=== PATIENT | female | born 1940 | race Caucasian/White ===

== ENCOUNTER 2020-08-06 11:45 | Inpatient (IN) | payer MEDICARE ==
[~2020-08-06] VITALS: Ht 160 cm; Wt 91.6 kg
[2020-08-07 12:45] VITALS: BP 136/69
[2020-08-07] MEDS ORDERED: GLUCAGON INJ 1MG VIAL SC PRN (13:00)
[2020-08-07] MEDS ORDERED: DOCUSATE SOD LIQ 100MG/10ML UDC GT PRN (13:00)
[2020-08-07] MEDS ORDERED: GLUCOSE 4GM CHEW TABLET PO PRN (13:00)
[2020-08-07] MEDS: REMEDY PHYTOPLEX Z-GUARD PASTE 113GM TUBE (FROM STOREROOM PRODUCT) TOP SCH ×3 (13:00→21:39)
[2020-08-07] MEDS ORDERED: ACETAMINOPHEN 325 MG/10.15 ML UDC GT PRN ×2 (13:00)
[2020-08-07] MEDS ORDERED: DEXTROSE 50% 50 ML SYRINGE IV PRN (13:00)
--- NOTE | 2020-08-07 13:23 | HPEPDOC ---
Supervisor Grips Note DATE OF ADMISSION: 08-07-20 DATE OF SERVICE: 08-07-20 TIME OF ADMISSION: Please refer to physician's admission order. 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 MRI on 08-20-20 showed Acute infarct in left MCA territory involving the left parietal lobeEncephalomalacia due to chronic infarct in left BRIAN territory and right temporal occipital regions. She was made NPO and received feeds via NGT. She had seizure like activity, was started on Keppra then switched to Depakote due to thrombocytopenia with follow-up MRI on showed, interval development of new infarct within the left frontotemporal lobe, as well as interval increase in the previously seen left parietal lobe infarct. Increased susceptibility artifact within the left parietal lobe, in the region of infarct may represent a small component of hemorrhage. She had an autoimmune work-up for etiology of stroke, but ultimately was deemed due to cardioembolic in origin as she was noted to have episodes of Afib while on telemetry. She remained NPO and had a PEG placed on 08-02-20 with severe impairments in mobility and ADLs and deemed medically approbate for discharge to ARU on 08-07-20. REVIEW OF SYSTEMS: The following is a completed review of systems and has been reviewed. Review of systems otherwise unremarkable. PAIN: Patient self reports no pain EYES: difficult to assess EARS, NOSE, & THROAT:+dysphagia CARDIOVASCULAR: Denies chest pain or palpitations PULMONARY: Denies shortness of breath GASTROINTESTINAL: +PEG GENITOURINARY: +incontinence MUSCULOSKELETAL: right sided weakness NEUROLOGICAL:right sided paresis, expressive aphasia SKIN: skin breakdown under breasts and in abdominal folds PSYCHIATRIC: Unremarkable All other review of systems found to be negative. PAST MEDICAL HISTORY: as per HPI ALLERGIES: Please see below. MEDICATIONS: Please see below. SOCIAL HISTORY: no etoh/illicit drugs/smoking DIET: NPO PHYSICAL EXAMINATION: VITAL SIGNS: Please see below. GENERAL: Pleasant and cooperative. No acute distress. HEENT: PERRL. Extraocular movements intact. Clear conjunctiva CARDIOVASCULAR: Regular rate and rhythm. No murmurs, rubs, or gallops LUNGS: Clear to auscultation bilaterally. No wheezes. No rhonchi ABDOMEN: Soft, nontender, nondistended. Positive bowel sounds. Normal active bowel sounds NEUROLOGICAL: +expressive aphasia, able to follow commands, Sensation grossly intact EXTREMITIES: 5/5 strength LUE, 3+/5 RUE, 4\\5 strength right lower extremity. 5/5 strength in left lower extremity. SKIN: +sacral excoriation, bilateral under breast skin breakdown and in abdominal folds LABORATORY DATA: Please see below. IMAGING:Imaging documentation personally reviewed by record FUNCTIONAL STATUS: Premorbid: Independent with all activities of daily life as well as mobility On Admission: max-total for bed mobility, toileting, dressing, functional transfers GOALS: Supervision-Contact guard for dressing, toileting, functional transfers, ambulation with RW ASSESSMENT:80-year-old F with past medical history of stroke, CKD, DM who presents status post left MCA infarct with new onset seizures PLAN: 1. Rehab- PT/OT advance mobility and ADLs, maintain ROM/stretch/strengthen all 4 limbs- multipodus boot to right foot -[employer]- patient with expressive aphasia and dysphagia, NPO, advance diet safely 2. Neuro- s/p left MCA infarct with expressive aphasia, dysphagia, and right sided hemiparesis, c/u Eliquis for AFib, statin for secondary stroke prevention- - recent post-stroke seizure activity c/u depakote 3. Cardiac- ECHO 07-23-20 showed Normal global systolic left ventricular function. This study is inadequate for the evaluation of regional wall motion. At least grade 2 diastolic dysfunction without interatrial shunt via bubble study" will hold off on fluid restriction while getting tube feeds - new onset Afib c/u eliquis and atenolol -HLD- statin 4. resp- monitor for infection, DUonebs and guaifenesin ordered, CXR ordered to r/o infectious process as increasing wbc per GI records 5. GI ppx- lansoprazole -tube feeds 6. VAsc hx of DVT c/u eliquis 7. - monitor PVRs, will order UA/Ucx given patient unable to give clear answer regarding dysuria and unclear if she is confused/altered, but does have leukocytosis 8. Pain- tylneol prn, lidoderm patch to right shoulder 9. Psych- patient was on Budeprion 100mg BID at home and off it while at GI will start back at half dose 50mg BID 10. Dispo- tbd POST ADMISSION PHYSICIAN EVALUATION: Medical and functional status: Description of medical status, medical assessment: As above. Rehabilitation diagnosis and current and prior cold morbid medical conditions as above. Risk of complications and plans to mitigate them as above. Description of functional status current status is as above. Prior status as above. Status compared to preadmission: There are no clinically significant differences between the patient's current status and the information described on the preadmission screening document. Treatment plan anticipated: Treatment plan is as described above. Required disciplines including physical therapy, occupational therapy, others as noted above Intensity of services: 3 hours a day, 6 days a week. Special considerations: There are no specific special or safety considerations that would likely preclude immediate implementation of an intensive rehabilitation program or subsequently influence the plan of care ATTESTATION: Considering all the information above, it is my best judgment that this patient requires intensive rehabilitation therapy as described above and an inpatient hospital environment due to the complexity of nursing, medical, and rehabilitation needs required by the patient. Furthermore, this patient can reasonably be expected to participate in an benefit from an inpatient rehabilitation stay with an interdisciplinary team approach to the delivery of rehabilitation care under the direction and supervision of rehabilitation physician PROGNOSIS: good ESTIMATED LENGTH OF STAY:21-24 days. PROJECTED DISCHARGE DESTINATION: Home with family support and any durable medical equipment required to increase functional safety and mobility. TIME SPENT COUNSELING AND COORDINATING INITIAL CARE: Greater than 70 minutes. Vital Signs Vital Signs Date Time Temp Pulse Resp B/P (MAP) Pulse Ox O2 Delivery O2 Flow Rate FiO2 08/07/20 12:45 98.4 88 19 136/69 (91) 95 Room Air Home Medications Scheduled Apixaban (Eliquis) 5 Mg Tablet, 5 MG GT BID, (Reported) STARTED AT [facility] Atenolol (Atenolol) 50 Mg Tablet, 50 MG PO DAILY, (Reported) NOT GIVEN AT [facility] Atorvastatin Calcium (Atorvastatin Calcium) 40 Mg Tablet, 40 MG GT DAILY, (Reported) STARTED AT [facility] Bupropion HCl (Bupropion HCl Sr) 100 Mg Tab.sr.12h, 100 MG PO DAILY, (Reported) NOT GIVEN AT [facility] Docusate Sodium (Docusate Sodium) 50 Mg/5 Ml Liquid, 100 MG GT BID, (Reported) STARTED AT [facility] Gabapentin (Gabapentin) 100 Mg Capsule, 300 MG PO QHS, (Reported) NOT GIVEN AT [facility] Losartan Potassium (Losartan Potassium) 25 Mg Tablet, 25 MG GT DAILY, (Reported) STARTED AT [facility] Magnesium Hydroxide (Milk of Magnesia) 400 Mg/5 Ml Oral.susp, 15 ML GT DAILY, (Reported) STARTED AT [facility] Oxybutynin Chloride (Oxybutynin Chloride) 5 Mg Tablet, 5 MG GT BID, (Reported) Polyethylene Glycol 3350 (Miralax) 119 Gm Powder, 17 GM GT BID, (Reported) STARTED AT [facility] Potassium Chloride (Potassium Chloride) 8 Meq Tablet.er, 8 MEQ PO BID, (Reported) NOT GIVEN AT [facility] Sennosides (Senna Laxative) 8.6 Mg Tablet, 17.2 MG GT BID, (Reported) Valproic Acid (As Sodium Salt) (Valproic Acid) 250 Mg/5 Ml Solution, 650 MG GT TID, (Reported) STARTED AT [facility] Allergies Coded Allergies: No Known Allergies (Unverified , 08/07/20) A-FIB/CHADSVASC A-FIB History Current/History of A-Fib/PAF?: Yes Current PO Anticoag Therapy: Yes SANTA HOOVER MD Aug 07, 2020 13:23
[2020-08-07] MEDS ORDERED: LOSA25TA14 GT (13:44)
[2020-08-07] MEDS ORDERED: MILKSUS3 GT (13:44)
[2020-08-07] MEDS ORDERED: BUPR1TAB52 PO (13:44)
[2020-08-07] MEDS ORDERED: GABA-1171 PO (13:44)
[2020-08-07] MEDS ORDERED: ELIQ5TAB GT (13:44)
[2020-08-07] MEDS ORDERED: MIRA3350 GT (13:44)
[2020-08-07] MEDS ORDERED: SENN-85 GT (13:44)
[2020-08-07] MEDS ORDERED: POTA1TAB21 PO (13:44)
[2020-08-07] MEDS ORDERED: OXYB5TAB10 GT (13:44)
[2020-08-07] MEDS ORDERED: ATOR40TA75 GT (13:44)
[2020-08-07] MEDS ORDERED: VALP250S GT (13:44)
[2020-08-07] MEDS ORDERED: ATEN50TA2 PO (13:44)
[2020-08-07] MEDS ORDERED: DOCU5LIQ GT (13:44)
[2020-08-07 14:00] VITALS: BP 130/70
[2020-08-07] MEDS ORDERED: PILL CUTTER 1 EACH XX PRN (14:30)
[2020-08-07] MEDS: IPRATROPIUM 0.5MG/ALBUTEROL 2.5MG INH SOL UD 3ML (DUONEB) NEB SCH ×2 (15:45→19:57)
[2020-08-07] MEDS: guaiFENesin SYRUP 200 MG/10 ML UDC PEG SCH ×2 (16:09→21:31)
[2020-08-07] MEDS: NYSTATIN 100,000 UNITS/GM TOPICAL PWD 15 GM TOP SCH ×2 (16:10→21:39)
[2020-08-07] MEDS: VALPROIC ACID 250MG/5ML SOL ORAL SYRINGE *DRAW UP EXACT DOSE PEG SCH ×2 (16:10→21:37)
--- NOTE | 2020-08-07 17:05 | REP ---
INDICATION: r/o PNA, patient with PEG placed 12--20 for stroke. COMPARISON: No comparison study. TECHNIQUE: Two views.. FINDINGS: Lungs are symmetrically aerated. No infiltrate is seen. Pleural angles are sharp. The views are exposed at a relatively low level of inspiration. Heart is not felt to be enlarged. Aorta is somewhat tortuous. No significant bony abnormality is seen. There is no evidence of free subdiaphragmatic air. IMPRESSION: No active disease. No infiltrate seen.. <Electronically signed by Adán Dominguez > 08/07/20 1449
[2020-08-07 20:00] VITALS: BP 129/71
[2020-08-07] MEDS: buPROPion 100 MG TAB PO SCH (21:30)
[2020-08-07] MEDS: oxyBUTYnin 5 MG TAB PEG SCH (21:31)
[2020-08-07] MEDS: APIXABAN 5 MG TAB (ELIQUIS) PEG SCH (21:31)
[2020-08-08] MEDS: REMEDY PHYTOPLEX Z-GUARD PASTE 113GM TUBE (FROM STOREROOM PRODUCT) TOP SCH ×6 (00:30→21:40)
[2020-08-08 06:00] VITALS: BP 142/83
[2020-08-08 07:44] LABS: HEMOGLOBIN 10.9 g/dl (12.0-15.5); MEAN CORPUSCULAR HEMOGLOBIN 30.4 pg (27.0-33.0); MEAN CORPUSCULAR HGB CONC 31.1 g/dl (32.0-36.5); MEAN CORPUSCULAR VOLUME 97.5 fl (80.0-96.0); PLATELET COUNT, AUTOMATED 200 10^3/uL (150-450); RED BLOOD COUNT 3.59 10^6/uL (4.00-5.40); WHITE BLOOD COUNT 12.9 10^3/uL (4.0-10.0)
[2020-08-08] MEDS: oxyBUTYnin 5 MG TAB PEG SCH ×2 (08:08→21:27)
[2020-08-08] MEDS: guaiFENesin SYRUP 200 MG/10 ML UDC PEG SCH ×3 (08:09→21:28)
[2020-08-08] MEDS: ATORVASTATIN 20 MG TAB PEG SCH (08:10)
[2020-08-08] MEDS: LOSARTAN 25 MG TAB PEG SCH (08:10)
[2020-08-08] MEDS: buPROPion 100 MG TAB PO SCH ×2 (08:11→21:28)
[2020-08-08] MEDS: BISACODYL 10 MG SUPP PR SCH (08:12)
[2020-08-08] MEDS: APIXABAN 5 MG TAB (ELIQUIS) PEG SCH ×2 (08:12→21:27)
[2020-08-08] MEDS: atenoloL 50 MG TAB PEG SCH (08:12)
[2020-08-08] MEDS: VALPROIC ACID 250MG/5ML SOL ORAL SYRINGE *DRAW UP EXACT DOSE PEG SCH ×3 (08:13→21:27)
[2020-08-08] MEDS: NYSTATIN 100,000 UNITS/GM TOPICAL PWD 15 GM TOP SCH ×3 (08:13→21:40)
[2020-08-08 08:16] LABS: ALBUMIN 2.1 GM/DL (3.2-5.2); ALT/SGPT 18 U/L (12-78); ATYPICAL LYMPH 1 % (0-5); BASOPHILS 1 % (0-1); BILIRUBIN,TOTAL 0.5 MG/DL (0.2-1.0); BLOOD UREA NITROGEN 38 MG/DL (7-18); CALCIUM LEVEL 7.9 MG/DL (8.8-10.2); CARBON DIOXIDE LEVEL 29 MEQ/L (21-32); CHLORIDE LEVEL 111 MEQ/L (98-107); GLOMERULAR FILTRATION RATE > 60.0 (>39); GLUCOSE, FASTING 118 MG/DL (70-100); LYMPHOCYTES 16 % (16-44); MONOCYTES 14 % (0-5); MYELOCYTES 3 % (0-0); NEUTROPHILS 61 % (28-66); POTASSIUM SERUM 4.3 MEQ/L (3.5-5.1); SODIUM LEVEL 145 MEQ/L (136-145); TOTAL PROTEIN 5.6 GM/DL (6.4-8.2)
[2020-08-08 08:17] LABS: ANISOCYTOSIS 1+; PLATELET ESTIMATE NORMAL (NORMAL); POLYCHROMASIA 1+
[2020-08-08] MEDS: IPRATROPIUM 0.5MG/ALBUTEROL 2.5MG INH SOL UD 3ML (DUONEB) NEB SCH ×3 (08:35→19:20)
--- NOTE | 2020-08-08 10:14 | IPNPDOC ---
PM&R Progress Note DATE OF SERVICE: Aug 08, 2020 Head Nurse Progress Note Subjective: PAtient seen in therapy, appearing alert and able to follow commands consistently, however unable to answer yes/no questions accurately due to expressive aphasia. REVIEW OF SYSTEMS: The following is a completed review of systems and has been reviewed. Review of systems otherwise unremarkable. PAIN: Patient self reports no pain EYES: difficult to assess EARS, NOSE, & THROAT:+dysphagia CARDIOVASCULAR: Denies chest pain or palpitations PULMONARY: Denies shortness of breath GASTROINTESTINAL: +PEG GENITOURINARY: +incontinence MUSCULOSKELETAL: right sided weakness NEUROLOGICAL:right sided paresis, expressive aphasia SKIN: skin breakdown under breasts and in abdominal folds PSYCHIATRIC: Unremarkable All other review of systems found to be negative. PHYSICAL EXAMINATION: VITAL SIGNS: Please see below. GENERAL: Pleasant and cooperative. No acute distress. HEENT: PERRL. Extraocular movements intact. Clear conjunctiva CARDIOVASCULAR: Regular rate and rhythm. No murmurs, rubs, or gallops LUNGS: Clear to auscultation bilaterally. No wheezes. No rhonchi ABDOMEN: Soft, nontender, nondistended. Positive bowel sounds. Normal active bowel sounds NEUROLOGICAL: +expressive aphasia, able to follow commands, Sensation grossly intact EXTREMITIES: 5/5 strength LUE, 3+/5 RUE, 4\\5 strength right lower extremity. 5/5 strength in left lower extremity. SKIN: +sacral excoriation, bilateral under breast skin breakdown and in abdominal folds ASSESSMENT:80-year-old F with past medical history of stroke, CKD, DM who presents status post left MCA infarct with new onset seizures PLAN: 1. Rehab- PT/OT advance mobility and ADLs, maintain ROM/stretch/strengthen all 4 limbs- multipodus boot to right foot -[employer] ATT[employer]NEY- patient with expressive aphasia and dysphagia, NPO, advance diet safely 2. Neuro- s/p left MCA infarct with expressive aphasia, dysphagia, and right sided hemiparesis, c/u Eliquis for AFib, statin for secondary stroke prevention- - recent post-stroke seizure activity c/u depakote 3. Cardiac- ECHO 07-23-20 showed Normal global systolic left ventricular function. This study is inadequate for the evaluation of regional wall motion. At least grade 2 diastolic dysfunction without interatrial shunt via bubble study" will hold off on fluid restriction while getting tube feeds - new onset Afib c/u eliquis and atenolol -HLD- statin 4. resp- monitor for infection, DUonebs and guaifenesin ordered, CXR ordered to r/o infectious process as increasing wbc per [facility] records- appears WNL 5. GI ppx- lansoprazole -tube feeds 6. VAsc hx of DVT c/u eliquis 7. - monitor PVRs, will order UA/Ucx given patient unable to give clear answer regarding dysuria and unclear if she is confused/altered, but does have leukocytosis 8. Pain- tylneol prn, lidoderm patch to right shoulder 9. Psych- patient was on Budeprion 100mg BID at home and off it while at GI will start back at half dose 50mg BID 10. SKin- turn q2h in bed, dressing changes per nursing orders 10. Dispo- tbd Allergies Coded Allergies: No Known Allergies (Unverified , 08/07/20) Vital Signs Vital Signs Date Time Temp Pulse Resp B/P (MAP) Pulse Ox O2 Delivery O2 Flow Rate FiO2 08/08/20 08:12 88 142/83 08/08/20 06:00 97.7 18 97 Room Air Laboratory Data CBC/BMP Laboratory Tests 08/08/20 07:26 Labs 24H Laboratory Tests 2 08/07/20 17:55: Bedside Glucose (Misc Panel) 151H 08/08/20 00:18: Bedside Glucose (Misc Panel) 154H 08/08/20 05:24: Bedside Glucose (Misc Panel) 113H 08/08/20 07:26: Immature Granulocyte % (Auto) , Neutrophils (%) (Auto) , Nucleated Red Blood Cells % (auto) 0.0, Neutrophils 61, Band Neutrophils 4, Lymphocytes (Manual) 16, Monocytes (Manual) 14H, Basophils (Manual) 1, Myelocytes 3H, Atypical Lymphocytes 1, Polychromasia 1+, Anisocytosis 1+, Macrocytosis 1+, Platelet Estimate NORMAL, Anion Gap 5L, Glomerular Filtration Rate > 60.0, Calcium Level 7.9L, Total Bilirubin 0.5, Aspartate Amino Transf (AST/SGOT) 30, Alanine Aminotransferase (ALT/SGPT) 18, Alkaline Phosphatase 52, Total Protein 5.6L, Albumin 2.1L, Albumin/Globulin Ratio 0.6L Current Medications Current Medications Current Medications Medications (Trade) Dose Ordered Sig/Brenda Route PRN Reason Start Time Stop Time Status Last Admin Dose Admin Acetaminophen (Tylenol Suspension) 650 mg Q4HP PRN GT PAIN OR FEVER 08/07/20 13:00 Acetaminophen (Tylenol Suspension) 650 mg Q4HP PRN GT PAIN / FEVER 08/07/20 13:00 UNV Albuterol/ Ipratropium (Duoneb (Ipr 0.5mg/Alb 2.5mg)) 3 ml RTID NEB 08/07/20 14:00 08/08/20 08:35 Apixaban (Eliquis) 5 mg BID PEG 08/07/20 21:00 08/08/20 08:12 Atenolol (Tenormin) 50 mg DAILY PEG 08/08/20 09:00 08/08/20 08:12 Atorvastatin Calcium (Lipitor) 40 mg DAILY PEG 08/08/20 09:00 08/08/20 08:10 Bisacodyl (Dulcolax Suppository) 10 mg DAILY AR 08/08/20 09:00 08/08/20 08:12 Bupropion HCl (Wellbutrin) 50 mg BID PO 08/07/20 21:00 08/08/20 08:11 Dextrose (Dextrose 50%) 25 ml ASDIRECTED PRN IV SEE LABEL COMMENTS 08/07/20 13:00 Docusate Sodium (Colace Liquid) 100 mg BIDP PRN GT CONSTIPATION 08/07/20 13:00 Glucagon (Glucagon) 1 mg ASDIRECTED PRN SC SEE LABEL COMMENTS 08/07/20 13:00 Glucose (Glucose) 16 GM ASDIRECTED PRN PO SEE LABEL COMMENTS 08/07/20 13:00 Guaifenesin (Robitussin) 5 ml TID PEG 08/07/20 16:00 08/08/20 08:09 Home Med (Med Rec Complete!) ASDIRECTED XX 08/07/20 13:45 08/07/20 13:51 DC Losartan Potassium (Cozaar) 25 mg DAILY PEG 08/08/20 09:00 08/08/20 08:10 Nystatin (Mycostatin Powder, Nystop) 1 dose TID TOP 08/07/20 16:00 08/08/20 08:13 Oxybutynin Chloride (Ditropan) 5 mg BID PEG 08/07/20 21:00 08/08/20 08:08 Valproic Acid (Depakene Solution) 650 mg TID PEG 08/07/20 16:00 08/08/20 08:13 SANTA HOOVER MD Aug 08, 2020 10:14
[2020-08-08] MEDS: LIDOCAINE 5% (LIDODERM) PATCH TD SCH (12:17)
[2020-08-08] MEDS: LANSOPRAZOLE SUSPENSION 30 MG/10 ML ORAL SYRINGE (FIRST-LANSOPRAZOLE) GT SCH (12:40)
[2020-08-08 14:00] VITALS: BP 138/65
[2020-08-08 14:41] VITALS: BP 138/65
--- NOTE | 2020-08-08 14:43 | CR.PDOC ---
General Date of Consultation: Aug 08, 2020 Referring Provider: A Consultation REASON FOR CONSULTATION/CHIEF COMPLAINT: Medical management HISTORY OF PRESENT ILLNESS: 80-year-old female admitted to [facility] due to left lower extremity weakness and aphasia from [facility] with CT of the head s howing left vertebral occlusion. Patient was found to have an acute ischemic stroke in the left frontoparietal region concerning for cardioembolic phenomenon. Given bilateral old strokes in the past. She was admitted to the stroke service and [facility] and continued on her home dose of Xarelto and Lipitor. The patient was set fiddling transferred to [facility] acute rehabilitation unit after medical treatment at [facility]. . She is currently requiring 1 person assistance at all times but appears to be very cooperative. She currently denies any fevers, chills, shortness breath, chest pain, pressure, tightness, lightheadedness, nausea, vomiting, diarrhea, ab dominal pain, dysuria, urgency, frequency, fever, chills, polyphagia, polyuria, ear pain, discharge, changes in vision, rhinorrhea, tinnitus, ear discharge. She complains of weakness and quite anxious about falling. No other issues per nursing from overnight. PAST MEDICAL HISTORY: , Hypertension, ischemic CVA 1974 and chronic kidney disease stage III DVT PAST SURGICAL HISTORY: None HOME MEDICATIONS SEE BELOW. 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 Denies tobacco, alcohol, recreational drug use. Lives with her son at home FAMILY HISTORY: Noncontributory due to advanced age REVIEW OF SYSTEMS: 10 point system negative aside from positive findings in HPI PHYSICAL EXAMINATION: VITAL SIGNS: Please see below. GENERAL APPEARANCE: Awake, alert, oriented to person, place and time. . HEENT: Dry mucous membranes, no JVD, no thyromegaly, no cervical lymphadenopathy . LUNGS: Clear to auscultation. Wheezing, rales or rhonchi . HEART: S1, S2 regular rate rhythm, no murmurs, rubs or gallops . ABDOMEN: Obese, soft, nontender, nondistended, positive bowel sounds 4 quadr ants. No rebound or guarding. No CVA tenderness . EXTREMITIES: No cyanosis, clubbing or edema . NEURO: Awake, alert, oriented to person, place and time, answering questions appropriately. Face is symmetric. Tongue is midline. No pronator drift bilaterally, mild expressive aphasia but understandable and coherent. No receptive aphasia and no neglect. Motor function right upper and left upper extremities 5 out of 5, left lower extremity, creatinine 5. Right lower extremity 4-5. LABORATORY DATA: Please see below. ASSESSMENT: 80-year-old female admitted to [facility] due to left lower extremity weakness and aphasia from [facility] with CT of the head showing left vertebral occlusion. Patient was found to have an acute ischemic stroke in the left frontoparietal region concerning for cardioembolic phenomenon. Given bilateral old strokes in the past. She was admitted to the stroke service and [facility] and continued on her home dose of Xarelto and Lipitor. The patient was set fiddling transferred to [facility] acute rehabilitation unit after medical treatment at [facility]. . She is currently requiring 1 person assistance at all times but appears to be very cooperative. She currently denies any fevers, chills, shortness breath, chest pain, pressure, tightness, lightheadedness, nausea, vomiting, diarrhea, abdominal pain, dysuria, urgency, frequency, fever, chills, polyphagia, polyuria, ear pain, discharge, changes in vision, rhinorrhea, tinnitus, ear discharge. She complains of weakness and quite anxious about falling. No other issues per nursing from overnight. . Acute left frontoparietal ischemic CVA. history of bilateral CVA , Hypertension chronic kidney disease stage III h/o DVT PLAN: Patient is currently medically optimized may continue all present medications. High risk for falls assisted ambulation only. ptot. PLAN: Vital Signs/I&O Vital Signs Date Time Temp Pulse Resp B/P (MAP) Pulse Ox O2 Delivery O2 Flow Rate FiO2 08/08/20 08:12 88 142/83 08/08/20 06:00 97.7 18 97 Room Air I&O- Last 24 Hours up to 6 AM 08/08/20 06:00 Intake Total 1120 ml Balance 1120 ml Laboratory Data Labs 24H Laboratory Tests 2 08/07/20 17:55: Bedside Glucose (Misc Panel) 151H 08/08/20 00:18: Bedside Glucose (Misc Panel) 154H 08/08/20 05:24: Bedside Glucose (Misc Panel) 113H 08/08/20 07:26: Immature Granulocyte % (Auto) , Neutrophils (%) (Auto) , Nucleated Red Blood Cells % (auto) 0.0, Neutrophils 61, Band Neutrophils 4, Lymphocytes (Manual) 16, Monocytes (Manual) 14H, Basophils (Manual) 1, Myelocytes 3H, Atypical Lymphocytes 1, Polychromasia 1+, Anisocytosis 1+, Macrocytosis 1+, Platelet Freida mate NORMAL, Anion Gap 5L, Glomerular Filtration Rate > 60.0, Calcium Level 7.9L, Total Bilirubin 0.5, Aspartate Amino Transf (AST/SGOT) 30, Alanine Aminotransferase (ALT/SGPT) 18, Alkaline Phosphatase 52, Total Protein 5.6L, Albumin 2.1L, Albumin/Globulin Ratio 0.6L 08/08/20 11:23: [facility]H CBC/BMP Laboratory Tests 08/08/20 07:26 Allergies Coded Allergies: No Known Allergies (Unverified , 08/07/20) Home Medications Scheduled Apixaban (Eliquis) 5 Mg Tablet, 5 MG GT BID, (Reported) STARTED AT [facility] Atenolol (Atenolol) 50 Mg Tablet, 50 MG PO DAILY, (Reported) NOT GIVEN AT [facility] Atorvastatin Calcium (Atorvastatin Calcium) 40 Mg Tablet, 40 MG GT DAILY, (Reported) STARTED AT [facility] Bupropion HCl (Bupropion HCl Sr) 100 Mg Tab.sr.12h, 100 MG PO DAILY, (Reported) NOT GIVEN AT [facility] Docusate Sodium (Docusate Sodium) 50 Mg/5 Ml Liquid, 100 MG GT BID, (Reported) STARTED AT [facility] Gabapentin (Gabapentin) 100 Mg Capsule, 300 MG PO QHS, (Reported) NOT GIVEN AT [facility] Losartan Potassium (Losartan Potassium) 25 Mg Tablet, 25 MG GT DAILY, (Reported) STARTED AT [facility] Magnesium Hydroxide (Milk of Magnesia) 400 Mg/5 Ml Oral.susp, 15 ML GT DAILY, (Reported) STARTED AT [facility] Oxybutynin Chloride (Oxybutynin Chloride) 5 Mg Tablet, 5 MG GT BID, (Reported) Polyethylene Glycol 3350 (Miralax) 119 Gm Powder, 17 GM GT BID, (Reported) STARTED AT [facility] Potassium Chloride (Potassium Chloride) 8 Meq Tablet.er, 8 MEQ PO BID, (Reported) NOT GIVEN AT [facility] Sennosides (Senna Laxative) 8.6 Mg Tablet, 17.2 MG GT BID, (Reported) Valproic Acid (As Sodium Salt) (Valproic Acid) 250 Mg/5 Ml Solution, 650 MG GT TID, (Reported) STARTED AT [facility],EMILY Hay MD Aug 08, 2020 13:12
[2020-08-08] MEDS: SALIVA SUBSTITUTE(MOUTHKOTE) BTL MT PRN (18:28)
[2020-08-08 20:00] VITALS: BP 136/74
[2020-08-08] MEDS: **NOTE PATIENT COMMENT** MISC XX SCH (21:41)
[2020-08-09] MEDS: REMEDY PHYTOPLEX Z-GUARD PASTE 113GM TUBE (FROM STOREROOM PRODUCT) TOP SCH ×6 (02:00→22:24)
[2020-08-09 06:00] VITALS: BP 150/72
[2020-08-09] MEDS: IPRATROPIUM 0.5MG/ALBUTEROL 2.5MG INH SOL UD 3ML (DUONEB) NEB SCH ×3 (07:19→19:40)
[2020-08-09 07:32] LABS: HEMOGLOBIN 11.2 g/dl (12.0-15.5); MEAN CORPUSCULAR HEMOGLOBIN 30.5 pg (27.0-33.0); MEAN CORPUSCULAR HGB CONC 31.1 g/dl (32.0-36.5); MEAN CORPUSCULAR VOLUME 98.1 fl (80.0-96.0); PLATELET COUNT, AUTOMATED 225 10^3/uL (150-450); RED BLOOD COUNT 3.67 10^6/uL (4.00-5.40); WHITE BLOOD COUNT 15.8 10^3/uL (4.0-10.0)
[2020-08-09 08:04] LABS: BLOOD UREA NITROGEN 37 MG/DL (7-18); CARBON DIOXIDE LEVEL 31 MEQ/L (21-32); CHLORIDE LEVEL 110 MEQ/L (98-107); CREATININE FOR GFR 0.91 MG/DL (0.55-1.30); GLOMERULAR FILTRATION RATE > 60.0 (>39); GLUCOSE, FASTING 105 MG/DL (70-100); SODIUM LEVEL 143 MEQ/L (136-145)
[2020-08-09 08:25] LABS: ATYPICAL LYMPH 4 % (0-5); LYMPHOCYTES 9 % (16-44); METAMYELOCYTES 3 % (0-0); MONOCYTES 11 % (0-5); MYELOCYTES 3 % (0-0); NEUTROPHILS 62 % (28-66); PLATELET ESTIMATE NORMAL (NORMAL)
[2020-08-09 08:26] LABS: ANISOCYTOSIS 1+
[2020-08-09] MEDS: guaiFENesin SYRUP 200 MG/10 ML UDC PEG SCH ×3 (08:28→22:21)
[2020-08-09] MEDS: LANSOPRAZOLE SUSPENSION 30 MG/10 ML ORAL SYRINGE (FIRST-LANSOPRAZOLE) GT SCH (08:30)
[2020-08-09] MEDS: ATORVASTATIN 20 MG TAB PEG SCH (08:30)
[2020-08-09] MEDS: BISACODYL 10 MG SUPP PR SCH (08:30)
[2020-08-09] MEDS: oxyBUTYnin 5 MG TAB PEG SCH ×2 (08:30→22:19)
[2020-08-09] MEDS: buPROPion 100 MG TAB PO SCH ×2 (08:30→22:20)
[2020-08-09] MEDS: LOSARTAN 25 MG TAB PEG SCH (08:31)
[2020-08-09] MEDS: APIXABAN 5 MG TAB (ELIQUIS) PEG SCH ×2 (08:31→22:20)
[2020-08-09] MEDS: atenoloL 50 MG TAB PEG SCH (08:31)
[2020-08-09] MEDS: VALPROIC ACID 250MG/5ML SOL ORAL SYRINGE *DRAW UP EXACT DOSE PEG SCH ×3 (08:32→22:21)
[2020-08-09] MEDS: LIDOCAINE 5% (LIDODERM) PATCH TD SCH (08:33)
[2020-08-09] MEDS: NYSTATIN 100,000 UNITS/GM TOPICAL PWD 15 GM TOP SCH ×3 (08:33→22:23)
[2020-08-09] MEDS: LevoFLOXacin 750 MG TABLET PEG SCH (12:23)
[2020-08-09 14:00] VITALS: BP 113/60
[2020-08-09] MEDS: LACTOBACILLUS ACIDOPHILUS CAP (BACID) PEG SCH ×2 (16:16→22:20)
[2020-08-09 20:15] VITALS: BP 108/60
[2020-08-09] MEDS: ACETAMINOPHEN 325 MG/10.15 ML UDC GT SCH (22:21)
[2020-08-09] MEDS: **NOTE PATIENT COMMENT** MISC XX SCH (22:23)
[2020-08-10] MEDS: REMEDY PHYTOPLEX Z-GUARD PASTE 113GM TUBE (FROM STOREROOM PRODUCT) TOP SCH ×6 (01:00→20:51)
[2020-08-10] MEDS: LevoFLOXacin 750 MG TABLET PEG SCH (06:01)
[2020-08-10] MEDS: SALIVA SUBSTITUTE(MOUTHKOTE) BTL MT PRN (06:05)
[2020-08-10 06:09] VITALS: BP 124/68
[2020-08-10] MEDS: IPRATROPIUM 0.5MG/ALBUTEROL 2.5MG INH SOL UD 3ML (DUONEB) NEB SCH ×3 (07:15→21:15)
[2020-08-10 07:39] LABS: HEMATOCRIT 32.5 % (36.0-47.0); HEMOGLOBIN 10.3 g/dl (12.0-15.5); MEAN CORPUSCULAR HEMOGLOBIN 30.8 pg (27.0-33.0); MEAN CORPUSCULAR HGB CONC 31.7 g/dl (32.0-36.5); MEAN CORPUSCULAR VOLUME 97.3 fl (80.0-96.0); PLATELET COUNT, AUTOMATED 197 10^3/uL (150-450); RED BLOOD COUNT 3.34 10^6/uL (4.00-5.40)
[2020-08-10 08:24] LABS: ANISOCYTOSIS 1+; LYMPHOCYTES 13 % (16-44); METAMYELOCYTES 1 % (0-0); MONOCYTES 13 % (0-5); MYELOCYTES 2 % (0-0); NEUTROPHILS 66 % (28-66); PLATELET ESTIMATE NORMAL (NORMAL)
[2020-08-10] MEDS ORDERED: NITROFURANTOIN (MACROBID) 100 MG CAP GT SCH (09:00)
[2020-08-10] MEDS: VALPROIC ACID 250MG/5ML SOL ORAL SYRINGE *DRAW UP EXACT DOSE PEG SCH ×3 (09:30→20:53)
[2020-08-10] MEDS: ACETAMINOPHEN 325 MG/10.15 ML UDC GT SCH ×3 (09:30→20:48)
[2020-08-10] MEDS: LANSOPRAZOLE SUSPENSION 30 MG/10 ML ORAL SYRINGE (FIRST-LANSOPRAZOLE) GT SCH (09:30)
[2020-08-10] MEDS: guaiFENesin SYRUP 200 MG/10 ML UDC PEG SCH ×3 (09:30→20:50)
[2020-08-10] MEDS: atenoloL 50 MG TAB PEG SCH (09:31)
[2020-08-10] MEDS: LACTOBACILLUS ACIDOPHILUS CAP (BACID) PEG SCH ×3 (09:31→20:49)
[2020-08-10] MEDS: APIXABAN 5 MG TAB (ELIQUIS) PEG SCH ×2 (09:31→20:49)
[2020-08-10] MEDS: LOSARTAN 25 MG TAB PEG SCH (09:31)
[2020-08-10] MEDS: ATORVASTATIN 20 MG TAB PEG SCH (09:32)
[2020-08-10] MEDS: buPROPion 100 MG TAB PO SCH ×2 (09:32→20:50)
[2020-08-10] MEDS: oxyBUTYnin 5 MG TAB PEG SCH ×2 (09:32→20:49)
[2020-08-10] MEDS: BISACODYL 10 MG SUPP PR SCH (09:33)
[2020-08-10] MEDS: NYSTATIN 100,000 UNITS/GM TOPICAL PWD 15 GM TOP SCH ×3 (09:33→20:51)
[2020-08-10] MEDS: LIDOCAINE 5% (LIDODERM) PATCH TD SCH (09:33)
--- NOTE | 2020-08-10 13:02 | IPNPDOC ---
PM&R Progress Note DATE OF SERVICE: Aug 09, 2020 Copy Center Associate Progress Note Subjective: PAtient seen in her room appearing to have pain in her right shoulder with passive range of motion, but relieved with gentle external rotation of the shoulder. REVIEW OF SYSTEMS: The following is a completed review of systems and has been reviewed. Review of systems otherwise unremarkable. PAIN: Patient self reports no pain EYES: difficult to assess EARS, NOSE, & THROAT:+dysphagia CARDIOVASCULAR: Denies chest pain or palpitations PULMONARY: Denies shortness of breath GASTROINTESTINAL: +PEG GENITOURINARY: +incontinence MUSCULOSKELETAL: right sided weakness NEUROLOGICAL:right sided paresis, expressive aphasia SKIN: skin breakdown under breasts and in abdominal folds PSYCHIATRIC: Unremarkable All other review of systems found to be negative. PHYSICAL EXAMINATION: VITAL SIGNS: Please see below. GENERAL: Pleasant and cooperative. No acute distress. HEENT: PERRL. Extraocular movements intact. Clear conjunctiva CARDIOVASCULAR: Regular rate and rhythm. No murmurs, rubs, or gallops LUNGS: Clear to auscultation bilaterally. No wheezes. No rhonchi ABDOMEN: Soft, nontender, nondistended. Positive bowel sounds. Normal active bowel sounds NEUROLOGICAL: +expressive aphasia, able to follow commands, Sensation grossly intact EXTREMITIES: 5/5 strength LUE, 3+/5 RUE, 4\\5 strength right lower extremity. 5/5 strength in left lower extremity. SKIN: +sacral excoriation, bilateral under breast skin breakdown and in abdominal folds ASSESSMENT:80-year-old F with past medical history of stroke, CKD, DM who presents status post left MCA infarct with new onset seizures PLAN: 1. 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 Neuro- s/p left MCA infarct with expressive aphasia, dysphagia, and right sided hemiparesis, c/u Eliquis for AFib, statin for secondary stroke prevention- - recent post-stroke seizure activity c/u depakote 3. Cardiac- ECHO 07-23-20 showed Normal global systolic left ventricular function. This study is inadequate for the evaluation of regional wall motion. At least grade 2 diastolic dysfunction without interatrial shunt via bubble study" will hold off on fluid restriction while getting tube feeds - new onset Afib c/u eliquis and atenolol -HLD- statin 4. resp- monitor for infection, DUonebs and guaifenesin ordered, CXR ordered to r/o infectious process as increasing wbc per [facility] records- appears WNL 5. GI ppx- lansoprazole -tube feeds 6. VAsc hx of DVT c/u eliquis 7. - monitor PVRs- patient unable to give clear answer regarding dysuria and unclear if she is confused/altered, but does have leukocytosis- starting Levaquin for +UA, waiting for Ucx results 8. Pain- tylneol standing, lidoderm patch to right shoulder 9. Psych- patient was on Budeprion 100mg BID at home and off it while at [facility] will start back at half dose 50mg BID 10. SKin- turn q2h in bed, dressing changes per nursing orders 10. Dispo- tbd Allergies Coded Allergies: No Known Allergies (Unverified , 08/07/20) Vital Signs Vital Signs Date Time Temp Pulse Resp B/P (MAP) Pulse Ox O2 Delivery O2 Flow Rate FiO2 08/10/20 09:31 77 08/10/20 09:31 134/64 08/10/20 06:09 99.1 18 96 Room Air Laboratory Data CBC/BMP Laboratory Tests 08/10/20 07:06 Labs 24H Laboratory Tests 2 08/09/20 16:52: Bedside Glucose (Misc Panel) 126H 08/10/20 00:13: Bedside Glucose (Misc Panel) 144H 08/10/20 06:10: Bedside Glucose (Misc Panel) 101 08/10/20 07:06: Immature Granulocyte % (Auto) , Neutrophils (%) (Auto) , Nucleated Red Blood Cells % (auto) 0.0, Neutrophils 66, Band Neutrophils 5, Lymphocytes (Manual) 13L, Monocytes (Manual) 13H, Metamyelocytes 1H, Myelocytes 2H, Anisocytosis 1+, Macrocytosis 1+, Platelet Estimate NORMAL 08/10/20 12:07: Bedside Glucose (Misc Panel) 147H Microbiology Microbiology 08/09/20 Urine Culture, Received Pending Current Medications Current Medications Current Medications Medications (Trade) Dose Ordered Sig/Brenda Route PRN Reason Start Time Stop Time Status Last Admin Dose Admin Acetaminophen (Tylenol Suspension) 650 mg Q4HP PRN GT PAIN OR FEVER 08/07/20 13:00 08/09/20 16:32 DC 08/09/20 16:17 Acetaminophen (Tylenol Suspension) 650 mg Q4HP PRN GT PAIN / FEVER 08/07/20 13:00 UNV Acetaminophen (Tylenol Suspension) 975 mg TID GT 08/09/20 21:00 08/10/20 09:30 Albuterol/ Ipratropium (Duoneb (Ipr 0.5mg/Alb 2.5mg)) 3 ml RTID NEB 08/07/20 14:00 08/10/20 07:15 Apixaban (Eliquis) 5 mg BID PEG 08/07/20 21:00 08/10/20 09:31 Atenolol (Tenormin) 50 mg DAILY PEG 08/08/20 09:00 08/10/20 09:31 Atorvastatin Calcium (Lipitor) 40 mg DAILY PEG 08/08/20 09:00 08/10/20 09:32 Bisacodyl (Dulcolax Suppository) 10 mg DAILY NE 08/08/20 09:00 08/10/20 09:33 Bupropion HCl (Wellbutrin) 50 mg BID PO 08/07/20 21:00 08/10/20 09:32 Dextrose (Dextrose 50%) 25 ml ASDIRECTED PRN IV SEE LABEL COMMENTS 08/07/20 13:00 Docusate Sodium (Colace Liquid) 100 mg BIDP PRN GT CONSTIPATION 08/07/20 13:00 Glucagon (Glucagon) 1 mg ASDIRECTED PRN SC SEE LABEL COMMENTS 08/07/20 13:00 Glucose (Glucose) 16 GM ASDIRECTED PRN PO SEE LABEL COMMENTS 08/07/20 13:00 Guaifenesin (Robitussin) 5 ml TID PEG 08/07/20 16:00 08/10/20 09:30 Home Med (Med Rec Complete!) ASDIRECTED XX 08/07/20 13:45 08/07/20 13:51 DC Lactobacillus Acidophilus (Bacid) 1 ea TID PEG 08/09/20 16:00 08/10/20 09:31 Lansoprazole (First-Lansoprazole Oral Suspension) 30 mg DAILY GT 08/08/20 12:00 08/10/20 09:30 Levofloxacin (Levaquin) 750 mg DAILY@06 PEG 08/09/20 09:15 08/10/20 06:01 Lidocaine (Lidoderm Patch) 1 patch DAILY TD 08/08/20 10:15 08/10/20 09:33 Losartan Potassium (Cozaar) 25 mg DAILY PEG 08/08/20 09:00 08/10/20 09:31 Nitrofurantoin Monoh/Nitrofur Macro (Macrobid) 100 mg BID GT 08/10/20 09:00 08/10/20 05:53 DC Non-Formulary Medication ( See Comment Field Below ) REMOVE LIDODERM PATCH DAILY@21 XX 08/08/20 21:00 08/09/20 22:23 Nystatin (Mycostatin Powder, Nystop) 1 dose TID TOP 08/07/20 16:00 08/10/20 09:33 Oxybutynin Chloride (Ditropan) 5 mg BID PEG 08/07/20 21:00 08/10/20 09:32 Saliva Substitute (Mouthkote) Q1HP PRN MT dry mouth 08/08/20 14:45 08/10/20 06:05 Valproic Acid (Depakene Solution) 650 mg TID PEG 08/07/20 16:00 08/10/20 09:30 SANTA HOOVER MD Aug 10, 2020 13:02
[2020-08-10 14:00] VITALS: BP 151/90
[2020-08-10 20:15] VITALS: BP 119/67
[2020-08-10] MEDS: **NOTE PATIENT COMMENT** MISC XX SCH (20:52)
[2020-08-11] MEDS: REMEDY PHYTOPLEX Z-GUARD PASTE 113GM TUBE (FROM STOREROOM PRODUCT) TOP SCH ×6 (00:52→22:11)
[2020-08-11 06:00] VITALS: BP 136/72
[2020-08-11] MEDS: LevoFLOXacin 750 MG TABLET PEG SCH (06:07)
[2020-08-11] MEDS: IPRATROPIUM 0.5MG/ALBUTEROL 2.5MG INH SOL UD 3ML (DUONEB) NEB SCH ×3 (07:18→19:40)
[2020-08-11] MEDS: LIDOCAINE 5% (LIDODERM) PATCH TD SCH (09:33)
[2020-08-11] MEDS: ACETAMINOPHEN 325 MG/10.15 ML UDC GT SCH ×3 (09:35→22:10)
[2020-08-11] MEDS: VALPROIC ACID 250MG/5ML SOL ORAL SYRINGE *DRAW UP EXACT DOSE PEG SCH ×3 (09:35→22:09)
[2020-08-11] MEDS: LACTOBACILLUS ACIDOPHILUS CAP (BACID) PEG SCH ×3 (09:36→22:09)
[2020-08-11] MEDS: buPROPion 100 MG TAB PO SCH ×2 (09:36→22:09)
[2020-08-11] MEDS: ATORVASTATIN 20 MG TAB PEG SCH (09:36)
[2020-08-11] MEDS: LOSARTAN 25 MG TAB PEG SCH (09:36)
[2020-08-11] MEDS: oxyBUTYnin 5 MG TAB PEG SCH ×2 (09:37→22:09)
[2020-08-11] MEDS: LANSOPRAZOLE SUSPENSION 30 MG/10 ML ORAL SYRINGE (FIRST-LANSOPRAZOLE) GT SCH (09:37)
[2020-08-11] MEDS: APIXABAN 5 MG TAB (ELIQUIS) PEG SCH ×2 (09:37→22:09)
[2020-08-11] MEDS: guaiFENesin SYRUP 200 MG/10 ML UDC PEG SCH ×3 (09:37→22:09)
[2020-08-11] MEDS: atenoloL 50 MG TAB PEG SCH (09:38)
[2020-08-11] MEDS: BISACODYL 10 MG SUPP PR SCH (09:40)
[2020-08-11] MEDS: NYSTATIN 100,000 UNITS/GM TOPICAL PWD 15 GM TOP SCH ×3 (09:40→22:11)
[2020-08-11 14:00] VITALS: BP 114/71
[2020-08-11 20:00] VITALS: BP 141/79
[2020-08-11] MEDS: **NOTE PATIENT COMMENT** MISC XX SCH (21:00)
[2020-08-12] MEDS: REMEDY PHYTOPLEX Z-GUARD PASTE 113GM TUBE (FROM STOREROOM PRODUCT) TOP SCH ×6 (01:42→21:21)
[2020-08-12] MEDS: LevoFLOXacin 750 MG TABLET PEG SCH (05:33)
[2020-08-12 05:57] VITALS: BP 128/64
[2020-08-12 08:07] LABS: HEMOGLOBIN 10.4 g/dl (12.0-15.5); MEAN CORPUSCULAR HEMOGLOBIN 30.1 pg (27.0-33.0); MEAN CORPUSCULAR HGB CONC 30.6 g/dl (32.0-36.5); MEAN CORPUSCULAR VOLUME 98.3 fl (80.0-96.0); PLATELET COUNT, AUTOMATED 191 10^3/uL (150-450); RED BLOOD COUNT 3.46 10^6/uL (4.00-5.40); WHITE BLOOD COUNT 12.5 10^3/uL (4.0-10.0)
[2020-08-12 08:28] LABS: BLOOD UREA NITROGEN 44 MG/DL (7-18); CALCIUM LEVEL 7.4 MG/DL (8.8-10.2); CARBON DIOXIDE LEVEL 30 MEQ/L (21-32); CHLORIDE LEVEL 107 MEQ/L (98-107); CREATININE FOR GFR 0.95 MG/DL (0.55-1.30); GLOMERULAR FILTRATION RATE > 60.0 (>39); GLUCOSE, FASTING 147 MG/DL (70-100); POTASSIUM SERUM 3.4 MEQ/L (3.5-5.1); SODIUM LEVEL 144 MEQ/L (136-145)
[2020-08-12] MEDS: IPRATROPIUM 0.5MG/ALBUTEROL 2.5MG INH SOL UD 3ML (DUONEB) NEB SCH ×3 (08:29→18:42)
[2020-08-12 08:58] LABS: BASOPHILS 1 % (0-1); LYMPHOCYTES 7 % (16-44); METAMYELOCYTES 2 % (0-0); MONOCYTES 3 % (0-5); NEUTROPHILS 87 % (28-66)
[2020-08-12 08:59] LABS: PLATELET ESTIMATE NORMAL (NORMAL)
[2020-08-12] MEDS: BISACODYL 10 MG SUPP PR SCH (09:00)
[2020-08-12] MEDS: VALPROIC ACID 250MG/5ML SOL ORAL SYRINGE *DRAW UP EXACT DOSE PEG SCH ×3 (10:00→21:15)
[2020-08-12] MEDS: guaiFENesin SYRUP 200 MG/10 ML UDC PEG SCH ×3 (10:00→21:15)
[2020-08-12] MEDS: ACETAMINOPHEN 325 MG/10.15 ML UDC GT SCH ×3 (10:00→21:15)
[2020-08-12] MEDS: oxyBUTYnin 5 MG TAB PEG SCH ×2 (10:01→21:15)
[2020-08-12] MEDS: LACTOBACILLUS ACIDOPHILUS CAP (BACID) PEG SCH ×3 (10:01→21:14)
[2020-08-12] MEDS: atenoloL 50 MG TAB PEG SCH (10:03)
[2020-08-12] MEDS: buPROPion 100 MG TAB PO SCH ×2 (10:03→21:15)
[2020-08-12] MEDS: APIXABAN 5 MG TAB (ELIQUIS) PEG SCH ×2 (10:04→21:15)
[2020-08-12] MEDS: LIDOCAINE 5% (LIDODERM) PATCH TD SCH (10:04)
[2020-08-12] MEDS: LOSARTAN 25 MG TAB PEG SCH (10:04)
[2020-08-12] MEDS: ATORVASTATIN 20 MG TAB PEG SCH (10:04)
[2020-08-12] MEDS: NYSTATIN 100,000 UNITS/GM TOPICAL PWD 15 GM TOP SCH ×3 (10:05→21:21)
[2020-08-12] MEDS ORDERED: POTASSIUM CHLORIDE 10% LIQ 20 MEQ/15 ML UDC PEG ONE (11:00)
--- NOTE | 2020-08-12 12:55 | IPNPDOC ---
PM&R Progress Note DATE OF SERVICE: Aug 12, 2020 Electrifier Operator Progress Note Subjective: PAtient seen sitting up in therapy able to follow commands and right shoulder not appearing to be as painful. She was able to try combing her hair. REVIEW OF SYSTEMS: The following is a completed review of systems and has been reviewed. Review of systems otherwise unremarkable. PAIN: Patient self reports no pain EYES: difficult to assess EARS, NOSE, & THROAT:+dysphagia CARDIOVASCULAR: Denies chest pain or palpitations PULMONARY: Denies shortness of breath GASTROINTESTINAL: +PEG GENITOURINARY: +incontinence MUSCULOSKELETAL: right sided weakness NEUROLOGICAL:right sided paresis, expressive aphasia SKIN: skin breakdown under breasts and in abdominal folds PSYCHIATRIC: Unremarkable All other review of systems found to be negative. PHYSICAL EXAMINATION: VITAL SIGNS: Please see below. GENERAL: Pleasant and cooperative. No acute distress. HEENT: PERRL. Extraocular movements intact. Clear conjunctiva CARDIOVASCULAR: Regular rate and rhythm. No murmurs, rubs, or gallops LUNGS: Clear to auscultation bilaterally. No wheezes. No rhonchi ABDOMEN: Soft, nontender, nondistended. Positive bowel sounds. Normal active bowel sounds NEUROLOGICAL: +expressive aphasia, able to follow commands, Sensation grossly intact EXTREMITIES: 5/5 strength LUE, 3+/5 RUE, 4\\5 strength right lower extremity. 5/5 strength in left lower extremity. SKIN: +sacral excoriation, bilateral under breast skin breakdown and in abdominal folds ASSESSMENT:80-year-old F with past medical history of stroke, CKD, DM who presents status post left MCA infarct with new onset seizures PLAN: 1. 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 Neuro- s/p left MCA infarct with expressive aphasia, dysphagia, and right sided hemiparesis, c/u Eliquis for AFib, statin for secondary stroke prevention- - recent post-stroke seizure activity c/u depakote 3. Cardiac- ECHO 07-23-20 showed Normal global systolic left ventricular function. This study is inadequate for the evaluation of regional wall motion. At least grade 2 diastolic dysfunction without interatrial shunt via bubble study" will hold off on fluid restriction while getting tube feeds - new onset Afib c/u eliquis and atenolol -HLD- statin 4. resp- monitor for infection, DUonebs and guaifenesin ordered, CXR ordered to r/o infectious process as increasing wbc per [facility] records- appears WNL 5. GI ppx- lansoprazole -tube feeds 6. VAsc hx of DVT c/u eliquis 7. - + ecoli UTI c/u LEvaquin 8. Pain- tylneol standing, lidoderm patch to right shoulder 9. Psych- patient was on Budeprion 100mg BID at home and off it while at [facility] will start back at half dose 50mg BID 10. SKin- turn q2h in bed, dressing changes per nursing orders 10. Dispo- tbd Allergies Coded Allergies: No Known Allergies (Unverified , 08/07/20) Vital Signs Vital Signs Date Time Temp Pulse Resp B/P (MAP) Pulse Ox O2 Delivery O2 Flow Rate FiO2 08/12/20 10:03 76 128/64 08/12/20 05:57 97.1 18 99 Room Air Laboratory Data CBC/BMP Laboratory Tests 08/12/20 07:35 Labs 24H Laboratory Tests 2 08/11/20 18:08: Bedside Glucose (Misc Panel) 150H 08/12/20 00:03: Bedside Glucose (Misc Panel) 151H 08/12/20 05:00: Bedside Glucose (Misc Panel) 157H 08/12/20 07:35: Immature Granulocyte % (Auto) , Neutrophils (%) (Auto) , Nucleated Red Blood Cells % (auto) 0.0, Neutrophils 87H, Lymphocytes (Manual) 7L, Monocytes (Manual) 3, Basophils (Manual) 1, Metamyelocytes 2H, Red Blood Cell Morphology NORMAL, Platelet Estimate NORMAL, Anion Gap 7L, Glomerular Filtration Rate > 60.0, Calc ium Level 7.4L 08/12/20 11:35: Bedside Glucose (Misc Panel) 119H Microbiology Microbiology 08/09/20 Urine Culture - Final, Complete Escherichia Coli Current Medications Current Medications Current Medications Medications (Trade) Dose Ordered Sig/Brenda Route PRN Reason Start Time Stop Time Status Last Admin Dose Admin Acetaminophen (Tylenol Suspension) 650 mg Q4HP PRN GT PAIN OR FEVER 08/07/20 13:00 08/09/20 16:32 DC 08/09/20 16:17 Acetaminophen (Tylenol Suspension) 650 mg Q4HP PRN GT PAIN / FEVER 08/07/20 13:00 UNV Acetaminophen (Tylenol Suspension) 975 mg TID GT 08/09/20 21:00 08/12/20 10:00 Albuterol/ Ipratropium (Duoneb (Ipr 0.5mg/Alb 2.5mg)) 3 ml RTID NEB 08/07/20 14:00 08/12/20 08:29 Apixaban (Eliquis) 5 mg BID PEG 08/07/20 21:00 08/12/20 10:04 Atenolol (Tenormin) 50 mg DAILY PEG 08/08/20 09:00 08/12/20 10:03 Atorvastatin Calcium (Lipitor) 40 mg DAILY PEG 08/08/20 09:00 08/12/20 10:04 Bisacodyl (Dulcolax Suppository) 10 mg DAILY [place] 08/08/20 09:00 08/11/20 09:40 Bupropion HCl (Wellbutrin) 50 mg BID PO 08/07/20 21:00 08/12/20 10:03 Dextrose (Dextrose 50%) 25 ml ASDIRECTED PRN IV SEE LABEL COMMENTS 08/07/20 13:00 Docusate Sodium (Colace Liquid) 100 mg BIDP PRN GT CONSTIPATION 08/07/20 13:00 Glucagon (Glucagon) 1 mg ASDIRECTED PRN SC SEE LABEL COMMENTS 08/07/20 13:00 Glucose (Glucose) 16 GM ASDIRECTED PRN PO SEE LABEL COMMENTS 08/07/20 13:00 Guaifenesin (Robitussin) 5 ml TID PEG 08/07/20 16:00 08/12/20 10:00 Home Med (Med Rec Complete!) ASDIRECTED XX 08/07/20 13:45 08/07/20 13:51 DC Lactobacillus Acidophilus (Bacid) 1 ea TID PEG 08/09/20 16:00 08/12/20 10:01 Lansoprazole (First-Lansoprazole Oral Suspension) 30 mg DAILY GT 08/08/20 12:00 08/11/20 09:37 Levofloxacin (Levaquin) 750 mg DAILY@06 PEG 08/09/20 09:15 08/12/20 05:33 Lidocaine (Lidoderm Patch) 1 patch DAILY TD 08/08/20 10:15 08/12/20 10:04 Losartan Potassium (Cozaar) 25 mg DAILY PEG 08/08/20 09:00 08/12/20 10:04 Nitrofurantoin Monoh/Nitrofur Macro (Macrobid) 100 mg BID GT 08/10/20 09:00 08/10/20 05:53 DC Non-Formulary Medication ( See Comment Field Below ) REMOVE LIDODERM PATCH DAILY@21 XX 08/08/20 21:00 08/11/20 21:00 Nystatin (Mycostatin Powder, Nystop) 1 dose TID TOP 08/07/20 16:00 08/12/20 10:05 Oxybutynin Chloride (Ditropan) 5 mg BID PEG 08/07/20 21:00 08/12/20 10:01 Saliva Substitute (Mouthkote) Q1HP PRN MT dry mouth 08/08/20 14:45 08/12/20 10:03 DC 08/10/20 06:05 Saliva Substitute (Mouthkote) 2 sprays TID MT 08/12/20 10:00 Valproic Acid (Depakene Solution) 650 mg TID PEG 08/07/20 16:00 08/12/20 10:00 SANTA HOOVER MD Aug 12, 2020 12:55
[2020-08-12] MEDS ORDERED: BISACODYL 10 MG SUPP PR PRN (13:00)
[2020-08-12 14:00] VITALS: BP 148/77
[2020-08-12] MEDS: LANSOPRAZOLE SUSPENSION 30 MG/10 ML ORAL SYRINGE (FIRST-LANSOPRAZOLE) GT SCH (17:40)
[2020-08-12] MEDS: SALIVA SUBSTITUTE(MOUTHKOTE) BTL MT SCH ×3 (17:41→21:21)
[2020-08-12 20:00] VITALS: BP 144/88
[2020-08-12] MEDS: **NOTE PATIENT COMMENT** MISC XX SCH (21:22)
[2020-08-13] MEDS: REMEDY PHYTOPLEX Z-GUARD PASTE 113GM TUBE (FROM STOREROOM PRODUCT) TOP SCH ×5 (02:00→16:46)
[2020-08-13] MEDS: LevoFLOXacin 750 MG TABLET PEG SCH (05:47)
[2020-08-13 05:59] VITALS: BP 155/82
[2020-08-13 07:50] LABS: HEMATOCRIT 33.8 % (36.0-47.0); HEMOGLOBIN 10.2 g/dl (12.0-15.5); MEAN CORPUSCULAR HEMOGLOBIN 29.7 pg (27.0-33.0); MEAN CORPUSCULAR HGB CONC 30.2 g/dl (32.0-36.5); MEAN CORPUSCULAR VOLUME 98.3 fl (80.0-96.0); PLATELET COUNT, AUTOMATED 194 10^3/uL (150-450); RED BLOOD COUNT 3.44 10^6/uL (4.00-5.40); WHITE BLOOD COUNT 11.8 10^3/uL (4.0-10.0)
[2020-08-13 08:13] LABS: BLOOD UREA NITROGEN 38 MG/DL (7-18); CALCIUM LEVEL 8.3 MG/DL (8.8-10.2); CARBON DIOXIDE LEVEL 31 MEQ/L (21-32); CHLORIDE LEVEL 105 MEQ/L (98-107); CREATININE FOR GFR 0.93 MG/DL (0.55-1.30); GLOMERULAR FILTRATION RATE > 60.0 (>39); GLUCOSE, FASTING 103 MG/DL (70-100); POTASSIUM SERUM 4.1 MEQ/L (3.5-5.1); SODIUM LEVEL 138 MEQ/L (136-145)
[2020-08-13 08:33] LABS: ATYPICAL LYMPH 1 % (0-5); BASOPHILS 1 % (0-1); LYMPHOCYTES 13 % (16-44); METAMYELOCYTES 6 % (0-0); MONOCYTES 10 % (0-5); MYELOCYTES 6 % (0-0); NEUTROPHILS 60 % (28-66)
[2020-08-13 08:34] LABS: ANISOCYTOSIS 1+; PLATELET ESTIMATE NORMAL (NORMAL)
[2020-08-13] MEDS: guaiFENesin SYRUP 200 MG/10 ML UDC PEG SCH ×3 (09:04→21:00)
[2020-08-13] MEDS: IPRATROPIUM 0.5MG/ALBUTEROL 2.5MG INH SOL UD 3ML (DUONEB) NEB SCH ×3 (09:04→20:00)
[2020-08-13] MEDS: ACETAMINOPHEN 325 MG/10.15 ML UDC GT SCH ×3 (09:04→21:00)
[2020-08-13] MEDS: ATORVASTATIN 20 MG TAB PEG SCH (09:05)
[2020-08-13] MEDS: LACTOBACILLUS ACIDOPHILUS CAP (BACID) PEG SCH ×3 (09:05→21:00)
[2020-08-13] MEDS: LOSARTAN 25 MG TAB PEG SCH (09:05)
[2020-08-13] MEDS: VALPROIC ACID 250MG/5ML SOL ORAL SYRINGE *DRAW UP EXACT DOSE PEG SCH ×2 (09:05→16:45)
[2020-08-13] MEDS: LANSOPRAZOLE SUSPENSION 30 MG/10 ML ORAL SYRINGE (FIRST-LANSOPRAZOLE) GT SCH (09:05)
[2020-08-13] MEDS: APIXABAN 5 MG TAB (ELIQUIS) PEG SCH ×2 (09:05→21:00)
[2020-08-13] MEDS: atenoloL 50 MG TAB PEG SCH (09:05)
[2020-08-13] MEDS: SALIVA SUBSTITUTE(MOUTHKOTE) BTL MT SCH ×3 (09:06→21:00)
[2020-08-13] MEDS: NYSTATIN 100,000 UNITS/GM TOPICAL PWD 15 GM TOP SCH ×2 (09:06→16:46)
[2020-08-13] MEDS: buPROPion 100 MG TAB PO SCH ×2 (09:06→21:00)
[2020-08-13] MEDS: LIDOCAINE 5% (LIDODERM) PATCH TD SCH (09:06)
[2020-08-13] MEDS: oxyBUTYnin 5 MG TAB PEG SCH ×2 (09:07→21:00)
--- NOTE | 2020-08-13 12:54 | IPNPDOC ---
PM&R Progress Note DATE OF SERVICE: Aug 13, 2020 Bow Tacker Progress Note Subjective: PAtient seen sitting up in her chair drinking water, stating she felt ok and was able to move all 4limbs on command, still with expressive aphasia. REVIEW OF SYSTEMS: The following is a completed review of systems and has been reviewed. Review of systems otherwise unremarkable. PAIN: Patient self reports no pain EYES: difficult to assess EARS, NOSE, & THROAT:+dysphagia (improving) CARDIOVASCULAR: Denies chest pain or palpitations PULMONARY: Denies shortness of breath GASTROINTESTINAL: +PEG GENITOURINARY: +incontinence MUSCULOSKELETAL: right sided weakness NEUROLOGICAL:right sided paresis, expressive aphasia SKIN: skin breakdown under breasts and in abdominal folds PSYCHIATRIC: Unremarkable All other review of systems found to be negative. PHYSICAL EXAMINATION: VITAL SIGNS: Please see below. GENERAL: Pleasant and cooperative. No acute distress. HEENT: PERRL. Extraocular movements intact. Clear conjunctiva CARDIOVASCULAR: Regular rate and rhythm. No murmurs, rubs, or gallops LUNGS: Clear to auscultation bilaterally. No wheezes. No rhonchi ABDOMEN: Soft, nontender, nondistended. Positive bowel sounds. Normal active bowel sounds NEUROLOGICAL: +expressive aphasia, able to follow commands, Sensation grossly intact EXTREMITIES: 5/5 strength LUE, 3+/5 RUE, 4\\5 strength right lower extremity. 5/5 strength in left lower extremity. SKIN: +sacral excoriation, bilateral under breast skin breakdown and in abdominal folds ASSESSMENT:80-year-old F with past medical history of stroke, CKD, DM who presents status post left MCA infarct with new onset seizures PLAN: 1. 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 Neuro- s/p left MCA infarct with expressive aphasia, dysphagia, and right sided hemiparesis, c/u Eliquis for AFib, statin for secondary stroke prevention- - recent post-stroke seizure activity c/u depakote 3. Cardiac- ECHO 07-23-20 showed Normal global systolic left ventricular function. This study is inadequate for the evaluation of regional wall motion. At least grade 2 diastolic dysfunction without interatrial shunt via bubble study" will hold off on fluid restriction while getting tube feeds - new onset Afib c/u eliquis and atenolol -HLD- statin 4. resp- monitor for infection, DUonebs and guaifenesin ordered, CXR ordered to r/o infectious process as increasing wbc per [facility] records- appears WNL 5. GI ppx- lansoprazole -tube feeds 6. VAsc- hx of DVT c/u eliquis 7. - + ecoli UTI c/u LEvaquin 8. Pain- tylneol standing, lidoderm patch to right shoulder 9. Psych- patient was on Bupropion 100mg BID at home and off it while at [facility] will start back at half dose 50mg BID 10. SKin- turn q2h in bed, dressing changes per nursing orders 10. Dispo- tbd Allergies Coded Allergies: No Known Allergies (Unverified , 08/07/20) Vital Signs Vital Signs Date Time Temp Pulse Resp B/P (MAP) Pulse Ox O2 Delivery O2 Flow Rate FiO2 08/13/20 09:05 78 155/82 08/13/20 05:59 97.7 18 100 Room Air Laboratory Data CBC/BMP Laboratory Tests 08/13/20 07:25 Labs 24H Laboratory Tests 2 08/12/20 16:40: Bedside Glucose (Misc Panel) 124H 08/13/20 00:01: Bedside Glucose (Misc Panel) 158H 08/13/20 05:06: Bedside Glucose (Misc Panel) 89 08/13/20 07:25: Immature Granulocyte % (Auto) , Neutrophils (%) (Auto) , Nucleated Red Blood Cells % (auto) 0.0, Neutrophils 60, Band Neutrophils 3, Lymphocytes (Manual) 13L, Monocytes (Manual) 10H, Basophils (Manual) 1, Metamyelocytes 6H, Myelocytes 6H, Atypical Lymphocytes 1, Anisocytosis 1+, Macrocytosis 1+, Platelet Estimate NORMAL, Anion Gap 2L, Glomerular Filtration Rate > 60.0, Calcium Level 8.3L 08/13/20 12:09: Bedside Glucose (Misc Panel) 91 Microbiology Microbiology 08/09/20 Urine Culture - Final, Complete Escherichia Coli Current Medications Current Medications Current Medications Medications (Trade) Dose Ordered Sig/Brenda Route PRN Reason Start Time Stop Time Status Last Admin Dose Admin Acetaminophen (Tylenol Suspension) 650 mg Q4HP PRN GT PAIN OR FEVER 08/07/20 13:00 12/11/20 16:32 DC 08/09/20 16:17 Acetaminophen (Tylenol Suspension) 650 mg Q4HP PRN GT PAIN / FEVER 08/07/20 13:00 UNV Acetaminophen (Tylenol Suspension) 975 mg TID GT 08/09/20 21:00 08/13/20 09:04 Albuterol/ Ipratropium (Duoneb (Ipr 0.5mg/Alb 2.5mg)) 3 ml RTID NEB 08/07/20 14:00 08/13/20 09:04 Apixaban (Eliquis) 5 mg BID PEG 08/07/20 21:00 08/13/20 09:05 Atenolol (Tenormin) 50 mg DAILY PEG 08/08/20 09:00 08/13/20 09:05 Atorvastatin Calcium (Lipitor) 40 mg DAILY PEG 08/08/20 09:00 08/13/20 09:05 Bisacodyl (Dulcolax Suppository) 10 mg DAILY [place] 08/08/20 09:00 08/12/20 12:53 DC 08/11/20 09:40 Bisacodyl (Dulcolax Suppository) 10 mg DAILY PRN [place] constipaion 08/12/20 13:00 Bupropion HCl (Wellbutrin) 50 mg BID PO 08/07/20 21:00 08/13/20 09:06 Dextrose (Dextrose 50%) 25 ml ASDIRECTED PRN IV SEE LABEL COMMENTS 08/07/20 13:00 Docusate Sodium (Colace Liquid) 100 mg BIDP PRN GT CONSTIPATION 08/07/20 13:00 Glucagon (Glucagon) 1 mg ASDIRECTED PRN SC SEE LABEL COMMENTS 08/07/20 13:00 Glucose (Glucose) 16 GM ASDIRECTED PRN PO SEE LABEL COMMENTS 08/07/20 13:00 Guaifenesin (Robitussin) 5 ml TID PEG 08/07/20 16:00 08/13/20 09:04 Home Med (Med Rec Complete!) ASDIRECTED XX 08/07/20 13:45 08/07/20 13:51 DC Lactobacillus Acidophilus (Bacid) 1 ea TID PEG 08/09/20 16:00 08/13/20 09:05 Lansoprazole (First-Lansoprazole Oral Suspension) 30 mg DAILY GT 08/08/20 12:00 08/13/20 09:05 Levofloxacin (Levaquin) 750 mg DAILY@06 PEG 08/09/20 09:15 08/13/20 05:47 Lidocaine (Lidoderm Patch) 1 patch DAILY TD 08/08/20 10:15 08/13/20 09:06 Losartan Potassium (Cozaar) 25 mg DAILY PEG 08/08/20 09:00 08/13/20 09:05 Nitrofurantoin Monoh/Nitrofur Macro (Macrobid) 100 mg BID GT 08/10/20 09:00 08/10/20 05:53 DC Non-Formulary Medication ( See Comment Field Below ) REMOVE LIDODERM PATCH DAILY@21 XX 08/08/20 21:00 08/12/20 21:22 Nystatin (Mycostatin Powder, Nystop) 1 dose TID TOP 08/07/20 16:00 08/13/20 09:06 Oxybutynin Chloride (Ditropan) 5 mg BID PEG 08/07/20 21:00 08/13/20 09:07 Saliva Substitute (Mouthkote) Q1HP PRN MT dry mouth 08/08/20 14:45 08/12/20 10:03 DC 08/10/20 06:05 Saliva Substitute (Mouthkote) 2 sprays TID MT 08/12/20 10:00 08/13/20 09:06 Valproic Acid (Depakene Solution) 650 mg TID PEG 08/07/20 16:00 08/13/20 09:05 SANTA HOOVER MD Aug 13, 2020 12:54
[2020-08-13 14:00] VITALS: BP 128/65
--- NOTE | 2020-08-13 17:39 | IPNPDOC ---
Date Seen The patient was seen on 08/13/20. Progress Note SUBJECTIVE: Was called to evaluate patient after feeding tube in LLQ was pulled out this evening. There was very little bleeding, patient has been trialing oral diet which she tolerated well today. Has only been using feeding tube for medications today. Discussed with patient plan going forward. Decision was to see how she did without another feeding tube placed. She denies abd pain, fevers, chills, n/v/d. OBJECTIVE: PHYSICAL EXAMINATION: VITAL SIGNS: Please see below. GENERAL APPEARANCE: Awake, alert, oriented to person, place and time. HEENT: Dry mucous membranes, no JVD, no thyromegaly, no cervical lymphadenopathy LUNGS: Clear to auscultation. Wheezing, rales or rhonchi HEART: S1, S2 regular rate rhythm, no murmurs, rubs or gallops ABDOMEN: incision where feeding tube was, clean, nonsuppurative, not bleeding, nontender to palpation. Obese, soft, nondistended, positive bowel sounds 4 quadrants. No rebound or guarding. EXTREMITIES: No cyanosis, clubbing or edema INTEGUMENTARY:Dry skin on extremities , scabbed abrasion in left groin, healing well NEURO: Awake, alert, oriented to person, place and time, answering questions appropriately. Face is symmetric. Tongue is midline. No pronator drift bilaterally, mild expressive aphasia but understandable and coherent. No r eceptive aphasia and no neglect. Motor function right upper and left upper extremities 4/5, left lower extremity Right lower extremity 4-5. LABORATORY DATA: Please see below. IMAGING: No new imaging ASSESSMENT: 80-year-old female admitted to [facility] due to left lower extremity weakness and aphasia from [facility] with CT of the head showing left vertebral occlusion. Patient was found to have an acute ischemic stroke in the left frontoparietal region concerning for cardioembolic phenomenon. Given bilateral old strokes in the past. She was admitted to the stroke service and placed on telemetry at [facility] and continued on her home dose of Xarelto and Lipitor. The patient was set fiddling transferred to [facility] acute rehabilitation unit after medical treatment at [facility]. . She is currently requiring 1 person assistance at all times but appears to be very cooperative. She currently denies any fevers, chills, shortness breath, chest pain, pressure, tightness, lightheadedness, nausea, vomiting, diarrhea, abdominal pain, dysuria, urgency, frequency, fever, chills, polyphagia, polyuria, ear pain, discharge, changes in vision, rhinorrhea, tinnitus, ear discharge. She complains of weakness and quite anxious about falling. No other issues per nursing from overnight. 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 Options for treatment were 1. Consult surgery to place another feeding tube or 2. Wait to see how she tolerates her diet currently, as she has done well today per nursing. She has only been using feeding tube for meds, which can be crushed. Will get KUB now to look for free air/perforation, NPO. If free air, consult surgery. If no free air, reassess in the AM and consider starting PO diet again. Other acute and chronic issues are stable. She should c/w PT/OT as she normally would and watch for drainage from feeding tube site. She remains high risk for falls, assisted ambulation only. DISPOSITION: ARU status VS, I&O, 24H, [facility] Vital Signs/I&O Vital Signs Date Time Temp Pulse Resp B/P (MAP) Pulse Ox O2 Delivery O2 Flow Rate FiO2 08/13/20 14:00 96.8 74 18 128/65 (86) 98 Room Air I&O- Last 24 Hours up to 6 AM 08/13/20 06:00 Intake Total 1700 ml Output Total 0 ml Balance 1700 ml Laboratory Data 24H LABS Laboratory Tests 2 08/13/20 00:01: Bedside Glucose (Misc Panel) 158H 08/13/20 05:06: Bedside Glucose (Misc Panel) 89 08/13/20 07:25: Immature Granulocyte % (Auto) , Neutrophils (%) (Auto) , Nucleated Red Blood Cells % (auto) 0.0, Neutrophils 60, Band Neutrophils 3, Lymphocytes (Manual) 13L, Monocytes (Manual) 10H, Basophils (Manual) 1, Metamyelocytes 6H, Myelocytes 6H, Atypical Lymphocytes 1, Anisocytosis 1+, Macrocytosis 1+, Platelet Estimate NORMAL, Anion Gap 2L, Glomerular Filtration Rate > 60.0, Calcium Level 8.3L 08/13/20 12:09: Bedside Glucose (Misc Panel) 91 CBC/BMP Laboratory Tests 08/13/20 07:25 Microbiology Microbiology 08/09/20 Urine Culture - Final, Complete Escherichia Coli Current Medications Current Medications Medications (Trade) Dose Ordered Sig/Brenda Route PRN Reason Start Time Stop Time Status Last Admin Dose Admin Acetaminophen (Tylenol Suspension) 650 mg Q4HP PRN GT PAIN OR FEVER 08/07/20 13:00 08/09/20 16:32 DC 08/09/20 16:17 Acetaminophen (Tylenol Suspension) 650 mg Q4HP PRN GT PAIN / FEVER 08/07/20 13:00 UNV Acetaminophen (Tylenol Suspension) 975 mg TID GT 08/09/20 21:00 08/13/20 16:45 Albuterol/ Ipratropium (Duoneb (Ipr 0.5mg/Alb 2.5mg)) 3 ml RTID NEB 08/07/20 14:00 08/13/20 14:05 Apixaban (Eliquis) 5 mg BID PEG 08/07/20 21:00 08/13/20 09:05 Atenolol (Tenormin) 50 mg DAILY PEG 08/08/20 09:00 08/13/20 09:05 Atorvastatin Calcium (Lipitor) 40 mg DAILY PEG 08/08/20 09:00 08/13/20 09:05 Bisacodyl (Dulcolax Suppository) 10 mg DAILY VT 08/08/20 09:00 08/12/20 12:53 DC 08/11/20 09:40 Bisacodyl (Dulcolax Suppository) 10 mg DAILY PRN VT constipaion 08/12/20 13:00 Bupropion HCl (Wellbutrin) 50 mg BID PO 08/07/20 21:00 08/13/20 09:06 Dextrose (Dextrose 50%) 25 ml ASDIRECTED PRN IV SEE LABEL COMMENTS 08/07/20 13:00 Docusate Sodium (Colace Liquid) 100 mg BIDP PRN GT CONSTIPATION 08/07/20 13:00 Glucagon (Glucagon) 1 mg ASDIRECTED PRN SC SEE LABEL COMMENTS 08/07/20 13:00 Glucose (Glucose) 16 GM ASDIRECTED PRN PO SEE LABEL COMMENTS 08/07/20 13:00 Guaifenesin (Robitussin) 5 ml TID PEG 08/07/20 16:00 08/13/20 16:45 Home Med (Med Rec Complete!) ASDIRECTED XX 08/07/20 13:45 08/07/20 13:51 DC Lactobacillus Acidophilus (Bacid) 1 ea TID PEG 08/09/20 16:00 08/13/20 16:45 Lansoprazole (First-Lansoprazole Oral Suspension) 30 mg DAILY GT 08/08/20 12:00 08/13/20 09:05 Levofloxacin (Levaquin) 750 mg DAILY@06 PEG 08/09/20 09:15 08/13/20 05:47 Lidocaine (Lidoderm Patch) 1 patch DAILY TD 08/08/20 10:15 08/13/20 09:06 Losartan Potassium (Cozaar) 25 mg DAILY PEG 08/08/20 09:00 08/13/20 09:05 Nitrofurantoin Monoh/Nitrofur Macro (Macrobid) 100 mg BID GT 08/10/20 09:00 08/10/20 05:53 DC Non-Formulary Medication ( See Comment Field Below ) REMOVE LIDODERM PATCH DAILY@21 XX 08/08/20 21:00 08/12/20 21:22 Nystatin (Mycostatin Powder, Nystop) 1 dose TID TOP 08/07/20 16:00 08/13/20 16:46 Oxybutynin Chloride (Ditropan) 5 mg BID PEG 08/07/20 21:00 08/13/20 09:07 Saliva Substitute (Mouthkote) Q1HP PRN MT dry mouth 08/08/20 14:45 08/12/20 10:03 DC 08/10/20 06:05 Saliva Substitute (Mouthkote) 2 sprays TID MT 08/12/20 10:00 08/13/20 16:46 Valproic Acid (Depakene Solution) 650 mg TID PEG 08/07/20 16:00 08/13/20 16:45 Allergies Coded Allergies: No Known Allergies (Unverified , 08/07/20) Lilo Amanda MD Aug 13, 2020 17:39
--- NOTE | 2020-08-13 18:20 | REP ---
INDICATION: examine for free air, feeding tube came out. COMPARISON: None. TECHNIQUE: Two AP supine views of the abdomen and pelvis: FINDINGS: Supine positioning precludes plain film a valuation for free intraperitoneal air a period I recommend a follow-up cross-table lateral view with the left side down, keeping the patient in this position for several minutes prior to taking the radiograph. Alternatively, CT could be performed. The bowel gas pattern is normal. There are pelvic calcifications, possibly calcified fibroid and phleboliths. There is lumbar scoliosis. There is degenerative disc disease in the lumbar spine. There is an L3 lumbar kyphoplasty. IMPRESSION: The study is insensitive for free intraperitoneal air, as discussed. Consider decubitus view with a [id number] as discussed above or CT of the abdomen and pelvis. <Electronically signed by Ignacio Garcia > 08/13/20 [id number]
[2020-08-13 20:00] VITALS: BP 140/79
[2020-08-13] MEDS: **NOTE PATIENT COMMENT** MISC XX SCH (21:00)
--- NOTE | 2020-08-13 21:38 | REPVR ---
PROCEDURE INFORMATION: Exam: CT Abdomen And Pelvis Without Contrast Exam date and time: 08/13/2020 8:46 PM Age: 80 years old Clinical indication: Abdominal tenderness; Additional info: F/o free air, feeding tube came out TECHNIQUE: Imaging protocol: Computed tomography of the abdomen and pelvis without contrast. Radiation optimization: All CT scans at this facility use at least one of these dose optimization techniques: automated exposure control; mA and/or kV adjustment per patient size (includes targeted exams where dose is matched to clinical indication); or iterative reconstruction. COMPARISON: [place] Abdomen,Flat Plate KUB 08/13/2020 6:01 PM FINDINGS: Tubes, catheters and devices: evidence of prior placement of gastrostomy tube. Liver: Normal. No mass. Gallbladder and bile ducts: Normal. No calcified stones. No ductal dilation. Pancreas: Normal. No ductal dilation. Spleen: Normal. No splenomegaly. Adrenal glands: Normal. No mass. Kidneys and ureters: Normal. No hydronephrosis. Stomach and bowel: Unremarkable. No obstruction. No mucosal thickening. Appendix: No evidence of appendicitis. Intraperitoneal space: Few tiny foci of extraluminal air are seen in the upper abdomen (series 201, image 44, image 49). Mesenteric stranding. Atherosclerotic calcification of the abdominal aorta. Vasculature: See "Intraperitoneal space" finding. Lymph nodes: Unremarkable. No enlarged lymph nodes. Urinary bladder: Unremarkable as visualized. Reproductive: Calcified fibroids in the uterus. Bones/joints: Evidence of prior L2 vertebroplasty. Grade 1 anterolisthesis of L4 over L5. Soft tissues: Unremarkable. IMPRESSION: Few tiny foci of extraluminal air in the upper abdomen. Nonspecific mesenteric stranding. Etiology infectious/inflammatory. Electronically signed by: Olivier Reardon On 08/13/2020 21:38:49 PM
[2020-08-14] VITALS: BP 132/70
[2020-08-14] MEDS: NYSTATIN 100,000 UNITS/GM TOPICAL PWD 15 GM TOP SCH ×4 (00:31→20:52)
[2020-08-14] MEDS: REMEDY PHYTOPLEX Z-GUARD PASTE 113GM TUBE (FROM STOREROOM PRODUCT) TOP SCH ×7 (00:33→20:52)
[2020-08-14] MEDS: VALPROIC ACID 250MG/5ML SOL ORAL SYRINGE *DRAW UP EXACT DOSE PEG SCH (00:33)
[2020-08-14 04:00] VITALS: BP 114/56
[2020-08-14] MEDS: LevoFLOXacin 750 MG TABLET PEG SCH (05:13)
[2020-08-14 06:00] VITALS: BP 135/66
[2020-08-14] MEDS: IPRATROPIUM 0.5MG/ALBUTEROL 2.5MG INH SOL UD 3ML (DUONEB) NEB SCH ×3 (06:00→17:52)
--- NOTE | 2020-08-14 07:30 | CR.PDOC ---
General Surgery Consultation Date of Consultation 08/14/20 History and Physical CONSULT REPORT FOR: Dr. Amanda (hospitalist service) REASON FOR CONSULTATION: dislodged feeding tube HISTORY OF PRESENT ILLNESS: Patient is a 80-year-old female admitted at the acute rehabilitation unit after suffering a stroke. it looks like the feeding tube was placed prior to her discharge from the [facility] which was about 7 days ago. While here in the hospital they have able to trial her on soft oral foods without any signs of aspiration and they have been mainly using the feeding tube for administration of oral medications. Last night the feeding tube had been inadvertently pulled out while moving her. She had been kept nothing by mouth overnight. The hospitalist overnight was able to obtain a CT of the abdomen and pelvis which is noncontrast after the abdominal x-ray that was done was not conclusive if there is any evidence of free air. When I saw the patient, she was laying flat in bed and looks comfortable and she currently denies any abdominal pain or discomfort. PAST MEDICAL HISTORY: 1. Hypertension 2. Ischemic CVA 3. Chronic kidney disease. PAST SURGICAL HISTORY: INCLUDES: 1. PEG tube placement 7 days ago. ALLERGIES: Please see below.. HOME MEDICATIONS: Please see below. Review of systems: Denies fevers, chills. Able to get out of bed and one person assistance has been working with physical therapy. She denies pain on swallowing. Reports she is able to swallow thick liquids without any aspiration or regurgitation. Denies any shortness of breath or wheezing. Denies any chest pains. Denies any abdominal pain. Patient able to void freely and spontaneously in able to tell when she would need to go. She denies having diabetes. She is on Eliquis (last intake was yesterday) ANCILLARIES: . LABORATORY DATA: Please see below. IMAGING STUDIES: She had a noncontrast CT of the abdomen and pelvis done last night which shows 2 punctate bubbles of extraintestinal air just underneath the peritoneum at the [facility] close to where the stomach is. No free fluid.. IMPRESSION AND PLAN: dislodged feeding tube Patient had a new (7 day old) feeding tube that was accidentally dislodged last night. This was placed for feeding access following a CVA and aspiration risk but since getting here in our rehab has been able to tolerate pureed diet and the tube only being used for her meds and for possible supplementation. Since getting dislodged, patient denies any abdominal discomfort, nausea, vomiting, bloating. She has been kept npo as a precaution. I spoke to Dr. Amanda last night and had an abdominal xray taken but this was taken supine so a noncontrast CT was performed. I reviewed the images. This shows a couple of punctate air that is extraintestinal just below the peritoneum on 2 cuts, no accompanying free fluid or other changes. Stomach seems to be still adhered to the abdominal wall and there is a visible subcutaneous tract from the feeding tube. No signs of redness at the skin level to suggest ongoing drainage of gastric fluid through the tract. I examined her this morning. She has some minor tenderness around where the previous g-tube site was but otherwise fairly benign nontender exam. No signs of ongoing peritonitis. Her vs has been stable overnight. Im waiting for the morning lab results but it looks like there is no ongoing leakage or drainage from the dislodged feeding tube. Also she is at the point where she may not need a new feeding tube. At this time, I think we can at least try clear liquids today, continue to closely watch the area of the prior g-tube site for infection. If continues to do ok, no further intervention may be needed. If she needs a new feeding tube, we will need to place it at a new site. Vital Signs Vital Signs Date Time Temp Pulse Resp B/P (MAP) Pulse Ox O2 Delivery O2 Flow Rate FiO2 08/14/20 06:00 96.8 63 18 135/66 (89) 100 Room Air I&Os I&O- Last 24 Hours up to 6 AM 08/14/20 05:59 Intake Total 620 ml Balance 620 ml Laboratory Data Labs 24H Laboratory Tests 2 08/13/20 07:25: Immature Granulocyte % (Auto) , Neutrophils (%) (Auto) , Nucleated Red Blood Cells % (auto) 0.0, Neutrophils 60, Band Neutrophils 3, Lymphocytes (Manual) 13L, Monocytes (Manual) 10H, Basophils (Manual) 1, Metamyelocytes 6H, Myelocytes 6H, Atypical Lymphocytes 1, Anisocytosis 1+, Macrocytosis 1+, Platelet Estimate NORMAL, Anion Gap 2L, Glomerular Filtration Rate > 60.0, Calcium Level 8.3L 08/13/20 12:09: Bedside Glucose (Misc Panel) 91 08/13/20 18:40: Bedside Glucose (Misc Panel) 105 08/13/20 23:56: Bedside Glucose (Misc Panel) 82L 08/13/20 23:58: Bedside Glucose (Misc Panel) 113H 08/14/20 05:11: Bedside Glucose (Misc Panel) 88 CBC/BMP Laboratory Tests 08/13/20 07:25 Microbiology Microbiology 08/09/20 Urine Culture - Final, Complete Escherichia Coli Home Medications Scheduled Apixaban (Eliquis) 5 Mg Tablet, 5 MG GT BID, (Reported) STARTED AT [facility] Atenolol (Atenolol) 50 Mg Tablet, 50 MG PO DAILY, (Reported) NOT GIVEN AT [facility] Atorvastatin Calcium (Atorvastatin Calcium) 40 Mg Tablet, 40 MG GT DAILY, (Reported) STARTED AT [facility] Bupropion HCl (Bupropion HCl Sr) 100 Mg Tab.sr.12h, 100 MG PO DAILY, (Reported) NOT GIVEN AT [facility] Docusate Sodium (Docusate Sodium) 50 Mg/5 Ml Liquid, 100 MG GT BID, (Reported) STARTED AT [facility] Gabapentin (Gabapentin) 100 Mg Capsule, 300 MG PO QHS, (Reported) NOT GIVEN AT [facility] Losartan Potassium (Losartan Potassium) 25 Mg Tablet, 25 MG GT DAILY, (Reported) STARTED AT [facility] Magnesium Hydroxide (Milk of Magnesia) 400 Mg/5 Ml Oral.susp, 15 ML GT DAILY, (Reported) STARTED AT [facility] Oxybutynin Chloride (Oxybutynin Chloride) 5 Mg Tablet, 5 MG GT BID, (Reported) Polyethylene Glycol 3350 (Miralax) 119 Gm Powder, 17 GM GT BID, (Reported) STARTED AT [facility] Potassium Chloride (Potassium Chloride) 8 Meq Tablet.er, 8 MEQ PO BID, (Reported) NOT GIVEN AT [facility] Sennosides (Senna Laxative) 8.6 Mg Tablet, 17.2 MG GT BID, (Reported) Valproic Acid (As Sodium Salt) (Valproic Acid) 250 Mg/5 Ml Solution, 650 MG GT TID, (Reported) STARTED AT [facility] Allergies Coded Allergies: No Known Allergies (Unverified , 08/07/20) CHRISTINA VILLEDA MD Aug 14, 2020 07:30
[2020-08-14 08:14] LABS: HEMATOCRIT 32.3 % (36.0-47.0); HEMOGLOBIN 9.8 g/dl (12.0-15.5); MEAN CORPUSCULAR HEMOGLOBIN 29.3 pg (27.0-33.0); MEAN CORPUSCULAR HGB CONC 30.3 g/dl (32.0-36.5); MEAN CORPUSCULAR VOLUME 96.4 fl (80.0-96.0); PLATELET COUNT, AUTOMATED 171 10^3/uL (150-450); RED BLOOD COUNT 3.35 10^6/uL (4.00-5.40); WHITE BLOOD COUNT 9.1 10^3/uL (4.0-10.0)
[2020-08-14 08:26] LABS: BLOOD UREA NITROGEN 33 MG/DL (7-18); CALCIUM LEVEL 7.7 MG/DL (8.8-10.2); CARBON DIOXIDE LEVEL 28 MEQ/L (21-32); CHLORIDE LEVEL 102 MEQ/L (98-107); CREATININE FOR GFR 0.83 MG/DL (0.55-1.30); GLOMERULAR FILTRATION RATE > 60.0 (>39); GLUCOSE, FASTING 85 MG/DL (70-100); SODIUM LEVEL 138 MEQ/L (136-145); VALPROIC ACID (DEPAKOTE) 41.4 UG/ML (50.0-100.0)
[2020-08-14 08:51] LABS: BASOPHILS 1 % (0-1); LYMPHOCYTES 16 % (16-44); METAMYELOCYTES 4 % (0-0); MONOCYTES 11 % (0-5); MYELOCYTES 3 % (0-0); NEUTROPHILS 63 % (28-66); PLATELET ESTIMATE NORMAL (NORMAL)
[2020-08-14 08:53] LABS: ANISOCYTOSIS 1+
[2020-08-14] MEDS ORDERED: DOCUSATE SOD LIQ 100MG/10ML UDC PO PRN (10:00)
[2020-08-14] MEDS: ACETAMINOPHEN 500 MG TAB PO SCH ×3 (10:47→20:51)
[2020-08-14] MEDS: LACTOBACILLUS ACIDOPHILUS CAP (BACID) PO SCH ×3 (10:47→20:50)
[2020-08-14] MEDS: oxyBUTYnin 5 MG TAB PO SCH ×2 (10:47→20:48)
[2020-08-14] MEDS: buPROPion 100 MG TAB PO SCH ×2 (10:48→20:49)
[2020-08-14] MEDS: guaiFENesin 200 MG TAB PO SCH ×3 (10:48→20:50)
[2020-08-14] MEDS: LIDOCAINE 5% (LIDODERM) PATCH TD SCH (10:48)
[2020-08-14] MEDS: ATORVASTATIN 20 MG TAB PO SCH (10:48)
[2020-08-14] MEDS: APIXABAN 5 MG TAB (ELIQUIS) PO SCH ×2 (10:48→20:50)
[2020-08-14] MEDS: LOSARTAN 25 MG TAB PO SCH (10:49)
[2020-08-14] MEDS: atenoloL 50 MG TAB PO SCH (10:49)
[2020-08-14] MEDS: LANSOPRAZOLE SUSPENSION 30 MG/10 ML ORAL SYRINGE (FIRST-LANSOPRAZOLE) PO SCH (10:49)
[2020-08-14] MEDS: SALIVA SUBSTITUTE(MOUTHKOTE) BTL MT SCH ×3 (10:53→20:51)
[2020-08-14] MEDS: DIVALPROEX SPRINKLE 125 MG CAP PO SCH ×2 (11:05→20:48)
[2020-08-14 14:00] VITALS: BP 114/55
--- NOTE | 2020-08-14 15:47 | IPNPDOC ---
Date Seen The patient was seen on 08/14/20. Progress Note SUBJECTIVE: CT abd/pelvis: Few tiny foci of extraluminal air in the upper abdomen. Surgery evaluated (Dr. Aguero) who felt feeding could resume this AM with CLD and then could advance steadily if no discharge increased from feeding tube incision. Holding off on placing new tube at this time to see how patient tolerates current diet orally. Patient denies abd pain, fevers, chills, n/v/d. OBJECTIVE: PHYSICAL EXAMINATION: VITAL SIGNS: Please see below. GENERAL APPEARANCE: Awake, alert, oriented to person, place and time. HEENT: moist mucous membranes, no JVD, no thyromegaly, no cervical lymphadenopathy LUNGS: Clear to auscultation. Wheezing, rales or rhonchi HEART: S1, S2 regular rate rhythm, no murmurs, rubs or gallops ABDOMEN: incision where feeding tube was, clean, nonsuppurative, not bleeding, nontender to palpation. Obese, soft, nondistended, positive bowel sounds 4 quadrants. No rebound or guarding. EXTREMITIES: No cyanosis, clubbing or edema INTEGUMENTARY:Dry skin on extremities , scabbed abrasion in left groin, healing well NEURO: Awake, alert, oriented to person, place and time, answering questions appropriately. Face is symmetric. Tongue is midline. No pronator drift bilaterally, mild expressive aphasia but understandable and coherent. No receptive aphasia and no neglect. Motor function right upper and left upper extremities 4/5, left lower extremity Right lower extremity 4-5. LABORATORY DATA: Please see below. IMAGING: CT abd/pelvis: Few tiny foci of extraluminal air in the upper abdomen. Nonspecific mesenteric stranding. Etiology infectious/inflammatory. ASSESSMENT: 80-year-old female admitted to [facility] due to left lower extremity weakness and aphasia from [facility] with CT of the head showing left vertebral occlusion. Patient was found to have an acute ischemic stroke in the left frontoparietal region concerning for cardioembolic phenomenon. Given bilateral old strokes in the past. She was admitted to the stroke service and placed on telemetry at [facility] and continued on her home dose of Xarelto and Lipitor. The patient was set fiddling transferred to [facility] acute rehabilitation unit after medical treatment at [facility]. . She is currently requiring 1 person assistance at all times but appears to be very cooperative. She currently denies any fevers, chills, shortness breath, chest p ain, pressure, tightness, lightheadedness, nausea, vomiting, diarrhea, abdominal pain, dysuria, urgency, frequency, fever, chills, polyphagia, polyuria, ear pain, discharge, changes in vision, rhinorrhea, tinnitus, ear discharge. She complains of weakness and quite anxious about falling. No other issues per nursing from overnight. 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 Continue to monitor incision where feeding tube was with frequent checks for increased drainage or abdominal pain. If any of these things occur, please make medicine attending aware as this may warrant repeat imaging. Also, if patient fails oral feedings, surgery can be reconsulted to come and see for feeding tube placement eval. C/w PT/OT as before. Other chronic issues appear stable. DISPOSITION: ARU status VS, I&O, 24H, [facility] Vital Signs/I&O Vital Signs Date Time Temp Pulse Resp B/P (MAP) Pulse Ox O2 Delivery O2 Flow Rate FiO2 08/14/20 10:49 139/70 08/14/20 06:00 96.8 63 18 100 Room Air I&O- Last 24 Hours up to 6 AM 08/14/20 06:00 Intake Total 620 ml Balance 620 ml Laboratory Data 24H LABS Laboratory Tests 2 08/13/20 18:40: Bedside Glucose (Misc Panel) 105 08/13/20 23:56: Bedside Glucose (Misc Panel) 82L 08/13/20 23:58: Bedside Glucose (Misc Panel) 113H 08/14/20 05:11: Bedside Glucose (Misc Panel) 88 08/14/20 07:38: Immature Granulocyte % (Auto) , Neutrophils (%) (Auto) , Nucleated Red Blood Cells % (auto) 0.0, Neutrophils 63, Band Neutrophils 2, Lymphocytes (Manual) 16, Monocytes (Manual) 11H, Basophils (Manual) 1, Metamyelocytes 4H, Myelocytes 3H, Anisocytosis 1+, Platelet Estimate NORMAL, Anion Gap 8, Glomerular Filtration Rate > 60.0, Calcium Level 7.7L, Valproic Acid (Depakene) Level 41.4L CBC/BMP Laboratory Tests 08/14/20 07:38 Microbiology Microbiology 08/09/20 Urine Culture - Final, Complete Escherichia Coli Current Medications Current Medications Medications (Trade) Dose Ordered Sig/Brenda Route PRN Reason Start Time Stop Time Status Last Admin Dose Admin Acetaminophen (Tylenol Suspension) 650 mg Q4HP PRN GT PAIN OR FEVER 08/07/20 13:00 08/09/20 16:32 DC 08/09/20 16:17 Acetaminophen (Tylenol Suspension) 650 mg Q4HP PRN GT PAIN / FEVER 08/07/20 13:00 UNV Acetaminophen (Tylenol Suspension) 975 mg TID GT 08/09/20 21:00 08/14/20 09:49 DC 08/13/20 16:45 Acetaminophen (Tylenol Tab) 1,000 mg TID PO 08/14/20 09:00 08/14/20 10:47 Albuterol/ Ipratropium (Duoneb (Ipr 0.5mg/Alb 2.5mg)) 3 ml RTID NEB 08/07/20 14:00 08/14/20 14:44 Apixaban (Eliquis) 5 mg BID PEG 08/07/20 21:00 08/14/20 09:51 DC 08/13/20 09:05 Apixaban (Eliquis) 5 mg BID PO 08/14/20 09:00 08/14/20 10:48 Atenolol (Tenormin) 50 mg DAILY PEG 08/08/20 09:00 08/14/20 09:47 DC 08/13/20 09:05 Atenolol (Tenormin) 50 mg DAILY PO 08/14/20 09:00 08/14/20 10:49 Atorvastatin Calcium (Lipitor) 40 mg DAILY PEG 08/08/20 09:00 08/14/20 09:47 DC 08/13/20 09:05 Atorvastatin Calcium (Lipitor) 40 mg DAILY PO 08/14/20 09:00 08/14/20 10:48 Bisacodyl (Dulcolax Suppository) 10 mg DAILY IA 08/08/20 09:00 08/12/20 12:53 DC 08/11/20 09:40 Bisacodyl (Dulcolax Suppository) 10 mg DAILY PRN IA constipaion 08/12/20 13:00 Bupropion HCl (Wellbutrin) 50 mg BID PO 08/07/20 21:00 08/14/20 10:48 Dextrose (Dextrose 50%) 25 ml ASDIRECTED PRN IV SEE LABEL COMMENTS 08/07/20 13:00 Divalproex Sodium (Depakote Sprinkles) 1,000 mg BID PO 08/14/20 11:00 08/14/20 11:05 Docusate Sodium (Colace Liquid) 100 mg BIDP PRN GT CONSTIPATION 08/07/20 13:00 08/14/20 09:53 DC Docusate Sodium (Colace Liquid) 100 mg BIDP PRN PO CONSTIPATION 08/14/20 10:00 Glucagon (Glucagon) 1 mg ASDIRECTED PRN SC SEE LABEL COMMENTS 08/07/20 13:00 Glucose (Glucose) 16 GM ASDIRECTED PRN PO SEE LABEL COMMENTS 08/07/20 13:00 Guaifenesin (Robitussin Tab) 400 mg TID PO 08/14/20 09:00 08/14/20 10:48 Guaifenesin (Robitussin) 5 ml TID PEG 08/07/20 16:00 08/14/20 09:51 DC 08/13/20 16:45 Home Med (Med Rec Complete!) ASDIRECTED XX 08/07/20 13:45 08/07/20 13:51 DC Lactobacillus Acidophilus (Bacid) 1 ea TID PEG 08/09/20 16:00 08/14/20 09:47 DC 08/13/20 16:45 Lactobacillus Acidophilus (Bacid) 1 ea TID PO 08/14/20 09:00 08/14/20 10:47 Lansoprazole (First-Lansoprazole Oral Suspension) 30 mg DAILY GT 08/08/20 12:00 08/14/20 09:49 DC 08/13/20 09:05 Lansoprazole (First-Lansoprazole Oral Suspension) 30 mg DAILY PO 08/14/20 09:00 08/14/20 10:49 Levofloxacin (Levaquin) 750 mg DAILY@06 PEG 08/09/20 09:15 08/14/20 09:14 DC 08/13/20 05:47 Lidocaine (Lidoderm Patch) 1 patch DAILY TD 08/08/20 10:15 08/14/20 10:48 Losartan Potassium (Cozaar) 25 mg DAILY PEG 08/08/20 09:00 08/14/20 09:47 DC 08/13/20 09:05 Losartan Potassium (Cozaar) 25 mg DAILY PO 08/14/20 09:00 08/14/20 10:49 Nitrofurantoin Monoh/Nitrofur Macro (Macrobid) 100 mg BID GT 08/10/20 09:00 08/10/20 05:53 DC Non-Formulary Medication ( See Comment Field Below ) REMOVE LIDODERM PATCH DAILY@21 XX 08/08/20 21:00 08/13/20 21:00 Nystatin (Mycostatin Powder, Nystop) 1 dose TID TOP 08/07/20 16:00 08/14/20 10:50 Oxybutynin Chloride (Ditropan) 5 mg BID PEG 08/07/20 21:00 08/14/20 09:47 DC 08/13/20 09:07 Oxybutynin Chloride (Ditropan) 5 mg BID PO 08/14/20 09:00 08/14/20 10:47 Saliva Substitute (Mouthkote) Q1HP PRN MT dry mouth 08/08/20 14:45 08/12/20 10:03 DC 08/10/20 06:05 Saliva Substitute (Mouthkote) 2 sprays TID MT 08/12/20 10:00 08/14/20 10:53 Valproic Acid (Depakene Solution) 650 mg TID PEG 08/07/20 16:00 08/14/20 10:17 DC 08/14/20 00:33 Allergies Coded Allergies: No Known Allergies (Unverified , 08/07/20) Lilo Amanda MD Aug 14, 2020 15:47
--- NOTE | 2020-08-14 16:05 | IPNPDOC ---
PM&R Progress Note DATE OF SERVICE: Aug 14, 2020 [employer] Progress Note Subjective: PAtient seen in her room reporting her stomach did not hurt the day after her PEG came out and was able to follow commands. She did not appear in distress and was reported to still be incontinent. REVIEW OF SYSTEMS: The following is a completed review of systems and has been reviewed. Review of systems otherwise unremarkable. PAIN: Patient self reports no pain EYES: difficult to assess EARS, NOSE, & THROAT:+dysphagia (improving) CARDIOVASCULAR: Denies chest pain or palpitations PULMONARY: Denies shortness of breath GASTROINTESTINAL: s/p peg GENITOURINARY: +incontinence MUSCULOSKELETAL: right sided weakness NEUROLOGICAL:right sided paresis, expressive aphasia SKIN: skin breakdown under breasts and in abdominal folds PSYCHIATRIC: Unremarkable All other review of systems found to be negative. PHYSICAL EXAMINATION: VITAL SIGNS: Please see below. GENERAL: Pleasant and cooperative. No acute distress. HEENT: PERRL. Extraocular movements intact. Clear conjunctiva CARDIOVASCULAR: Regular rate and rhythm. No murmurs, rubs, or gallops LUNGS: Clear to auscultation bilaterally. No wheezes. No rhonchi ABDOMEN: Soft, nontender, nondistended. Positive bowel sounds. Normal active bowel sounds, former PEG site c/d/i n drainage NEUROLOGICAL: +expressive aphasia, able to follow commands, Sensation grossly intact EXTREMITIES: 5/5 strength LUE, 3+/5 RUE, 4\\5 strength right lower extremity. 5/5 strength in left lower extremity. SKIN: +sacral excoriation, bilateral under breast skin breakdown and in abdominal folds ASSESSMENT:80-year-old F with past medical history of stroke, CKD, DM who presents status post left MCA infarct with new onset seizures PLAN: 1. 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 Neuro- s/p left MCA infarct with expressive aphasia, dysphagia, and right sided hemiparesis, c/u Eliquis for AFib, statin for secondary stroke prevention- - recent post-stroke seizure activity c/u depakote at 1000mg BID (increased from 650 TID with a total dose per day increase from 1950mg-->2000mg)-will recheck levels 3. Cardiac- ECHO 07-23-20 showed Normal global systolic left ventricular function. This study is inadequate for the evaluation of regional wall motion. At least grade 2 diastolic dysfunction without interatrial shunt via bubble study" - new onset Afib c/u eliquis and atenolol -HLD- statin 4. resp- monitor for infection, DUonebs and guaifenesin ordered 5. 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 VAsc- hx of DVT c/u eliquis 7. - + ecoli UTI c/u LEvaquin 8. Pain- tylneol standing, lidoderm patch to right shoulder 9. Psych- patient was on Bupropion 100mg BID at home and off it while at GI will start back at half dose 50mg BID 10. SKin- turn q2h in bed, dressing changes per nursing orders 10. Dispo- tbd Allergies Coded Allergies: No Known Allergies (Unverified , 08/07/20) Vital Signs Vital Signs Date Time Temp Pulse Resp B/P (MAP) Pulse Ox O2 Delivery O2 Flow Rate FiO2 08/14/20 14:00 96.1 60 19 114/55 (74) 98 Room Air Laboratory Data CBC/BMP Laboratory Tests 08/14/20 07:38 Labs 24H Laboratory Tests 2 08/13/20 18:40: Bedside Glucose (Misc Panel) 105 08/13/20 23:56: Bedside Glucose (Misc Panel) 82L 08/13/20 23:58: Bedside Glucose (Misc Panel) 113H 08/14/20 05:11: Bedside Glucose (Misc Panel) 88 08/14/20 07:38: Immature Granulocyte % (Auto) , Neutrophils (%) (Auto) , Nucleated Red Blood Cells % (auto) 0.0, Neutrophils 63, Band Neutrophils 2, Lymphocytes (Manual) 16, Monocytes (Manual) 11H, Basophils (Manual) 1, Metamyelocytes 4H, Myelocytes 3H, Anisocytosis 1+, Platelet Estimate NORMAL, Anion Gap 8, Glomerular Filtration Rate > 60.0, Calcium Level 7.7L, Valproic Acid (Depakene) Level 41.4L Microbiology Microbiology 08/09/20 Urine Culture - Final, Complete Escherichia Coli Current Medications Current Medications Current Medications Medications (Trade) Dose Ordered Sig/Brenda Route PRN Reason Start Time Stop Time Status Last Admin Dose Admin Acetaminophen (Tylenol Suspension) 650 mg Q4HP PRN GT PAIN OR FEVER 08/07/20 13:00 08/09/20 16:32 DC 08/09/20 16:17 Acetaminophen (Tylenol Suspension) 650 mg Q4HP PRN GT PAIN / FEVER 08/07/20 13:00 UNV Acetaminophen (Tylenol Suspension) 975 mg TID GT 08/09/20 21:00 08/14/20 09:49 DC 08/13/20 16:45 Acetaminophen (Tylenol Tab) 1,000 mg TID PO 08/14/20 09:00 08/14/20 10:47 Albuterol/ Ipratropium (Duoneb (Ipr 0.5mg/Alb 2.5mg)) 3 ml RTID NEB 08/07/20 14:00 08/14/20 14:44 Apixaban (Eliquis) 5 mg BID PEG 08/07/20 21:00 08/14/20 09:51 DC 08/13/20 09:05 Apixaban (Eliquis) 5 mg BID PO 08/14/20 09:00 08/14/20 10:48 Atenolol (Tenormin) 50 mg DAILY PEG 08/08/20 09:00 08/14/20 09:47 DC 08/13/20 09:05 Atenolol (Tenormin) 50 mg DAILY PO 08/14/20 09:00 08/14/20 10:49 Atorvastatin Calcium (Lipitor) 40 mg DAILY PEG 08/08/20 09:00 08/14/20 09:47 DC 08/13/20 09:05 Atorvastatin Calcium (Lipitor) 40 mg DAILY PO 08/14/20 09:00 08/14/20 10:48 Bisacodyl (Dulcolax Suppository) 10 mg DAILY NM 08/08/20 09:00 08/12/20 12:53 DC 08/11/20 09:40 Bisacodyl (Dulcolax Suppository) 10 mg DAILY PRN NM constipaion 08/12/20 13:00 Bupropion HCl (Wellbutrin) 50 mg BID PO 08/07/20 21:00 08/14/20 10:48 Dextrose (Dextrose 50%) 25 ml ASDIRECTED PRN IV SEE LABEL COMMENTS 08/07/20 13:00 Divalproex Sodium (Depakote Sprinkles) 1,000 mg BID PO 08/14/20 11:00 08/14/20 11:05 Docusate Sodium (Colace Liquid) 100 mg BIDP PRN GT CONSTIPATION 08/07/20 13:00 08/14/20 09:53 DC Docusate Sodium (Colace Liquid) 100 mg BIDP PRN PO CONSTIPATION 08/14/20 10:00 Glucagon (Glucagon) 1 mg ASDIRECTED PRN SC SEE LABEL COMMENTS 08/07/20 13:00 Glucose (Glucose) 16 GM ASDIRECTED PRN PO SEE LABEL COMMENTS 08/07/20 13:00 Guaifenesin (Robitussin Tab) 400 mg TID PO 08/14/20 09:00 08/14/20 10:48 Guaifenesin (Robitussin) 5 ml TID PEG 08/07/20 16:00 08/14/20 09:51 DC 08/13/20 16:45 Home Med (Med Rec Complete!) ASDIRECTED XX 08/07/20 13:45 08/07/20 13:51 DC Lactobacillus Acidophilus (Bacid) 1 ea TID PEG 08/09/20 16:00 08/14/20 09:47 DC 08/13/20 16:45 Lactobacillus Acidophilus (Bacid) 1 ea TID PO 08/14/20 09:00 08/14/20 10:47 Lansoprazole (First-Lansoprazole Oral Suspension) 30 mg DAILY GT 08/08/20 12:00 08/14/20 09:49 DC 08/13/20 09:05 Lansoprazole (First-Lansoprazole Oral Suspension) 30 mg DAILY PO 08/14/20 09:00 08/14/20 10:49 Levofloxacin (Levaquin) 750 mg DAILY@06 PEG 08/09/20 09:15 08/14/20 09:14 DC 08/13/20 05:47 Lidocaine (Lidoderm Patch) 1 patch DAILY TD 08/08/20 10:15 08/14/20 10:48 Losartan Potassium (Cozaar) 25 mg DAILY PEG 08/08/20 09:00 08/14/20 09:47 DC 08/13/20 09:05 Losartan Potassium (Cozaar) 25 mg DAILY PO 08/14/20 09:00 08/14/20 10:49 Nitrofurantoin Monoh/Nitrofur Macro (Macrobid) 100 mg BID GT 08/10/20 09:00 08/10/20 05:53 DC Non-Formulary Medication ( See Comment Field Below ) REMOVE LIDODERM PATCH DAILY@21 XX 08/08/20 21:00 08/13/20 21:00 Nystatin (Mycostatin Powder, Nystop) 1 dose TID TOP 08/07/20 16:00 08/14/20 10:50 Oxybutynin Chloride (Ditropan) 5 mg BID PEG 08/07/20 21:00 08/14/20 09:47 DC 08/13/20 09:07 Oxybutynin Chloride (Ditropan) 5 mg BID PO 08/14/20 09:00 08/14/20 10:47 Saliva Substitute (Mouthkote) Q1HP PRN MT dry mouth 08/08/20 14:45 08/12/20 10:03 DC 08/10/20 06:05 Saliva Substitute (Mouthkote) 2 sprays TID MT 08/12/20 10:00 08/14/20 10:53 Valproic Acid (Depakene Solution) 650 mg TID PEG 08/07/20 16:00 08/14/20 10:17 DC 08/14/20 00:33 SANTA HOOVER MD Aug 14, 2020 16:05
[2020-08-14 20:30] VITALS: BP 132/63
[2020-08-14] MEDS: **NOTE PATIENT COMMENT** MISC XX SCH (20:52)
[2020-08-15] MEDS: REMEDY PHYTOPLEX Z-GUARD PASTE 113GM TUBE (FROM STOREROOM PRODUCT) TOP SCH ×6 (00:06→21:44)
[2020-08-15 06:00] VITALS: BP 150/70
[2020-08-15] MEDS: IPRATROPIUM 0.5MG/ALBUTEROL 2.5MG INH SOL UD 3ML (DUONEB) NEB SCH ×3 (06:11→19:36)
[2020-08-15] MEDS: APIXABAN 5 MG TAB (ELIQUIS) PO SCH ×2 (08:59→21:42)
[2020-08-15] MEDS: ATORVASTATIN 20 MG TAB PO SCH (08:59)
[2020-08-15] MEDS: buPROPion 100 MG TAB PO SCH ×2 (08:59→21:42)
[2020-08-15] MEDS: guaiFENesin 200 MG TAB PO SCH ×3 (08:59→21:42)
[2020-08-15] MEDS: oxyBUTYnin 5 MG TAB PO SCH ×2 (08:59→21:42)
[2020-08-15] MEDS: ACETAMINOPHEN 500 MG TAB PO SCH ×3 (08:59→21:41)
[2020-08-15] MEDS: LACTOBACILLUS ACIDOPHILUS CAP (BACID) PO SCH ×3 (09:00→21:42)
[2020-08-15] MEDS: LOSARTAN 25 MG TAB PO SCH (09:00)
[2020-08-15] MEDS: SALIVA SUBSTITUTE(MOUTHKOTE) BTL MT SCH ×3 (09:00→21:44)
[2020-08-15] MEDS: LANSOPRAZOLE SUSPENSION 30 MG/10 ML ORAL SYRINGE (FIRST-LANSOPRAZOLE) PO SCH (09:01)
[2020-08-15] MEDS: DIVALPROEX SPRINKLE 125 MG CAP PO SCH ×2 (09:01→21:44)
[2020-08-15] MEDS: LIDOCAINE 5% (LIDODERM) PATCH TD SCH (09:01)
[2020-08-15] MEDS: atenoloL 50 MG TAB PO SCH (09:02)
[2020-08-15] MEDS: NYSTATIN 100,000 UNITS/GM TOPICAL PWD 15 GM TOP SCH ×3 (09:02→21:43)
[2020-08-15 09:13] LABS: HEMATOCRIT 34.5 % (36.0-47.0); HEMOGLOBIN 10.7 g/dl (12.0-15.5); MEAN CORPUSCULAR HEMOGLOBIN 29.8 pg (27.0-33.0); MEAN CORPUSCULAR VOLUME 96.1 fl (80.0-96.0); PLATELET COUNT, AUTOMATED 175 10^3/uL (150-450); RED BLOOD COUNT 3.59 10^6/uL (4.00-5.40); WHITE BLOOD COUNT 9.7 10^3/uL (4.0-10.0)
[2020-08-15 10:45] LABS: ATYPICAL LYMPH 1 % (0-5); EOSINOPHILS 2 % (0-3); LYMPHOCYTES 22 % (16-44); METAMYELOCYTES 1 % (0-0); MONOCYTES 13 % (0-5); MYELOCYTES 3 % (0-0); NEUTROPHILS 58 % (28-66); OVALOCYTES 1+; PLATELET ESTIMATE NORMAL (NORMAL)
--- NOTE | 2020-08-15 12:15 | IPNPDOC ---
PM&R Progress Note DATE OF SERVICE: Aug 15, 2020 [employer] Care Rec[employer]iter Progress Note Subjective: Patient reporting her abdomen feels ok, denies nausea or vomiting and was seen comfortably eating lunch. REVIEW OF SYSTEMS: The following is a completed review of systems and has been reviewed. Review of systems otherwise unremarkable. PAIN: Patient self reports no pain EYES: difficult to assess EARS, NOSE, & THROAT:+dysphagia (improving) CARDIOVASCULAR: Denies chest pain or palpitations PULMONARY: Denies shortness of breath GASTROINTESTINAL: s/p peg GENITOURINARY: +incontinence MUSCULOSKELETAL: right sided weakness NEUROLOGICAL:right sided paresis, expressive aphasia SKIN: skin breakdown under breasts and in abdominal folds PSYCHIATRIC: Unremarkable All other review of systems found to be negative. PHYSICAL EXAMINATION: VITAL SIGNS: Please see below. GENERAL: Pleasant and cooperative. No acute distress. HEENT: PERRL. Extraocular movements intact. Clear conjunctiva CARDIOVASCULAR: Regular rate and rhythm. No murmurs, rubs, or gallops LUNGS: Clear to auscultation bilaterally. No wheezes. No rhonchi ABDOMEN: Soft, nontender, nondistended. Positive bowel sounds. Normal active bowel sounds, former PEG site c/d/i no drainage NEUROLOGICAL: +expressive aphasia, able to follow commands, Sensation grossly intact EXTREMITIES: 5/5 strength LUE, 3+/5 RUE, 4\\5 strength right lower extremity. 5/5 strength in left lower extremity. SKIN: +sacral excoriation, bilateral under breast skin breakdown and in abdominal folds (improving) ASSESSMENT:80-year-old F with past medical history of stroke, CKD, DM who presents status post left MCA infarct with new onset seizures PLAN: 1. 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 Neuro- s/p left MCA infarct with expressive aphasia, dysphagia, and right sided hemiparesis, c/u Eliquis for AFib, statin for secondary stroke prevention- - recent post-stroke seizure activity c/u depakote at 1000mg BID (increased from 650 TID with a total dose per day increase from 1950mg-->2000mg)-will recheck levels 3. Cardiac- ECHO 07-23-20 showed Normal global systolic left ventricular function. This study is inadequate for the evaluation of regional wall motion. At least grade 2 diastolic dysfunction without interatrial shunt via bubble study" - new onset Afib c/u eliquis and atenolol -HLD- statin 4. resp- monitor for infection, DUonebs and guaifenesin ordered 5. GI ppx- lansoprazole -tube feeds discontinued as PEG accidentally pulled yesterday with abdominal imaging performed, patient seen by surgery who initially recommended clear liquid diet, patient advanced back to solids today, will c/u level 2 per speech's recs 6. VAsc- hx of DVT c/u eliquis 7. - + ecoli UTI c/u LEvaquin 8. Pain- tylneol standing, lidoderm patch to right shoulder 9. Psych- patient was on Bupropion 100mg BID at home and off it while at GI c/u at half dose 50mg BID 10. SKin- turn q2h in bed, dressing changes per nursing orders 10. Dispo- tbd Allergies Coded Allergies: No Known Allergies (Unverified , 08/07/20) Vital Signs Vital Signs Date Time Temp Pulse Resp B/P (MAP) Pulse Ox O2 Delivery O2 Flow Rate FiO2 08/15/20 09:00 142/64 08/15/20 06:00 97.9 69 18 98 Room Air Laboratory Data CBC/BMP Laboratory Tests 08/15/20 08:49 Labs 24H Laboratory Tests 2 08/14/20 17:54: Bedside Glucose (Misc Panel) 121H 08/15/20 02:52: Bedside Glucose (Misc Panel) 93 08/15/20 06:16: Bedside Glucose (Misc Panel) 75L 08/15/20 08:49: Immature Granulocyte % (Auto) , Neutrophils (%) (Auto) , Nucleated Red Blood Cells % (auto) 0.0, Neutrophils 58, Lymphocytes (Manual) 22, Monocytes (Manual) 13H, Eosinophils (Manual) 2, Metamyelocytes 1H, Myelocytes 3H, Atypical Lymphocytes 1, Macrocytosis 1+, Ovalocytes 1+, Platelet Estimate NORMAL 08/15/20 11:57: Bedside Glucose (Misc Panel) 119H Microbiology Microbiology 08/09/20 Urine Culture - Final, Complete Escherichia Coli Current Medications Current Medications Current Medications Medications (Trade) Dose Ordered Sig/Brenda Route PRN Reason Start Time Stop Time Status Last Admin Dose Admin Acetaminophen (Tylenol Suspension) 650 mg Q4HP PRN GT PAIN OR FEVER 08/07/20 13:00 08/09/20 16:32 DC 08/09/20 16:17 Acetaminophen (Tylenol Suspension) 650 mg Q4HP PRN GT PAIN / FEVER 08/07/20 13:00 UNV Acetaminophen (Tylenol Suspension) 975 mg TID GT 08/09/20 21:00 08/14/20 09:49 DC 08/13/20 16:45 Acetaminophen (Tylenol Tab) 1,000 mg TID PO 08/14/20 09:00 08/15/20 08:59 Albuterol/ Ipratropium (Duoneb (Ipr 0.5mg/Alb 2.5mg)) 3 ml RTID NEB 08/07/20 14:00 08/15/20 06:11 Apixaban (Eliquis) 5 mg BID PEG 08/07/20 21:00 08/14/20 09:51 DC 08/13/20 09:05 Apixaban (Eliquis) 5 mg BID PO 08/14/20 09:00 08/15/20 08:59 Atenolol (Tenormin) 50 mg DAILY PEG 08/08/20 09:00 08/14/20 09:47 DC 08/13/20 09:05 Atenolol (Tenormin) 50 mg DAILY PO 08/14/20 09:00 08/15/20 09:02 Atorvastatin Calcium (Lipitor) 40 mg DAILY PEG 08/08/20 09:00 08/14/20 09:47 DC 08/13/20 09:05 Atorvastatin Calcium (Lipitor) 40 mg DAILY PO 08/14/20 09:00 08/15/20 08:59 Bisacodyl (Dulcolax Suppository) 10 mg DAILY DE 08/08/20 09:00 08/12/20 12:53 DC 08/11/20 09:40 Bisacodyl (Dulcolax Suppository) 10 mg DAILY PRN DE constipaion 08/12/20 13:00 Bupropion HCl (Wellbutrin) 50 mg BID PO 08/07/20 21:00 08/15/20 08:59 Dextrose (Dextrose 50%) 25 ml ASDIRECTED PRN IV SEE LABEL COMMENTS 08/07/20 13:00 Divalproex Sodium (Depakote Sprinkles) 1,000 mg BID PO 08/14/20 11:00 08/15/20 09:01 Docusate Sodium (Colace Liquid) 100 mg BIDP PRN GT CONSTIPATION 08/07/20 13:00 08/14/20 09:53 DC Docusate Sodium (Colace Liquid) 100 mg BIDP PRN PO CONSTIPATION 08/14/20 10:00 Glucagon (Glucagon) 1 mg ASDIRECTED PRN SC SEE LABEL COMMENTS 08/07/20 13:00 Glucose (Glucose) 16 GM ASDIRECTED PRN PO SEE LABEL COMMENTS 08/07/20 13:00 Guaifenesin (Robitussin Tab) 400 mg TID PO 08/14/20 09:00 08/15/20 08:59 Guaifenesin (Robitussin) 5 ml TID PEG 08/07/20 16:00 08/14/20 09:51 DC 08/13/20 16:45 Home Med (Med Rec Complete!) ASDIRECTED XX 08/07/20 13:45 08/07/20 13:51 DC Lactobacillus Acidophilus (Bacid) 1 ea TID PEG 08/09/20 16:00 08/14/20 09:47 DC 08/13/20 16:45 Lactobacillus Acidophilus (Bacid) 1 ea TID PO 08/14/20 09:00 08/15/20 09:00 Lansoprazole (First-Lansoprazole Oral Suspension) 30 mg DAILY GT 08/08/20 12:00 08/14/20 09:49 DC 08/13/20 09:05 Lansoprazole (First-Lansoprazole Oral Suspension) 30 mg DAILY PO 08/14/20 09:00 08/15/20 09:01 Levofloxacin (Levaquin) 750 mg DAILY@06 PEG 08/09/20 09:15 08/14/20 09:14 DC 08/13/20 05:47 Lidocaine (Lidoderm Patch) 1 patch DAILY TD 08/08/20 10:15 08/15/20 09:01 Losartan Potassium (Cozaar) 25 mg DAILY PEG 08/08/20 09:00 08/14/20 09:47 DC 08/13/20 09:05 Losartan Potassium (Cozaar) 25 mg DAILY PO 08/14/20 09:00 08/15/20 09:00 Nitrofurantoin Monoh/Nitrofur Macro (Macrobid) 100 mg BID GT 08/10/20 09:00 08/10/20 05:53 DC Non-Formulary Medication ( See Comment Field Below ) REMOVE LIDODERM PATCH DAILY@21 XX 08/08/20 21:00 08/14/20 20:52 Nystatin (Mycostatin Powder, Nystop) 1 dose TID TOP 08/07/20 16:00 08/15/20 09:02 Oxybutynin Chloride (Ditropan) 5 mg BID PEG 08/07/20 21:00 08/14/20 09:47 DC 08/13/20 09:07 Oxybutynin Chloride (Ditropan) 5 mg BID PO 08/14/20 09:00 08/15/20 08:59 Saliva Substitute (Mouthkote) Q1HP PRN MT dry mouth 08/08/20 14:45 08/12/20 10:03 DC 08/10/20 06:05 Saliva Substitute (Mouthkote) 2 sprays TID MT 08/12/20 10:00 08/14/20 20:51 Valproic Acid (Depakene Solution) 650 mg TID PEG 08/07/20 16:00 08/14/20 10:17 DC 08/14/20 00:33 SANTA HOOVER MD Aug 15, 2020 12:15
[2020-08-15 14:00] VITALS: BP 129/56
--- NOTE | 2020-08-15 15:23 | IPNPDOC ---
Text Note Date of Service The patient was seen on 08/15/20. NOTE Patient seen and examined today, No events reported yesterday. Patient denies any abdominal discomfort. Speech pathologist thinks she may be able to be advanced to s a soft mechanical diet. On exam, looks comfortable abdomen, obese, soft, nondistended, PEG tube site closed, no drainage, or erythema. Nontender on palpation Impression and plan dislodged peg tube OK to advance diet per speech pathologist recommendations will sign off at this point as no complications apparent from the dislodged peg tube that requires surgical intervention PEG tube not needed anymore. Call back if needs to be replaced. VS,Fishbone, I+O VS, Fishbone, I+O Laboratory Tests 08/15/20 08:49 Vital Signs Date Time Temp Pulse Resp B/P (MAP) Pulse Ox O2 Delivery O2 Flow Rate FiO2 08/15/20 14:00 98.0 65 18 129/56 (80) 99 Room Air I&O- Last 24 Hours up to 6 AM 08/15/20 06:00 Intake Total 1420 ml Balance 1420 ml CHRISTINA VILLEDA MD Aug 15, 2020 15:23
[2020-08-15 21:00] VITALS: BP 114/65
[2020-08-15] MEDS: **NOTE PATIENT COMMENT** MISC XX SCH (21:47)
[2020-08-16] MEDS: REMEDY PHYTOPLEX Z-GUARD PASTE 113GM TUBE (FROM STOREROOM PRODUCT) TOP SCH ×6 (00:36→21:53)
[2020-08-16 06:00] VITALS: BP 121/60
[2020-08-16 06:50] LABS: HEMATOCRIT 32.7 % (36.0-47.0); HEMOGLOBIN 10.4 g/dl (12.0-15.5); MEAN CORPUSCULAR HEMOGLOBIN 30.9 pg (27.0-33.0); MEAN CORPUSCULAR HGB CONC 31.8 g/dl (32.0-36.5); PLATELET COUNT, AUTOMATED 174 10^3/uL (150-450); RED BLOOD COUNT 3.37 10^6/uL (4.00-5.40); WHITE BLOOD COUNT 9.3 10^3/uL (4.0-10.0)
[2020-08-16 07:14] LABS: CALCIUM LEVEL 7.7 MG/DL (8.8-10.2); GLOMERULAR FILTRATION RATE 56.9 (>39); POTASSIUM SERUM 3.6 MEQ/L (3.5-5.1)
[2020-08-16 07:26] LABS: ANISOCYTOSIS 1+; ATYPICAL LYMPH 1 % (0-5); EOSINOPHILS 2 % (0-3); LYMPHOCYTES 20 % (16-44); METAMYELOCYTES 1 % (0-0); MONOCYTES 10 % (0-5); MYELOCYTES 3 % (0-0); NEUTROPHILS 62 % (28-66); PLATELET ESTIMATE NORMAL (NORMAL); POLYCHROMASIA 1+
[2020-08-16] MEDS: oxyBUTYnin 5 MG TAB PO SCH ×2 (09:53→21:49)
[2020-08-16] MEDS: LANSOPRAZOLE SUSPENSION 30 MG/10 ML ORAL SYRINGE (FIRST-LANSOPRAZOLE) PO SCH (09:53)
[2020-08-16] MEDS: LACTOBACILLUS ACIDOPHILUS CAP (BACID) PO SCH ×3 (09:54→21:49)
[2020-08-16] MEDS: ACETAMINOPHEN 500 MG TAB PO SCH ×3 (09:54→21:50)
[2020-08-16] MEDS: guaiFENesin 200 MG TAB PO SCH ×3 (09:54→21:49)
[2020-08-16] MEDS: ATORVASTATIN 20 MG TAB PO SCH (09:54)
[2020-08-16] MEDS: DIVALPROEX SPRINKLE 125 MG CAP PO SCH ×2 (09:55→21:48)
[2020-08-16] MEDS: APIXABAN 5 MG TAB (ELIQUIS) PO SCH ×2 (09:55→21:49)
[2020-08-16] MEDS: atenoloL 50 MG TAB PO SCH (09:56)
[2020-08-16] MEDS: LOSARTAN 25 MG TAB PO SCH (09:56)
[2020-08-16] MEDS: buPROPion 100 MG TAB PO SCH ×2 (09:57→21:49)
[2020-08-16] MEDS: NYSTATIN 100,000 UNITS/GM TOPICAL PWD 15 GM TOP SCH ×3 (09:59→21:52)
[2020-08-16] MEDS: SALIVA SUBSTITUTE(MOUTHKOTE) BTL MT SCH ×3 (09:59→21:52)
[2020-08-16] MEDS: LIDOCAINE 5% (LIDODERM) PATCH TD SCH (10:08)
[2020-08-16] MEDS: IPRATROPIUM 0.5MG/ALBUTEROL 2.5MG INH SOL UD 3ML (DUONEB) NEB SCH ×3 (10:35→20:00)
--- NOTE | 2020-08-16 10:42 | IPNPDOC ---
PM&R Progress Note DATE OF SERVICE: Aug 16, 2020 [employer] Progress Note Subjective: Patient seen in her room, denies shoulder pain, and reports her stomach feels fine. REVIEW OF SYSTEMS: The following is a completed review of systems and has been reviewed. Review of systems otherwise unremarkable. PAIN: Patient self reports no pain EYES: difficult to assess EARS, NOSE, & THROAT:+dysphagia (improving) CARDIOVASCULAR: Denies chest pain or palpitations PULMONARY: Denies shortness of breath GASTROINTESTINAL: s/p peg GENITOURINARY: +incontinence MUSCULOSKELETAL: right sided weakness NEUROLOGICAL:right sided paresis, expressive aphasia SKIN: skin breakdown under breasts and in abdominal folds PSYCHIATRIC: Unremarkable All other review of systems found to be negative. PHYSICAL EXAMINATION: VITAL SIGNS: Please see below. GENERAL: Pleasant and cooperative. No acute distress. HEENT: PERRL. Extraocular movements intact. Clear conjunctiva CARDIOVASCULAR: Regular rate and rhythm. No murmurs, rubs, or gallops LUNGS: Clear to auscultation bilaterally. No wheezes. No rhonchi ABDOMEN: Soft, nontender, nondistended. Positive bowel sounds. Normal active bowel sounds, former PEG site c/d/i no drainage NEUROLOGICAL: +expressive aphasia, able to follow commands, Sensation grossly intact EXTREMITIES: 5/5 strength LUE, 3+/5 RUE, 4\\5 strength right lower extremity. 5/5 strength in left lower extremity. SKIN: +sacral excoriation, bilateral under breast skin breakdown and in abdominal folds (improving) right dorsal MTP callous with blanchable erythema ASSESSMENT:80-year-old F with past medical history of stroke, CKD, DM who presents status post left MCA infarct with new onset seizures PLAN: 1. Rehab- PT/OT advance mobility and ADLs, maintain ROM/stretch/strengthen all 4 limbs- multipodus boot to right foot-will contact press tender smoke signal for custom made AFO prior to discharge, patient currently using old one -[employer]- patient with expressive aphasia and dysphagia, advanced to level 2 and thins 2. Neuro- s/p left MCA infarct with expressive aphasia, dysphagia, and right sided hemiparesis, c/u Eliquis for AFib, statin for secondary stroke prevention- - recent post-stroke seizure activity c/u depakote at 1000mg BID (increased from 650 TID with a total dose per day increase from 1950mg-->2000mg)-will recheck levels 3. Cardiac- ECHO 07-23-20 showed Normal global systolic left ventricular function. This study is inadequate for the evaluation of regional wall motion. At least grade 2 diastolic dysfunction without interatrial shunt via bubble study" - new onset Afib c/u eliquis and atenolol -HLD- statin 4. resp- monitor for infection, DUonebs and guaifenesin ordered 5. GI ppx- lansoprazole -tube feeds discontinued as PEG accidentally pulled yesterday with abdominal imaging performed, patient seen by surgery who initially recommended clear liquid diet, patient advanced back to solids today, will c/u level 2 per [facility]'s recs 6. VAsc- hx of DVT c/u eliquis 7. - + ecoli UTI s/p course of LEvaquin 8. Pain- tylneol standing, c/u lidoderm patch to right shoulder 9. Psych- patient was on Bupropion 100mg BID at home and off it while at GI c/u at half dose 50mg BID 10. SKin- turn q2h in bed, dressing changes per nursing orders, AFO to be worn only in therapy to avoid skin breakdown 10. Dispo- tbd Allergies Coded Allergies: No Known Allergies (Unverified , 08/07/20) Vital Signs Vital Signs Date Time Temp Pulse Resp B/P (MAP) Pulse Ox O2 Delivery O2 Flow Rate FiO2 08/16/20 06:00 98.9 64 18 121/60 (80) 100 Room Air Laboratory Data CBC/BMP Laboratory Tests 08/16/20 06:26 Labs 24H Laboratory Tests 2 08/15/20 11:57: Bedside Glucose (Misc Panel) 119H 08/15/20 18:10: Bedside Glucose (Misc Panel) 104 08/16/20 00:51: Bedside Glucose (Misc Panel) 112H 08/16/20 06:26: Immature Granulocyte % (Auto) , Neutrophils (%) (Auto) , Nucleated Red Blood Cells % (auto) 0.0, Neutrophils 62, Band Neutrophils 1, Lymphocytes (Manual) 20, Monocytes (Manual) 10H, Eosinophils (Manual) 2, Metamyelocytes 1H, Myelocytes 3H, Atypical Lymphocytes 1, Polychromasia 1+, Anisocytosis 1+, Macrocytosis 1+, Platelet Estimate NORMAL, Anion Gap 7L, Glomerular Filtration Rate 56.9, Calcium Level 7.7L Microbiology Microbiology 08/09/20 Urine Culture - Final, Complete Escherichia Coli Current Medications Current Medications Current Medications Medications (Trade) Dose Ordered Sig/Brenda Route PRN Reason Start Time Stop Time Status Last Admin Dose Admin Acetaminophen (Tylenol Suspension) 650 mg Q4HP PRN GT PAIN OR FEVER 08/07/20 13:00 08/09/20 16:32 DC 08/09/20 16:17 Acetaminophen (Tylenol Suspension) 650 mg Q4HP PRN GT PAIN / FEVER 08/07/20 13:00 UNV Acetaminophen (Tylenol Suspension) 975 mg TID GT 08/09/20 21:00 08/14/20 09:49 DC 08/13/20 16:45 Acetaminophen (Tylenol Tab) 1,000 mg TID PO 08/14/20 09:00 08/16/20 09:54 Albuterol/ Ipratropium (Duoneb (Ipr 0.5mg/Alb 2.5mg)) 3 ml RTID NEB 08/07/20 14:00 08/16/20 10:35 Apixaban (Eliquis) 5 mg BID PEG 08/07/20 21:00 08/14/20 09:51 DC 08/13/20 09:05 Apixaban (Eliquis) 5 mg BID PO 08/14/20 09:00 08/16/20 09:55 Atenolol (Tenormin) 50 mg DAILY PEG 08/08/20 09:00 08/14/20 09:47 DC 08/13/20 09:05 Atenolol (Tenormin) 50 mg DAILY PO 08/14/20 09:00 08/16/20 09:56 Atorvastatin Calcium (Lipitor) 40 mg DAILY PEG 08/08/20 09:00 08/14/20 09:47 DC 08/13/20 09:05 Atorvastatin Calcium (Lipitor) 40 mg DAILY PO 08/14/20 09:00 08/16/20 09:54 Bisacodyl (Dulcolax Suppository) 10 mg DAILY NH 08/08/20 09:00 08/12/20 12:53 DC 08/11/20 09:40 Bisacodyl (Dulcolax Suppository) 10 mg DAILY PRN NH constipaion 08/12/20 13:00 Bupropion HCl (Wellbutrin) 50 mg BID PO 08/07/20 21:00 08/16/20 09:57 Dextrose (Dextrose 50%) 25 ml ASDIRECTED PRN IV SEE LABEL COMMENTS 08/07/20 13:00 Divalproex Sodium (Depakote Sprinkles) 1,000 mg BID PO 08/14/20 11:00 08/16/20 09:55 Docusate Sodium (Colace Liquid) 100 mg BIDP PRN GT CONSTIPATION 08/07/20 13:00 08/14/20 09:53 DC Docusate Sodium (Colace Liquid) 100 mg BIDP PRN PO CONSTIPATION 08/14/20 10:00 Glucagon (Glucagon) 1 mg ASDIRECTED PRN SC SEE LABEL COMMENTS 08/07/20 13:00 Glucose (Glucose) 16 GM ASDIRECTED PRN PO SEE LABEL COMMENTS 08/07/20 13:00 Guaifenesin (Robitussin Tab) 400 mg TID PO 08/14/20 09:00 08/16/20 09:54 Guaifenesin (Robitussin) 5 ml TID PEG 08/07/20 16:00 08/14/20 09:51 DC 08/13/20 16:45 Home Med (Med Rec Complete!) ASDIRECTED XX 08/07/20 13:45 08/07/20 13:51 DC Lactobacillus Acidophilus (Bacid) 1 ea TID PEG 08/09/20 16:00 08/14/20 09:47 DC 08/13/20 16:45 Lactobacillus Acidophilus (Bacid) 1 ea TID PO 08/14/20 09:00 08/16/20 09:54 Lansoprazole (First-Lansoprazole Oral Suspension) 30 mg DAILY GT 08/08/20 12:00 08/14/20 09:49 DC 08/13/20 09:05 Lansoprazole (First-Lansoprazole Oral Suspension) 30 mg DAILY PO 08/14/20 09:00 08/16/20 09:53 Levofloxacin (Levaquin) 750 mg DAILY@06 PEG 08/09/20 09:15 08/14/20 09:14 DC 08/13/20 05:47 Lidocaine (Lidoderm Patch) 1 patch DAILY TD 08/08/20 10:15 08/16/20 10:08 Losartan Potassium (Cozaar) 25 mg DAILY PEG 08/08/20 09:00 08/14/20 09:47 DC 08/13/20 09:05 Losartan Potassium (Cozaar) 25 mg DAILY PO 08/14/20 09:00 08/16/20 09:56 Nitrofurantoin Monoh/Nitrofur Macro (Macrobid) 100 mg BID GT 08/10/20 09:00 08/10/20 05:53 DC Non-Formulary Medication ( See Comment Field Below ) REMOVE LIDODERM PATCH DAILY@21 XX 08/08/20 21:00 08/15/20 21:47 Nystatin (Mycostatin Powder, Nystop) 1 dose TID TOP 08/07/20 16:00 08/16/20 09:59 Oxybutynin Chloride (Ditropan) 5 mg BID PEG 08/07/20 21:00 08/14/20 09:47 DC 08/13/20 09:07 Oxybutynin Chloride (Ditropan) 5 mg BID PO 08/14/20 09:00 08/16/20 09:53 Saliva Substitute (Mouthkote) Q1HP PRN MT dry mouth 08/08/20 14:45 08/12/20 10:03 DC 08/10/20 06:05 Saliva Substitute (Mouthkote) 2 sprays TID MT 08/12/20 10:00 08/16/20 09:59 Valproic Acid (Depakene Solution) 650 mg TID PEG 08/07/20 16:00 08/14/20 10:17 DC 08/14/20 00:33 SANTA HOOVER MD Aug 16, 2020 10:42
[2020-08-16 14:00] VITALS: BP 112/66
[2020-08-16] MEDS ORDERED: BISACODYL 10 MG SUPP PR PRN (19:00)
[2020-08-16 20:00] VITALS: BP 159/70
[2020-08-16] MEDS: BISACODYL 5 MG TAB PO SCH (21:50)
[2020-08-16] MEDS: **NOTE PATIENT COMMENT** MISC XX SCH (21:53)
[2020-08-17] MEDS: REMEDY PHYTOPLEX Z-GUARD PASTE 113GM TUBE (FROM STOREROOM PRODUCT) TOP SCH ×6 (04:00→21:39)
[2020-08-17 05:51] VITALS: BP 140/66
[2020-08-17] MEDS: IPRATROPIUM 0.5MG/ALBUTEROL 2.5MG INH SOL UD 3ML (DUONEB) NEB SCH ×3 (07:48→20:00)
[2020-08-17] MEDS: atenoloL 50 MG TAB PO SCH (09:00)
[2020-08-17] MEDS: BISACODYL 5 MG TAB PO SCH (09:01)
[2020-08-17] MEDS: LIDOCAINE 5% (LIDODERM) PATCH TD SCH (09:01)
[2020-08-17] MEDS: LANSOPRAZOLE SUSPENSION 30 MG/10 ML ORAL SYRINGE (FIRST-LANSOPRAZOLE) PO SCH (09:01)
[2020-08-17 09:02] VITALS: BP 147/70
[2020-08-17] MEDS: ACETAMINOPHEN 500 MG TAB PO SCH ×3 (09:03→21:37)
[2020-08-17] MEDS: oxyBUTYnin 5 MG TAB PO SCH ×2 (09:03→21:36)
[2020-08-17] MEDS: guaiFENesin 200 MG TAB PO SCH ×3 (09:03→21:35)
[2020-08-17] MEDS: buPROPion 100 MG TAB PO SCH ×2 (09:03→21:36)
[2020-08-17] MEDS: DIVALPROEX SPRINKLE 125 MG CAP PO SCH ×2 (09:03→21:37)
[2020-08-17] MEDS: ATORVASTATIN 20 MG TAB PO SCH (09:03)
[2020-08-17] MEDS: LACTOBACILLUS ACIDOPHILUS CAP (BACID) PO SCH ×3 (09:04→21:35)
[2020-08-17] MEDS: SALIVA SUBSTITUTE(MOUTHKOTE) BTL MT SCH ×3 (09:06→21:38)
[2020-08-17] MEDS: APIXABAN 5 MG TAB (ELIQUIS) PO SCH ×2 (09:06→21:36)
[2020-08-17] MEDS: NYSTATIN 100,000 UNITS/GM TOPICAL PWD 15 GM TOP SCH ×3 (09:07→21:38)
[2020-08-17] MEDS: LOSARTAN 25 MG TAB PO SCH (09:09)
[2020-08-17 14:00] VITALS: BP 118/58
[2020-08-17 20:00] VITALS: BP 140/80
[2020-08-17] MEDS: **NOTE PATIENT COMMENT** MISC XX SCH (21:00)
[2020-08-18 05:47] VITALS: BP 149/69
[2020-08-18] MEDS: REMEDY PHYTOPLEX Z-GUARD PASTE 113GM TUBE (FROM STOREROOM PRODUCT) TOP SCH ×6 (06:00→20:54)
[2020-08-18] MEDS: IPRATROPIUM 0.5MG/ALBUTEROL 2.5MG INH SOL UD 3ML (DUONEB) NEB SCH ×3 (07:41→19:20)
[2020-08-18] MEDS: LANSOPRAZOLE SUSPENSION 30 MG/10 ML ORAL SYRINGE (FIRST-LANSOPRAZOLE) PO SCH (08:15)
[2020-08-18] MEDS: LIDOCAINE 5% (LIDODERM) PATCH TD SCH (08:15)
[2020-08-18] MEDS: guaiFENesin 200 MG TAB PO SCH ×3 (08:15→20:53)
[2020-08-18] MEDS: ACETAMINOPHEN 500 MG TAB PO SCH ×3 (08:16→20:53)
[2020-08-18] MEDS: oxyBUTYnin 5 MG TAB PO SCH ×2 (08:16→20:52)
[2020-08-18] MEDS: BISACODYL 5 MG TAB PO SCH (08:16)
[2020-08-18] MEDS: LACTOBACILLUS ACIDOPHILUS CAP (BACID) PO SCH ×3 (08:16→20:51)
[2020-08-18] MEDS: DIVALPROEX SPRINKLE 125 MG CAP PO SCH ×2 (08:16→20:54)
[2020-08-18] MEDS: APIXABAN 5 MG TAB (ELIQUIS) PO SCH ×2 (08:16→20:54)
[2020-08-18] MEDS: SALIVA SUBSTITUTE(MOUTHKOTE) BTL MT SCH ×3 (08:17→20:54)
[2020-08-18] MEDS: LOSARTAN 25 MG TAB PO SCH (08:17)
[2020-08-18] MEDS: NYSTATIN 100,000 UNITS/GM TOPICAL PWD 15 GM TOP SCH ×3 (08:17→20:54)
[2020-08-18] MEDS: ATORVASTATIN 20 MG TAB PO SCH (08:17)
[2020-08-18] MEDS: atenoloL 50 MG TAB PO SCH (08:18)
[2020-08-18] MEDS: buPROPion 100 MG TAB PO SCH ×2 (08:18→20:52)
[2020-08-18 14:00] VITALS: BP 118/56
[2020-08-18 20:19] VITALS: BP 151/81
[2020-08-18] MEDS: **NOTE PATIENT COMMENT** MISC XX SCH (20:55)
[2020-08-19] MEDS: REMEDY PHYTOPLEX Z-GUARD PASTE 113GM TUBE (FROM STOREROOM PRODUCT) TOP SCH ×6 (01:00→20:47)
[2020-08-19 05:49] VITALS: BP 123/64
[2020-08-19 07:00] LABS: BASO # 0.1 10^3/uL (0.0-0.2); BASO % 0.7 % (0.0-1.0); EOS # 0.1 10^3/uL (0.0-0.5); EOS % 0.9 % (0.0-3.0); HEMATOCRIT 37.3 % (36.0-47.0); HEMOGLOBIN 11.7 g/dl (12.0-15.5); LYMPH # 1.6 10^3/uL (1.5-5.0); LYMPH % 20.3 % (24.0-44.0); MEAN CORPUSCULAR HGB CONC 31.4 g/dl (32.0-36.5); MEAN CORPUSCULAR VOLUME 98.7 fl (80.0-96.0); MONO # 1.1 10^3/uL (0.0-0.8); MONO % 13.9 % (0.0-5.0); NEUTROPHILS # 4.7 10^3/uL (1.5-8.5); NEUTROPHILS % 61.7 % (36.0-66.0); PLATELET COUNT, AUTOMATED 178 10^3/uL (150-450); RED BLOOD COUNT 3.78 10^6/uL (4.00-5.40); WHITE BLOOD COUNT 7.7 10^3/uL (4.0-10.0)
[2020-08-19] MEDS: IPRATROPIUM 0.5MG/ALBUTEROL 2.5MG INH SOL UD 3ML (DUONEB) NEB SCH ×3 (07:21→20:24)
[2020-08-19 07:26] LABS: BLOOD UREA NITROGEN 22 MG/DL (7-18); CARBON DIOXIDE LEVEL 31 MEQ/L (21-32); CHLORIDE LEVEL 105 MEQ/L (98-107); CREATININE FOR GFR 0.95 MG/DL (0.55-1.30); GLOMERULAR FILTRATION RATE > 60.0 (>39); GLUCOSE, FASTING 93 MG/DL (70-100); POTASSIUM SERUM 4.2 MEQ/L (3.5-5.1); SODIUM LEVEL 140 MEQ/L (136-145)
[2020-08-19] MEDS: LIDOCAINE 5% (LIDODERM) PATCH TD SCH (09:35)
[2020-08-19] MEDS: LANSOPRAZOLE SUSPENSION 30 MG/10 ML ORAL SYRINGE (FIRST-LANSOPRAZOLE) PO SCH (09:35)
[2020-08-19] MEDS: LACTOBACILLUS ACIDOPHILUS CAP (BACID) PO SCH ×3 (09:36→20:45)
[2020-08-19] MEDS: APIXABAN 5 MG TAB (ELIQUIS) PO SCH ×2 (09:37→20:46)
[2020-08-19] MEDS: DIVALPROEX SPRINKLE 125 MG CAP PO SCH ×2 (09:37→20:48)
[2020-08-19] MEDS: guaiFENesin 200 MG TAB PO SCH ×3 (09:37→20:45)
[2020-08-19] MEDS: buPROPion 100 MG TAB PO SCH ×2 (09:38→20:45)
[2020-08-19] MEDS: LOSARTAN 25 MG TAB PO SCH (09:39)
[2020-08-19] MEDS: BISACODYL 5 MG TAB PO SCH (09:39)
[2020-08-19] MEDS: ATORVASTATIN 20 MG TAB PO SCH (09:39)
[2020-08-19] MEDS: oxyBUTYnin 5 MG TAB PO SCH ×2 (09:39→20:46)
[2020-08-19] MEDS: ACETAMINOPHEN 500 MG TAB PO SCH ×3 (09:40→20:45)
[2020-08-19] MEDS: SALIVA SUBSTITUTE(MOUTHKOTE) BTL MT SCH ×3 (09:40→20:46)
[2020-08-19] MEDS: atenoloL 50 MG TAB PO SCH (09:40)
[2020-08-19] MEDS: NYSTATIN 100,000 UNITS/GM TOPICAL PWD 15 GM TOP SCH ×3 (09:41→20:47)
--- NOTE | 2020-08-19 12:54 | IPNPDOC ---
PM&R Progress Note DATE OF SERVICE: Aug 19, 2020 Resident Assistant Progress Note Subjective: Patient seen in her recliner stating she feel off today, but couldn't explain why. She denied pain, fever, burning with urination. She was trying to remember her best friend's name, but had difficulty retrieving it. REVIEW OF SYSTEMS: The following is a completed review of systems and has been reviewed. Review of systems otherwise unremarkable. PAIN: Patient self reports no pain EYES: difficult to assess EARS, NOSE, & THROAT:+dysphagia (improving) CARDIOVASCULAR: Denies chest pain or palpitations PULMONARY: Denies shortness of breath GASTROINTESTINAL: s/p peg GENITOURINARY: +incontinence MUSCULOSKELETAL: right sided weakness NEUROLOGICAL:right sided paresis, expressive aphasia SKIN: skin breakdown under breasts and in abdominal folds PSYCHIATRIC: Unremarkable All other review of systems found to be negative. PHYSICAL EXAMINATION: VITAL SIGNS: Please see below. GENERAL: Pleasant and cooperative. No acute distress. HEENT: PERRL. Extraocular movements intact. Clear conjunctiva CARDIOVASCULAR: Regular rate and rhythm. No murmurs, rubs, or gallops LUNGS: Clear to auscultation bilaterally. No wheezes. No rhonchi ABDOMEN: Soft, nontender, nondistended. Positive bowel sounds. Normal active bowel sounds, former PEG site c/d/i no drainage NEUROLOGICAL: +expressive aphasia, able to follow commands, Sensation grossly intact EXTREMITIES: 5/5 strength LUE, 3+/5 RUE, 4\\5 strength right lower extremity. 5/5 strength in left lower extremity. SKIN: +sacral excoriation, bilateral under breast skin breakdown and in abdominal folds (improving) right dorsal MTP callous with blanchable erythema ASSESSMENT:80-year-old F with past medical history of stroke, CKD, DM who presents status post left MCA infarct with new onset seizures PLAN: 1. Rehab- PT/OT advance mobility and ADLs, maintain ROM/stretch/strengthen all 4 limbs- multipodus boot to right foot-will contact electromatic typist for custom made AFO prior to discharge, patient currently using old one -[employer]- patient with expressive aphasia and dysphagia, advanced to level 2 and thins 2. Neuro- s/p left MCA infarct with expressive aphasia, dysphagia, and right sided hemiparesis, c/u Eliquis for AFib, statin for secondary stroke prevention- - recent post-stroke seizure activity c/u depakote at 1000mg BID (increased from 650 TID with a total dose per day increase from 1950mg-->2000mg)-will recheck levels this week 3. Cardiac- ECHO 07-23-20 showed Normal global systolic left ventricular function. This study is inadequate for the evaluation of regional wall motion. At least grade 2 diastolic dysfunction without interatrial shunt via bubble study" - new onset Afib c/u eliquis and atenolol -HLD- statin 4. resp- monitor for infection, DUonebs and guaifenesin ordered 5. GI ppx- lansoprazole -tube feeds discontinued as PEG accidentally pulled yesterday with abdominal imaging performed, patient seen by surgery who initially recommended clear liquid diet, patient advanced back to solids, will c/u level 2 per speech's recs-patient's abdominal exam c/u to be benign 6. VAsc- hx of DVT c/u eliquis 7. - + ecoli UTI s/p course of LEvaquin 8. Pain- tylneol standing, c/u lidoderm patch to right shoulder 9. Psych- patient was on Bupropion 100mg BID at home and off it while at GI c/u at half dose 50mg BID 10. SKin- turn q2h in bed, dressing changes per nursing orders, AFO to be worn only in therapy to avoid skin breakdown 10. Dispo- tbd Allergies Coded Allergies: No Known Allergies (Unverified , 08/07/20) Vital Signs Vital Signs Date Time Temp Pulse Resp B/P (MAP) Pulse Ox O2 Delivery O2 Flow Rate FiO2 08/19/20 09:40 68 123/64 08/19/20 05:49 96.9 18 98 Room Air Laboratory Data CBC/BMP Laboratory Tests 08/19/20 06:41 Labs 24H Laboratory Tests 2 08/19/20 06:41: Immature Granulocyte % (Auto) 2.5, Neutrophils (%) (Auto) 61.7, Lymphocytes (%) (Auto) 20.3L, Monocytes (%) (Auto) 13.9H, Eosinophils (%) (Auto) 0.9, Basophils (%) (Auto) 0.7, Neutrophils # (Auto) 4.7, Lymphocytes # (Auto) 1.6, Monocytes # (Auto) 1.1H, Eosinophils # (Auto) 0.1, Basophils # (Auto) 0.1, Nucleated Red Blood Cells % (auto) 0.0, Anion Gap 4L, Glomerular Filtration Rate > 60.0, Calcium Level 8.0L Microbiology Microbiology 08/09/20 Urine Culture - Final, Complete Escherichia Coli Current Medications Current Medications Current Medications Medications (Trade) Dose Ordered Sig/Brenda Route PRN Reason Start Time Stop Time Status Last Admin Dose Admin Acetaminophen (Tylenol Suspension) 650 mg Q4HP PRN GT PAIN OR FEVER 08/07/20 13:00 08/09/20 16:32 DC 08/09/20 16:17 Acetaminophen (Tylenol Suspension) 650 mg Q4HP PRN GT PAIN / FEVER 08/07/20 13:00 UNV Acetaminophen (Tylenol Suspension) 975 mg TID GT 08/09/20 21:00 08/14/20 09:49 DC 08/13/20 16:45 Acetaminophen (Tylenol Tab) 1,000 mg TID PO 08/14/20 09:00 08/19/20 09:40 Albuterol/ Ipratropium (Duoneb (Ipr 0.5mg/Alb 2.5mg)) 3 ml RTID NEB 08/07/20 14:00 08/19/20 07:21 Apixaban (Eliquis) 5 mg BID PEG 08/07/20 21:00 08/14/20 09:51 DC 08/13/20 09:05 Apixaban (Eliquis) 5 mg BID PO 08/14/20 09:00 08/19/20 09:37 Atenolol (Tenormin) 50 mg DAILY PEG 08/08/20 09:00 08/14/20 09:47 DC 08/13/20 09:05 Atenolol (Tenormin) 50 mg DAILY PO 08/14/20 09:00 08/19/20 09:40 Atorvastatin Calcium (Lipitor) 40 mg DAILY PEG 08/08/20 09:00 08/14/20 09:47 DC 08/13/20 09:05 Atorvastatin Calcium (Lipitor) 40 mg DAILY PO 08/14/20 09:00 08/19/20 09:39 Bisacodyl (Dulcolax Suppository) 10 mg DAILY PA 08/08/20 09:00 08/12/20 12:53 DC 08/11/20 09:40 Bisacodyl (Dulcolax Suppository) 10 mg DAILY PRN PA constipaion 08/12/20 13:00 Bisacodyl (Dulcolax Suppository) 10 mg DAILYPRN PRN PA CONSTIPATION 08/16/20 19:00 Cancel Bisacodyl (Dulcolax Tab) 5 mg DAILY PO 08/16/20 09:00 08/19/20 09:39 Bupropion HCl (Wellbutrin) 50 mg BID PO 08/07/20 21:00 08/19/20 09:38 Dextrose (Dextrose 50%) 25 ml ASDIRECTED PRN IV SEE LABEL COMMENTS 08/07/20 13:00 Divalproex Sodium (Depakote Sprinkles) 1,000 mg BID PO 08/14/20 11:00 08/19/20 09:37 Docusate Sodium (Colace Liquid) 100 mg BIDP PRN GT CONSTIPATION 08/07/20 13:00 08/14/20 09:53 DC Docusate Sodium (Colace Liquid) 100 mg BIDP PRN PO CONSTIPATION 08/14/20 10:00 Glucagon (Glucagon) 1 mg ASDIRECTED PRN SC SEE LABEL COMMENTS 08/07/20 13:00 Glucose (Glucose) 16 GM ASDIRECTED PRN PO SEE LABEL COMMENTS 08/07/20 13:00 Guaifenesin (Robitussin Tab) 400 mg TID PO 08/14/20 09:00 08/19/20 09:37 Guaifenesin (Robitussin) 5 ml TID PEG 08/07/20 16:00 08/14/20 09:51 DC 08/13/20 16:45 Home Med (Med Rec Complete!) ASDIRECTED XX 08/07/20 13:45 08/07/20 13:51 DC Lactobacillus Acidophilus (Bacid) 1 ea TID PEG 08/09/20 16:00 08/14/20 09:47 DC 08/13/20 16:45 Lactobacillus Acidophilus (Bacid) 1 ea TID PO 08/14/20 09:00 08/19/20 09:36 Lansoprazole (First-Lansoprazole Oral Suspension) 30 mg DAILY GT 08/08/20 12:00 08/14/20 09:49 DC 08/13/20 09:05 Lansoprazole (First-Lansoprazole Oral Suspension) 30 mg DAILY PO 08/14/20 09:00 08/19/20 09:35 Levofloxacin (Levaquin) 750 mg DAILY@06 PEG 08/09/20 09:15 08/14/20 09:14 DC 08/13/20 05:47 Lidocaine (Lidoderm Patch) 1 patch DAILY TD 08/08/20 10:15 08/19/20 09:35 Losartan Potassium (Cozaar) 25 mg DAILY PEG 08/08/20 09:00 08/14/20 09:47 DC 08/13/20 09:05 Losartan Potassium (Cozaar) 25 mg DAILY PO 08/14/20 09:00 08/19/20 09:39 Nitrofurantoin Monoh/Nitrofur Macro (Macrobid) 100 mg BID GT 08/10/20 09:00 08/10/20 05:53 DC Non-Formulary Medication ( See Comment Field Below ) REMOVE LIDODERM PATCH DAILY@21 XX 08/08/20 21:00 08/18/20 20:55 Nystatin (Mycostatin Powder, Nystop) 1 dose TID TOP 08/07/20 16:00 08/19/20 09:41 Oxybutynin Chloride (Ditropan) 5 mg BID PEG 08/07/20 21:00 08/14/20 09:47 DC 08/13/20 09:07 Oxybutynin Chloride (Ditropan) 5 mg BID PO 08/14/20 09:00 08/19/20 09:39 Saliva Substitute (Mouthkote) Q1HP PRN MT dry mouth 08/08/20 14:45 08/12/20 10:03 DC 08/10/20 06:05 Saliva Substitute (Mouthkote) 2 sprays TID MT 08/12/20 10:00 08/19/20 09:40 Valproic Acid (Depakene Solution) 650 mg TID PEG 08/07/20 16:00 08/14/20 10:17 DC 08/14/20 00:33 SANTA HOOVER MD Aug 19, 2020 12:54
[2020-08-19 14:00] VITALS: BP 131/74
[2020-08-19] MEDS: **NOTE PATIENT COMMENT** MISC XX SCH (20:47)
[2020-08-19 21:00] VITALS: BP 118/62
[2020-08-20] MEDS: REMEDY PHYTOPLEX Z-GUARD PASTE 113GM TUBE (FROM STOREROOM PRODUCT) TOP SCH ×6 (00:31→23:06)
[2020-08-20 06:00] VITALS: BP 128/68
[2020-08-20] MEDS: IPRATROPIUM 0.5MG/ALBUTEROL 2.5MG INH SOL UD 3ML (DUONEB) NEB SCH ×3 (07:20→21:02)
[2020-08-20] MEDS: SALIVA SUBSTITUTE(MOUTHKOTE) BTL MT SCH ×3 (08:28→23:06)
[2020-08-20] MEDS: LACTOBACILLUS ACIDOPHILUS CAP (BACID) PO SCH ×3 (08:28→23:05)
[2020-08-20] MEDS: buPROPion 100 MG TAB PO SCH ×2 (08:28→23:04)
[2020-08-20] MEDS: guaiFENesin 200 MG TAB PO SCH ×3 (08:28→23:04)
[2020-08-20] MEDS: atenoloL 50 MG TAB PO SCH (08:30)
[2020-08-20] MEDS: ACETAMINOPHEN 500 MG TAB PO SCH ×3 (08:30→23:05)
[2020-08-20] MEDS: oxyBUTYnin 5 MG TAB PO SCH ×2 (08:31→23:04)
[2020-08-20] MEDS: LOSARTAN 25 MG TAB PO SCH (08:31)
[2020-08-20] MEDS: LANSOPRAZOLE SUSPENSION 30 MG/10 ML ORAL SYRINGE (FIRST-LANSOPRAZOLE) PO SCH (08:32)
[2020-08-20] MEDS: ATORVASTATIN 20 MG TAB PO SCH (08:32)
[2020-08-20] MEDS: APIXABAN 5 MG TAB (ELIQUIS) PO SCH ×2 (08:32→23:04)
[2020-08-20] MEDS: BISACODYL 5 MG TAB PO SCH (08:33)
[2020-08-20] MEDS: LIDOCAINE 5% (LIDODERM) PATCH TD SCH (08:34)
[2020-08-20] MEDS: DIVALPROEX SPRINKLE 125 MG CAP PO SCH ×2 (08:34→23:07)
[2020-08-20] MEDS: NYSTATIN 100,000 UNITS/GM TOPICAL PWD 15 GM TOP SCH ×3 (08:35→23:06)
--- NOTE | 2020-08-20 11:18 | IPNPDOC ---
PM&R Progress Note DATE OF SERVICE: Aug 20, 2020 Records Management Analyst Progress Note Subjective: Patient seen in her recliner stating she feels good today and believes she is eating well. She denies fevers or chills. REVIEW OF SYSTEMS: The following is a completed review of systems and has been reviewed. Review of systems otherwise unremarkable. PAIN: Patient self reports no pain EYES: difficult to assess EARS, NOSE, & THROAT:+dysphagia (improving) CARDIOVASCULAR: Denies chest pain or palpitations PULMONARY: Denies shortness of breath GASTROINTESTINAL: s/p peg GENITOURINARY: +incontinence MUSCULOSKELETAL: right sided weakness NEUROLOGICAL:right sided paresis, expressive aphasia SKIN: skin breakdown under breasts and in abdominal folds PSYCHIATRIC: Unremarkable All other review of systems found to be negative. PHYSICAL EXAMINATION: VITAL SIGNS: Please see below. GENERAL: Pleasant and cooperative. No acute distress. HEENT: PERRL. Extraocular movements intact. Clear conjunctiva CARDIOVASCULAR: Regular rate and rhythm. No murmurs, rubs, or gallops LUNGS: Clear to auscultation bilaterally. No wheezes. No rhonchi ABDOMEN: Soft, nontender, nondistended. Positive bowel sounds. Normal active bowel sounds, former PEG site c/d/i no drainage NEUROLOGICAL: +expressive aphasia, able to follow commands, Sensation grossly intact EXTREMITIES: 5/5 strength LUE, 3+/5 RUE, 4\\5 strength right lower extremity. 5/5 strength in left lower extremity. SKIN: +sacral excoriation, bilateral under breast skin breakdown and in abdominal folds (improving) right dorsal MTP callous with blanchable erythema ASSESSMENT:80-year-old F with past medical history of stroke, CKD, DM who presents status post left MCA infarct with new onset seizures PLAN: 1. 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 Neuro- s/p left MCA infarct with expressive aphasia, dysphagia, and right sided hemiparesis, c/u Eliquis for AFib, statin for secondary stroke prevention- - recent post-stroke seizure activity c/u depakote at 1000mg BID (increased from 650 TID with a total dose per day increase from 1950mg-->2000mg)-will recheck levels this week 3. Cardiac- ECHO 07-23-20 showed Normal global systolic left ventricular function. This study is inadequate for the evaluation of regional wall motion. At least grade 2 diastolic dysfunction without interatrial shunt via bubble study" - new onset Afib c/u eliquis and atenolol -HLD- statin 4. resp- monitor for infection, DUonebs and guaifenesin ordered 5. GI ppx- lansoprazole -tube feeds discontinued as PEG accidentally pulled yesterday with abdominal imaging performed, patient seen by surgery who initially recommended clear liquid diet, patient advanced back to solids, will c/u level 2 per speech's recs-patient's abdominal exam c/u to be benign 6. VAsc- hx of DVT c/u eliquis 7. - + ecoli UTI s/p course of LEvaquin 8. Pain- tylneol standing, c/u lidoderm patch to right shoulder 9. Psych- patient was on Bupropion 100mg BID at home and off it while at GI c/u at half dose 50mg BID 10. SKin- turn q2h in bed, dressing changes per nursing orders, AFO to be worn only in therapy to avoid skin breakdown 10. Dispo- tbd Allergies Coded Allergies: No Known Allergies (Unverified , 08/07/20) Vital Signs Vital Signs Date Time Temp Pulse Resp B/P (MAP) Pulse Ox O2 Delivery O2 Flow Rate FiO2 08/20/20 08:30 88 130/70 08/20/20 06:00 97.3 18 98 Room Air Current Medications Current Medications Current Medications Medications (Trade) Dose Ordered Sig/Brenda Route PRN Reason Start Time Stop Time Status Last Admin Dose Admin Acetaminophen (Tylenol Suspension) 650 mg Q4HP PRN GT PAIN OR FEVER 08/07/20 13:00 08/09/20 16:32 DC 08/09/20 16:17 Acetaminophen (Tylenol Suspension) 650 mg Q4HP PRN GT PAIN / FEVER 08/07/20 13:00 UNV Acetaminophen (Tylenol Suspension) 975 mg TID GT 08/09/20 21:00 08/14/20 09:49 DC 08/13/20 16:45 Acetaminophen (Tylenol Tab) 1,000 mg TID PO 08/14/20 09:00 08/20/20 08:30 Albuterol/ Ipratropium (Duoneb (Ipr 0.5mg/Alb 2.5mg)) 3 ml RTID NEB 08/07/20 14:00 08/20/20 07:20 Apixaban (Eliquis) 5 mg BID PEG 08/07/20 21:00 08/14/20 09:51 DC 08/13/20 09:05 Apixaban (Eliquis) 5 mg BID PO 08/14/20 09:00 08/20/20 08:32 Atenolol (Tenormin) 50 mg DAILY PEG 08/08/20 09:00 08/14/20 09:47 DC 08/13/20 09:05 Atenolol (Tenormin) 50 mg DAILY PO 08/14/20 09:00 08/20/20 08:30 Atorvastatin Calcium (Lipitor) 40 mg DAILY PEG 08/08/20 09:00 08/14/20 09:47 DC 08/13/20 09:05 Atorvastatin Calcium (Lipitor) 40 mg DAILY PO 08/14/20 09:00 08/20/20 08:32 Bisacodyl (Dulcolax Suppository) 10 mg DAILY MT 08/08/20 09:00 08/12/20 12:53 DC 08/11/20 09:40 Bisacodyl (Dulcolax Suppository) 10 mg DAILY PRN MT constipaion 08/12/20 13:00 Bisacodyl (Dulcolax Suppository) 10 mg DAILYPRN PRN MT CONSTIPATION 08/16/20 19:00 Cancel Bisacodyl (Dulcolax Tab) 5 mg DAILY PO 08/16/20 09:00 08/19/20 09:39 Bupropion HCl (Wellbutrin) 50 mg BID PO 08/07/20 21:00 08/20/20 08:28 Dextrose (Dextrose 50%) 25 ml ASDIRECTED PRN IV SEE LABEL COMMENTS 08/07/20 13:00 Divalproex Sodium (Depakote Sprinkles) 1,000 mg BID PO 08/14/20 11:00 08/20/20 08:34 Docusate Sodium (Colace Liquid) 100 mg BIDP PRN GT CONSTIPATION 08/07/20 13:00 08/14/20 09:53 DC Docusate Sodium (Colace Liquid) 100 mg BIDP PRN PO CONSTIPATION 08/14/20 10:00 Glucagon (Glucagon) 1 mg ASDIRECTED PRN SC SEE LABEL COMMENTS 08/07/20 13:00 Glucose (Glucose) 16 GM ASDIRECTED PRN PO SEE LABEL COMMENTS 08/07/20 13:00 Guaifenesin (Robitussin Tab) 400 mg TID PO 08/14/20 09:00 08/20/20 08:28 Guaifenesin (Robitussin) 5 ml TID PEG 08/07/20 16:00 08/14/20 09:51 DC 08/13/20 16:45 Home Med (Med Rec Complete!) ASDIRECTED XX 08/07/20 13:45 08/07/20 13:51 DC Lactobacillus Acidophilus (Bacid) 1 ea TID PEG 08/09/20 16:00 08/14/20 09:47 DC 08/13/20 16:45 Lactobacillus Acidophilus (Bacid) 1 ea TID PO 08/14/20 09:00 08/20/20 08:28 Lansoprazole (First-Lansoprazole Oral Suspension) 30 mg DAILY GT 08/08/20 12:00 08/14/20 09:49 DC 08/13/20 09:05 Lansoprazole (First-Lansoprazole Oral Suspension) 30 mg DAILY PO 08/14/20 09:00 08/20/20 08:32 Levofloxacin (Levaquin) 750 mg DAILY@06 PEG 08/09/20 09:15 08/14/20 09:14 DC 08/13/20 05:47 Lidocaine (Lidoderm Patch) 1 patch DAILY TD 08/08/20 10:15 08/20/20 08:34 Losartan Potassium (Cozaar) 25 mg DAILY PEG 08/08/20 09:00 08/14/20 09:47 DC 08/13/20 09:05 Losartan Potassium (Cozaar) 25 mg DAILY PO 08/14/20 09:00 08/20/20 08:31 Nitrofurantoin Monoh/Nitrofur Macro (Macrobid) 100 mg BID GT 08/10/20 09:00 08/10/20 05:53 DC Non-Formulary Medication ( See Comment Field Below ) REMOVE LIDODERM PATCH DAILY@21 XX 08/08/20 21:00 08/19/20 20:47 Nystatin (Mycostatin Powder, Nystop) 1 dose TID TOP 08/07/20 16:00 08/20/20 08:35 Oxybutynin Chloride (Ditropan) 5 mg BID PEG 08/07/20 21:00 08/14/20 09:47 DC 08/13/20 09:07 Oxybutynin Chloride (Ditropan) 5 mg BID PO 08/14/20 09:00 08/20/20 08:31 Saliva Substitute (Mouthkote) Q1HP PRN MT dry mouth 08/08/20 14:45 08/12/20 10:03 DC 08/10/20 06:05 Saliva Substitute (Mouthkote) 2 sprays TID MT 08/12/20 10:00 08/20/20 08:28 Valproic Acid (Depakene Solution) 650 mg TID PEG 08/07/20 16:00 08/14/20 10:17 DC 08/14/20 00:33 SANTA HOOVER MD Aug 20, 2020 11:18
[2020-08-20 14:00] VITALS: BP 150/68
[2020-08-20 21:00] VITALS: BP 132/70
[2020-08-20] MEDS: **NOTE PATIENT COMMENT** MISC XX SCH (23:05)
[2020-08-21] MEDS: REMEDY PHYTOPLEX Z-GUARD PASTE 113GM TUBE (FROM STOREROOM PRODUCT) TOP SCH ×6 (01:46→21:27)
[2020-08-21 06:36] VITALS: BP 139/62
[2020-08-21 07:00] LABS: BASO # 0.1 10^3/uL (0.0-0.2); EOS # 0.1 10^3/uL (0.0-0.5); EOS % 1.7 % (0.0-3.0); HEMATOCRIT 36.9 % (36.0-47.0); LYMPH # 1.4 10^3/uL (1.5-5.0); LYMPH % 28.2 % (24.0-44.0); MEAN CORPUSCULAR HEMOGLOBIN 29.8 pg (27.0-33.0); MEAN CORPUSCULAR HGB CONC 29.8 g/dl (32.0-36.5); MONO # 0.8 10^3/uL (0.0-0.8); MONO % 16.5 % (0.0-5.0); NEUTROPHILS # 2.4 10^3/uL (1.5-8.5); NEUTROPHILS % 50.7 % (36.0-66.0); PLATELET COUNT, AUTOMATED 140 10^3/uL (150-450); RED BLOOD COUNT 3.69 10^6/uL (4.00-5.40); WHITE BLOOD COUNT 4.8 10^3/uL (4.0-10.0)
[2020-08-21 07:27] LABS: BLOOD UREA NITROGEN 19 MG/DL (7-18); CALCIUM LEVEL 8.1 MG/DL (8.8-10.2); CARBON DIOXIDE LEVEL 28 MEQ/L (21-32); CHLORIDE LEVEL 108 MEQ/L (98-107); CREATININE FOR GFR 0.83 MG/DL (0.55-1.30); GLOMERULAR FILTRATION RATE > 60.0 (>39); GLUCOSE, FASTING 83 MG/DL (70-100); POTASSIUM SERUM 3.7 MEQ/L (3.5-5.1); SODIUM LEVEL 141 MEQ/L (136-145); VALPROIC ACID (DEPAKOTE) 67.2 UG/ML (50.0-100.0)
[2020-08-21] MEDS: IPRATROPIUM 0.5MG/ALBUTEROL 2.5MG INH SOL UD 3ML (DUONEB) NEB SCH ×3 (08:00→20:00)
[2020-08-21] MEDS: DIVALPROEX SPRINKLE 125 MG CAP PO SCH ×2 (08:50→21:25)
[2020-08-21] MEDS: LANSOPRAZOLE SUSPENSION 30 MG/10 ML ORAL SYRINGE (FIRST-LANSOPRAZOLE) PO SCH (08:51)
[2020-08-21] MEDS: APIXABAN 5 MG TAB (ELIQUIS) PO SCH ×2 (08:51→21:26)
[2020-08-21] MEDS: ACETAMINOPHEN 500 MG TAB PO SCH ×3 (08:51→21:26)
[2020-08-21] MEDS: oxyBUTYnin 5 MG TAB PO SCH ×2 (08:51→21:26)
[2020-08-21] MEDS: LACTOBACILLUS ACIDOPHILUS CAP (BACID) PO SCH ×3 (08:51→21:26)
[2020-08-21] MEDS: buPROPion 100 MG TAB PO SCH ×2 (08:51→21:26)
[2020-08-21] MEDS: LOSARTAN 25 MG TAB PO SCH (08:51)
[2020-08-21] MEDS: atenoloL 50 MG TAB PO SCH (08:52)
[2020-08-21] MEDS: ATORVASTATIN 20 MG TAB PO SCH (08:52)
[2020-08-21] MEDS: guaiFENesin 200 MG TAB PO SCH ×3 (08:52→21:26)
[2020-08-21] MEDS: LIDOCAINE 5% (LIDODERM) PATCH TD SCH (08:52)
[2020-08-21] MEDS: BISACODYL 5 MG TAB PO SCH (08:53)
[2020-08-21] MEDS: SALIVA SUBSTITUTE(MOUTHKOTE) BTL MT SCH ×3 (08:53→21:27)
[2020-08-21] MEDS: NYSTATIN 100,000 UNITS/GM TOPICAL PWD 15 GM TOP SCH ×3 (08:56→21:27)
[2020-08-21] MEDS: OMEPRAZOLE SUSPENSION 20MG 10ML ORAL SYRINGE PO SCH (09:00)
--- NOTE | 2020-08-21 09:39 | IPNPDOC ---
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 She denies pain or itch, no difficulty breathing. REVIEW OF SYSTEMS: The following is a completed review of systems and has been reviewed. Review of systems otherwise unremarkable. PAIN: Patient self reports no pain EYES: difficult to assess EARS, NOSE, & THROAT:+dysphagia (improving) CARDIOVASCULAR: Denies chest pain or palpitations PULMONARY: Denies shortness of breath GASTROINTESTINAL: s/p peg GENITOURINARY: +incontinence MUSCULOSKELETAL: right sided weakness NEUROLOGICAL:right sided paresis, expressive aphasia SKIN: skin breakdown under breasts and in abdominal folds, bilat anterior thigh rash PSYCHIATRIC: Unremarkable All other review of systems found to be negative. PHYSICAL EXAMINATION: VITAL SIGNS: Please see below. GENERAL: Pleasant and cooperative. No acute distress. HEENT: PERRL. Extraocular movements intact. Clear conjunctiva CARDIOVASCULAR: Regular rate and rhythm. No murmurs, rubs, or gallops LUNGS: Clear to auscultation bilaterally. No wheezes. No rhonchi ABDOMEN: Soft, nontender, nondistended. Positive bowel sounds. Normal active bowel sounds, former PEG site c/d/i no drainage NEUROLOGICAL: +expressive aphasia, able to follow commands, Sensation grossly intact EXTREMITIES: 5/5 strength LUE, 3+/5 RUE, 4\\5 strength right lower extremity. 5/5 strength in left lower extremity. SKIN: +sacral excoriation, bilateral under breast skin breakdown and in abdominal folds (improving) bilat anterior thighs- blanchable erythematous macules, non-tender right dorsal MTP callous with blanchable erythema ASSESSMENT:80-year-old F with past medical history of stroke, CKD, DM who presents status post left MCA infarct with new onset seizures PLAN: 1. 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 Neuro- s/p left MCA infarct with expressive aphasia, dysphagia, and right sided hemiparesis, c/u Eliquis for AFib, statin for secondary stroke prevention- - recent post-stroke seizure activity c/u depakote at 1000mg BID (increased from 650 TID with a total dose per day increase from 1950mg-->2000mg)-Depakote level 67 3. Cardiac- ECHO 07-23-20 showed Normal global systolic left ventricular function. This study is inadequate for the evaluation of regional wall motion. At least grade 2 diastolic dysfunction without interatrial shunt via bubble study" - new onset Afib c/u eliquis and atenolol -HLD- statin 4. resp- monitor for infection, DUonebs and guaifenesin ordered 5. GI ppx- lansoprazole -s/p PEG, removed iatrogenically, c/u oral feeds, abdominal exam benign 6. VAsc- hx of DVT c/u eliquis 7. - + ecoli UTI s/p course of LEvaquin 8. Pain- tylneol standing, c/u lidoderm patch to right shoulder 9. Psych- patient was on Bupropion 100mg BID at home and off it while at GI c/u at half dose 50mg BID 10. SKin- turn q2h in bed, dressing changes per nursing orders, AFO to be worn only in therapy to avoid skin breakdown -new blanchable macular rash on anterior thighs, patient denies pain with palpation, possibly due recent antibiotic use vs viral exanthem also may be due to depakote, does not appear to be contact dermatitis, but will d/c CHG baths for now to see if this may be the culprit 10. Dispo- tbd Allergies Coded Allergies: No Known Allergies (Unverified , 08/07/20) Vital Signs Vital Signs Date Time Temp Pulse Resp B/P (MAP) Pulse Ox O2 Delivery O2 Flow Rate FiO2 08/21/20 08:52 56 139/62 08/21/20 06:36 96.3 18 98 Room Air Laboratory Data CBC/BMP Laboratory Tests 08/21/20 06:47 Labs 24H Laboratory Tests 2 08/20/20 11:52: Bedside Glucose (Misc Panel) 85 08/20/20 17:54: Bedside Glucose (Misc Panel) 135H 08/21/20 06:47: Immature Granulocyte % (Auto) 1.9, Neutrophils (%) (Auto) 50.7, Lymphocytes (%) (Auto) 28.2, Monocytes (%) (Auto) 16.5H, Eosinophils (%) (Auto) 1.7, Basophils (%) (Auto) 1.0, Neutrophils # (Auto) 2.4, Lymphocytes # (Auto) 1.4L, Monocytes # (Auto) 0.8, Eosinophils # (Auto) 0.1, Basophils # (Auto) 0.1, Nucleated Red Blood Cells % (auto) 0.0, Anion Gap 5L, Glomerular Filtration Rate > 60.0, Calcium Level 8.1L, Valproic Acid (Depakene) Level 67.2 Current Medications Current Medications Current Medications Medications (Trade) Dose Ordered Sig/Brenda Route PRN Reason Start Time Stop Time Status Last Admin Dose Admin Acetaminophen (Tylenol Suspension) 650 mg Q4HP PRN GT PAIN OR FEVER 08/07/20 13:00 08/09/20 16:32 DC 08/09/20 16:17 Acetaminophen (Tylenol Suspension) 650 mg Q4HP PRN GT PAIN / FEVER 08/07/20 13:00 UNV Acetaminophen (Tylenol Suspension) 975 mg TID GT 08/09/20 21:00 08/14/20 09:49 DC 08/13/20 16:45 Acetaminophen (Tylenol Tab) 1,000 mg TID PO 08/14/20 09:00 08/21/20 08:51 Albuterol/ Ipratropium (Duoneb (Ipr 0.5mg/Alb 2.5mg)) 3 ml RTID NEB 08/07/20 14:00 08/20/20 21:02 Apixaban (Eliquis) 5 mg BID PEG 08/07/20 21:00 08/14/20 09:51 DC 08/13/20 09:05 Apixaban (Eliquis) 5 mg BID PO 08/14/20 09:00 08/21/20 08:51 Atenolol (Tenormin) 50 mg DAILY PEG 08/08/20 09:00 08/14/20 09:47 DC 08/13/20 09:05 Atenolol (Tenormin) 50 mg DAILY PO 08/14/20 09:00 08/20/20 08:30 Atorvastatin Calcium (Lipitor) 40 mg DAILY PEG 08/08/20 09:00 08/14/20 09:47 DC 08/13/20 09:05 Atorvastatin Calcium (Lipitor) 40 mg DAILY PO 08/14/20 09:00 08/21/20 08:52 Bisacodyl (Dulcolax Suppository) 10 mg DAILY SD 08/08/20 09:00 08/12/20 12:53 DC 08/11/20 09:40 Bisacodyl (Dulcolax Suppository) 10 mg DAILY PRN SD constipaion 08/12/20 13:00 Bisacodyl (Dulcolax Suppository) 10 mg DAILYPRN PRN SD CONSTIPATION 08/16/20 19:00 Cancel Bisacodyl (Dulcolax Tab) 5 mg DAILY PO 08/16/20 09:00 08/19/20 09:39 Bupropion HCl (Wellbutrin) 50 mg BID PO 08/07/20 21:00 08/21/20 08:51 Dextrose (Dextrose 50%) 25 ml ASDIRECTED PRN IV SEE LABEL COMMENTS 08/07/20 13:00 Divalproex Sodium (Depakote Sprinkles) 1,000 mg BID PO 08/14/20 11:00 08/21/20 08:50 Docusate Sodium (Colace Liquid) 100 mg BIDP PRN GT CONSTIPATION 08/07/20 13:00 08/14/20 09:53 DC Docusate Sodium (Colace Liquid) 100 mg BIDP PRN PO CONSTIPATION 08/14/20 10:00 Glucagon (Glucagon) 1 mg ASDIRECTED PRN SC SEE LABEL COMMENTS 08/07/20 13:00 Glucose (Glucose) 16 GM ASDIRECTED PRN PO SEE LABEL COMMENTS 08/07/20 13:00 Guaifenesin (Robitussin Tab) 400 mg TID PO 08/14/20 09:00 08/21/20 08:52 Guaifenesin (Robitussin) 5 ml TID PEG 08/07/20 16:00 08/14/20 09:51 DC 08/13/20 16:45 Home Med (Med Rec Complete!) ASDIRECTED XX 08/07/20 13:45 08/07/20 13:51 DC Lactobacillus Acidophilus (Bacid) 1 ea TID PEG 08/09/20 16:00 08/14/20 09:47 DC 08/13/20 16:45 Lactobacillus Acidophilus (Bacid) 1 ea TID PO 08/14/20 09:00 08/21/20 08:51 Lansoprazole (First-Lansoprazole Oral Suspension) 30 mg DAILY GT 08/08/20 12:00 08/14/20 09:49 DC 08/13/20 09:05 Lansoprazole (First-Lansoprazole Oral Suspension) 30 mg DAILY PO 08/14/20 09:00 08/21/20 08:51 Levofloxacin (Levaquin) 750 mg DAILY@06 PEG 08/09/20 09:15 08/14/20 09:14 DC 08/13/20 05:47 Lidocaine (Lidoderm Patch) 1 patch DAILY TD 08/08/20 10:15 08/21/20 08:52 Losartan Potassium (Cozaar) 25 mg DAILY PEG 08/08/20 09:00 08/14/20 09:47 DC 08/13/20 09:05 Losartan Potassium (Cozaar) 25 mg DAILY PO 08/14/20 09:00 08/21/20 08:51 Nitrofurantoin Monoh/Nitrofur Macro (Macrobid) 100 mg BID GT 08/10/20 09:00 08/10/20 05:53 DC Non-Formulary Medication ( See Comment Field Below ) REMOVE LIDODERM PATCH DAILY@21 XX 08/08/20 21:00 08/20/20 23:05 Nystatin (Mycostatin Powder, Nystop) 1 dose TID TOP 08/07/20 16:00 08/21/20 08:56 Oxybutynin Chloride (Ditropan) 5 mg BID PEG 08/07/20 21:00 08/14/20 09:47 DC 08/13/20 09:07 Oxybutynin Chloride (Ditropan) 5 mg BID PO 08/14/20 09:00 08/21/20 08:51 Saliva Substitute (Mouthkote) Q1HP PRN MT dry mouth 08/08/20 14:45 08/12/20 10:03 DC 08/10/20 06:05 Saliva Substitute (Mouthkote) 2 sprays TID MT 08/12/20 10:00 08/21/20 08:53 Valproic Acid (Depakene Solution) 650 mg TID PEG 08/07/20 16:00 08/14/20 10:17 NH 08/14/20 00:33 SANTA HOOVER MD Aug 21, 2020 09:39
[2020-08-21 14:00] VITALS: BP 138/70
[2020-08-21 20:00] VITALS: BP 135/62
[2020-08-21] MEDS: **NOTE PATIENT COMMENT** MISC XX SCH (21:30)
[2020-08-22] MEDS: REMEDY PHYTOPLEX Z-GUARD PASTE 113GM TUBE (FROM STOREROOM PRODUCT) TOP SCH ×6 (00:56→21:38)
[2020-08-22 05:47] VITALS: BP 160/80
[2020-08-22] MEDS: IPRATROPIUM 0.5MG/ALBUTEROL 2.5MG INH SOL UD 3ML (DUONEB) NEB SCH ×3 (07:15→19:28)
[2020-08-22] MEDS: BISACODYL 5 MG TAB PO SCH (09:00)
[2020-08-22] MEDS: LIDOCAINE 5% (LIDODERM) PATCH TD SCH (09:47)
[2020-08-22] MEDS: LACTOBACILLUS ACIDOPHILUS CAP (BACID) PO SCH ×3 (09:48→21:34)
[2020-08-22] MEDS: guaiFENesin 200 MG TAB PO SCH ×3 (09:48→21:34)
[2020-08-22] MEDS: OMEPRAZOLE SUSPENSION 20MG 10ML ORAL SYRINGE PO SCH (09:48)
[2020-08-22] MEDS: NYSTATIN 100,000 UNITS/GM TOPICAL PWD 15 GM TOP SCH ×3 (09:49→21:37)
[2020-08-22] MEDS: ATORVASTATIN 20 MG TAB PO SCH (09:50)
[2020-08-22] MEDS: oxyBUTYnin 5 MG TAB PO SCH ×2 (09:50→21:34)
[2020-08-22] MEDS: buPROPion 100 MG TAB PO SCH ×2 (09:50→21:34)
[2020-08-22] MEDS: atenoloL 50 MG TAB PO SCH (09:51)
[2020-08-22] MEDS: SALIVA SUBSTITUTE(MOUTHKOTE) BTL MT SCH ×3 (09:51→21:39)
[2020-08-22] MEDS: APIXABAN 5 MG TAB (ELIQUIS) PO SCH ×2 (09:51→21:34)
[2020-08-22] MEDS: LOSARTAN 25 MG TAB PO SCH (09:52)
[2020-08-22] MEDS: DIVALPROEX SPRINKLE 125 MG CAP PO SCH ×2 (09:52→21:37)
[2020-08-22] MEDS: ACETAMINOPHEN 500 MG TAB PO SCH ×3 (09:53→21:34)
[2020-08-22 13:48] VITALS: BP 135/62
[2020-08-22 20:00] VITALS: BP 139/67
[2020-08-22] MEDS: **NOTE PATIENT COMMENT** MISC XX SCH (21:38)
[2020-08-23] MEDS: REMEDY PHYTOPLEX Z-GUARD PASTE 113GM TUBE (FROM STOREROOM PRODUCT) TOP SCH ×6 (01:00→21:36)
[2020-08-23 05:43] VITALS: BP 158/70
[2020-08-23 07:11] LABS: EOS # 0.1 10^3/uL (0.0-0.5); EOS % 1.4 % (0.0-3.0); HEMATOCRIT 36.7 % (36.0-47.0); HEMOGLOBIN 11.3 g/dl (12.0-15.5); LYMPH # 1.5 10^3/uL (1.5-5.0); LYMPH % 35.1 % (24.0-44.0); MEAN CORPUSCULAR HEMOGLOBIN 30.4 pg (27.0-33.0); MEAN CORPUSCULAR HGB CONC 30.8 g/dl (32.0-36.5); MEAN CORPUSCULAR VOLUME 98.7 fl (80.0-96.0); MONO # 0.6 10^3/uL (0.0-0.8); MONO % 15.3 % (0.0-5.0); NEUTROPHILS # 1.9 10^3/uL (1.5-8.5); NEUTROPHILS % 46.2 % (36.0-66.0); PLATELET COUNT, AUTOMATED 128 10^3/uL (150-450); RED BLOOD COUNT 3.72 10^6/uL (4.00-5.40); WHITE BLOOD COUNT 4.2 10^3/uL (4.0-10.0)
[2020-08-23 07:23] LABS: BLOOD UREA NITROGEN 23 MG/DL (7-18); CALCIUM LEVEL 7.6 MG/DL (8.8-10.2); CARBON DIOXIDE LEVEL 25 MEQ/L (21-32); CHLORIDE LEVEL 108 MEQ/L (98-107); CREATININE FOR GFR 0.84 MG/DL (0.55-1.30); GLOMERULAR FILTRATION RATE > 60.0 (>39); GLUCOSE, FASTING 81 MG/DL (70-100); POTASSIUM SERUM 4.4 MEQ/L (3.5-5.1); SODIUM LEVEL 141 MEQ/L (136-145)
[2020-08-23] MEDS: IPRATROPIUM 0.5MG/ALBUTEROL 2.5MG INH SOL UD 3ML (DUONEB) NEB SCH ×3 (07:26→20:00)
[2020-08-23] MEDS: SALIVA SUBSTITUTE(MOUTHKOTE) BTL MT SCH ×3 (09:00→21:00)
[2020-08-23] MEDS: LIDOCAINE 5% (LIDODERM) PATCH TD SCH (09:23)
[2020-08-23] MEDS: guaiFENesin 200 MG TAB PO SCH ×3 (09:24→21:35)
[2020-08-23] MEDS: OMEPRAZOLE SUSPENSION 20MG 10ML ORAL SYRINGE PO SCH (09:24)
[2020-08-23] MEDS: ATORVASTATIN 20 MG TAB PO SCH (09:24)
[2020-08-23] MEDS: atenoloL 50 MG TAB PO SCH (09:25)
[2020-08-23] MEDS: APIXABAN 5 MG TAB (ELIQUIS) PO SCH ×2 (09:25→21:35)
[2020-08-23] MEDS: ACETAMINOPHEN 500 MG TAB PO SCH ×3 (09:25→21:34)
[2020-08-23] MEDS: BISACODYL 5 MG TAB PO SCH (09:25)
[2020-08-23] MEDS: LACTOBACILLUS ACIDOPHILUS CAP (BACID) PO SCH ×3 (09:26→21:34)
[2020-08-23] MEDS: oxyBUTYnin 5 MG TAB PO SCH ×2 (09:26→21:34)
[2020-08-23] MEDS: buPROPion 100 MG TAB PO SCH ×2 (09:26→21:35)
[2020-08-23] MEDS: LOSARTAN 25 MG TAB PO SCH (09:26)
[2020-08-23] MEDS: NYSTATIN 100,000 UNITS/GM TOPICAL PWD 15 GM TOP SCH ×3 (09:27→21:35)
[2020-08-23] MEDS: DIVALPROEX SPRINKLE 125 MG CAP PO SCH ×2 (09:28→21:37)
[2020-08-23 14:00] VITALS: BP 134/65
[2020-08-23 21:00] VITALS: BP 130/84
[2020-08-23] MEDS: **NOTE PATIENT COMMENT** MISC XX SCH (21:36)
[2020-08-24] MEDS: REMEDY PHYTOPLEX Z-GUARD PASTE 113GM TUBE (FROM STOREROOM PRODUCT) TOP SCH ×6 (01:00→21:11)
[2020-08-24 06:15] VITALS: BP 152/70
[2020-08-24] MEDS: IPRATROPIUM 0.5MG/ALBUTEROL 2.5MG INH SOL UD 3ML (DUONEB) NEB SCH ×3 (08:00→23:16)
[2020-08-24] MEDS: BISACODYL 5 MG TAB PO SCH ×2 (09:00→09:03)
[2020-08-24] MEDS: SALIVA SUBSTITUTE(MOUTHKOTE) BTL MT SCH ×3 (09:02→21:00)
[2020-08-24] MEDS: oxyBUTYnin 5 MG TAB PO SCH ×2 (09:03→21:08)
[2020-08-24] MEDS: LACTOBACILLUS ACIDOPHILUS CAP (BACID) PO SCH ×3 (09:03→21:08)
[2020-08-24] MEDS: APIXABAN 5 MG TAB (ELIQUIS) PO SCH ×2 (09:03→21:08)
[2020-08-24] MEDS: LOSARTAN 25 MG TAB PO SCH (09:03)
[2020-08-24] MEDS: guaiFENesin 200 MG TAB PO SCH ×3 (09:03→21:08)
[2020-08-24] MEDS: atenoloL 50 MG TAB PO SCH (09:04)
[2020-08-24] MEDS: buPROPion 100 MG TAB PO SCH ×2 (09:04→21:08)
[2020-08-24] MEDS: ACETAMINOPHEN 500 MG TAB PO SCH ×3 (09:05→21:07)
[2020-08-24] MEDS: ATORVASTATIN 20 MG TAB PO SCH (09:05)
[2020-08-24] MEDS: OMEPRAZOLE SUSPENSION 20MG 10ML ORAL SYRINGE PO SCH (09:05)
[2020-08-24] MEDS: LIDOCAINE 5% (LIDODERM) PATCH TD SCH (09:06)
[2020-08-24] MEDS: NYSTATIN 100,000 UNITS/GM TOPICAL PWD 15 GM TOP SCH ×3 (09:06→21:11)
[2020-08-24] MEDS: DIVALPROEX SPRINKLE 125 MG CAP PO SCH ×2 (09:06→21:11)
[2020-08-24 14:00] VITALS: BP 145/69
[2020-08-24 20:00] VITALS: BP 136/63
[2020-08-24] MEDS: **NOTE PATIENT COMMENT** MISC XX SCH (21:12)
[2020-08-25] MEDS: REMEDY PHYTOPLEX Z-GUARD PASTE 113GM TUBE (FROM STOREROOM PRODUCT) TOP SCH ×6 (01:30→20:16)
[2020-08-25 05:50] VITALS: BP 158/78
[2020-08-25] MEDS: SALIVA SUBSTITUTE(MOUTHKOTE) BTL MT SCH ×3 (07:49→20:15)
[2020-08-25] MEDS: LIDOCAINE 5% (LIDODERM) PATCH TD SCH (07:49)
[2020-08-25] MEDS: NYSTATIN 100,000 UNITS/GM TOPICAL PWD 15 GM TOP SCH ×3 (07:49→20:15)
[2020-08-25] MEDS: oxyBUTYnin 5 MG TAB PO SCH ×2 (07:50→20:15)
[2020-08-25] MEDS: atenoloL 50 MG TAB PO SCH (07:50)
[2020-08-25] MEDS: buPROPion 100 MG TAB PO SCH ×2 (07:50→20:15)
[2020-08-25] MEDS: APIXABAN 5 MG TAB (ELIQUIS) PO SCH ×2 (07:50→20:14)
[2020-08-25] MEDS: guaiFENesin 200 MG TAB PO SCH ×3 (07:51→20:14)
[2020-08-25] MEDS: ACETAMINOPHEN 500 MG TAB PO SCH ×3 (07:51→20:14)
[2020-08-25] MEDS: LACTOBACILLUS ACIDOPHILUS CAP (BACID) PO SCH ×3 (07:51→20:14)
[2020-08-25] MEDS: OMEPRAZOLE SUSPENSION 20MG 10ML ORAL SYRINGE PO SCH (07:52)
[2020-08-25] MEDS: LOSARTAN 25 MG TAB PO SCH (07:52)
[2020-08-25] MEDS: ATORVASTATIN 20 MG TAB PO SCH (07:52)
[2020-08-25] MEDS: DIVALPROEX SPRINKLE 125 MG CAP PO SCH ×2 (07:53→20:14)
[2020-08-25] MEDS: BISACODYL 5 MG TAB PO SCH (07:53)
[2020-08-25] MEDS: IPRATROPIUM 0.5MG/ALBUTEROL 2.5MG INH SOL UD 3ML (DUONEB) NEB SCH ×3 (08:00→19:27)
[2020-08-25 14:00] VITALS: BP 133/73
[2020-08-25 20:00] VITALS: BP 145/65
[2020-08-25] MEDS: **NOTE PATIENT COMMENT** MISC XX SCH (20:16)
[2020-08-26] MEDS: REMEDY PHYTOPLEX Z-GUARD PASTE 113GM TUBE (FROM STOREROOM PRODUCT) TOP SCH ×6 (00:21→21:31)
[2020-08-26 06:00] VITALS: BP 164/77
[2020-08-26 07:39] LABS: BASO % 0.7 % (0.0-1.0); EOS # 0.1 10^3/uL (0.0-0.5); EOS % 1.2 % (0.0-3.0); HEMATOCRIT 34.5 % (36.0-47.0); HEMOGLOBIN 10.5 g/dl (12.0-15.5); LYMPH # 1.5 10^3/uL (1.5-5.0); LYMPH % 35.1 % (24.0-44.0); MEAN CORPUSCULAR HEMOGLOBIN 30.1 pg (27.0-33.0); MEAN CORPUSCULAR HGB CONC 30.4 g/dl (32.0-36.5); MEAN CORPUSCULAR VOLUME 98.9 fl (80.0-96.0); MONO # 0.6 10^3/uL (0.0-0.8); MONO % 13.4 % (0.0-5.0); NEUTROPHILS # 2.1 10^3/uL (1.5-8.5); NEUTROPHILS % 49.1 % (36.0-66.0); PLATELET COUNT, AUTOMATED 100 10^3/uL (150-450); RED BLOOD COUNT 3.49 10^6/uL (4.00-5.40); WHITE BLOOD COUNT 4.3 10^3/uL (4.0-10.0)
[2020-08-26] MEDS: IPRATROPIUM 0.5MG/ALBUTEROL 2.5MG INH SOL UD 3ML (DUONEB) NEB SCH ×3 (08:00→20:00)
[2020-08-26 08:09] LABS: BLOOD UREA NITROGEN 22 MG/DL (7-18); CARBON DIOXIDE LEVEL 27 MEQ/L (21-32); CHLORIDE LEVEL 108 MEQ/L (98-107); CREATININE FOR GFR 0.87 MG/DL (0.55-1.30); GLOMERULAR FILTRATION RATE > 60.0 (>39); GLUCOSE, FASTING 74 MG/DL (70-100); POTASSIUM SERUM 3.8 MEQ/L (3.5-5.1); SODIUM LEVEL 141 MEQ/L (136-145)
[2020-08-26] MEDS: LACTOBACILLUS ACIDOPHILUS CAP (BACID) PO SCH ×3 (08:14→21:29)
[2020-08-26] MEDS: guaiFENesin 200 MG TAB PO SCH ×3 (08:15→21:29)
[2020-08-26] MEDS: ACETAMINOPHEN 500 MG TAB PO SCH ×3 (08:15→21:30)
[2020-08-26] MEDS: LOSARTAN 25 MG TAB PO SCH (08:15)
[2020-08-26] MEDS: ATORVASTATIN 20 MG TAB PO SCH (08:15)
[2020-08-26] MEDS: DIVALPROEX SPRINKLE 125 MG CAP PO SCH ×2 (08:15→21:29)
[2020-08-26] MEDS: BISACODYL 5 MG TAB PO SCH (08:15)
[2020-08-26] MEDS: APIXABAN 5 MG TAB (ELIQUIS) PO SCH ×2 (08:15→21:29)
[2020-08-26] MEDS: buPROPion 100 MG TAB PO SCH ×2 (08:16→21:29)
[2020-08-26] MEDS: OMEPRAZOLE SUSPENSION 20MG 10ML ORAL SYRINGE PO SCH (08:16)
[2020-08-26] MEDS: LIDOCAINE 5% (LIDODERM) PATCH TD SCH (08:17)
[2020-08-26] MEDS: SALIVA SUBSTITUTE(MOUTHKOTE) BTL MT SCH ×3 (08:17→21:30)
[2020-08-26] MEDS: NYSTATIN 100,000 UNITS/GM TOPICAL PWD 15 GM TOP SCH ×3 (08:17→21:32)
[2020-08-26] MEDS: atenoloL 50 MG TAB PO SCH (08:18)
[2020-08-26] MEDS: oxyBUTYnin 5 MG TAB PO SCH ×2 (08:18→21:29)
[2020-08-26 14:00] VITALS: BP 140/70
[2020-08-26 20:00] VITALS: BP 168/72
[2020-08-26] MEDS: **NOTE PATIENT COMMENT** MISC XX SCH (21:32)
[2020-08-27] MEDS: REMEDY PHYTOPLEX Z-GUARD PASTE 113GM TUBE (FROM STOREROOM PRODUCT) TOP SCH ×6 (02:00→21:56)
[2020-08-27 05:02] VITALS: BP 158/68
[2020-08-27] MEDS: atenoloL 50 MG TAB PO SCH (07:09)
[2020-08-27] MEDS: DIVALPROEX SPRINKLE 125 MG CAP PO SCH ×2 (07:16→21:53)
[2020-08-27] MEDS: LACTOBACILLUS ACIDOPHILUS CAP (BACID) PO SCH ×3 (07:16→21:51)
[2020-08-27] MEDS: LOSARTAN 25 MG TAB PO SCH (07:17)
[2020-08-27] MEDS: guaiFENesin 200 MG TAB PO SCH ×3 (07:17→21:51)
[2020-08-27] MEDS: APIXABAN 5 MG TAB (ELIQUIS) PO SCH ×2 (07:17→21:51)
[2020-08-27] MEDS: ATORVASTATIN 20 MG TAB PO SCH (07:17)
[2020-08-27] MEDS: buPROPion 100 MG TAB PO SCH ×2 (07:17→21:51)
[2020-08-27] MEDS: oxyBUTYnin 5 MG TAB PO SCH ×2 (07:17→21:51)
[2020-08-27] MEDS: ACETAMINOPHEN 500 MG TAB PO SCH ×3 (07:17→21:00)
[2020-08-27] MEDS: BISACODYL 5 MG TAB PO SCH (07:18)
[2020-08-27] MEDS: SALIVA SUBSTITUTE(MOUTHKOTE) BTL MT SCH ×3 (07:18→21:52)
[2020-08-27] MEDS: LIDOCAINE 5% (LIDODERM) PATCH TD SCH (07:18)
[2020-08-27] MEDS: OMEPRAZOLE SUSPENSION 20MG 10ML ORAL SYRINGE PO SCH (07:18)
[2020-08-27] MEDS: NYSTATIN 100,000 UNITS/GM TOPICAL PWD 15 GM TOP SCH ×3 (07:23→21:00)
[2020-08-27] MEDS: IPRATROPIUM 0.5MG/ALBUTEROL 2.5MG INH SOL UD 3ML (DUONEB) NEB SCH ×3 (08:46→20:00)
[2020-08-27 14:00] VITALS: BP 141/72
--- NOTE | 2020-08-27 16:12 | IPNPDOC ---
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 REVIEW OF SYSTEMS: The following is a completed review of systems and has been reviewed. Review of systems otherwise unremarkable. PAIN: Patient self reports no pain EYES: difficult to assess EARS, NOSE, & THROAT:+dysphagia (improving) CARDIOVASCULAR: Denies chest pain or palpitations PULMONARY: Denies shortness of breath GASTROINTESTINAL: s/p peg GENITOURINARY: +incontinence MUSCULOSKELETAL: right sided weakness NEUROLOGICAL:right sided paresis, expressive aphasia SKIN: skin breakdown under breasts and in abdominal folds, bilat anterior thigh rash (improving) PSYCHIATRIC: Unremarkable All other review of systems found to be negative. PHYSICAL EXAMINATION: VITAL SIGNS: Please see below. GENERAL: Pleasant and cooperative. No acute distress. HEENT: PERRL. Extraocular movements intact. Clear conjunctiva CARDIOVASCULAR: Regular rate and rhythm. No murmurs, rubs, or gallops LUNGS: Clear to auscultation bilaterally. No wheezes. No rhonchi ABDOMEN: Soft, nontender, nondistended. Positive bowel sounds. Normal active bowel sounds, former PEG site c/d/i no drainage NEUROLOGICAL: +expressive aphasia, able to follow commands, Sensation grossly intact EXTREMITIES: 5/5 strength LUE, 3+/5 RUE, 4\\5 strength right lower extremity. 5/5 strength in left lower extremity. SKIN: +sacral excoriation, bilateral under breast skin breakdown and in abdominal folds (improving) bilat anterior thighs- blanchable erythematous macules, non-tender (scant on today's exam) right dorsal MTP callous with blanchable erythema ASSESSMENT:80-year-old F with past medical history of stroke, CKD, DM who presents status post left MCA infarct with new onset seizures PLAN: 1. 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 Neuro- s/p left MCA infarct with expressive aphasia, dysphagia, and right sided hemiparesis, c/u Eliquis for AFib, statin for secondary stroke prevention- - recent post-stroke seizure activity c/u depakote at 1000mg BID (increased from 650 TID with a total dose per day increase from 1950mg-->2000mg)-Depakote level 67 3. Cardiac- ECHO 07-23-20 showed Normal global systolic left ventricular function. This study is inadequate for the evaluation of regional wall motion. At least grade 2 diastolic dysfunction without interatrial shunt via bubble study" - new onset Afib c/u eliquis and atenolol -HLD- statin 4. resp- monitor for infection, DUonebs and guaifenesin ordered 5. GI ppx- lansoprazole -s/p PEG, removed iatrogenically, c/u oral feeds, abdominal exam benign 6. VAsc- hx of DVT c/u eliquis 7. - + ecoli UTI s/p course of LEvaquin 8. Pain- tylneol standing, c/u lidoderm patch to right shoulder 9. Psych- patient was on Bupropion 100mg BID at home and off it while at GI c/u at half dose 50mg BID 10. SKin- turn q2h in bed, dressing changes per nursing orders, AFO to be worn only in therapy to avoid skin breakdown -blanchable macular rash on anterior thighs improved today on exam, patient denies pain with palpation, possibly due recent antibiotic use vs viral exanthem also may be due to depakote -chg baths d/c'd while monitoring rash 11. Dispo- tbd Allergies Coded Allergies: No Known Allergies (Unverified , 08/07/20) Vital Signs Vital Signs Date Time Temp Pulse Resp B/P (MAP) Pulse Ox O2 Delivery O2 Flow Rate FiO2 08/27/20 14:00 98.6 62 18 141/72 (95) 98 Room Air Current Medications Current Medications Current Medications Medications (Trade) Dose Ordered Sig/Brenda Route PRN Reason Start Time Stop Time Status Last Admin Dose Admin Acetaminophen (Tylenol Suspension) 650 mg Q4HP PRN GT PAIN OR FEVER 08/07/20 13:00 08/09/20 16:32 DC 08/09/20 16:17 Acetaminophen (Tylenol Suspension) 650 mg Q4HP PRN GT PAIN / FEVER 08/07/20 13:00 UNV Acetaminophen (Tylenol Suspension) 975 mg TID GT 08/09/20 21:00 08/14/20 09:49 DC 08/13/20 16:45 Acetaminophen (Tylenol Tab) 1,000 mg TID PO 08/14/20 09:00 08/27/20 16:07 Albuterol/ Ipratropium (Duoneb (Ipr 0.5mg/Alb 2.5mg)) 3 ml RTID NEB 08/07/20 14:00 08/27/20 13:16 Apixaban (Eliquis) 5 mg BID PEG 08/07/20 21:00 08/14/20 09:51 DC 08/13/20 09:05 Apixaban (Eliquis) 5 mg BID PO 08/14/20 09:00 08/27/20 07:17 Atenolol (Tenormin) 50 mg DAILY PEG 08/08/20 09:00 08/14/20 09:47 DC 08/13/20 09:05 Atenolol (Tenormin) 50 mg DAILY PO 08/14/20 09:00 08/25/20 07:50 Atorvastatin Calcium (Lipitor) 40 mg DAILY PEG 08/08/20 09:00 08/14/20 09:47 DC 08/13/20 09:05 Atorvastatin Calcium (Lipitor) 40 mg DAILY PO 08/14/20 09:00 08/27/20 07:17 Bisacodyl (Dulcolax Suppository) 10 mg DAILY MT 08/08/20 09:00 08/12/20 12:53 DC 08/11/20 09:40 Bisacodyl (Dulcolax Suppository) 10 mg DAILY PRN MT constipaion 08/12/20 13:00 Bisacodyl (Dulcolax Suppository) 10 mg DAILYPRN PRN MT CONSTIPATION 08/16/20 19:00 Cancel Bisacodyl (Dulcolax Tab) 5 mg DAILY PO 08/16/20 09:00 08/26/20 08:15 Bupropion HCl (Wellbutrin) 50 mg BID PO 08/07/20 21:00 08/27/20 07:17 Dextrose (Dextrose 50%) 25 ml ASDIRECTED PRN IV SEE LABEL COMMENTS 08/07/20 13:00 Divalproex Sodium (Depakote Sprinkles) 1,000 mg BID PO 08/14/20 11:00 08/27/20 07:16 Docusate Sodium (Colace Liquid) 100 mg BIDP PRN GT CONSTIPATION 08/07/20 13:00 08/14/20 09:53 DC Docusate Sodium (Colace Liquid) 100 mg BIDP PRN PO CONSTIPATION 08/14/20 10:00 Glucagon (Glucagon) 1 mg ASDIRECTED PRN SC SEE LABEL COMMENTS 08/07/20 13:00 Glucose (Glucose) 16 GM ASDIRECTED PRN PO SEE LABEL COMMENTS 08/07/20 13:00 Guaifenesin (Robitussin Tab) 400 mg TID PO 08/14/20 09:00 08/27/20 16:07 Guaifenesin (Robitussin) 5 ml TID PEG 08/07/20 16:00 08/14/20 09:51 DC 08/13/20 16:45 Home Med (Med Rec Complete!) ASDIRECTED XX 08/07/20 13:45 08/07/20 13:51 DC Lactobacillus Acidophilus (Bacid) 1 ea TID PEG 08/09/20 16:00 08/14/20 09:47 DC 08/13/20 16:45 Lactobacillus Acidophilus (Bacid) 1 ea TID PO 08/14/20 09:00 08/27/20 16:07 Lansoprazole (First-Lansoprazole Oral Suspension) 30 mg DAILY GT 08/08/20 12:00 08/14/20 09:49 DC 08/13/20 09:05 Lansoprazole (First-Lansoprazole Oral Suspension) 30 mg DAILY PO 08/14/20 09:00 08/21/20 10:33 DC 08/21/20 08:51 Levofloxacin (Levaquin) 750 mg DAILY@06 PEG 08/09/20 09:15 08/14/20 09:14 DC 08/13/20 05:47 Lidocaine (Lidoderm Patch) 1 patch DAILY TD 08/08/20 10:15 08/27/20 07:18 Losartan Potassium (Cozaar) 25 mg DAILY PEG 08/08/20 09:00 08/14/20 09:47 DC 08/13/20 09:05 Losartan Potassium (Cozaar) 25 mg DAILY PO 08/14/20 09:00 08/27/20 07:17 Nitrofurantoin Monoh/Nitrofur Macro (Macrobid) 100 mg BID GT 08/10/20 09:00 08/10/20 05:53 DC Non-Formulary Medication ( See Comment Field Below ) REMOVE LIDODERM PATCH DAILY@21 XX 08/08/20 21:00 08/26/20 21:32 Nystatin (Mycostatin Powder, Nystop) 1 dose TID TOP 08/07/20 16:00 08/27/20 16:08 Omeprazole (First-Omeprazole ORAL SUSPENSION) 40 mg DAILY PO 08/21/20 09:00 08/27/20 07:18 Oxybutynin Chloride (Ditropan) 5 mg BID PEG 08/07/20 21:00 08/14/20 09:47 DC 08/13/20 09:07 Oxybutynin Chloride (Ditropan) 5 mg BID PO 08/14/20 09:00 08/27/20 07:17 Saliva Substitute (Mouthkote) Q1HP PRN MT dry mouth 08/08/20 14:45 08/12/20 10:03 DC 08/10/20 06:05 Saliva Substitute (Mouthkote) 2 sprays TID MT 08/12/20 10:00 08/27/20 16:07 Valproic Acid (Depakene Solution) 650 mg TID PEG 08/07/20 16:00 08/14/20 10:17 DC 08/14/20 00:33 SANTA HOOVER MD Aug 27, 2020 16:12
--- NOTE | 2020-08-27 16:13 | IPNPDOC ---
PM&R Progress Note DATE OF SERVICE: Aug 27, 2020 Teletype Telegrapher Progress Note Subjective: Patient seen in her room in her recliner stating she feels good and has no complaints. REVIEW OF SYSTEMS: The following is a completed review of systems and has been reviewed. Review of systems otherwise unremarkable. PAIN: Patient self reports no pain EYES: difficult to assess EARS, NOSE, & THROAT:+dysphagia (improving) CARDIOVASCULAR: Denies chest pain or palpitations PULMONARY: Denies shortness of breath GASTROINTESTINAL: s/p peg GENITOURINARY: +incontinence MUSCULOSKELETAL: right sided weakness NEUROLOGICAL:right sided paresis, expressive aphasia SKIN: skin breakdown under breasts and in abdominal folds, bilat anterior thigh rash (improving) PSYCHIATRIC: Unremarkable All other review of systems found to be negative. PHYSICAL EXAMINATION: VITAL SIGNS: Please see below. GENERAL: Pleasant and cooperative. No acute distress. HEENT: PERRL. Extraocular movements intact. Clear conjunctiva CARDIOVASCULAR: Regular rate and rhythm. No murmurs, rubs, or gallops LUNGS: Clear to auscultation bilaterally. No wheezes. No rhonchi ABDOMEN: Soft, nontender, nondistended. Positive bowel sounds. Normal active bowel sounds, former PEG site c/d/i no drainage NEUROLOGICAL: +expressive aphasia, able to follow commands, Sensation grossly intact EXTREMITIES: 5/5 strength LUE, 3+/5 RUE, 4\\5 strength right lower extremity. 5/5 strength in left lower extremity. SKIN: +sacral excoriation, bilateral under breast skin breakdown and in abdominal folds (improving) bilat anterior thighs- blanchable erythematous macules, non-tender (scant on today's exam) right dorsal MTP callous with blanchable erythema ASSESSMENT:80-year-old F with past medical history of stroke, CKD, DM who presents status post left MCA infarct with new onset seizures PLAN: 1. Rehab- PT/OT advance mobility and ADLs, maintain ROM/stretch/strengthen all 4 limbs- multipodus boot to right foot-will contact hiv/aids care nurse for custom made AFO prior to discharge, patient currently using old one, patient better able to move right side -[employer]- patient with expressive aphasia and dysphagia, advanced to level 2 and thins 2. Neuro- s/p left MCA infarct with expressive aphasia, dysphagia, and right sided hemiparesis, c/u Eliquis for AFib, statin for secondary stroke prevention- - recent post-stroke seizure activity c/u depakote at 1000mg BID (increased from 650 TID with a total dose per day increase from 1950mg-->2000mg)-Depakote level 67 3. Cardiac- ECHO 07-23-20 showed Normal global systolic left ventricular function. This study is inadequate for the evaluation of regional wall motion. At least grade 2 diastolic dysfunction without interatrial shunt via bubble study" - new onset Afib c/u eliquis and atenolol -HLD- statin 4. resp- monitor for infection, DUonebs and guaifenesin ordered 5. GI ppx- lansoprazole -s/p PEG, removed iatrogenically, c/u oral feeds, abdominal exam benign 6. VAsc- hx of DVT c/u eliquis 7. - + ecoli UTI s/p course of LEvaquin 8. Pain- tylneol standing, c/u lidoderm patch to right shoulder 9. Psych- patient was on Bupropion 100mg BID at home and off it while at [facility] c/u at half dose 50mg BID 10. SKin- turn q2h in bed, dressing changes per nursing orders, AFO to be worn only in therapy to avoid skin breakdown -blanchable macular rash on anterior thighs improved today on exam, patient denies pain with palpation, possibly due recent antibiotic use vs viral exanthem also may be due to depakote -chg baths d/c'd while monitoring rash 11. Heme- patient with mild thrombocytopenia which may be due to depakote, will recheck levels, patient per [facility] records had thrombocytopenia while on keppra and was therefore switched to depakote- thigh rash does not appear petechial as it does gage, but may also be side effect of depakote vs recent Levaquin dosing for UTI- will trend platelets- no active bleeding noted 12. Dispo- tbd Allergies Coded Allergies: No Known Allergies (Unverified , 08/07/20) Vital Signs Vital Signs Date Time Temp Pulse Resp B/P (MAP) Pulse Ox O2 Delivery O2 Flow Rate FiO2 08/27/20 14:00 98.6 62 18 141/72 (95) 98 Room Air Current Medications Current Medications Current Medications Medications (Trade) Dose Ordered Sig/Brenda Route PRN Reason Start Time Stop Time Status Last Admin Dose Admin Acetaminophen (Tylenol Suspension) 650 mg Q4HP PRN GT PAIN OR FEVER 08/07/20 13:00 08/09/20 16:32 DC 08/09/20 16:17 Acetaminophen (Tylenol Suspension) 650 mg Q4HP PRN GT PAIN / FEVER 08/07/20 13:00 UNV Acetaminophen (Tylenol Suspension) 975 mg TID GT 08/09/20 21:00 08/14/20 09:49 DC 08/13/20 16:45 Acetaminophen (Tylenol Tab) 1,000 mg TID PO 08/14/20 09:00 08/27/20 16:07 Albuterol/ Ipratropium (Duoneb (Ipr 0.5mg/Alb 2.5mg)) 3 ml RTID NEB 08/07/20 14:00 08/27/20 13:16 Apixaban (Eliquis) 5 mg BID PEG 08/07/20 21:00 08/14/20 09:51 DC 08/13/20 09:05 Apixaban (Eliquis) 5 mg BID PO 08/14/20 09:00 08/27/20 07:17 Atenolol (Tenormin) 50 mg DAILY PEG 08/08/20 09:00 08/14/20 09:47 DC 08/13/20 09:05 Atenolol (Tenormin) 50 mg DAILY PO 08/14/20 09:00 08/25/20 07:50 Atorvastatin Calcium (Lipitor) 40 mg DAILY PEG 08/08/20 09:00 08/14/20 09:47 DC 08/13/20 09:05 Atorvastatin Calcium (Lipitor) 40 mg DAILY PO 08/14/20 09:00 08/27/20 07:17 Bisacodyl (Dulcolax Suppository) 10 mg DAILY MD 08/08/20 09:00 08/12/20 12:53 DC 08/11/20 09:40 Bisacodyl (Dulcolax Suppository) 10 mg DAILY PRN MD constipaion 08/12/20 13:00 Bisacodyl (Dulcolax Suppository) 10 mg DAILYPRN PRN MD CONSTIPATION 08/16/20 19:00 Cancel Bisacodyl (Dulcolax Tab) 5 mg DAILY PO 08/16/20 09:00 08/26/20 08:15 Bupropion HCl (Wellbutrin) 50 mg BID PO 08/07/20 21:00 08/27/20 07:17 Dextrose (Dextrose 50%) 25 ml ASDIRECTED PRN IV SEE LABEL COMMENTS 08/07/20 13:00 Divalproex Sodium (Depakote Sprinkles) 1,000 mg BID PO 08/14/20 11:00 08/27/20 07:16 Docusate Sodium (Colace Liquid) 100 mg BIDP PRN GT CONSTIPATION 08/07/20 13:00 08/14/20 09:53 DC Docusate Sodium (Colace Liquid) 100 mg BIDP PRN PO CONSTIPATION 08/14/20 10:00 Glucagon (Glucagon) 1 mg ASDIRECTED PRN SC SEE LABEL COMMENTS 08/07/20 13:00 Glucose (Glucose) 16 GM ASDIRECTED PRN PO SEE LABEL COMMENTS 08/07/20 13:00 Guaifenesin (Robitussin Tab) 400 mg TID PO 08/14/20 09:00 08/27/20 16:07 Guaifenesin (Robitussin) 5 ml TID PEG 08/07/20 16:00 08/14/20 09:51 DC 08/13/20 16:45 Home Med (Med Rec Complete!) ASDIRECTED XX 08/07/20 13:45 08/07/20 13:51 DC Lactobacillus Acidophilus (Bacid) 1 ea TID PEG 08/09/20 16:00 08/14/20 09:47 DC 08/13/20 16:45 Lactobacillus Acidophilus (Bacid) 1 ea TID PO 08/14/20 09:00 08/27/20 16:07 Lansoprazole (First-Lansoprazole Oral Suspension) 30 mg DAILY GT 08/08/20 12:00 08/14/20 09:49 DC 08/13/20 09:05 Lansoprazole (First-Lansoprazole Oral Suspension) 30 mg DAILY PO 08/14/20 09:00 08/21/20 10:33 DC 08/21/20 08:51 Levofloxacin (Levaquin) 750 mg DAILY@06 PEG 08/09/20 09:15 08/14/20 09:14 DC 08/13/20 05:47 Lidocaine (Lidoderm Patch) 1 patch DAILY TD 08/08/20 10:15 08/27/20 07:18 Losartan Potassium (Cozaar) 25 mg DAILY PEG 08/08/20 09:00 08/14/20 09:47 DC 08/13/20 09:05 Losartan Potassium (Cozaar) 25 mg DAILY PO 08/14/20 09:00 08/27/20 07:17 Nitrofurantoin Monoh/Nitrofur Macro (Macrobid) 100 mg BID GT 08/10/20 09:00 08/10/20 05:53 DC Non-Formulary Medication ( See Comment Field Below ) REMOVE LIDODERM PATCH DAILY@21 XX 08/08/20 21:00 08/26/20 21:32 Nystatin (Mycostatin Powder, Nystop) 1 dose TID TOP 08/07/20 16:00 08/27/20 16:08 Omeprazole (First-Omeprazole ORAL SUSPENSION) 40 mg DAILY PO 08/21/20 09:00 08/27/20 07:18 Oxybutynin Chloride (Ditropan) 5 mg BID PEG 08/07/20 21:00 08/14/20 09:47 DC 08/13/20 09:07 Oxybutynin Chloride (Ditropan) 5 mg BID PO 08/14/20 09:00 08/27/20 07:17 Saliva Substitute (Mouthkote) Q1HP PRN MT dry mouth 08/08/20 14:45 08/12/20 10:03 DC 08/10/20 06:05 Saliva Substitute (Mouthkote) 2 sprays TID MT 08/12/20 10:00 08/27/20 16:07 Valproic Acid (Depakene Solution) 650 mg TID PEG 08/07/20 16:00 08/14/20 10:17 DC 08/14/20 00:33 SANTA HOOVER MD Aug 27, 2020 16:13
--- NOTE | 2020-08-27 19:13 | IPNPDOC ---
Date Seen The patient was seen on 08/27/20. Progress Note SUBJECTIVE: Tolerating level 2 diet well, states she feels as if she is eating well, no abdominal discomfort. Patient denies abd pain, fevers, chills, n/v/d. OBJECTIVE: PHYSICAL EXAMINATION: VITAL SIGNS: Please see below. GENERAL APPEARANCE: Awake, alert, oriented to person, place and time. HEENT: moist mucous membranes, no JVD, no thyromegaly, no cervical lymphadenopathy LUNGS: Clear to auscultation. Wheezing, rales or rhonchi HEART: S1, S2 regular rate rhythm, no murmurs, rubs or gallops ABDOMEN: incision where feeding tube was, clean, nonsuppurative, not bleeding, nontender to palpation. Obese, soft, nondistended, positive bowel sounds 4 quadrants. No rebound or guarding. EXTREMITIES: No cyanosis, clubbing or edema INTEGUMENTARY:Dry skin on extremities , scabbed abrasion in left groin, healing well NEURO: Awake, alert, oriented to person, place and time, answering questions appropriately. Face is symmetric. Tongue is midline. No pronator drift bilaterally, mild expressive aphasia but understandable and coherent. No rec eptive aphasia and no neglect. Motor function right upper and left upper extremities 4/5, left lower extremity Right lower extremity 4-5. LABORATORY DATA: Please see below. IMAGING: CT abd/pelvis: Few tiny foci of extraluminal air in the upper abdomen. Nonspecific mesenteric stranding. Etiology infectious/inflammatory. ASSESSMENT: 80-year-old female admitted to [facility] due to left lower extremity weakness and aphasia from [facility] with CT of the head showing left vertebral occlusion. Patient was found to have an acute ischemic stroke in the left frontoparietal region concerning for cardioembolic phenomenon. Given bilateral old strokes in the past. She was admitted to the stroke service and placed on telemetry at [facility] and continued on her home dose of Xarelto and Lipitor. The patient was set fiddling transferred to [facility] acute rehabilitation unit after medical treatment at [facility]. . She is currently requiring 1 person assistance at all times but appears to be very cooperative. She currently denies any fevers, chills, shortness breath, chest pain, pressure, tightness, lightheadedness, nausea, vomiting, diarrhea, abdominal pain, dysuria, urgency, frequency, fever, chills, polyphagia, polyuria, ear pain, discharge, changes in vision, rhinorrhea, tinnitus, ear discharge. She complains of weakness and quite anxious about falling. No other issues per nursing from overnight. Post CVA seizure Dislodging of feeding tube Dysphagia with feeding tube Acute left frontoparietal ischemic CVA History of bilateral CVA Hypertension Chronic kidney disease stage III H/o DVT PLAN: C/w current diet, antiseizure medications, PT/OT as before. Other chronic issues appear stable. DISPOSITION: ARU status VS, I&O, 24H, Fishbone Vital Signs/I&O Vital Signs Date Time Temp Pulse Resp B/P (MAP) Pulse Ox O2 Delivery O2 Flow Rate FiO2 08/27/20 14:00 98.6 62 18 141/72 (95) 98 Room Air I&O- Last 24 Hours up to 6 AM 08/27/20 06:00 Intake Total 800 ml Balance 800 ml Current Medications Current Medications Medications (Trade) Dose Ordered Sig/Brenda Route PRN Reason Start Time Stop Time Status Last Admin Dose Admin Acetaminophen (Tylenol Suspension) 650 mg Q4HP PRN GT PAIN OR FEVER 08/07/20 13:00 08/09/20 16:32 DC 08/09/20 16:17 Acetaminophen (Tylenol Suspension) 650 mg Q4HP PRN GT PAIN / FEVER 08/07/20 13:00 UNV Acetaminophen (Tylenol Suspension) 975 mg TID GT 08/09/20 21:00 08/14/20 09:49 DC 08/13/20 16:45 Acetaminophen (Tylenol Tab) 1,000 mg TID PO 08/14/20 09:00 08/27/20 16:07 Albuterol/ Ipratropium (Duoneb (Ipr 0.5mg/Alb 2.5mg)) 3 ml RTID NEB 08/07/20 14:00 08/27/20 13:16 Apixaban (Eliquis) 5 mg BID PEG 08/07/20 21:00 08/14/20 09:51 DC 08/13/20 09:05 Apixaban (Eliquis) 5 mg BID PO 08/14/20 09:00 08/27/20 07:17 Atenolol (Tenormin) 50 mg DAILY PEG 08/08/20 09:00 08/14/20 09:47 DC 08/13/20 09:05 Atenolol (Tenormin) 50 mg DAILY PO 08/14/20 09:00 08/25/20 07:50 Atorvastatin Calcium (Lipitor) 40 mg DAILY PEG 08/08/20 09:00 08/14/20 09:47 DC 08/13/20 09:05 Atorvastatin Calcium (Lipitor) 40 mg DAILY PO 08/14/20 09:00 08/27/20 07:17 Bisacodyl (Dulcolax Suppository) 10 mg DAILY DC 08/08/20 09:00 08/12/20 12:53 DC 08/11/20 09:40 Bisacodyl (Dulcolax Suppository) 10 mg DAILY PRN DC constipaion 08/12/20 13:00 Bisacodyl (Dulcolax Suppository) 10 mg DAILYPRN PRN DC CONSTIPATION 08/16/20 19:00 Cancel Bisacodyl (Dulcolax Tab) 5 mg DAILY PO 08/16/20 09:00 08/26/20 08:15 Bupropion HCl (Wellbutrin) 50 mg BID PO 08/07/20 21:00 08/27/20 07:17 Dextrose (Dextrose 50%) 25 ml ASDIRECTED PRN IV SEE LABEL COMMENTS 08/07/20 13:00 Divalproex Sodium (Depakote Sprinkles) 1,000 mg BID PO 08/14/20 11:00 08/27/20 07:16 Docusate Sodium (Colace Liquid) 100 mg BIDP PRN GT CONSTIPATION 08/07/20 13:00 08/14/20 09:53 DC Docusate Sodium (Colace Liquid) 100 mg BIDP PRN PO CONSTIPATION 08/14/20 10:00 Glucagon (Glucagon) 1 mg ASDIRECTED PRN SC SEE LABEL COMMENTS 08/07/20 13:00 Glucose (Glucose) 16 GM ASDIRECTED PRN PO SEE LABEL COMMENTS 08/07/20 13:00 Guaifenesin (Robitussin Tab) 400 mg TID PO 08/14/20 09:00 08/27/20 16:07 Guaifenesin (Robitussin) 5 ml TID PEG 08/07/20 16:00 12/16/20 09:51 DC 08/13/20 16:45 Home Med (Med Rec Complete!) ASDIRECTED XX 08/07/20 13:45 08/07/20 13:51 DC Lactobacillus Acidophilus (Bacid) 1 ea TID PEG 08/09/20 16:00 08/14/20 09:47 DC 08/13/20 16:45 Lactobacillus Acidophilus (Bacid) 1 ea TID PO 08/14/20 09:00 08/27/20 16:07 Lansoprazole (First-Lansoprazole Oral Suspension) 30 mg DAILY GT 08/08/20 12:00 08/14/20 09:49 DC 08/13/20 09:05 Lansoprazole (First-Lansoprazole Oral Suspension) 30 mg DAILY PO 08/14/20 09:00 08/21/20 10:33 DC 08/21/20 08:51 Levofloxacin (Levaquin) 750 mg DAILY@06 PEG 08/09/20 09:15 08/14/20 09:14 DC 08/13/20 05:47 Lidocaine (Lidoderm Patch) 1 patch DAILY TD 08/08/20 10:15 08/27/20 07:18 Losartan Potassium (Cozaar) 25 mg DAILY PEG 08/08/20 09:00 08/14/20 09:47 DC 08/13/20 09:05 Losartan Potassium (Cozaar) 25 mg DAILY PO 08/14/20 09:00 08/27/20 07:17 Nitrofurantoin Monoh/Nitrofur Macro (Macrobid) 100 mg BID GT 08/10/20 09:00 08/10/20 05:53 DC Non-Formulary Medication ( See Comment Field Below ) REMOVE LIDODERM PATCH DAILY@21 XX 08/08/20 21:00 08/26/20 21:32 Nystatin (Mycostatin Powder, Nystop) 1 dose TID TOP 08/07/20 16:00 08/27/20 16:08 Omeprazole (First-Omeprazole ORAL SUSPENSION) 40 mg DAILY PO 08/21/20 09:00 08/27/20 07:18 Oxybutynin Chloride (Ditropan) 5 mg BID PEG 08/07/20 21:00 08/14/20 09:47 DC 08/13/20 09:07 Oxybutynin Chloride (Ditropan) 5 mg BID PO 08/14/20 09:00 08/27/20 07:17 Saliva Substitute (Mouthkote) Q1HP PRN MT dry mouth 08/08/20 14:45 08/12/20 10:03 DC 08/10/20 06:05 Saliva Substitute (Mouthkote) 2 sprays TID MT 08/12/20 10:00 08/27/20 16:07 Valproic Acid (Depakene Solution) 650 mg TID PEG 08/07/20 16:00 08/14/20 10:17 DC 08/14/20 00:33 Allergies Coded Allergies: No Known Allergies (Unverified , 08/07/20) Lilo Amanda MD Aug 27, 2020 19:13
[2020-08-27 20:00] VITALS: BP 148/84
[2020-08-27] MEDS: **NOTE PATIENT COMMENT** MISC XX SCH (21:54)
[2020-08-28] MEDS: REMEDY PHYTOPLEX Z-GUARD PASTE 113GM TUBE (FROM STOREROOM PRODUCT) TOP SCH ×6 (06:14→22:08)
[2020-08-28 06:50] VITALS: BP 162/78
[2020-08-28 07:28] LABS: BASO % 0.8 % (0.0-1.0); EOS # 0.1 10^3/uL (0.0-0.5); EOS % 1.6 % (0.0-3.0); HEMOGLOBIN 10.4 g/dl (12.0-15.5); LYMPH # 1.4 10^3/uL (1.5-5.0); LYMPH % 36.7 % (24.0-44.0); MEAN CORPUSCULAR HEMOGLOBIN 30.6 pg (27.0-33.0); MEAN CORPUSCULAR HGB CONC 30.6 g/dl (32.0-36.5); MONO # 0.6 10^3/uL (0.0-0.8); MONO % 14.7 % (0.0-5.0); NEUTROPHILS # 1.7 10^3/uL (1.5-8.5); NEUTROPHILS % 45.7 % (36.0-66.0); WHITE BLOOD COUNT 3.8 10^3/uL (4.0-10.0)
[2020-08-28 07:53] LABS: BLOOD UREA NITROGEN 23 MG/DL (7-18); CALCIUM LEVEL 8.1 MG/DL (8.8-10.2); CARBON DIOXIDE LEVEL 28 MEQ/L (21-32); CHLORIDE LEVEL 107 MEQ/L (98-107); CREATININE FOR GFR 0.92 MG/DL (0.55-1.30); GLOMERULAR FILTRATION RATE > 60.0 (>39); GLUCOSE, FASTING 97 MG/DL (70-100); POTASSIUM SERUM 4.2 MEQ/L (3.5-5.1); SODIUM LEVEL 140 MEQ/L (136-145)
[2020-08-28 07:55] LABS: PLATELET COUNT, AUTOMATED 94 10^3/uL (150-450)
[2020-08-28] MEDS: IPRATROPIUM 0.5MG/ALBUTEROL 2.5MG INH SOL UD 3ML (DUONEB) NEB SCH ×3 (08:00→21:09)
[2020-08-28] MEDS: SUCRALFATE 1 GM TAB PO SCH ×3 (09:00→22:11)
[2020-08-28 09:14] LABS: VALPROIC ACID (DEPAKOTE) 60.9 UG/ML (50.0-100.0)
--- NOTE | 2020-08-28 09:58 | IPNPDOC ---
PM&R Progress Note DATE OF SERVICE: Aug 28, 2020 Pmp Project Manager Progress Note Subjective: Patient seen in her room in her recliner reporting she has no pain, no fever or chills, no abdominal discomfort, or discomfort in her legs. REVIEW OF SYSTEMS: The following is a completed review of systems and has been reviewed. Review of systems otherwise unremarkable. PAIN: Patient self reports no pain EYES: difficult to assess EARS, NOSE, & THROAT:+dysphagia (improving) CARDIOVASCULAR: Denies chest pain or palpitations PULMONARY: Denies shortness of breath GASTROINTESTINAL: s/p peg GENITOURINARY: +incontinence MUSCULOSKELETAL: right sided weakness NEUROLOGICAL:right sided paresis, expressive aphasia SKIN: skin breakdown under breasts and in abdominal folds, bilat anterior thigh rash (improving) PSYCHIATRIC: Unremarkable All other review of systems found to be negative. PHYSICAL EXAMINATION: VITAL SIGNS: Please see below. GENERAL: Pleasant and cooperative. No acute distress. HEENT: PERRL. Extraocular movements intact. Clear conjunctiva CARDIOVASCULAR: Regular rate and rhythm. No murmurs, rubs, or gallops LUNGS: Clear to auscultation bilaterally. No wheezes. No rhonchi ABDOMEN: Soft, nontender, nondistended. Positive bowel sounds. Normal active bowel sounds, former PEG site c/d/i no drainage NEUROLOGICAL: +expressive aphasia, able to follow commands, Sensation grossly intact EXTREMITIES: 5/5 strength LUE, 3+/5 RUE, 4\\5 strength right lower extremity. 5/5 strength in left lower extremity. SKIN: +sacral excoriation, bilateral under breast skin breakdown and in abdominal folds (improving) bilat anterior thighs- blanchable erythematous macules, non-tender (more notable on today's exam ) right dorsal MTP callous with blanchable erythema ASSESSMENT:80-year-old F with past medical history of stroke, CKD, DM who prese nts status post left MCA infarct with new onset seizures PLAN: 1. 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 Neuro- s/p left MCA infarct with expressive aphasia, dysphagia, and right sided hemiparesis, c/u Eliquis for AFib, statin for secondary stroke prevention- - recent post-stroke seizure activity c/u depakote at 1000mg BID (increased from 650 TID with a total dose per day increase from 1950mg-->2000mg)-repeat Depakote level still WNL 3. Cardiac- ECHO 07-23-20 showed Normal global systolic left ventricular function. This study is inadequate for the evaluation of regional wall motion. At least grade 2 diastolic dysfunction without interatrial shunt via bubble study" - new onset Afib c/u eliquis and atenolol -HLD- statin 4. resp- monitor for infection, DUonebs and guaifenesin ordered 5. GI ppx- lansoprazole -s/p PEG, removed iatrogenically, c/u oral feeds, abdominal exam benign 6. VAsc- hx of DVT c/u eliquis 7. - + ecoli UTI s/p course of LEvaquin 8. Pain- tylneol standing, c/u lidoderm patch to right shoulder 9. Psych- patient was on Bupropion 100mg BID at home and off it while at GI c/u at half dose 50mg BID 10. SKin- turn q2h in bed, dressing changes per nursing orders, AFO to be worn only in therapy to avoid skin breakdown -blanchable macular rash on anterior thighs still present today on exam, patient denies pain with palpation, possibly due recent antibiotic use vs viral exanthem also may be due to depakote, unlikely due to chg as rash remains since d/c'ing 11. Heme- patient with thrombocytopenia which may be due to depakote- depakote levels remain WNL range, will c/u to trend and d/c omeprazole in the meantime, if platelet count continues to drop will ask neurology to advise on other AED options as per [facility] records had thrombocytopenia while on keppra and was therefore switched to depakote- thigh rash does not appear petechial as it does gage, but may also be side effect of depakote vs recent Levaquin dosing for UTI- no active bleeding noted, will consider hematology consult as well 12. Dispo- tbd Allergies Coded Allergies: No Known Allergies (Unverified , 08/07/20) Vital Signs Vital Signs Date Time Temp Pulse Resp B/P (MAP) Pulse Ox O2 Delivery O2 Flow Rate FiO2 08/28/20 06:50 96.8 59 18 162/78 (106) 97 Room Air Laboratory Data CBC/BMP Laboratory Tests 08/28/20 06:50 Labs 24H Laboratory Tests 2 08/28/20 06:50: Immature Granulocyte % (Auto) 0.5, Neutrophils (%) (Auto) 45.7, Lymphocytes (%) (Auto) 36.7, Monocytes (%) (Auto) 14.7H, Eosinophils (%) (Auto) 1.6, Basophils (%) (Auto) 0.8, Neutrophils # (Auto) 1.7, Lymphocytes # (Auto) 1.4L, Monocytes # (Auto) 0.6, Eosinophils # (Auto) 0.1, Basophils # (Auto) 0.0, Nucleated Red Blood Cells % (auto) 0.0, Immature Platelet Fraction 1.7, Anion Gap 5L, Glomerular Filtration Rate > 60.0, Calcium Level 8.1L, Valproic Acid (Depakene) Level 60.9 Current Medications Current Medications Current Medications Medications (Trade) Dose Ordered Sig/Brenda Route PRN Reason Start Time Stop Time Status Last Admin Dose Admin Acetaminophen (Tylenol Suspension) 650 mg Q4HP PRN GT PAIN OR FEVER 08/07/20 13:00 08/09/20 16:32 DC 08/09/20 16:17 Acetaminophen (Tylenol Suspension) 650 mg Q4HP PRN GT PAIN / FEVER 08/07/20 13:00 UNV Acetaminophen (Tylenol Suspension) 975 mg TID GT 08/09/20 21:00 08/14/20 09:49 DC 08/13/20 16:45 Acetaminophen (Tylenol Tab) 1,000 mg TID PO 08/14/20 09:00 08/27/20 16:07 Albuterol/ Ipratropium (Duoneb (Ipr 0.5mg/Alb 2.5mg)) 3 ml RTID NEB 08/07/20 14:00 08/27/20 13:16 Apixaban (Eliquis) 5 mg BID PEG 08/07/20 21:00 08/14/20 09:51 DC 08/13/20 09:05 Apixaban (Eliquis) 5 mg BID PO 08/14/20 09:00 08/27/20 21:51 Atenolol (Tenormin) 50 mg DAILY PEG 08/08/20 09:00 08/14/20 09:47 DC 08/13/20 09:05 Atenolol (Tenormin) 50 mg DAILY PO 08/14/20 09:00 08/25/20 07:50 Atorvastatin Calcium (Lipitor) 40 mg DAILY PEG 08/08/20 09:00 08/14/20 09:47 DC 08/13/20 09:05 Atorvastatin Calcium (Lipitor) 40 mg DAILY PO 08/14/20 09:00 08/27/20 07:17 Bisacodyl (Dulcolax Suppository) 10 mg DAILY [place] 08/08/20 09:00 08/12/20 12:53 DC 08/11/20 09:40 Bisacodyl (Dulcolax Suppository) 10 mg DAILY PRN [place] constipaion 08/12/20 13:00 Bisacodyl (Dulcolax Suppository) 10 mg DAILYPRN PRN [place] CONSTIPATION 08/16/20 19:00 Cancel Bisacodyl (Dulcolax Tab) 5 mg DAILY PO 08/16/20 09:00 08/26/20 08:15 Bupropion HCl (Wellbutrin) 50 mg BID PO 08/07/20 21:00 08/27/20 21:51 Dextrose (Dextrose 50%) 25 ml ASDIRECTED PRN IV SEE LABEL COMMENTS 08/07/20 13:00 Divalproex Sodium (Depakote Sprinkles) 1,000 mg BID PO 08/14/20 11:00 08/27/20 21:53 Docusate Sodium (Colace Liquid) 100 mg BIDP PRN GT CONSTIPATION 08/07/20 13:00 08/14/20 09:53 DC Docusate Sodium (Colace Liquid) 100 mg BIDP PRN PO CONSTIPATION 08/14/20 10:00 Glucagon (Glucagon) 1 mg ASDIRECTED PRN SC SEE LABEL COMMENTS 08/07/20 13:00 Glucose (Glucose) 16 GM ASDIRECTED PRN PO SEE LABEL COMMENTS 08/07/20 13:00 Guaifenesin (Robitussin Tab) 400 mg TID PO 08/14/20 09:00 08/27/20 21:51 Guaifenesin (Robitussin) 5 ml TID PEG 08/07/20 16:00 08/14/20 09:51 DC 08/13/20 16:45 Home Med (Med Rec Complete!) ASDIRECTED XX 08/07/20 13:45 08/07/20 13:51 DC Lactobacillus Acidophilus (Bacid) 1 ea TID PEG 08/09/20 16:00 08/14/20 09:47 DC 08/13/20 16:45 Lactobacillus Acidophilus (Bacid) 1 ea TID PO 08/14/20 09:00 08/27/20 21:51 Lansoprazole (First-Lansoprazole Oral Suspension) 30 mg DAILY GT 08/08/20 12:00 08/14/20 09:49 DC 08/13/20 09:05 Lansoprazole (First-Lansoprazole Oral Suspension) 30 mg DAILY PO 08/14/20 09:00 08/21/20 10:33 DC 08/21/20 08:51 Levofloxacin (Levaquin) 750 mg DAILY@06 PEG 08/09/20 09:15 08/14/20 09:14 DC 08/13/20 05:47 Lidocaine (Lidoderm Patch) 1 patch DAILY TD 08/08/20 10:15 08/27/20 07:18 Losartan Potassium (Cozaar) 25 mg DAILY PEG 08/08/20 09:00 08/14/20 09:47 DC 08/13/20 09:05 Losartan Potassium (Cozaar) 25 mg DAILY PO 08/14/20 09:00 08/27/20 07:17 Nitrofurantoin Monoh/Nitrofur Macro (Macrobid) 100 mg BID GT 08/10/20 09:00 08/10/20 05:53 DC Non-Formulary Medication ( See Comment Field Below ) REMOVE LIDODERM PATCH DAILY@21 XX 08/08/20 21:00 08/27/20 21:54 Nystatin (Mycostatin Powder, Nystop) 1 dose TID TOP 08/07/20 16:00 08/27/20 16:08 Omeprazole (First-Omeprazole ORAL SUSPENSION) 40 mg DAILY PO 08/21/20 09:00 08/28/20 08:57 DC 08/27/20 07:18 Oxybutynin Chloride (Ditropan) 5 mg BID PEG 08/07/20 21:00 08/14/20 09:47 DC 08/13/20 09:07 Oxybutynin Chloride (Ditropan) 5 mg BID PO 08/14/20 09:00 08/27/20 21:51 Saliva Substitute (Mouthkote) Q1HP PRN [place] dry mouth 08/08/20 14:45 08/12/20 10:03 DC 08/10/20 06:05 Saliva Substitute (Mouthkote) 2 sprays TID MT 08/12/20 10:00 08/27/20 21:52 Sucralfate (Carafate) 1 gm TID PO 08/28/20 09:00 Valproic Acid (Depakene Solution) 650 mg TID PEG 08/07/20 16:00 08/14/20 10:17 DC 08/14/20 00:33 SANTA HOOVER MD Aug 28, 2020 09:58
[2020-08-28] MEDS: guaiFENesin 200 MG TAB PO SCH ×3 (10:38→22:10)
[2020-08-28] MEDS: LACTOBACILLUS ACIDOPHILUS CAP (BACID) PO SCH ×3 (10:38→22:10)
[2020-08-28] MEDS: APIXABAN 5 MG TAB (ELIQUIS) PO SCH ×2 (10:39→22:10)
[2020-08-28] MEDS: atenoloL 50 MG TAB PO SCH (10:39)
[2020-08-28] MEDS: BISACODYL 5 MG TAB PO SCH (10:39)
[2020-08-28] MEDS: buPROPion 100 MG TAB PO SCH ×2 (10:39→22:12)
[2020-08-28] MEDS: LOSARTAN 25 MG TAB PO SCH (10:40)
[2020-08-28] MEDS: ACETAMINOPHEN 500 MG TAB PO SCH ×3 (10:43→22:11)
[2020-08-28] MEDS: ATORVASTATIN 20 MG TAB PO SCH (10:44)
[2020-08-28] MEDS: oxyBUTYnin 5 MG TAB PO SCH ×2 (10:44→22:11)
[2020-08-28] MEDS: DIVALPROEX SPRINKLE 125 MG CAP PO SCH ×2 (10:45→22:16)
[2020-08-28] MEDS: SALIVA SUBSTITUTE(MOUTHKOTE) BTL MT SCH ×3 (10:45→22:08)
[2020-08-28] MEDS: LIDOCAINE 5% (LIDODERM) PATCH TD SCH (10:46)
[2020-08-28] MEDS: NYSTATIN 100,000 UNITS/GM TOPICAL PWD 15 GM TOP SCH ×3 (10:46→22:08)
[2020-08-28 14:00] VITALS: BP 138/69
[2020-08-28 21:00] VITALS: BP 139/70
[2020-08-28] MEDS: **NOTE PATIENT COMMENT** MISC XX SCH (22:09)
[2020-08-29] MEDS: REMEDY PHYTOPLEX Z-GUARD PASTE 113GM TUBE (FROM STOREROOM PRODUCT) TOP SCH ×6 (01:00→21:12)
[2020-08-29 05:22] VITALS: BP 153/72
[2020-08-29] MEDS: IPRATROPIUM 0.5MG/ALBUTEROL 2.5MG INH SOL UD 3ML (DUONEB) NEB SCH ×3 (07:23→20:30)
[2020-08-29 07:28] LABS: BASO % 0.7 % (0.0-1.0); EOS # 0.1 10^3/uL (0.0-0.5); EOS % 1.2 % (0.0-3.0); HEMOGLOBIN 11.5 g/dl (12.0-15.5); LYMPH # 1.5 10^3/uL (1.5-5.0); MEAN CORPUSCULAR HEMOGLOBIN 30.8 pg (27.0-33.0); MEAN CORPUSCULAR HGB CONC 30.3 g/dl (32.0-36.5); MEAN CORPUSCULAR VOLUME 101.9 fl (80.0-96.0); MONO # 0.6 10^3/uL (0.0-0.8); MONO % 13.8 % (0.0-5.0); NEUTROPHILS # 1.9 10^3/uL (1.5-8.5); NEUTROPHILS % 46.3 % (36.0-66.0); RED BLOOD COUNT 3.73 10^6/uL (4.00-5.40); WHITE BLOOD COUNT 4.1 10^3/uL (4.0-10.0)
[2020-08-29 08:08] LABS: PLATELET COUNT, AUTOMATED 86 10^3/uL (150-450)
[2020-08-29] MEDS: buPROPion 100 MG TAB PO SCH (08:37)
[2020-08-29] MEDS: LIDOCAINE 5% (LIDODERM) PATCH TD SCH (08:37)
[2020-08-29] MEDS: guaiFENesin 200 MG TAB PO SCH (08:38)
[2020-08-29] MEDS: APIXABAN 5 MG TAB (ELIQUIS) PO SCH ×2 (08:38→21:06)
[2020-08-29] MEDS: ACETAMINOPHEN 500 MG TAB PO SCH ×3 (08:38→21:06)
[2020-08-29] MEDS: SUCRALFATE 1 GM TAB PO SCH ×3 (08:38→21:06)
[2020-08-29] MEDS: BISACODYL 5 MG TAB PO SCH (08:38)
[2020-08-29] MEDS: oxyBUTYnin 5 MG TAB PO SCH ×2 (08:38→21:06)
[2020-08-29] MEDS: ATORVASTATIN 20 MG TAB PO SCH (08:39)
[2020-08-29] MEDS: SALIVA SUBSTITUTE(MOUTHKOTE) BTL MT SCH ×3 (08:39→21:05)
[2020-08-29] MEDS: LACTOBACILLUS ACIDOPHILUS CAP (BACID) PO SCH ×3 (08:39→21:06)
[2020-08-29] MEDS: DIVALPROEX SPRINKLE 125 MG CAP PO SCH ×2 (08:40→21:08)
[2020-08-29] MEDS: LOSARTAN 25 MG TAB PO SCH (08:41)
[2020-08-29] MEDS: atenoloL 50 MG TAB PO SCH (08:41)
[2020-08-29] MEDS: NYSTATIN 100,000 UNITS/GM TOPICAL PWD 15 GM TOP SCH ×3 (08:42→21:08)
[2020-08-29] MEDS: LACOSAMIDE 50 MG TAB (VIMPAT) PO SCH ×2 (11:15→21:06)
--- NOTE | 2020-08-29 11:25 | IPNPDOC ---
PM&R Progress Note DATE OF SERVICE: Aug 29, 2020 Director Ambulatory Progress Note Subjective: Patient seen in her room, her low platelet count and the plan to change her seizure medications was explained to her and she denies any active bleeding. REVIEW OF SYSTEMS: The following is a completed review of systems and has been reviewed. Review of systems otherwise unremarkable. PAIN: Patient self reports no pain EYES: difficult to assess EARS, NOSE, & THROAT:+dysphagia (improving) CARDIOVASCULAR: Denies chest pain or palpitations PULMONARY: Denies shortness of breath GASTROINTESTINAL: s/p peg GENITOURINARY: +incontinence MUSCULOSKELETAL: right sided weakness NEUROLOGICAL:right sided paresis, expressive aphasia SKIN: skin breakdown under breasts and in abdominal folds, bilat anterior thigh rash (improving) PSYCHIATRIC: Unremarkable All other review of systems found to be negative. PHYSICAL EXAMINATION: VITAL SIGNS: Please see below. GENERAL: Pleasant and cooperative. No acute distress. HEENT: PERRL. Extraocular movements intact. Clear conjunctiva CARDIOVASCULAR: Regular rate and rhythm. No murmurs, rubs, or gallops LUNGS: Clear to auscultation bilaterally. No wheezes. No rhonchi ABDOMEN: Soft, nontender, nondistended. Positive bowel sounds. Normal active bowel sounds, former PEG site c/d/i no drainage NEUROLOGICAL: +expressive aphasia, able to follow commands, Sensation grossly intact EXTREMITIES: 5/5 strength LUE, 3+/5 RUE, 4\\5 strength right lower extremity. 5/5 strength in left lower extremity. SKIN: +sacral excoriation, bilateral under breast skin breakdown and in abdominal folds (improving) bilat anterior thighs- blanchable erythematous macules, non-tender (more notable on today's exam ) ASSESSMENT:80-year-old F with past medical history of stroke, CKD, DM who presents status post left MCA infarct with new onset seizures PLAN: 1. 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 Neuro- s/p left MCA infarct with expressive aphasia, dysphagia, and right sided hemiparesis, c/u Eliquis for AFib, statin for secondary stroke prevention- - recent post-stroke seizure activity with EEG 07/22/20 at [facility] + for left te mporal rhythmic delta activity, discussed concern for thrombocytopenia with Dr. Norman who recommends tapering patient off Depakote and starting Vimpat 100mg BID, recs greatly appreciated, will check Vimpat levels 09/02/20 -call placed to [facility] neuro team as well, waiting for return call, however in house recs are appropriate and will move forward with them 3. Cardiac- ECHO 07-23-20 showed Normal global systolic left ventricular function. This study is inadequate for the evaluation of regional wall motion. At least grade 2 diastolic dysfunction without interatrial shunt via bubble study" - new onset Afib c/u eliquis and atenolol -HLD- statin 4. resp- monitor for infection, DUonebs 5. GI ppx- lansoprazole -s/p PEG, removed iatrogenically, c/u oral feeds, abdominal exam benign 6. VAsc- hx of DVT c/u eliquis 7. - + ecoli UTI s/p course of LEvaquin 8. Pain- tylneol standing, c/u lidoderm patch to right shoulder 9. Psych- tapering patient off Buproprion ins etting of thrombocytopenia 10. SKin- turn q2h in bed, dressing changes per nursing orders, AFO to be worn only in therapy to avoid skin breakdown -blanchable macular rash on anterior thighs, patient denies pain with palpation, possibly due recent antibiotic use vs viral exanthem also may be due to depakote, unlikely due to chg as rash remains since d/c'ing 11. Heme- patient with thrombocytopenia which may be due to depakote vs recent dosing of Levaquin for UTI, macular anterior thigh rash does not appear petechial/due to thrombocytopenia as it does gage, but may also be side effect of depakote vs recent Levaquin dosing -discussed case with in-house neurology and hematology, will go ahead and start patient on Vimpat for seizure ppx while tapering off Valproic acid, will also taper off Wellbutrin as can also contribute to thrombocytopenia, omeprazole and guaifenasin d/c'd as well -no active bleeding, and per Dr. Mohr who has been consulted believes patient reasonably protected from bleeding as long as platelet count remains above 50k, will c/u to trend daily- heme recs greatly appreciated 12. Dispo- tbd Allergies Coded Allergies: No Known Allergies (Unverified , 08/07/20) Vital Signs Vital Signs Date Time Temp Pulse Resp B/P (MAP) Pulse Ox O2 Delivery O2 Flow Rate FiO2 08/29/20 08:41 142/64 08/29/20 08:41 77 08/29/20 05:22 98.8 18 96 Room Air Laboratory Data CBC/BMP Laboratory Tests 08/29/20 07:04 Labs 24H Laboratory Tests 2 08/29/20 07:04: Immature Granulocyte % (Auto) 1.0, Neutrophils (%) (Auto) 46.3, Lymphocytes (%) (Auto) 37.0, Monocytes (%) (Auto) 13.8H, Eosinophils (%) (Auto) 1.2, Basophils (%) (Auto) 0.7, Neutrophils # (Auto) 1.9, Lymphocytes # (Auto) 1.5, Monocytes # (Auto) 0.6, Eosinophils # (Auto) 0.1, Basophils # (Auto) 0.0, Nucleated Red Blood Cells % (auto) 0.0, Immature Platelet Fraction 2.3 Current Medications Current Medications Current Medications Medications (Trade) Dose Ordered Sig/Brenda Route PRN Reason Start Time Stop Time Status Last Admin Dose Admin Acetaminophen (Tylenol Suspension) 650 mg Q4HP PRN GT PAIN OR FEVER 08/07/20 13:00 08/09/20 16:32 DC 08/09/20 16:17 Acetaminophen (Tylenol Suspension) 650 mg Q4HP PRN GT PAIN / FEVER 08/07/20 13:00 UNV Acetaminophen (Tylenol Suspension) 975 mg TID GT 08/09/20 21:00 08/14/20 09:49 DC 08/13/20 16:45 Acetaminophen (Tylenol Tab) 1,000 mg TID PO 08/14/20 09:00 08/29/20 08:38 Albuterol/ Ipratropium (Duoneb (Ipr 0.5mg/Alb 2.5mg)) 3 ml RTID NEB 08/07/20 14:00 08/29/20 07:23 Apixaban (Eliquis) 5 mg BID PEG 08/07/20 21:00 08/14/20 09:51 DC 08/13/20 09:05 Apixaban (Eliquis) 5 mg BID PO 08/14/20 09:00 08/29/20 08:38 Atenolol (Tenormin) 50 mg DAILY PEG 08/08/20 09:00 08/14/20 09:47 DC 08/13/20 09:05 Atenolol (Tenormin) 50 mg DAILY PO 08/14/20 09:00 08/29/20 08:41 Atorvastatin Calcium (Lipitor) 40 mg DAILY PEG 08/08/20 09:00 08/14/20 09:47 DC 08/13/20 09:05 Atorvastatin Calcium (Lipitor) 40 mg DAILY PO 08/14/20 09:00 08/29/20 08:39 Bisacodyl (Dulcolax Suppository) 10 mg DAILY IN 08/08/20 09:00 08/12/20 12:53 DC 08/11/20 09:40 Bisacodyl (Dulcolax Suppository) 10 mg DAILY PRN IN constipaion 08/12/20 13:00 Bisacodyl (Dulcolax Suppository) 10 mg DAILYPRN PRN IN CONSTIPATION 08/16/20 19:00 Cancel Bisacodyl (Dulcolax Tab) 5 mg DAILY PO 08/16/20 09:00 08/28/20 10:39 Bupropion HCl (Wellbutrin) 50 mg BID PO 08/07/20 21:00 08/29/20 08:37 Dextrose (Dextrose 50%) 25 ml ASDIRECTED PRN IV SEE LABEL COMMENTS 08/07/20 13:00 Divalproex Sodium (Depakote Sprinkles) 1,000 mg BID PO 08/14/20 11:00 08/29/20 11:00 DC 08/29/20 08:40 Docusate Sodium (Colace Liquid) 100 mg BIDP PRN GT CONSTIPATION 08/07/20 13:00 08/14/20 09:53 DC Docusate Sodium (Colace Liquid) 100 mg BIDP PRN PO CONSTIPATION 08/14/20 10:00 Glucagon (Glucagon) 1 mg ASDIRECTED PRN SC SEE LABEL COMMENTS 08/07/20 13:00 Glucose (Glucose) 16 GM ASDIRECTED PRN PO SEE LABEL COMMENTS 08/07/20 13:00 Guaifenesin (Robitussin Tab) 400 mg TID PO 08/14/20 09:00 08/29/20 10:00 DC 08/29/20 08:38 Guaifenesin (Robitussin) 5 ml TID PEG 08/07/20 16:00 08/14/20 09:51 DC 08/13/20 16:45 Home Med (Med Rec Complete!) ASDIRECTED XX 08/07/20 13:45 08/07/20 13:51 DC Lacosamide (Vimpat) 100 mg BID PO 08/29/20 21:00 UNV Lactobacillus Acidophilus (Bacid) 1 ea TID PEG 08/09/20 16:00 08/14/20 09:47 DC 08/13/20 16:45 Lactobacillus Acidophilus (Bacid) 1 ea TID PO 08/14/20 09:00 08/29/20 08:39 Lansoprazole (First-Lansoprazole Oral Suspension) 30 mg DAILY GT 08/08/20 12:00 08/14/20 09:49 DC 08/13/20 09:05 Lansoprazole (First-Lansoprazole Oral Suspension) 30 mg DAILY PO 08/14/20 09:00 08/21/20 10:33 DC 08/21/20 08:51 Levofloxacin (Levaquin) 750 mg DAILY@06 PEG 08/09/20 09:15 08/14/20 09:14 DC 08/13/20 05:47 Lidocaine (Lidoderm Patch) 1 patch DAILY TD 08/08/20 10:15 08/29/20 08:37 Losartan Potassium (Cozaar) 25 mg DAILY PEG 08/08/20 09:00 08/14/20 09:47 DC 08/13/20 09:05 Losartan Potassium (Cozaar) 25 mg DAILY PO 08/14/20 09:00 08/29/20 08:41 Nitrofurantoin Monoh/Nitrofur Macro (Macrobid) 100 mg BID GT 08/10/20 09:00 08/10/20 05:53 DC Non-Formulary Medication ( See Comment Field Below ) REMOVE LIDODERM PATCH DAILY@21 XX 08/08/20 21:00 08/28/20 22:09 Nystatin (Mycostatin Powder, Nystop) 1 dose TID TOP 08/07/20 16:00 08/29/20 08:42 Omeprazole (First-Omeprazole ORAL SUSPENSION) 40 mg DAILY PO 08/21/20 09:00 08/28/20 08:57 DC 08/27/20 07:18 Oxybutynin Chloride (Ditropan) 5 mg BID PEG 08/07/20 21:00 08/14/20 09:47 DC 08/13/20 09:07 Oxybutynin Chloride (Ditropan) 5 mg BID PO 08/14/20 09:00 08/29/20 08:38 Saliva Substitute (Mouthkote) Q1HP PRN [place] dry mouth 08/08/20 14:45 08/12/20 10:03 DC 08/10/20 06:05 Saliva Substitute (Mouthkote) 2 sprays TID NV 08/12/20 10:00 08/29/20 08:39 Sucralfate (Carafate) 1 gm TID PO 08/28/20 09:00 08/29/20 08:38 Valproic Acid (Depakene Solution) 650 mg TID PEG 08/07/20 16:00 08/14/20 10:17 DC 08/14/20 00:33 SANTA HOOVER MD Aug 29, 2020 11:25
[2020-08-29 14:00] VITALS: BP 140/74
[2020-08-29 15:26] LABS: BASO % 0.5 % (0.0-1.0); EOS # 0.1 10^3/uL (0.0-0.5); EOS % 1.3 % (0.0-3.0); HEMATOCRIT 38.3 % (36.0-47.0); HEMOGLOBIN 11.5 g/dl (12.0-15.5); LYMPH # 1.3 10^3/uL (1.5-5.0); LYMPH % 34.7 % (24.0-44.0); MONO # 0.5 10^3/uL (0.0-0.8); MONO % 12.7 % (0.0-5.0); NEUTROPHILS # 1.9 10^3/uL (1.5-8.5); NEUTROPHILS % 50.3 % (36.0-66.0); RED BLOOD COUNT 3.83 10^6/uL (4.00-5.40); WHITE BLOOD COUNT 3.8 10^3/uL (4.0-10.0)
--- NOTE | 2020-08-29 15:28 | CR.PDOC ---
General Date of Consultation: Aug 29, 2020 Consultation REASON FOR CONSULTATION/CHIEF COMPLAINT: . this is a 80 year old lad. She was transferred to rehab unit after management of an acute stroke in [place]. She had what looked like an embolic stroke involving left parietal lobe. She has falling platelets and hematology is being asked to address the low platelet count. HISTORY OF PRESENT ILLNESS: [Falling platelet after being admitted to rehab, ]. ALLERGIES: Please see below. HOME MEDICATIONS: Please see below. PAST MEDICAL HISTORY: 1. .stroke 2. . Atrial fibrillation 3. PAST SURGICAL HISTORY: 1. 2. FAMILY HISTORY: Father: Mother: Siblings: Children: Hereditary Diseases: Unexpected deaths due to medical reasons: SOCIAL HISTORY: Marital status and/or living arrangements: Children: Employment: Tobacco use: ETOH: Illicit drug use: IV drug use: Other relevant social factors: REVIEW OF SYSTEMS: CONSTITUTIONAL: [no fever ]. HEENT: . CARDIOVASCULAR: . RESPIRATORY: . GENITOURINARY: . MUSCULOSKELETAL: . GASTROINTESTINAL: . SKIN: . NEUROLOGICAL: [weakness right side ]. PSYCHIATRIC: . ENDOCRINE: . HEMATOLOGIC/LYMPHATIC: . ALLERGIC/IMMUNOLOGIC: . PHYSICAL EXAMINATION: VITAL SIGNS: Please see below. GENERAL APPEARANCE: [seen in chair ]. HEENT: .normal RESPIRATORY: .clear to auscultation CARDIOVASCULAR: seemed .regular rhythm at the time of my exam ABDOMEN: . EXTREMITIES: . NEUROLOGICAL: [moving upper and lower extremities ]. PSYCHIATRIC: . LABORATORY DATA: Please see below. ASSESSMENT/PLAN: 1. .recent stroke 2. . evidence for prior stroke 3. Macrocytic anemia 4. Thrombocytopenia Suggest : In addition to Depakote Bupropion van cause low platelets. Consider stopping Bupropion and getting serial CBC Check for heparin antibody. check LDH , retic haptoglobin Check B12 and folate level to assess macrocytosis . Vital Signs/I&O Vital Signs Date Time Temp Pulse Resp B/P (MAP) Pulse Ox O2 Delivery O2 Flow Rate FiO2 08/29/20 14:00 97.5 58 19 140/74 (96) 95 Room Air I&O- Last 24 Hours up to 6 AM 08/29/20 06:00 Intake Total 700 ml Balance 700 ml Laboratory Data Labs 24H Laboratory Tests 2 08/29/20 07:04: Immature Granulocyte % (Auto) 1.0, Neutrophils (%) (Auto) 46.3, Lymphocytes (%) (Auto) 37.0, Monocytes (%) (Auto) 13.8H, Eosinophils (%) (Auto) 1.2, Basophils (%) (Auto) 0.7, Neutrophils # (Auto) 1.9, Lymphocytes # (Auto) 1.5, Monocytes # (Auto) 0.6, Eosinophils # (Auto) 0.1, Basophils # (Auto) 0.0, Nucleated Red Blood Cells % (auto) 0.0, Immature Platelet Fraction 2.3 CBC/BMP Laboratory Tests 08/29/20 07:04 Allergies Coded Allergies: No Known Allergies (Unverified , 08/07/20) Home Medications Scheduled Apixaban (Eliquis) 5 Mg Tablet, 5 MG GT BID, (Reported) STARTED AT [facility] Atenolol (Atenolol) 50 Mg Tablet, 50 MG PO DAILY, (Reported) NOT GIVEN AT [facility] Atorvastatin Calcium (Atorvastatin Calcium) 40 Mg Tablet, 40 MG GT DAILY, (Reported) STARTED AT [facility] Bupropion HCl (Bupropion HCl Sr) 100 Mg Tab.sr.12h, 100 MG PO DAILY, (Reported) NOT GIVEN AT [facility] Docusate Sodium (Docusate Sodium) 50 Mg/5 Ml Liquid, 100 MG GT BID, (Reported) STARTED AT [facility] Gabapentin (Gabapentin) 100 Mg Capsule, 300 MG PO QHS, (Reported) NOT GIVEN AT [facility] Losartan Potassium (Losartan Potassium) 25 Mg Tablet, 25 MG GT DAILY, (Reported) STARTED AT [facility] Magnesium Hydroxide (Milk of Magnesia) 400 Mg/5 Ml Oral.susp, 15 ML GT DAILY, (Reported) STARTED AT [facility] Oxybutynin Chloride (Oxybutynin Chloride) 5 Mg Tablet, 5 MG GT BID, (Reported) Polyethylene Glycol 3350 (Miralax) 119 Gm Powder, 17 GM GT BID, (Reported) STARTED AT [facility] Potassium Chloride (Potassium Chloride) 8 Meq Tablet.er, 8 MEQ PO BID, (Reported) NOT GIVEN AT [facility] Sennosides (Senna Laxative) 8.6 Mg Tablet, 17.2 MG GT BID, (Reported) Valproic Acid (As Sodium Salt) (Valproic Acid) 250 Mg/5 Ml Solution, 650 MG GT TID, (Reported) STARTED AT [facility] DONNIE GAXIOLA MD Aug 29, 2020 15:28
[2020-08-29 15:31] LABS: PLATELET COUNT, AUTOMATED 96 10^3/uL (150-450)
[2020-08-29 16:03] LABS: FOLATE 9.3 NG/ML; IMMUNOGLOBULIN G 1360 MG/DL (681-1648); LDH LACTATE DEHYDROGENASE 204 U/L (84-246); TOTAL PROTEIN 5.7 GM/DL (6.4-8.2); VITAMIN B12 LEVEL 778 PG/ML
[2020-08-29 20:12] VITALS: BP 137/71
[2020-08-29] MEDS: **NOTE PATIENT COMMENT** MISC XX SCH (21:12)
[2020-08-30] MEDS: REMEDY PHYTOPLEX Z-GUARD PASTE 113GM TUBE (FROM STOREROOM PRODUCT) TOP SCH ×5 (01:00→20:40)
[2020-08-30 05:33] VITALS: BP 143/67
[2020-08-30] MEDS: IPRATROPIUM 0.5MG/ALBUTEROL 2.5MG INH SOL UD 3ML (DUONEB) NEB SCH ×3 (07:33→20:00)
[2020-08-30] MEDS: DIVALPROEX SPRINKLE 125 MG CAP PO SCH ×2 (08:47→20:39)
[2020-08-30] MEDS: APIXABAN 5 MG TAB (ELIQUIS) PO SCH ×2 (08:48→20:38)
[2020-08-30] MEDS: buPROPion 100 MG TAB PO SCH (08:48)
[2020-08-30] MEDS: ATORVASTATIN 20 MG TAB PO SCH (08:48)
[2020-08-30] MEDS: ACETAMINOPHEN 500 MG TAB PO SCH ×3 (08:49→20:39)
[2020-08-30] MEDS: LACOSAMIDE 50 MG TAB (VIMPAT) PO SCH ×2 (08:49→20:38)
[2020-08-30] MEDS: SUCRALFATE 1 GM TAB PO SCH ×3 (08:49→20:38)
[2020-08-30] MEDS: atenoloL 50 MG TAB PO SCH (08:49)
[2020-08-30] MEDS: LOSARTAN 25 MG TAB PO SCH (08:50)
[2020-08-30] MEDS: oxyBUTYnin 5 MG TAB PO SCH ×2 (08:50→20:38)
[2020-08-30] MEDS: LACTOBACILLUS ACIDOPHILUS CAP (BACID) PO SCH ×3 (08:50→20:38)
[2020-08-30] MEDS: BISACODYL 5 MG TAB PO SCH (08:51)
[2020-08-30] MEDS: LIDOCAINE 5% (LIDODERM) PATCH TD SCH (08:51)
[2020-08-30] MEDS: NYSTATIN 100,000 UNITS/GM TOPICAL PWD 15 GM TOP SCH ×2 (08:51→20:40)
[2020-08-30] MEDS: SALIVA SUBSTITUTE(MOUTHKOTE) BTL MT SCH ×3 (08:51→20:40)
[2020-08-30 10:29] LABS: BASO % 0.7 % (0.0-1.0); EOS # 0.1 10^3/uL (0.0-0.5); EOS % 1.3 % (0.0-3.0); HEMOGLOBIN 11.5 g/dl (12.0-15.5); LYMPH # 1.2 10^3/uL (1.5-5.0); LYMPH % 25.7 % (24.0-44.0); MEAN CORPUSCULAR HEMOGLOBIN 30.7 pg (27.0-33.0); MEAN CORPUSCULAR HGB CONC 29.5 g/dl (32.0-36.5); MONO # 0.6 10^3/uL (0.0-0.8); MONO % 12.5 % (0.0-5.0); NEUTROPHILS # 2.7 10^3/uL (1.5-8.5); NEUTROPHILS % 59.4 % (36.0-66.0); RED BLOOD COUNT 3.75 10^6/uL (4.00-5.40); WHITE BLOOD COUNT 4.6 10^3/uL (4.0-10.0)
[2020-08-30 10:31] LABS: ALBUMIN 2.4 GM/DL (3.2-5.2); ALT/SGPT 16 U/L (12-78); BILIRUBIN,TOTAL 0.4 MG/DL (0.2-1.0); BLOOD UREA NITROGEN 21 MG/DL (7-18); CARBON DIOXIDE LEVEL 26 MEQ/L (21-32); CHLORIDE LEVEL 108 MEQ/L (98-107); CREATININE FOR GFR 0.88 MG/DL (0.55-1.30); GLOMERULAR FILTRATION RATE > 60.0 (>39); GLUCOSE, FASTING 103 MG/DL (70-100); POTASSIUM SERUM 4.5 MEQ/L (3.5-5.1); SODIUM LEVEL 138 MEQ/L (136-145); TOTAL PROTEIN 5.6 GM/DL (6.4-8.2)
[2020-08-30 10:34] LABS: PLATELET COUNT, AUTOMATED 88 10^3/uL (150-450)
--- NOTE | 2020-08-30 13:58 | IPNPDOC ---
Date Seen The patient was seen on 08/30/20. Progress Note SUBJECTIVE: Patient is a [80 ]-year-old [LADY IN REHAB AFTER STROKE PLATELETS 88,000 OBJECTIVE PHYSICAL EXAMINATION: VITAL SIGNS: Please see below. GENERAL: [AWAKE ND ALERT SEEN IN A CHAIR ] HEENT: CARDIOVASCULAR: . RESPIRATORY: [BREATHING COMFORTABLY ]. ABDOMINAL: EXTREMITIES: [MOVING ALL FOUR EXTREMITIES] NEUROLOGICAL: PSYCHOLOGICAL: LABORATORY DATA, IMAGING STUDIES, MICROBIOLOGY: Please see below. Echocardiogram: . DVT prophylaxis ordered?: ASSESSMENT AND PLAN: This is a -year-old [RACE] [GENDER] with . PROBLEMS: 1. MACROCYTIC anemia nl B12 and folate 2. thrombocytopenia Plan; Check stools for blood follow up on SPEP DISPOSITION: . VS[facility]/I&O Vital Signs Date Time Temp Pulse Resp B/P (MAP) Pulse Ox O2 Delivery O2 Flow Rate FiO2 08/30/20 08:50 143/67 08/30/20 08:49 65 08/30/20 05:33 97.6 18 98 Room Air I&O- Last 24 Hours up to 6 AM 08/30/20 06:00 Intake Total 1040 ml Balance 1040 ml Laboratory Data 24H LABS Laboratory Tests 2 08/29/20 15:09: Immature Granulocyte % (Auto) 0.5, Neutrophils (%) (Auto) 50.3, Lymphocytes (%) (Auto) 34.7, Monocytes (%) (Auto) 12.7H, Eosinophils (%) (Auto) 1.3, Basophils (%) (Auto) 0.5, Neutrophils # (Auto) 1.9, Lymphocytes # (Auto) 1.3L, Monocytes # (Auto) 0.5, Eosinophils # (Auto) 0.1, Basophils # (Auto) 0.0, Reticulocyte # (a uto) 140.9H, Nucleated Red Blood Cells % (auto) 0.0, Percent Reticulocyte Count 3.7H, Reticulocyte Hemoglobin Equivalent 32.6, Lactate Dehydrogenase 204, Total Protein (PEP) 5.7L, Vitamin B12 Level 778, Folate 9.3, Immunoglobulin A 263.0, Immunoglobulin G 1360, Immunoglobulin M 119.0 08/30/20 09:54: Immature Granulocyte % (Auto) 0.4, Neutrophils (%) (Auto) 59.4, Lymphocytes (%) (Auto) 25.7, Monocytes (%) (Auto) 12.5H, Eosinophils (%) (Auto) 1.3, Basophils (%) (Auto) 0.7, Neutrophils # (Auto) 2.7, Lymphocytes # (Auto) 1.2L, Monocytes # (Auto) 0.6, Eosinophils # (Auto) 0.1, Basophils # (Auto) 0.0, Nucleated Red Blood Cells % (auto) 0.0, Immature Platelet Fraction 2.2, Anion Gap 4L, Glomerular Filtration Rate > 60.0, Calcium Level 8.0L, Total Bilirubin 0.4, Aspartate Amino Transf (AST/SGOT) 31, Alanine Aminotransferase (ALT/SGPT) 16, Alkaline Phosphatase 41L, Total Protein 5.6L, Albumin 2.4L, Albumin/Globulin Ratio 0.8L CBC/BMP Laboratory Tests 08/29/20 15:09 08/30/20 09:54 DONNIE GAXIOLA MD Aug 30, 2020 13:58
[2020-08-30 14:00] VITALS: BP 130/63
[2020-08-30 20:00] VITALS: BP 123/60
[2020-08-30] MEDS: **NOTE PATIENT COMMENT** MISC XX SCH (20:40)
[2020-08-31] MEDS: REMEDY PHYTOPLEX Z-GUARD PASTE 113GM TUBE (FROM STOREROOM PRODUCT) TOP SCH ×6 (00:46→20:17)
[2020-08-31 05:33] VITALS: BP 117/66
[2020-08-31 06:51] LABS: BASO % 0.5 % (0.0-1.0); EOS # 0.1 10^3/uL (0.0-0.5); EOS % 2.1 % (0.0-3.0); HEMATOCRIT 38.8 % (36.0-47.0); HEMOGLOBIN 11.3 g/dl (12.0-15.5); LYMPH # 1.9 10^3/uL (1.5-5.0); LYMPH % 44.3 % (24.0-44.0); MEAN CORPUSCULAR HEMOGLOBIN 29.7 pg (27.0-33.0); MEAN CORPUSCULAR HGB CONC 29.1 g/dl (32.0-36.5); MEAN CORPUSCULAR VOLUME 102.1 fl (80.0-96.0); MONO # 0.7 10^3/uL (0.0-0.8); MONO % 16.7 % (0.0-5.0); NEUTROPHILS # 1.6 10^3/uL (1.5-8.5); NEUTROPHILS % 35.9 % (36.0-66.0); WHITE BLOOD COUNT 4.3 10^3/uL (4.0-10.0)
[2020-08-31 06:53] LABS: PLATELET COUNT, AUTOMATED 76 10^3/uL (150-450)
[2020-08-31] MEDS: LACTOBACILLUS ACIDOPHILUS CAP (BACID) PO SCH ×3 (07:50→20:15)
[2020-08-31] MEDS: LIDOCAINE 5% (LIDODERM) PATCH TD SCH (07:50)
[2020-08-31] MEDS: buPROPion 100 MG TAB PO SCH (07:51)
[2020-08-31] MEDS: SUCRALFATE 1 GM TAB PO SCH ×3 (07:51→20:15)
[2020-08-31] MEDS: BISACODYL 5 MG TAB PO SCH (07:51)
[2020-08-31] MEDS: atenoloL 50 MG TAB PO SCH (07:51)
[2020-08-31] MEDS: APIXABAN 5 MG TAB (ELIQUIS) PO SCH ×2 (07:52→20:15)
[2020-08-31] MEDS: oxyBUTYnin 5 MG TAB PO SCH ×2 (07:52→20:14)
[2020-08-31] MEDS: ATORVASTATIN 20 MG TAB PO SCH (07:52)
[2020-08-31] MEDS: LACOSAMIDE 50 MG TAB (VIMPAT) PO SCH ×2 (07:53→20:15)
[2020-08-31] MEDS: LOSARTAN 25 MG TAB PO SCH (07:53)
[2020-08-31] MEDS: ACETAMINOPHEN 500 MG TAB PO SCH ×3 (07:53→20:15)
[2020-08-31] MEDS: SALIVA SUBSTITUTE(MOUTHKOTE) BTL MT SCH ×3 (07:54→20:17)
[2020-08-31] MEDS: NYSTATIN 100,000 UNITS/GM TOPICAL PWD 15 GM TOP SCH ×3 (07:54→20:17)
[2020-08-31] MEDS: DIVALPROEX SPRINKLE 125 MG CAP PO SCH ×2 (07:56→20:14)
[2020-08-31] MEDS: IPRATROPIUM 0.5MG/ALBUTEROL 2.5MG INH SOL UD 3ML (DUONEB) NEB SCH ×3 (08:00→21:58)
[2020-08-31 13:07] LABS: ANTINUCLEAR ANTIBODIES DIRECT Negative (Negative); HAPTOGLOBIN 109 mg/dL (42-346)
[2020-08-31 14:00] VITALS: BP 150/72
[2020-08-31 19:56] VITALS: BP 139/78
[2020-08-31] MEDS: **NOTE PATIENT COMMENT** MISC XX SCH (20:18)
[2020-09-01] MEDS: REMEDY PHYTOPLEX Z-GUARD PASTE 113GM TUBE (FROM STOREROOM PRODUCT) TOP SCH ×5 (00:07→21:00)
[2020-09-01 04:36] VITALS: BP 131/78
[2020-09-01 07:24] LABS: BASO % 0.6 % (0.0-1.0); EOS # 0.1 10^3/uL (0.0-0.5); EOS % 2.2 % (0.0-3.0); HEMATOCRIT 36.7 % (36.0-47.0); LYMPH # 1.4 10^3/uL (1.5-5.0); LYMPH % 39.9 % (24.0-44.0); MEAN CORPUSCULAR HEMOGLOBIN 30.1 pg (27.0-33.0); MEAN CORPUSCULAR VOLUME 100.3 fl (80.0-96.0); MONO # 0.6 10^3/uL (0.0-0.8); MONO % 16.6 % (0.0-5.0); NEUTROPHILS # 1.5 10^3/uL (1.5-8.5); NEUTROPHILS % 40.1 % (36.0-66.0); RED BLOOD COUNT 3.66 10^6/uL (4.00-5.40); WHITE BLOOD COUNT 3.6 10^3/uL (4.0-10.0)
[2020-09-01 07:25] LABS: PLATELET COUNT, AUTOMATED 72 10^3/uL (150-450)
[2020-09-01] MEDS: IPRATROPIUM 0.5MG/ALBUTEROL 2.5MG INH SOL UD 3ML (DUONEB) NEB SCH ×2 (08:00→14:00)
[2020-09-01] MEDS: SUCRALFATE 1 GM TAB PO SCH ×3 (08:53→20:52)
[2020-09-01] MEDS: DIVALPROEX SPRINKLE 125 MG CAP PO SCH ×2 (08:53→20:53)
[2020-09-01] MEDS: buPROPion 100 MG TAB PO SCH (08:54)
[2020-09-01] MEDS: LOSARTAN 25 MG TAB PO SCH (08:54)
[2020-09-01] MEDS: BISACODYL 5 MG TAB PO SCH (08:54)
[2020-09-01] MEDS: oxyBUTYnin 5 MG TAB PO SCH ×2 (08:54→20:53)
[2020-09-01] MEDS: LACTOBACILLUS ACIDOPHILUS CAP (BACID) PO SCH ×3 (08:54→20:52)
[2020-09-01] MEDS: LACOSAMIDE 50 MG TAB (VIMPAT) PO SCH ×2 (08:55→20:52)
[2020-09-01] MEDS: atenoloL 50 MG TAB PO SCH (08:55)
[2020-09-01] MEDS: ACETAMINOPHEN 500 MG TAB PO SCH ×3 (08:55→20:52)
[2020-09-01] MEDS: APIXABAN 5 MG TAB (ELIQUIS) PO SCH ×2 (08:56→20:53)
[2020-09-01] MEDS: LIDOCAINE 5% (LIDODERM) PATCH TD SCH (08:56)
[2020-09-01] MEDS: NYSTATIN 100,000 UNITS/GM TOPICAL PWD 15 GM TOP SCH ×3 (08:56→20:54)
[2020-09-01] MEDS: SALIVA SUBSTITUTE(MOUTHKOTE) BTL MT SCH ×3 (08:59→20:54)
[2020-09-01] MEDS: ATORVASTATIN 20 MG TAB PO SCH (09:01)
[2020-09-01 14:00] VITALS: BP 146/73
[2020-09-01 20:19] VITALS: BP 137/64
[2020-09-01] MEDS: **NOTE PATIENT COMMENT** MISC XX SCH (20:53)
[2020-09-02] MEDS: REMEDY PHYTOPLEX Z-GUARD PASTE 113GM TUBE (FROM STOREROOM PRODUCT) TOP SCH ×6 (01:00→20:37)
[2020-09-02 06:00] VITALS: BP 151/90
[2020-09-02] MEDS: LACTOBACILLUS ACIDOPHILUS CAP (BACID) PO SCH ×3 (08:32→20:37)
[2020-09-02] MEDS: LACOSAMIDE 50 MG TAB (VIMPAT) PO SCH ×2 (08:32→20:36)
[2020-09-02] MEDS: SUCRALFATE 1 GM TAB PO SCH ×3 (08:32→20:37)
[2020-09-02] MEDS: oxyBUTYnin 5 MG TAB PO SCH ×2 (08:32→20:37)
[2020-09-02] MEDS: APIXABAN 5 MG TAB (ELIQUIS) PO SCH ×2 (08:32→20:37)
[2020-09-02] MEDS: atenoloL 50 MG TAB PO SCH (08:32)
[2020-09-02] MEDS: LOSARTAN 25 MG TAB PO SCH (08:33)
[2020-09-02] MEDS: BISACODYL 5 MG TAB PO SCH (08:33)
[2020-09-02] MEDS: ATORVASTATIN 20 MG TAB PO SCH (08:33)
[2020-09-02] MEDS: buPROPion 100 MG TAB PO SCH (08:34)
[2020-09-02] MEDS: ACETAMINOPHEN 500 MG TAB PO SCH ×3 (08:34→20:36)
[2020-09-02] MEDS: LIDOCAINE 5% (LIDODERM) PATCH TD SCH (08:35)
[2020-09-02] MEDS: DIVALPROEX SPRINKLE 125 MG CAP PO SCH ×2 (08:35→20:36)
[2020-09-02] MEDS: NYSTATIN 100,000 UNITS/GM TOPICAL PWD 15 GM TOP SCH ×3 (08:35→20:37)
[2020-09-02] MEDS: SALIVA SUBSTITUTE(MOUTHKOTE) BTL MT SCH ×3 (08:36→20:37)
[2020-09-02] MEDS: IPRATROPIUM 0.5MG/ALBUTEROL 2.5MG INH SOL UD 3ML (DUONEB) NEB SCH ×3 (09:50→20:00)
[2020-09-02 10:15] LABS: BASO % 0.8 % (0.0-1.0); EOS # 0.1 10^3/uL (0.0-0.5); EOS % 1.4 % (0.0-3.0); HEMATOCRIT 39.6 % (36.0-47.0); HEMOGLOBIN 11.9 g/dl (12.0-15.5); LYMPH # 0.9 10^3/uL (1.5-5.0); LYMPH % 23.8 % (24.0-44.0); MEAN CORPUSCULAR HEMOGLOBIN 30.3 pg (27.0-33.0); MEAN CORPUSCULAR HGB CONC 30.1 g/dl (32.0-36.5); MEAN CORPUSCULAR VOLUME 100.8 fl (80.0-96.0); MONO # 0.5 10^3/uL (0.0-0.8); MONO % 14.3 % (0.0-5.0); NEUTROPHILS # 2.2 10^3/uL (1.5-8.5); NEUTROPHILS % 59.2 % (36.0-66.0); RED BLOOD COUNT 3.93 10^6/uL (4.00-5.40); WHITE BLOOD COUNT 3.7 10^3/uL (4.0-10.0)
[2020-09-02 10:18] LABS: PLATELET COUNT, AUTOMATED 83 10^3/uL (150-450)
--- NOTE | 2020-09-02 11:05 | IPNPDOC ---
PM&R Progress Note DATE OF SERVICE: Sep 02, 2020 Clinical Field Specialist Progress Note Subjective: Patient seen in her room without any complaints, able to follow all commands. REVIEW OF SYSTEMS: The following is a completed review of systems and has been reviewed. Review of systems otherwise unremarkable. PAIN: Patient self reports no pain EYES: difficult to assess EARS, NOSE, & THROAT:+dysphagia (improving) CARDIOVASCULAR: Denies chest pain or palpitations PULMONARY: Denies shortness of breath GASTROINTESTINAL: s/p peg GENITOURINARY: +incontinence MUSCULOSKELETAL: right sided weakness NEUROLOGICAL:right sided paresis, expressive aphasia SKIN: skin breakdown under breasts and in abdominal folds, bilat anterior thigh rash (improving) PSYCHIATRIC: Unremarkable All other review of systems found to be negative. PHYSICAL EXAMINATION: VITAL SIGNS: Please see below. GENERAL: Pleasant and cooperative. No acute distress. HEENT: PERRL. Extraocular movements intact. Clear conjunctiva CARDIOVASCULAR: Regular rate and rhythm. No murmurs, rubs, or gallops LUNGS: Clear to auscultation bilaterally. No wheezes. No rhonchi ABDOMEN: Soft, nontender, nondistended. Positive bowel sounds. Normal active bowel sounds, former PEG site c/d/i no drainage NEUROLOGICAL: +expressive aphasia, able to follow commands, Sensation grossly intact EXTREMITIES: 5/5 strength LUE, 3+/5 RUE, 4\\5 strength right lower extremity. 5/5 strength in left lower extremity. SKIN: +sacral excoriation, bilateral under breast skin breakdown and in abdominal folds (improving) bilat anterior thighs- blanchable erythematous macules, non-tender (more notable on today's exam ) ASSESSMENT:80-year-old F with past medical history of stroke, CKD, DM who presents status post left MCA infarct with new onset seizures PLAN: 1. 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 Neuro- s/p left MCA infarct with expressive aphasia, dysphagia, and right sided hemiparesis, c/u Eliquis for AFib, statin for secondary stroke prevention- - recent post-stroke seizure activity with EEG 07/22/20 at [facility] + for left temporal rhythmic delta activity, discussed concern for thrombocytopenia with Kalina Norman who recommends tapering patient off Depakote and starting Vimpat 100mg BID, recs greatly appreciated, checking Vimpat levels -[facility] neuro team aware of changes and will f/u at clinic with Dr. Fountain 3. Cardiac- ECHO 07-23-20 showed Normal global systolic left ventricular function. This study is inadequate for the evaluation of regional wall motion. At least grade 2 diastolic dysfunction without interatrial shunt via bubble study" - new onset Afib c/u eliquis and atenolol -HLD- statin 4. resp- monitor for infection, DUonebs 5. GI ppx- lansoprazole -s/p PEG, removed iatrogenically, c/u oral feeds, abdominal exam benign 6. VAsc- hx of DVT c/u eliquis 7. - + ecoli UTI s/p course of LEvaquin 8. Pain- tylneol standing, c/u lidoderm patch to right shoulder 9. Psych- tapering patient off Buproprion in setting of thrombocytopenia 10. SKin- turn q2h in bed, dressing changes per nursing orders, AFO to be worn only in therapy to avoid skin breakdown -blanchable macular rash on anterior thighs, patient denies pain with palpation, possibly due recent antibiotic use vs viral exanthem also may be due to depakote, unlikely due to chg as rash remains since d/c'ing 11. Heme- patient with thrombocytopenia which may be due to depakote vs recent dosing of Levaquin for UTI, macular anterior thigh rash does not appear petechial/due to thrombocytopenia as it does gage, but may also be side effect of depakote vs recent Levaquin dosing -discussed case with in-house neurology and hematology, will c/u patient on Vimpat for seizure ppx while tapering off Valproic acid, stop Wellbutrin after short taper as can also contribute to thrombocytopenia, omeprazole and guaifenasin d/c'd as well -platelets remain stable 70-80s, no active bleeding, and per Dr. Mohr who has been consulted believes patient reasonably protected from bleeding as long as platelet count remains above 50k, will c/u to trend daily- heme recs greatly appreciated, HIT and TTP work-up in process 12. Dispo- tbd Allergies Coded Allergies: No Known Allergies (Unverified , 08/07/20) Vital Signs Vital Signs Date Time Temp Pulse Resp B/P (MAP) Pulse Ox O2 Delivery O2 Flow Rate FiO2 09/02/20 08:32 65 151/90 09/02/20 06:00 97.9 18 95 Room Air Laboratory Data CBC/BMP Laboratory Tests 09/02/20 09:56 Labs 24H Laboratory Tests 2 09/02/20 09:07: 09/02/20 09:56: Immature Granulocyte % (Auto) 0.5, Neutrophils (%) (Auto) 59.2, Lymphocytes (%) (Auto) 23.8L, Monocytes (%) (Auto) 14.3H, Eosinophils (%) (Auto) 1.4, Basophils (%) (Auto) 0.8, Neutrophils # (Auto) 2.2, Lymphocytes # (Auto) 0.9L, Monocytes # (Auto) 0.5, Eosinophils # (Auto) 0.1, Basophils # (Auto) 0.0, Nucleated Red Blood Cells % (auto) 0.0, Immature Platelet Fraction 2.0 Current Medications Current Medications Current Medications Medications (Trade) Dose Ordered Sig/Brenda Route PRN Reason Start Time Stop Time Status Last Admin Dose Admin Acetaminophen (Tylenol Suspension) 650 mg Q4HP PRN GT PAIN OR FEVER 08/07/20 13:00 08/09/20 16:32 DC 08/09/20 16:17 Acetaminophen (Tylenol Suspension) 650 mg Q4HP PRN GT PAIN / FEVER 08/07/20 13:00 UNV Acetaminophen (Tylenol Suspension) 975 mg TID GT 08/09/20 21:00 08/14/20 09:49 DC 08/13/20 16:45 Acetaminophen (Tylenol Tab) 1,000 mg TID PO 08/14/20 09:00 09/02/20 08:34 Albuterol/ Ipratropium (Duoneb (Ipr 0.5mg/Alb 2.5mg)) 3 ml RTID NEB 08/07/20 14:00 08/30/20 13:10 Apixaban (Eliquis) 5 mg BID PEG 08/07/20 21:00 08/14/20 09:51 DC 08/13/20 09:05 Apixaban (Eliquis) 5 mg BID PO 08/14/20 09:00 09/02/20 08:32 Atenolol (Tenormin) 50 mg DAILY PEG 08/08/20 09:00 08/14/20 09:47 DC 08/13/20 09:05 Atenolol (Tenormin) 50 mg DAILY PO 08/14/20 09:00 09/02/20 08:32 Atorvastatin Calcium (Lipitor) 40 mg DAILY PEG 08/08/20 09:00 08/14/20 09:47 DC 08/13/20 09:05 Atorvastatin Calcium (Lipitor) 40 mg DAILY PO 08/14/20 09:00 09/02/20 08:33 Bisacodyl (Dulcolax Suppository) 10 mg DAILY GA 08/08/20 09:00 08/12/20 12:53 DC 08/11/20 09:40 Bisacodyl (Dulcolax Suppository) 10 mg DAILY PRN GA constipaion 08/12/20 13:00 Bisacodyl (Dulcolax Suppository) 10 mg DAILYPRN PRN GA CONSTIPATION 08/16/20 19:00 Cancel Bisacodyl (Dulcolax Tab) 5 mg DAILY PO 08/16/20 09:00 09/02/20 08:33 Bupropion HCl (Wellbutrin) 50 mg BID PO 08/07/20 21:00 08/29/20 11:14 DC 08/29/20 08:37 Bupropion HCl (Wellbutrin) 50 mg DAILY PO 08/30/20 09:00 09/02/20 09:46 DC 09/02/20 08:34 Dextrose (Dextrose 50%) 25 ml ASDIRECTED PRN IV SEE LABEL COMMENTS 08/07/20 13:00 Divalproex Sodium (Depakote Sprinkles) 500 mg BID PO 08/29/20 21:00 09/05/20 09:01 09/02/20 08:35 Divalproex Sodium (Depakote Sprinkles) 500 mg DAILY PO 09/06/20 09:00 09/12/20 09:01 Divalproex Sodium (Depakote Sprinkles) 1,000 mg BID PO 08/14/20 11:00 08/29/20 11:00 DC 08/29/20 08:40 Docusate Sodium (Colace Liquid) 100 mg BIDP PRN GT CONSTIPATION 08/07/20 13:00 08/14/20 09:53 DC Docusate Sodium (Colace Liquid) 100 mg BIDP PRN PO CONSTIPATION 08/14/20 10:00 Glucagon (Glucagon) 1 mg ASDIRECTED PRN SC SEE LABEL COMMENTS 08/07/20 13:00 Glucose (Glucose) 16 GM ASDIRECTED PRN PO SEE LABEL COMMENTS 08/07/20 13:00 Guaifenesin (Robitussin Tab) 400 mg TID PO 08/14/20 09:00 08/29/20 10:00 DC 08/29/20 08:38 Guaifenesin (Robitussin) 5 ml TID PEG 08/07/20 16:00 08/14/20 09:51 DC 08/13/20 16:45 Home Med (Med Rec Complete!) ASDIRECTED XX 08/07/20 13:45 08/07/20 13:51 DC Lacosamide (Vimpat) 100 mg BID PO 08/29/20 09:00 09/02/20 08:32 Lactobacillus Acidophilus (Bacid) 1 ea TID PEG 08/09/20 16:00 08/14/20 09:47 DC 08/13/20 16:45 Lactobacillus Acidophilus (Bacid) 1 ea TID PO 08/14/20 09:00 09/02/20 08:32 Lansoprazole (First-Lansoprazole Oral Suspension) 30 mg DAILY GT 08/08/20 12:00 08/14/20 09:49 DC 08/13/20 09:05 Lansoprazole (First-Lansoprazole Oral Suspension) 30 mg DAILY PO 08/14/20 09:00 08/21/20 10:33 DC 08/21/20 08:51 Levofloxacin (Levaquin) 750 mg DAILY@06 PEG 08/09/20 09:15 08/14/20 09:14 DC 08/13/20 05:47 Lidocaine (Lidoderm Patch) 1 patch DAILY TD 08/08/20 10:15 09/02/20 08:35 Losartan Potassium (Cozaar) 25 mg DAILY PEG 08/08/20 09:00 08/14/20 09:47 DC 08/13/20 09:05 Losartan Potassium (Cozaar) 25 mg DAILY PO 08/14/20 09:00 09/02/20 08:33 Miscellaneous (Unresolved Clarification Entry) SEE LABEL COMMENTS DAILY XX 09/01/20 09:00 09/02/20 07:46 DC Nitrofurantoin Monoh/Nitrofur Macro (Macrobid) 100 mg BID GT 08/10/20 09:00 08/10/20 05:53 DC Non-Formulary Medication ( See Comment Field Below ) REMOVE LIDODERM PATCH DAILY@21 XX 08/08/20 21:00 09/01/20 20:53 Nystatin (Mycostatin Powder, Nystop) 1 dose TID TOP 08/07/20 16:00 09/02/20 08:35 Omeprazole (First-Omeprazole ORAL SUSPENSION) 40 mg DAILY PO 08/21/20 09:00 08/28/20 08:57 DC 08/27/20 07:18 Oxybutynin Chloride (Ditropan) 5 mg BID PEG 08/07/20 21:00 08/14/20 09:47 DC 08/13/20 09:07 Oxybutynin Chloride (Ditropan) 5 mg BID PO 08/14/20 09:00 09/02/20 08:32 Saliva Substitute (Mouthkote) Q1HP PRN MT dry mouth 08/08/20 14:45 08/12/20 10:03 DC 08/10/20 06:05 Saliva Substitute (Mouthkote) 2 sprays TID MT 08/12/20 10:00 09/02/20 08:36 Sucralfate (Carafate) 1 gm TID PO 08/28/20 09:00 09/02/20 08:32 Valproic Acid (Depakene Solution) 650 mg TID PEG 08/07/20 16:00 08/14/20 10:17 DC 08/14/20 00:33 SANTA HOOVER MD Sep 02, 2020 11:05
[2020-09-02 13:24] VITALS: BP 135/79
[2020-09-02 20:20] VITALS: BP 141/71
[2020-09-02] MEDS: **NOTE PATIENT COMMENT** MISC XX SCH (20:38)
[2020-09-03] MEDS: REMEDY PHYTOPLEX Z-GUARD PASTE 113GM TUBE (FROM STOREROOM PRODUCT) TOP SCH ×6 (01:00→20:53)
[2020-09-03 06:04] VITALS: BP 147/72
[2020-09-03 06:52] LABS: BASO % 0.5 % (0.0-1.0); EOS # 0.1 10^3/uL (0.0-0.5); EOS % 2.2 % (0.0-3.0); HEMATOCRIT 37.7 % (36.0-47.0); HEMOGLOBIN 11.5 g/dl (12.0-15.5); LYMPH # 1.1 10^3/uL (1.5-5.0); LYMPH % 30.5 % (24.0-44.0); MEAN CORPUSCULAR HEMOGLOBIN 30.7 pg (27.0-33.0); MEAN CORPUSCULAR HGB CONC 30.5 g/dl (32.0-36.5); MEAN CORPUSCULAR VOLUME 100.8 fl (80.0-96.0); MONO # 0.6 10^3/uL (0.0-0.8); MONO % 15.9 % (0.0-5.0); NEUTROPHILS # 1.9 10^3/uL (1.5-8.5); NEUTROPHILS % 50.4 % (36.0-66.0); RED BLOOD COUNT 3.74 10^6/uL (4.00-5.40); WHITE BLOOD COUNT 3.7 10^3/uL (4.0-10.0)
[2020-09-03 06:55] LABS: PLATELET COUNT, AUTOMATED 78 10^3/uL (150-450)
[2020-09-03] MEDS: SALIVA SUBSTITUTE(MOUTHKOTE) BTL MT SCH ×3 (08:25→20:52)
[2020-09-03] MEDS: ACETAMINOPHEN 500 MG TAB PO SCH ×3 (08:26→20:52)
[2020-09-03] MEDS: APIXABAN 5 MG TAB (ELIQUIS) PO SCH ×2 (08:26→20:52)
[2020-09-03] MEDS: ATORVASTATIN 20 MG TAB PO SCH (08:26)
[2020-09-03] MEDS: atenoloL 50 MG TAB PO SCH (08:27)
[2020-09-03] MEDS: SUCRALFATE 1 GM TAB PO SCH ×3 (08:27→20:52)
[2020-09-03] MEDS: LACOSAMIDE 50 MG TAB (VIMPAT) PO SCH ×2 (08:27→20:52)
[2020-09-03] MEDS: LACTOBACILLUS ACIDOPHILUS CAP (BACID) PO SCH ×3 (08:28→20:53)
[2020-09-03] MEDS: oxyBUTYnin 5 MG TAB PO SCH ×2 (08:28→20:53)
[2020-09-03] MEDS: LOSARTAN 25 MG TAB PO SCH (08:28)
[2020-09-03] MEDS: BISACODYL 5 MG TAB PO SCH (08:29)
[2020-09-03] MEDS: DIVALPROEX SPRINKLE 125 MG CAP PO SCH ×2 (08:29→20:53)
[2020-09-03] MEDS: NYSTATIN 100,000 UNITS/GM TOPICAL PWD 15 GM TOP SCH ×3 (08:30→20:52)
[2020-09-03] MEDS: LIDOCAINE 5% (LIDODERM) PATCH TD SCH (08:30)
--- NOTE | 2020-09-03 09:47 | IPNPDOC ---
PM&R Progress Note DATE OF SERVICE: Sep 03, 2020 Medical Records Custodian Progress Note Subjective: Patient seen in therapy working on walking and seemed anxious and distressed by her inability to communicate. REVIEW OF SYSTEMS: The following is a completed review of systems and has been reviewed. Review of systems otherwise unremarkable. PAIN: Patient self reports no pain EYES: difficult to assess EARS, NOSE, & THROAT:+dysphagia (improving) CARDIOVASCULAR: Denies chest pain or palpitations PULMONARY: Denies shortness of breath GASTROINTESTINAL: s/p peg GENITOURINARY: +incontinence MUSCULOSKELETAL: right sided weakness NEUROLOGICAL:right sided paresis, expressive aphasia SKIN: skin breakdown under breasts and in abdominal folds, bilat anterior thigh rash (improving) PSYCHIATRIC: Unremarkable All other review of systems found to be negative. PHYSICAL EXAMINATION: VITAL SIGNS: Please see below. GENERAL: Pleasant and cooperative. No acute distress. HEENT: PERRL. Extraocular movements intact. Clear conjunctiva CARDIOVASCULAR: Regular rate and rhythm. No murmurs, rubs, or gallops LUNGS: Clear to auscultation bilaterally. No wheezes. No rhonchi ABDOMEN: Soft, nontender, nondistended. Positive bowel sounds. Normal active bowel sounds, former PEG site c/d/i no drainage NEUROLOGICAL: +expressive aphasia, able to follow commands, Sensation grossly intact EXTREMITIES: 5/5 strength LUE, 3+/5 RUE, 4\\5 strength right lower extremity. 5/5 strength in left lower extremity. SKIN: +sacral excoriation, bilateral under breast skin breakdown and in abdominal folds (improving) bilat anterior thighs- blanchable erythematous macules, non-tender (more notable on today's exam ) ASSESSMENT:80-year-old F with past medical history of stroke, CKD, DM who presents status post left MCA infarct with new onset seizures PLAN: 1. 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 Neuro- s/p left MCA infarct with expressive aphasia, dysphagia, and right sided hemiparesis, c/u Eliquis for AFib, statin for secondary stroke prevention- - recent post-stroke seizure activity with EEG 07/22/20 at [facility] + for left temporal rhythmic delta activity, discussed concern for thrombocytopenia with Dr. Norman who recommends tapering patient off Depakote, c/u Vimpat 100mg BID, recs greatly appreciated, Vimpat levels pending -[facility] neuro team aware of changes and will f/u at clinic with Dr. Fountain 3. Cardiac- ECHO 07-23-20 showed Normal global systolic left ventricular function. This study is inadequate for the evaluation of regional wall motion. At least grade 2 diastolic dysfunction without interatrial shunt via bubble study" - new onset Afib c/u eliquis and atenolol -HLD- statin 4. resp- monitor for infection, DUonebs 5. GI ppx- lansoprazole -s/p PEG, removed iatrogenically, c/u oral feeds, abdominal exam benign 6. VAsc- hx of DVT c/u eliquis 7. - + ecoli UTI s/p course of LEvaquin 8. Pain- tylneol standing, c/u lidoderm patch to right shoulder 9. Psych- tapering patient off Buproprion in setting of thrombocytopenia 10. SKin- turn q2h in bed, dressing changes per nursing orders, AFO to be worn only in therapy to avoid skin breakdown -blanchable macular rash on anterior thighs, patient denies pain with palpation, possibly due recent antibiotic use vs viral exanthem also may be due to depakote, unlikely due to chg as rash remains since d/c'ing 11. Heme- patient with thrombocytopenia most likely due to Depakote which is being tapered -platelets remain stable 70-80s, no active bleeding, and per Dr. Mohr who has been consulted believes patient reasonably protected from bleeding as long as platelet count remains above 50k, will c/u to trend daily- heme recs greatly appreciated, HIT and TTP work-up negative and all other medications that can contribute to thrombocytopenia have been stopped 12. Dispo- patient still making improvements in therapy and requires PT/OT and PLATING TECHNICIAN for her deficits as her expressive aphasia is very profound, she also needs to be closely monitored in a medical setting while cross tapering her seizure meds that have caused her thrombocytopenia. She is a high risk of bleed on the Eliquis for afib and will not be safe for discharge from [facility] level of care until her platelets start to show improvements. Allergies Coded Allergies: No Known Allergies (Unverified , 08/07/20) Vital Signs Vital Signs Date Time Temp Pulse Resp B/P (MAP) Pulse Ox O2 Delivery O2 Flow Rate FiO2 09/03/20 08:27 62 140/70 09/03/20 06:04 98.0 18 99 Room Air Laboratory Data CBC/BMP Laboratory Tests 09/02/20 09:56 09/03/20 06:32 Labs 24H Laboratory Tests 2 09/02/20 09:56: Immature Granulocyte % (Auto) 0.5, Neutrophils (%) (Auto) 59.2, Lymphocytes (%) (Auto) 23.8L, Monocytes (%) (Auto) 14.3H, Eosinophils (%) (Auto) 1.4, Basophils (%) (Auto) 0.8, Neutrophils # (Auto) 2.2, Lymphocytes # (Auto) 0.9L, Monocytes # (Auto) 0.5, Eosinophils # (Auto) 0.1, Basophils # (Auto) 0.0, Nucleated Red Blood Cells % (auto) 0.0, Immature Platelet Fraction 2.0 09/03/20 06:32: Immature Granulocyte % (Auto) 0.5, Neutrophils (%) (Auto) 50.4, Lymphocytes (%) (Auto) 30.5, Monocytes (%) (Auto) 15.9H, Eosinophils (%) (Auto) 2.2, Basophils (%) (Auto) 0.5, Neutrophils # (Auto) 1.9, Lymphocytes # (Auto) 1.1L, Monocytes # (Auto) 0.6, Eosinophils # (Auto) 0.1, Basophils # (Auto) 0.0, Nucleated Red Blood Cells % (auto) 0.0 Current Medications Current Medications Current Medications Medications (Trade) Dose Ordered Sig/Brenda Route PRN Reason Start Time Stop Time Status Last Admin Dose Admin Acetaminophen (Tylenol Suspension) 650 mg Q4HP PRN GT PAIN OR FEVER 08/07/20 13:00 08/09/20 16:32 DC 08/09/20 16:17 Acetaminophen (Tylenol Suspension) 650 mg Q4HP PRN GT PAIN / FEVER 08/07/20 13:00 UNV Acetaminophen (Tylenol Suspension) 975 mg TID GT 08/09/20 21:00 08/14/20 09:49 DC 08/13/20 16:45 Acetaminophen (Tylenol Tab) 1,000 mg TID PO 08/14/20 09:00 09/03/20 08:26 Albuterol/ Ipratropium (Duoneb (Ipr 0.5mg/Alb 2.5mg)) 3 ml RTID NEB 08/07/20 14:00 08/30/20 13:10 Apixaban (Eliquis) 5 mg BID PEG 08/07/20 21:00 08/14/20 09:51 DC 08/13/20 09:05 Apixaban (Eliquis) 5 mg BID PO 08/14/20 09:00 09/03/20 08:26 Atenolol (Tenormin) 50 mg DAILY PEG 08/08/20 09:00 08/14/20 09:47 DC 08/13/20 09:05 Atenolol (Tenormin) 50 mg DAILY PO 08/14/20 09:00 09/03/20 08:27 Atorvastatin Calcium (Lipitor) 40 mg DAILY PEG 08/08/20 09:00 08/14/20 09:47 DC 08/13/20 09:05 Atorvastatin Calcium (Lipitor) 40 mg DAILY PO 08/14/20 09:00 09/03/20 08:26 Bisacodyl (Dulcolax Suppository) 10 mg DAILY W[place] 08/08/20 09:00 08/12/20 12:53 DC 08/11/20 09:40 Bisacodyl (Dulcolax Suppository) 10 mg DAILY PRN WV constipaion 08/12/20 13:00 Bisacodyl (Dulcolax Suppository) 10 mg DAILYPRN PRN [place] CONSTIPATION 08/16/20 19:00 Cancel Bisacodyl (Dulcolax Tab) 5 mg DAILY PO 08/16/20 09:00 09/02/20 08:33 Bupropion HCl (Wellbutrin) 50 mg BID PO 08/07/20 21:00 08/29/20 11:14 DC 08/29/20 08:37 Bupropion HCl (Wellbutrin) 50 mg DAILY PO 08/30/20 09:00 09/02/20 09:46 DC 09/02/20 08:34 Dextrose (Dextrose 50%) 25 ml ASDIRECTED PRN IV SEE LABEL COMMENTS 08/07/20 13:00 Divalproex Sodium (Depakote Sprinkles) 500 mg BID PO 08/29/20 21:00 09/05/20 09:01 09/03/20 08:29 Divalproex Sodium (Depakote Sprinkles) 500 mg DAILY PO 09/06/20 09:00 09/12/20 09:01 Divalproex Sodium (Depakote Sprinkles) 1,000 mg BID PO 08/14/20 11:00 08/29/20 11:00 DC 08/29/20 08:40 Docusate Sodium (Colace Liquid) 100 mg BIDP PRN GT CONSTIPATION 08/07/20 13:00 08/14/20 09:53 DC Docusate Sodium (Colace Liquid) 100 mg BIDP PRN PO CONSTIPATION 08/14/20 10:00 Glucagon (Glucagon) 1 mg ASDIRECTED PRN SC SEE LABEL COMMENTS 08/07/20 13:00 Glucose (Glucose) 16 GM ASDIRECTED PRN PO SEE LABEL COMMENTS 08/07/20 13:00 Guaifenesin (Robitussin Tab) 400 mg TID PO 08/14/20 09:00 08/29/20 10:00 DC 08/29/20 08:38 Guaifenesin (Robitussin) 5 ml TID PEG 08/07/20 16:00 08/14/20 09:51 DC 08/13/20 16:45 Home Med (Med Rec Complete!) ASDIRECTED XX 08/07/20 13:45 08/07/20 13:51 DC Lacosamide (Vimpat) 100 mg BID PO 08/29/20 09:00 09/03/20 08:27 Lactobacillus Acidophilus (Bacid) 1 ea TID PEG 08/09/20 16:00 08/14/20 09:47 DC 08/13/20 16:45 Lactobacillus Acidophilus (Bacid) 1 ea TID PO 08/14/20 09:00 09/03/20 08:28 Lansoprazole (First-Lansoprazole Oral Suspension) 30 mg DAILY GT 08/08/20 12:00 08/14/20 09:49 DC 08/13/20 09:05 Lansoprazole (First-Lansoprazole Oral Suspension) 30 mg DAILY PO 08/14/20 09:00 08/21/20 10:33 DC 08/21/20 08:51 Levofloxacin (Levaquin) 750 mg DAILY@06 PEG 08/09/20 09:15 08/14/20 09:14 DC 08/13/20 05:47 Lidocaine (Lidoderm Patch) 1 patch DAILY TD 08/08/20 10:15 09/03/20 08:30 Losartan Potassium (Cozaar) 25 mg DAILY PEG 08/08/20 09:00 08/14/20 09:47 DC 08/13/20 09:05 Losartan Potassium (Cozaar) 25 mg DAILY PO 08/14/20 09:00 09/03/20 08:28 Miscellaneous (Unresolved Clarification Entry) SEE LABEL COMMENTS DAILY XX 09/01/20 09:00 09/02/20 07:46 DC Nitrofurantoin Monoh/Nitrofur Macro (Macrobid) 100 mg BID GT 08/10/20 09:00 08/10/20 05:53 DC Non-Formulary Medication ( See Comment Field Below ) REMOVE LIDODERM PATCH DAILY@21 XX 08/08/20 21:00 09/02/20 20:38 Nystatin (Mycostatin Powder, Nystop) 1 dose TID TOP 08/07/20 16:00 09/03/20 08:30 Omeprazole (First-Omeprazole ORAL SUSPENSION) 40 mg DAILY PO 08/21/20 09:00 08/28/20 08:57 DC 08/27/20 07:18 Oxybutynin Chloride (Ditropan) 5 mg BID PEG 08/07/20 21:00 08/14/20 09:47 DC 08/13/20 09:07 Oxybutynin Chloride (Ditropan) 5 mg BID PO 08/14/20 09:00 09/03/20 08:28 Saliva Substitute (Mouthkote) Q1HP PRN MT dry mouth 08/08/20 14:45 08/12/20 10:03 DC 08/10/20 06:05 Saliva Substitute (Mouthkote) 2 sprays TID MT 08/12/20 10:00 09/03/20 08:25 Sucralfate (Carafate) 1 gm TID PO 08/28/20 09:00 09/03/20 08:27 Valproic Acid (Depakene Solution) 650 mg TID PEG 08/07/20 16:00 08/14/20 10:17 DC 08/14/20 00:33 SANTA HOOVER MD Sep 03, 2020 09:47
[2020-09-03] MEDS: IPRATROPIUM 0.5MG/ALBUTEROL 2.5MG INH SOL UD 3ML (DUONEB) NEB SCH ×3 (10:02→20:00)
[2020-09-03 12:04] LABS: ALBUMIN 2.84 GM/DL (3.29-5.55); ALBUMIN % 49.8 % (55.8-66.1); ALPHA-1-GLOBULIN % 5.6 % (2.9-4.9); ALPHA-1-GLOBULINS 0.32 GM/DL (0.17-0.41); ALPHA-2-GLOBULINS 0.53 GM/DL (0.42-0.99); ALPHA-2-GLOBULINS % 9.3 % (7.1-11.8); BETA-1-GLOBULINS 0.39 GM/DL (0.28-0.60); BETA-1-GLOBULINS % 6.8 % (4.7-7.2); BETA-2-GLOBULINS % 5.4 % (3.2-6.5); GAMMA GLOBULIN % 23.1 % (11.1-18.8)
[2020-09-03 12:05] LABS: BETA-2-GLOBULINS 0.31 GM/DL (0.19-0.55); GAMMA GLOBULINS 1.32 GM/DL (0.65-1.58)
[2020-09-03 14:00] VITALS: BP 159/97
--- NOTE | 2020-09-03 17:20 | IPNPDOC ---
Date Seen The patient was seen on 09/03/20. Progress Note SUBJECTIVE: 80 year old lady post stroke platelets 78,000 Normal liver and spleen HIT study normal ADAMTS test normal DENISE normal No active bleeding OBJECTIVE PHYSICAL EXAMINATION: VITAL SIGNS: Please see below. GENERAL: awake and alert HEENT: normal CARDIOVASCULAR: .irregular rhythm RESPIRATORY: . ABDOMINAL: EXTREMITIES: NEUROLOGICAL: PSYCHOLOGICAL: LABORATORY DATA, IMAGING STUDIES, MICROBIOLOGY: Please see below. Echocardiogram: . DVT prophylaxis ordered?: ASSESSMENT AND PLAN: This is a 80 year old lady post stroke P Plan; Serial surveillance noticed antidepressant stopped if discharged follow up in the office DISPOSITION: . VS, I&O, 24H, Fishbone Vital Signs/I&O Vital Signs Date Time Temp Pulse Resp B/P (MAP) Pulse Ox O2 Delivery O2 Flow Rate FiO2 09/03/20 14:00 96.9 62 24 159/97 (117) 97 Room Air I&O- Last 24 Hours up to 6 AM 09/03/20 06:00 Intake Total 1060 ml Balance 1060 ml Laboratory Data 24H LABS Laboratory Tests 2 09/03/20 06:32: Immature Granulocyte % (Auto) 0.5, Neutrophils (%) (Auto) 50.4, Lymphocytes (%) (Auto) 30.5, Monocytes (%) (Auto) 15.9H, Eosinophils (%) (Auto) 2.2, Basophils (%) (Auto) 0.5, Neutrophils # (Auto) 1.9, Lymphocytes # (Auto) 1.1L, Monocytes # (Auto) 0.6, Eosinophils # (Auto) 0.1, Basophils # (Auto) 0.0, Nucleated Red Blood Cells % (auto) 0.0 CBC/BMP Laboratory Tests 09/03/20 06:32 DONNIE GAXIOLA MD Sep 03, 2020 17:20
[2020-09-03 20:00] VITALS: BP 145/77
[2020-09-03] MEDS: **NOTE PATIENT COMMENT** MISC XX SCH (20:53)
[2020-09-04] MEDS: REMEDY PHYTOPLEX Z-GUARD PASTE 113GM TUBE (FROM STOREROOM PRODUCT) TOP SCH ×6 (00:55→21:00)
[2020-09-04 06:00] VITALS: BP 130/77
[2020-09-04 07:33] LABS: BASO % 0.3 % (0.0-1.0); EOS # 0.1 10^3/uL (0.0-0.5); EOS % 0.9 % (0.0-3.0); HEMATOCRIT 37.7 % (36.0-47.0); LYMPH # 1.8 10^3/uL (1.5-5.0); LYMPH % 31.3 % (24.0-44.0); MEAN CORPUSCULAR HEMOGLOBIN 30.3 pg (27.0-33.0); MEAN CORPUSCULAR HGB CONC 29.2 g/dl (32.0-36.5); MEAN CORPUSCULAR VOLUME 103.9 fl (80.0-96.0); MONO # 0.9 10^3/uL (0.0-0.8); MONO % 15.8 % (0.0-5.0); NEUTROPHILS % 51.4 % (36.0-66.0); RED BLOOD COUNT 3.63 10^6/uL (4.00-5.40); WHITE BLOOD COUNT 5.8 10^3/uL (4.0-10.0)
[2020-09-04 07:38] LABS: PLATELET COUNT, AUTOMATED 76 10^3/uL (150-450)
[2020-09-04] MEDS: IPRATROPIUM 0.5MG/ALBUTEROL 2.5MG INH SOL UD 3ML (DUONEB) NEB SCH ×3 (07:39→20:41)
[2020-09-04] MEDS: LIDOCAINE 5% (LIDODERM) PATCH TD SCH (09:20)
[2020-09-04] MEDS: LACTOBACILLUS ACIDOPHILUS CAP (BACID) PO SCH ×3 (09:23→20:58)
[2020-09-04] MEDS: SUCRALFATE 1 GM TAB PO SCH ×3 (09:23→20:58)
[2020-09-04] MEDS: DIVALPROEX SPRINKLE 125 MG CAP PO SCH ×2 (09:23→20:58)
[2020-09-04] MEDS: BISACODYL 5 MG TAB PO SCH (09:23)
[2020-09-04] MEDS: ATORVASTATIN 20 MG TAB PO SCH (09:24)
[2020-09-04] MEDS: LOSARTAN 25 MG TAB PO SCH (09:24)
[2020-09-04] MEDS: oxyBUTYnin 5 MG TAB PO SCH ×2 (09:24→20:59)
[2020-09-04] MEDS: LACOSAMIDE 50 MG TAB (VIMPAT) PO SCH ×2 (09:25→20:59)
[2020-09-04] MEDS: atenoloL 50 MG TAB PO SCH (09:25)
[2020-09-04] MEDS: ACETAMINOPHEN 500 MG TAB PO SCH ×3 (09:28→20:59)
[2020-09-04] MEDS: APIXABAN 5 MG TAB (ELIQUIS) PO SCH ×2 (09:28→20:59)
[2020-09-04] MEDS: NYSTATIN 100,000 UNITS/GM TOPICAL PWD 15 GM TOP SCH ×3 (09:30→20:59)
[2020-09-04] MEDS: SALIVA SUBSTITUTE(MOUTHKOTE) BTL MT SCH ×3 (09:31→21:00)
--- NOTE | 2020-09-04 12:26 | IPNPDOC ---
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 She denies any bleeding. REVIEW OF SYSTEMS: The following is a completed review of systems and has been reviewed. Review of systems otherwise unremarkable. PAIN: Patient self reports no pain EYES: difficult to assess EARS, NOSE, & THROAT:+dysphagia (improving) CARDIOVASCULAR: Denies chest pain or palpitations PULMONARY: Denies shortness of breath GASTROINTESTINAL: s/p peg GENITOURINARY: +incontinence MUSCULOSKELETAL: right sided weakness NEUROLOGICAL:right sided paresis, expressive aphasia SKIN: skin breakdown under breasts and in abdominal folds, bilat anterior thigh rash (improving) PSYCHIATRIC: Unremarkable All other review of systems found to be negative. PHYSICAL EXAMINATION: VITAL SIGNS: Please see below. GENERAL: Pleasant and cooperative. No acute distress. HEENT: PERRL. Extraocular movements intact. Clear conjunctiva CARDIOVASCULAR: Regular rate and rhythm. No murmurs, rubs, or gallops LUNGS: Clear to auscultation bilaterally. No wheezes. No rhonchi ABDOMEN: Soft, nontender, nondistended. Positive bowel sounds. Normal active bowel sounds, former PEG site c/d/i no drainage NEUROLOGICAL: +expressive aphasia, able to follow commands, Sensation grossly intact EXTREMITIES: 5/5 strength LUE, 3+/5 RUE, 4\\5 strength right lower extremity. 5/5 strength in left lower extremity. SKIN: +sacral excoriation, bilateral under breast skin breakdown and in abdominal folds (improving) bilat anterior thighs- blanchable erythematous macules, non-tender (more notable on today's exam ) ASSESSMENT:80-year-old F with past medical history of stroke, CKD, DM who presents status post left MCA infarct with new onset seizures PLAN: 1. Rehab- PT/OT advance mobility and ADLs, maintain ROM/stretch/strengthen all 4 limbs- multipodus boot to right foot-will contact continuous improvement analyst for custom made AFO prior to discharge, patient currently using old one, patient better able to move right side -POLICE JUSTICE- patient with expressive aphasia and dysphagia, advanced to level 2 and thins 2. Neuro- s/p left MCA infarct with expressive aphasia, dysphagia, and right sided hemiparesis, c/u Eliquis for AFib, statin for secondary stroke prevention- - recent post-stroke seizure activity with EEG 07/22/20 at [facility] + for left temporal rhythmic delta activity, discussed concern for thrombocytopenia with Dr. Norman who recommends tapering patient off Depakote, c/u Vimpat 100mg BID, recs greatly appreciated, Vimpat levels pending -[facility] neuro team aware of changes and will f/u at clinic with Dr. Fountain 3. Cardiac- ECHO 07-23-20 showed Normal global systolic left ventricular function. This study is inadequate for the evaluation of regional wall motion. At least grade 2 diastolic dysfunction without interatrial shunt via bubble study" - new onset Afib c/u eliquis and atenolol -HLD- statin 4. resp- monitor for infection, DUonebs 5. GI ppx- lansoprazole -s/p PEG, removed iatrogenically, c/u oral feeds, abdominal exam benign 6. VAsc- hx of DVT c/u eliquis 7. - + ecoli UTI s/p course of LEvaquin 8. Pain- tylneol standing, c/u lidoderm patch to right shoulder 9. Psych- tapering patient off Buproprion in setting of thrombocytopenia 10. SKin- turn q2h in bed, dressing changes per nursing orders, AFO to be worn only in therapy to avoid skin breakdown -blanchable macular rash on anterior thighs, patient denies pain with palpation, possibly due recent antibiotic use vs viral exanthem also may be due to depakote, unlikely due to chg as rash remains since d/c'ing 11. Heme- patient with thrombocytopenia most likely due to Depakote which is being tapered -platelets remain stable 70-80s, no active bleeding, and per Dr. Mohr who has been consulted believes patient reasonably protected from bleeding as long as platelet count remains above 50k, will c/u to trend daily- heme recs greatly appreciated, HIT and TTP work-up negative and all other medications that can contribute to thrombocytopenia have been stopped 12. Dispo- patient still making improvements in therapy and requires PT/OT and POLICE JUSTICE for her deficits as her expressive aphasia is very profound, she also needs to be closely monitored in a medical setting while cross tapering her seizure meds that have caused her thrombocytopenia. She is a high risk of bleed on the Eliquis for afib and will not be safe for discharge from [facility] level of care until her platelets start to show improvements. Allergies Coded Allergies: No Known Allergies (Unverified , 08/07/20) Vital Signs Vital Signs Date Time Temp Pulse Resp B/P (MAP) Pulse Ox O2 Delivery O2 Flow Rate FiO2 09/04/20 09:25 72 130/77 09/04/20 06:00 97.9 18 96 Room Air Laboratory Data CBC/BMP Laboratory Tests 09/04/20 07:01 Labs 24H Laboratory Tests 2 09/04/20 07:01: Immature Granulocyte % (Auto) 0.3, Neutrophils (%) (Auto) 51.4, Lymphocytes (%) (Auto) 31.3, Monocytes (%) (Auto) 15.8H, Eosinophils (%) (Auto) 0.9, Basophils (%) (Auto) 0.3, Neutrophils # (Auto) 3.0, Lymphocytes # (Auto) 1.8, Monocytes # (Auto) 0.9H, Eosinophils # (Auto) 0.1, Basophils # (Auto) 0.0, Nucleated Red Blood Cells % (auto) 0.0, Immature Platelet Fraction 2.6 Current Medications Current Medications Current Medications Medications (Trade) Dose Ordered Sig/Brneda Route PRN Reason Start Time Stop Time Status Last Admin Dose Admin Acetaminophen (Tylenol Suspension) 650 mg Q4HP PRN GT PAIN OR FEVER 08/07/20 13:00 08/09/20 16:32 DC 08/09/20 16:17 Acetaminophen (Tylenol Suspension) 650 mg Q4HP PRN GT PAIN / FEVER 08/07/20 13:00 UNV Acetaminophen (Tylenol Suspension) 975 mg TID GT 08/09/20 21:00 08/14/20 09:49 DC 08/13/20 16:45 Acetaminophen (Tylenol Tab) 1,000 mg TID PO 08/14/20 09:00 09/04/20 09:28 Albuterol/ Ipratropium (Duoneb (Ipr 0.5mg/Alb 2.5mg)) 3 ml RTID NEB 08/07/20 14:00 09/04/20 07:39 Apixaban (Eliquis) 5 mg BID PEG 08/07/20 21:00 08/14/20 09:51 DC 08/13/20 09:05 Apixaban (Eliquis) 5 mg BID PO 08/14/20 09:00 09/04/20 09:28 Atenolol (Tenormin) 50 mg DAILY PEG 08/08/20 09:00 08/14/20 09:47 DC 08/13/20 09:05 Atenolol (Tenormin) 50 mg DAILY PO 08/14/20 09:00 09/04/20 09:25 Atorvastatin Calcium (Lipitor) 40 mg DAILY PEG 08/08/20 09:00 08/14/20 09:47 DC 08/13/20 09:05 Atorvastatin Calcium (Lipitor) 40 mg DAILY PO 08/14/20 09:00 09/04/20 09:24 Bisacodyl (Dulcolax Suppository) 10 mg DAILY MO 08/08/20 09:00 08/12/20 12:53 DC 08/11/20 09:40 Bisacodyl (Dulcolax Suppository) 10 mg DAILY PRN MO constipaion 08/12/20 13:00 Bisacodyl (Dulcolax Suppository) 10 mg DAILYPRN PRN MO CONSTIPATION 08/16/20 19:00 Cancel Bisacodyl (Dulcolax Tab) 5 mg DAILY PO 08/16/20 09:00 09/04/20 09:23 Bupropion HCl (Wellbutrin) 50 mg BID PO 08/07/20 21:00 08/29/20 11:14 DC 08/29/20 08:37 Bupropion HCl (Wellbutrin) 50 mg DAILY PO 08/30/20 09:00 09/02/20 09:46 DC 09/02/20 08:34 Dextrose (Dextrose 50%) 25 ml ASDIRECTED PRN IV SEE LABEL COMMENTS 08/07/20 13:00 Divalproex Sodium (Depakote Sprinkles) 500 mg BID PO 08/29/20 21:00 09/05/20 09:01 09/04/20 09:23 Divalproex Sodium (Depakote Sprinkles) 500 mg DAILY PO 09/06/20 09:00 09/12/20 09:01 Divalproex Sodium (Depakote Sprinkles) 1,000 mg BID PO 08/14/20 11:00 08/29/20 11:00 DC 08/29/20 08:40 Docusate Sodium (Colace Liquid) 100 mg BIDP PRN GT CONSTIPATION 08/07/20 13:00 08/14/20 09:53 DC Docusate Sodium (Colace Liquid) 100 mg BIDP PRN PO CONSTIPATION 08/14/20 10:00 Glucagon (Glucagon) 1 mg ASDIRECTED PRN SC SEE LABEL COMMENTS 08/07/20 13:00 Glucose (Glucose) 16 GM ASDIRECTED PRN PO SEE LABEL COMMENTS 08/07/20 13:00 Guaifenesin (Robitussin Tab) 400 mg TID PO 08/14/20 09:00 08/29/20 10:00 DC 08/29/20 08:38 Guaifenesin (Robitussin) 5 ml TID PEG 08/07/20 16:00 08/14/20 09:51 DC 08/13/20 16:45 Home Med (Med Rec Complete!) ASDIRECTED XX 08/07/20 13:45 08/07/20 13:51 DC Lacosamide (Vimpat) 100 mg BID PO 08/29/20 09:00 09/04/20 09:25 Lactobacillus Acidophilus (Bacid) 1 ea TID PEG 08/09/20 16:00 08/14/20 09:47 DC 08/13/20 16:45 Lactobacillus Acidophilus (Bacid) 1 ea TID PO 08/14/20 09:00 09/04/20 09:23 Lansoprazole (First-Lansoprazole Oral Suspension) 30 mg DAILY GT 08/08/20 12:00 08/14/20 09:49 DC 08/13/20 09:05 Lansoprazole (First-Lansoprazole Oral Suspension) 30 mg DAILY PO 08/14/20 09:00 08/21/20 10:33 DC 08/21/20 08:51 Levofloxacin (Levaquin) 750 mg DAILY@06 PEG 08/09/20 09:15 08/14/20 09:14 DC 08/13/20 05:47 Lidocaine (Lidoderm Patch) 1 patch DAILY TD 08/08/20 10:15 09/04/20 09:20 Losartan Potassium (Cozaar) 25 mg DAILY PEG 08/08/20 09:00 08/14/20 09:47 DC 08/13/20 09:05 Losartan Potassium (Cozaar) 25 mg DAILY PO 08/14/20 09:00 09/04/20 09:24 Miscellaneous (Unresolved Clarification Entry) SEE LABEL COMMENTS DAILY XX 09/01/20 09:00 09/02/20 07:46 DC Nitrofurantoin Monoh/Nitrofur Macro (Macrobid) 100 mg BID GT 08/10/20 09:00 08/10/20 05:53 DC Non-Formulary Medication ( See Comment Field Below ) REMOVE LIDODERM PATCH DAILY@21 XX 08/08/20 21:00 09/03/20 20:53 Nystatin (Mycostatin Powder, Nystop) 1 dose TID TOP 08/07/20 16:00 09/04/20 09:30 Omeprazole (First-Omeprazole ORAL SUSPENSION) 40 mg DAILY PO 08/21/20 09:00 08/28/20 08:57 DC 08/27/20 07:18 Oxybutynin Chloride (Ditropan) 5 mg BID PEG 08/07/20 21:00 08/14/20 09:47 DC 08/13/20 09:07 Oxybutynin Chloride (Ditropan) 5 mg BID PO 08/14/20 09:00 09/04/20 09:24 Saliva Substitute (Mouthkote) Q1HP PRN MT dry mouth 08/08/20 14:45 08/12/20 10:03 DC 08/10/20 06:05 Saliva Substitute (Mouthkote) 2 sprays TID MT 08/12/20 10:00 09/04/20 09:31 Sucralfate (Carafate) 1 gm TID PO 08/28/20 09:00 09/04/20 09:23 Valproic Acid (Depakene Solution) 650 mg TID PEG 08/07/20 16:00 08/14/20 10:17 DC 08/14/20 00:33 SANTA HOOVER MD Sep 04, 2020 12:26
[2020-09-04 14:00] VITALS: BP 140/76
[2020-09-04 20:00] VITALS: BP 126/60
[2020-09-04] MEDS: **NOTE PATIENT COMMENT** MISC XX SCH (21:00)
--- NOTE | 2020-09-04 23:34 | ECGEPIP ---
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
[2020-09-05] MEDS: REMEDY PHYTOPLEX Z-GUARD PASTE 113GM TUBE (FROM STOREROOM PRODUCT) TOP SCH ×6 (03:36→21:25)
[2020-09-05 06:00] VITALS: BP 144/80
[2020-09-05 07:40] LABS: BASO % 0.6 % (0.0-1.0); EOS # 0.1 10^3/uL (0.0-0.5); EOS % 1.9 % (0.0-3.0); HEMATOCRIT 37.2 % (36.0-47.0); LYMPH # 1.5 10^3/uL (1.5-5.0); LYMPH % 28.1 % (24.0-44.0); MEAN CORPUSCULAR HEMOGLOBIN 29.9 pg (27.0-33.0); MEAN CORPUSCULAR HGB CONC 29.6 g/dl (32.0-36.5); MEAN CORPUSCULAR VOLUME 101.1 fl (80.0-96.0); MONO # 0.9 10^3/uL (0.0-0.8); MONO % 17.3 % (0.0-5.0); NEUTROPHILS # 2.7 10^3/uL (1.5-8.5); NEUTROPHILS % 51.3 % (36.0-66.0); RED BLOOD COUNT 3.68 10^6/uL (4.00-5.40); WHITE BLOOD COUNT 5.2 10^3/uL (4.0-10.0)
[2020-09-05 07:44] LABS: PLATELET COUNT, AUTOMATED 83 10^3/uL (150-450)
[2020-09-05] MEDS: IPRATROPIUM 0.5MG/ALBUTEROL 2.5MG INH SOL UD 3ML (DUONEB) NEB SCH ×3 (08:00→20:16)
[2020-09-05] MEDS: atenoloL 50 MG TAB PO SCH (08:03)
[2020-09-05] MEDS: LACTOBACILLUS ACIDOPHILUS CAP (BACID) PO SCH ×3 (08:12→21:24)
[2020-09-05] MEDS: DIVALPROEX SPRINKLE 125 MG CAP PO SCH (08:12)
[2020-09-05] MEDS: LACOSAMIDE 50 MG TAB (VIMPAT) PO SCH ×2 (08:13→21:24)
[2020-09-05] MEDS: BISACODYL 5 MG TAB PO SCH (08:13)
[2020-09-05] MEDS: SUCRALFATE 1 GM TAB PO SCH ×3 (08:13→21:24)
[2020-09-05] MEDS: LOSARTAN 25 MG TAB PO SCH (08:13)
[2020-09-05] MEDS: LIDOCAINE 5% (LIDODERM) PATCH TD SCH (08:13)
[2020-09-05] MEDS: oxyBUTYnin 5 MG TAB PO SCH ×2 (08:13→21:24)
[2020-09-05] MEDS: APIXABAN 5 MG TAB (ELIQUIS) PO SCH ×2 (08:13→21:24)
[2020-09-05] MEDS: NYSTATIN 100,000 UNITS/GM TOPICAL PWD 15 GM TOP SCH ×3 (08:14→21:28)
[2020-09-05] MEDS: ATORVASTATIN 20 MG TAB PO SCH (08:14)
[2020-09-05] MEDS: ACETAMINOPHEN 500 MG TAB PO SCH ×3 (08:14→21:24)
[2020-09-05] MEDS: SALIVA SUBSTITUTE(MOUTHKOTE) BTL MT SCH ×3 (08:15→21:27)
--- NOTE | 2020-09-05 09:01 | IPNPDOC ---
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 REVIEW OF SYSTEMS: The following is a completed review of systems and has been reviewed. Review of systems otherwise unremarkable. PAIN: Patient self reports no pain EYES: difficult to assess EARS, NOSE, & THROAT:+dysphagia (improving) CARDIOVASCULAR: Denies chest pain or palpitations PULMONARY: Denies shortness of breath GASTROINTESTINAL: s/p peg GENITOURINARY: +incontinence MUSCULOSKELETAL: right sided weakness NEUROLOGICAL:right sided paresis, expressive aphasia SKIN: skin breakdown under breasts and in abdominal folds, bilat anterior thigh rash (improving) PSYCHIATRIC: Unremarkable All other review of systems found to be negative. PHYSICAL EXAMINATION: VITAL SIGNS: Please see below. GENERAL: Pleasant and cooperative. No acute distress. HEENT: PERRL. Extraocular movements intact. Clear conjunctiva CARDIOVASCULAR: Regular rate and rhythm. No murmurs, rubs, or gallops LUNGS: Clear to auscultation bilaterally. No wheezes. No rhonchi ABDOMEN: Soft, nontender, nondistended. Positive bowel sounds. Normal active bowel sounds, former PEG site c/d/i no drainage NEUROLOGICAL: +expressive aphasia, able to follow commands, Sensation grossly intact EXTREMITIES: 5/5 strength LUE, 4/5 RUE, 4\\5 strength right lower extremity. 5/5 strength in left lower extremity. SKIN- bilat anterior thighs- blanchable erythematous macules, non-tender ASSESSMENT:80-year-old F with past medical history of stroke, CKD, DM who presents status post left MCA infarct with new onset seizures PLAN: 1. 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 Neuro- s/p left MCA infarct with expressive aphasia, dysphagia, and right sided hemiparesis, c/u Eliquis for AFib, statin for secondary stroke prevention- - recent post-stroke seizure activity with EEG 07/22/20 at [facility] for left temporal rhythmic delta activity, discussed concern for thrombocytopenia with Dr. Norman who recommends tapering patient off Depakote, c/u Vimpat 100mg BID, recs greatly appreciated, Vimpat levels pending -[facility] neuro team aware of changes and will f/u at clinic with Dr. Fountain 3. Cardiac- ECHO 07-23-20 showed Normal global systolic left ventricular function. This study is inadequate for the evaluation of regional wall motion. At least grade 2 diastolic dysfunction without interatrial shunt via bubble study" - new onset Afib c/u eliquis and atenolol -HLD- statin 4. resp- monitor for infection, DUonebs 5. GI ppx- lansoprazole -s/p PEG, removed iatrogenically, c/u oral feeds, abdominal exam benign 6. VAsc- hx of DVT c/u eliquis 7. - + ecoli UTI s/p course of LEvaquin 8. Pain- tylneol standing, c/u lidoderm patch to right shoulder 9. Psych- tapering patient off Buproprion in setting of thrombocytopenia 10. SKin- turn q2h in bed, dressing changes per nursing orders, AFO to be worn only in therapy to avoid skin breakdown -blanchable macular rash on anterior thighs, patient denies pain with palpation, possibly due recent antibiotic use vs viral exanthem also may be due to depakote, unlikely due to chg as rash remains since d/c'ing 11. Heme- patient with thrombocytopenia most likely due to Depakote which is being tapered -platelets remain stable 70-80s, no active bleeding, and per Dr. Mohr who has been consulted believes patient reasonably protected from bleeding as long as platelet count remains above 50k, will c/u to trend daily- heme recs greatly appreciated, HIT and TTP work-up negative and all other medications that can contribute to thrombocytopenia have been stopped 12. 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 She is a high risk of bleed on the Eliquis for afib and will not be safe for discharge from [facility] level of care until her platelets start to show improvements. Allergies Coded Allergies: No Known Allergies (Unverified , 08/07/20) Vital Signs Vital Signs Date Time Temp Pulse Resp B/P (MAP) Pulse Ox O2 Delivery O2 Flow Rate FiO2 09/05/20 08:13 144/80 09/05/20 08:03 56 09/05/20 06:00 97.0 18 99 Room Air Laboratory Data CBC/BMP Laboratory Tests 09/05/20 07:15 Labs 24H Laboratory Tests 2 09/05/20 07:15: Immature Granulocyte % (Auto) 0.8, Neutrophils (%) (Auto) 51.3, Lymphocytes (%) (Auto) 28.1, Monocytes (%) (Auto) 17.3H, Eosinophils (%) (Auto) 1.9, Basophils (%) (Auto) 0.6, Neutrophils # (Auto) 2.7, Lymphocytes # (Auto) 1.5, Monocytes # (Auto) 0.9H, Eosinophils # (Auto) 0.1, Basophils # (Auto) 0.0, Nucleated Red Blood Cells % (auto) 0.0, Immature Platelet Fraction 2.6 Current Medications Current Medications Current Medications Medications (Trade) Dose Ordered Sig/Brenda Route PRN Reason Start Time Stop Time Status Last Admin Dose Admin Acetaminophen (Tylenol Suspension) 650 mg Q4HP PRN GT PAIN OR FEVER 08/07/20 13:00 08/09/20 16:32 DC 08/09/20 16:17 Acetaminophen (Tylenol Suspension) 650 mg Q4HP PRN GT PAIN / FEVER 08/07/20 13:00 UNV Acetaminophen (Tylenol Suspension) 975 mg TID GT 08/09/20 21:00 08/14/20 09:49 DC 08/13/20 16:45 Acetaminophen (Tylenol Tab) 1,000 mg TID PO 08/14/20 09:00 09/05/20 08:14 Albuterol/ Ipratropium (Duoneb (Ipr 0.5mg/Alb 2.5mg)) 3 ml RTID NEB 08/07/20 14:00 09/04/20 20:41 Apixaban (Eliquis) 5 mg BID PEG 08/07/20 21:00 08/14/20 09:51 DC 08/13/20 09:05 Apixaban (Eliquis) 5 mg BID PO 08/14/20 09:00 09/05/20 08:13 Atenolol (Tenormin) 50 mg DAILY PEG 08/08/20 09:00 08/14/20 09:47 DC 08/13/20 09:05 Atenolol (Tenormin) 50 mg DAILY PO 08/14/20 09:00 09/04/20 09:25 Atorvastatin Calcium (Lipitor) 40 mg DAILY PEG 08/08/20 09:00 08/14/20 09:47 DC 08/13/20 09:05 Atorvastatin Calcium (Lipitor) 40 mg DAILY PO 08/14/20 09:00 09/05/20 08:14 Bisacodyl (Dulcolax Suppository) 10 mg DAILY AR 08/08/20 09:00 08/12/20 12:53 DC 08/11/20 09:40 Bisacodyl (Dulcolax Suppository) 10 mg DAILY PRN AR constipaion 08/12/20 13:00 Bisacodyl (Dulcolax Suppository) 10 mg DAILYPRN PRN AR CONSTIPATION 08/16/20 19:00 Cancel Bisacodyl (Dulcolax Tab) 5 mg DAILY PO 08/16/20 09:00 09/05/20 08:13 Bupropion HCl (Wellbutrin) 50 mg BID PO 08/07/20 21:00 08/29/20 11:14 DC 08/29/20 08:37 Bupropion HCl (Wellbutrin) 50 mg DAILY PO 08/30/20 09:00 09/02/20 09:46 DC 09/02/20 08:34 Dextrose (Dextrose 50%) 25 ml ASDIRECTED PRN IV SEE LABEL COMMENTS 08/07/20 13:00 Divalproex Sodium (Depakote Sprinkles) 500 mg BID PO 08/29/20 21:00 09/05/20 09:01 09/05/20 08:12 Divalproex Sodium (Depakote Sprinkles) 500 mg DAILY PO 09/06/20 09:00 09/12/20 09:01 Divalproex Sodium (Depakote Sprinkles) 1,000 mg BID PO 08/14/20 11:00 08/29/20 11:00 DC 08/29/20 08:40 Docusate Sodium (Colace Liquid) 100 mg BIDP PRN GT CONSTIPATION 12/9/20 13:00 08/14/20 09:53 DC Docusate Sodium (Colace Liquid) 100 mg BIDP PRN PO CONSTIPATION 08/14/20 10:00 Glucagon (Glucagon) 1 mg ASDIRECTED PRN SC SEE LABEL COMMENTS 08/07/20 13:00 Glucose (Glucose) 16 GM ASDIRECTED PRN PO SEE LABEL COMMENTS 08/07/20 13:00 Guaifenesin (Robitussin Tab) 400 mg TID PO 08/14/20 09:00 08/29/20 10:00 DC 08/29/20 08:38 Guaifenesin (Robitussin) 5 ml TID PEG 08/07/20 16:00 08/14/20 09:51 DC 08/13/20 16:45 Home Med (Med Rec Complete!) ASDIRECTED XX 08/07/20 13:45 08/07/20 13:51 DC Lacosamide (Vimpat) 100 mg BID PO 08/29/20 09:00 09/05/20 08:13 Lactobacillus Acidophilus (Bacid) 1 ea TID PEG 08/09/20 16:00 08/14/20 09:47 DC 08/13/20 16:45 Lactobacillus Acidophilus (Bacid) 1 ea TID PO 08/14/20 09:00 09/05/20 08:12 Lansoprazole (First-Lansoprazole Oral Suspension) 30 mg DAILY GT 08/08/20 12:00 08/14/20 09:49 DC 08/13/20 09:05 Lansoprazole (First-Lansoprazole Oral Suspension) 30 mg DAILY PO 08/14/20 09:00 08/21/20 10:33 DC 08/21/20 08:51 Levofloxacin (Levaquin) 750 mg DAILY@06 PEG 08/09/20 09:15 08/14/20 09:14 DC 08/13/20 05:47 Lidocaine (Lidoderm Patch) 1 patch DAILY TD 08/08/20 10:15 09/05/20 08:13 Losartan Potassium (Cozaar) 25 mg DAILY PEG 08/08/20 09:00 08/14/20 09:47 DC 08/13/20 09:05 Losartan Potassium (Cozaar) 25 mg DAILY PO 08/14/20 09:00 09/05/20 08:13 Miscellaneous (Unresolved Clarification Entry) SEE LABEL COMMENTS DAILY XX 09/01/20 09:00 09/02/20 07:46 DC Nitrofurantoin Monoh/Nitrofur Macro (Macrobid) 100 mg BID GT 08/10/20 09:00 08/10/20 05:53 DC Non-Formulary Medication ( See Comment Field Below ) REMOVE LIDODERM PATCH DAILY@21 XX 08/08/20 21:00 09/04/20 21:00 Nystatin (Mycostatin Powder, Nystop) 1 dose TID TOP 08/07/20 16:00 09/05/20 08:14 Omeprazole (First-Omeprazole ORAL SUSPENSION) 40 mg DAILY PO 08/21/20 09:00 08/28/20 08:57 DC 08/27/20 07:18 Oxybutynin Chloride (Ditropan) 5 mg BID PEG 08/07/20 21:00 08/14/20 09:47 DC 08/13/20 09:07 Oxybutynin Chloride (Ditropan) 5 mg BID PO 08/14/20 09:00 09/05/20 08:13 Saliva Substitute (Mouthkote) Q1HP PRN MT dry mouth 08/08/20 14:45 08/12/20 10:03 DC 08/10/20 06:05 Saliva Substitute (Mouthkote) 2 sprays TID MT 08/12/20 10:00 09/05/20 08:15 Sucralfate (Carafate) 1 gm TID PO 08/28/20 09:00 09/05/20 08:13 Valproic Acid (Depakene Solution) 650 mg TID PEG 08/07/20 16:00 08/14/20 10:17 DC 08/14/20 00:33 SANTA HOOVER MD Sep 05, 2020 09:01
[2020-09-05 14:00] VITALS: BP 138/74
[2020-09-05 20:00] VITALS: BP 145/70
[2020-09-05] MEDS: **NOTE PATIENT COMMENT** MISC XX SCH (21:00)
[2020-09-06] MEDS: REMEDY PHYTOPLEX Z-GUARD PASTE 113GM TUBE (FROM STOREROOM PRODUCT) TOP SCH ×6 (01:19→22:07)
[2020-09-06 05:33] VITALS: BP 148/68
[2020-09-06] MEDS: IPRATROPIUM 0.5MG/ALBUTEROL 2.5MG INH SOL UD 3ML (DUONEB) NEB SCH ×3 (07:15→20:54)
[2020-09-06 08:12] LABS: BASO % 0.4 % (0.0-1.0); EOS # 0.1 10^3/uL (0.0-0.5); EOS % 1.6 % (0.0-3.0); HEMATOCRIT 38.7 % (36.0-47.0); LYMPH # 1.9 10^3/uL (1.5-5.0); LYMPH % 34.9 % (24.0-44.0); MEAN CORPUSCULAR HEMOGLOBIN 29.3 pg (27.0-33.0); MEAN CORPUSCULAR HGB CONC 28.4 g/dl (32.0-36.5); MEAN CORPUSCULAR VOLUME 103.2 fl (80.0-96.0); MONO # 0.9 10^3/uL (0.0-0.8); NEUTROPHILS # 2.6 10^3/uL (1.5-8.5); NEUTROPHILS % 46.7 % (36.0-66.0); RED BLOOD COUNT 3.75 10^6/uL (4.00-5.40); WHITE BLOOD COUNT 5.6 10^3/uL (4.0-10.0)
[2020-09-06 08:13] LABS: PLATELET COUNT, AUTOMATED 92 10^3/uL (150-450)
[2020-09-06] MEDS: SALIVA SUBSTITUTE(MOUTHKOTE) BTL MT SCH ×3 (08:46→22:07)
[2020-09-06] MEDS: LIDOCAINE 5% (LIDODERM) PATCH TD SCH (08:46)
[2020-09-06] MEDS: DIVALPROEX SPRINKLE 125 MG CAP PO SCH (08:47)
[2020-09-06] MEDS: oxyBUTYnin 5 MG TAB PO SCH ×2 (08:48→22:06)
[2020-09-06] MEDS: LOSARTAN 25 MG TAB PO SCH (08:48)
[2020-09-06] MEDS: APIXABAN 5 MG TAB (ELIQUIS) PO SCH ×2 (08:48→22:06)
[2020-09-06] MEDS: SUCRALFATE 1 GM TAB PO SCH ×3 (08:48→22:04)
[2020-09-06] MEDS: LACTOBACILLUS ACIDOPHILUS CAP (BACID) PO SCH ×3 (08:48→22:05)
[2020-09-06] MEDS: BISACODYL 5 MG TAB PO SCH (08:48)
[2020-09-06] MEDS: atenoloL 50 MG TAB PO SCH (08:49)
[2020-09-06] MEDS: LACOSAMIDE 50 MG TAB (VIMPAT) PO SCH ×2 (08:49→22:05)
[2020-09-06] MEDS: ATORVASTATIN 20 MG TAB PO SCH (08:49)
[2020-09-06] MEDS: ACETAMINOPHEN 500 MG TAB PO SCH ×3 (08:51→22:05)
[2020-09-06] MEDS: NYSTATIN 100,000 UNITS/GM TOPICAL PWD 15 GM TOP SCH ×3 (08:51→22:07)
[2020-09-06 08:58] LABS: BLOOD UREA NITROGEN 23 MG/DL (7-18); CALCIUM LEVEL 8.3 MG/DL (8.8-10.2); CARBON DIOXIDE LEVEL 22 MEQ/L (21-32); CHLORIDE LEVEL 109 MEQ/L (98-107); CREATININE FOR GFR 0.93 MG/DL (0.55-1.30); GLOMERULAR FILTRATION RATE > 60.0 (>39); GLUCOSE, FASTING 105 MG/DL (70-100); POTASSIUM SERUM 4.2 MEQ/L (3.5-5.1); SODIUM LEVEL 137 MEQ/L (136-145)
--- NOTE | 2020-09-06 13:54 | IPNPDOC ---
PM&R Progress Note DATE OF SERVICE: Sep 06, 2020 Civil Engineering Intern Progress Note Subjective: Patient seen in her room and agrees her legs seem more swollen. She seemed to say she had been on lasix in the past (unclear though due to expressive aphasi a). REVIEW OF SYSTEMS: The following is a completed review of systems and has been reviewed. Review of systems otherwise unremarkable. PAIN: Patient self reports no pain EYES: difficult to assess EARS, NOSE, & THROAT:+dysphagia (improving) CARDIOVASCULAR: Denies chest pain or palpitations PULMONARY: Denies shortness of breath GASTROINTESTINAL: s/p peg GENITOURINARY: +incontinence MUSCULOSKELETAL: right sided weakness NEUROLOGICAL:right sided paresis, expressive aphasia SKIN: skin breakdown under breasts and in abdominal folds, bilat anterior thigh rash (improving) PSYCHIATRIC: Unremarkable All other review of systems found to be negative. PHYSICAL EXAMINATION: VITAL SIGNS: Please see below. GENERAL: Pleasant and cooperative. No acute distress. HEENT: PERRL. Extraocular movements intact. Clear conjunctiva CARDIOVASCULAR: Regular rate and rhythm. No murmurs, rubs, or gallops LUNGS: Clear to auscultation bilaterally. No wheezes. No rhonchi ABDOMEN: Soft, nontender, nondistended. Positive bowel sounds. Normal active bowel sounds, former PEG site c/d/i no drainage NEUROLOGICAL: +expressive aphasia, able to follow commands, Sensation grossly intact EXTREMITIES: 5/5 strength LUE, 4/5 RUE, 4\\5 strength right lower extremity. 5/5 strength in left lower extremity. +bilat LE edema SKIN- bilat anterior thighs- blanchable erythematous macules, non-tender ASSESSMENT:80-year-old F with past medical history of stroke, CKD, DM who presents status post left MCA infarct with new onset seizures PLAN: 1. Rehab- PT/OT advance mobility and ADLs, maintain ROM/stretch/strengthen all 4 limbs- multipodus boot to right foot-will contact fat purification worker for custom made AFO prior to discharge, patient currently using old one, patient better able to move right side -CLOTH CUTTER- patient with expressive aphasia and dysphagia, advanced to level 2 and thins 2. Neuro- s/p left MCA infarct with expressive aphasia, dysphagia, and right sided hemiparesis, c/u Eliquis for AFib, statin for secondary stroke prevention- - recent post-stroke seizure activity with EEG 07/22/20 at [facility] + for left temporal rhythmic delta activity, discussed concern for thrombocytopenia with Dr. Norman who recommends tapering patient off Depakote, c/u Vimpat 100mg BID, recs greatly appreciated, Vimpat level 5, will recheck next week -[facility] neuro team aware of changes and will f/u at clinic with Dr. Fountain 3. Cardiac- ECHO 07-23-20 showed Normal global systolic left ventricular function. This study is inadequate for the evaluation of regional wall motion. At least grade 2 diastolic dysfunction without interatrial shunt via bubble study"- will start lasix 20mg daily and fluid restrict now that patient is eating well - new onset Afib c/u eliquis and atenolol -HLD- statin 4. resp- monitor for infection, DUonebs 5. GI ppx- lansoprazole -s/p PEG, removed iatrogenically, c/u oral feeds, abdominal exam benign 6. VAsc- hx of DVT c/u eliquis 7. - + ecoli UTI s/p course of LEvaquin 8. Pain- tylneol standing, c/u lidoderm patch to right shoulder 9. Psych- tapering patient off Buproprion in setting of thrombocytopenia 10. SKin- turn q2h in bed, dressing changes per nursing orders, AFO to be worn only in therapy to avoid skin breakdown -blanchable macular rash on anterior thighs, patient denies pain with palpation, possibly due recent antibiotic use vs viral exanthem also may be due to depakote, unlikely due to chg as rash remains since d/c'ing 11. Heme- patient with thrombocytopenia most likely due to Depakote which is being tapered -platelets remain stable 70-80s, no active bleeding, and per Dr. Mohr who has been consulted believes patient reasonably protected from bleeding as long as platelet count remains above 50k, will c/u to trend daily- heme recs greatly appreciated, HIT and TTP work-up negative and all other medications that can contribute to thrombocytopenia have been stopped 12. Dispo- patient still making improvements in therapy and requires PT/OT and CLOTH CUTTER for her deficits as her expressive aphasia is very profound, she also needs to be closely monitored in a medical setting while cross tapering her seizure meds that have caused her thrombocytopenia. She is a high risk of bleed on the Eliquis for afib and will not be safe for discharge from [facility] level of care until her platelets start to show improvements. Allergies Coded Allergies: No Known Allergies (Unverified , 08/07/20) Vital Signs Vital Signs Date Time Temp Pulse Resp B/P (MAP) Pulse Ox O2 Delivery O2 Flow Rate FiO2 09/06/20 08:49 68 148/68 09/06/20 05:33 99.3 18 98 Room Air Laboratory Data CBC/BMP Laboratory Tests 09/06/20 07:56 Labs 24H Laboratory Tests 2 09/06/20 07:56: Immature Granulocyte % (Auto) 0.4, Neutrophils (%) (Auto) 46.7, Lymphocytes (%) (Auto) 34.9, Monocytes (%) (Auto) 16.0H, Eosinophils (%) (Auto) 1.6, Basophils (%) (Auto) 0.4, Neutrophils # (Auto) 2.6, Lymphocytes # (Auto) 1.9, Monocytes # (Auto) 0.9H, Eosinophils # (Auto) 0.1, Basophils # (Auto) 0.0, Nucleated Red Blood Cells % (auto) 0.0, Immature Platelet Fraction 2.3, Anion Gap 6L, Glomerular Filtration Rate > 60.0, Calcium Level 8.3L Current Medications Current Medications Current Medications Medications (Trade) Dose Ordered Sig/Brenda Route PRN Reason Start Time Stop Time Status Last Admin Dose Admin Acetaminophen (Tylenol Suspension) 650 mg Q4HP PRN GT PAIN OR FEVER 08/07/20 13:00 08/09/20 16:32 DC 08/09/20 16:17 Acetaminophen (Tylenol Suspension) 650 mg Q4HP PRN GT PAIN / FEVER 08/07/20 13:00 UNV Acetaminophen (Tylenol Suspension) 975 mg TID GT 08/09/20 21:00 08/14/20 09:49 DC 08/13/20 16:45 Acetaminophen (Tylenol Tab) 1,000 mg TID PO 08/14/20 09:00 09/06/20 08:51 Albuterol/ Ipratropium (Duoneb (Ipr 0.5mg/Alb 2.5mg)) 3 ml RTID NEB 08/07/20 14:00 09/06/20 13:47 Apixaban (Eliquis) 5 mg BID PEG 08/07/20 21:00 08/14/20 09:51 DC 08/13/20 09:05 Apixaban (Eliquis) 5 mg BID PO 08/14/20 09:00 09/06/20 08:48 Atenolol (Tenormin) 50 mg DAILY PEG 08/08/20 09:00 08/14/20 09:47 DC 08/13/20 09:05 Atenolol (Tenormin) 50 mg DAILY PO 08/14/20 09:00 09/06/20 08:49 Atorvastatin Calcium (Lipitor) 40 mg DAILY PEG 08/08/20 09:00 08/14/20 09:47 DC 08/13/20 09:05 Atorvastatin Calcium (Lipitor) 40 mg DAILY PO 08/14/20 09:00 09/06/20 08:49 Bisacodyl (Dulcolax Suppository) 10 mg DAILY WV 08/08/20 09:00 08/12/20 12:53 DC 08/11/20 09:40 Bisacodyl (Dulcolax Suppository) 10 mg DAILY PRN WV constipaion 08/12/20 13:00 Bisacodyl (Dulcolax Suppository) 10 mg DAILYPRN PRN WV CONSTIPATION 08/16/20 19:00 Cancel Bisacodyl (Dulcolax Tab) 5 mg DAILY PO 08/16/20 09:00 09/06/20 08:48 Bupropion HCl (Wellbutrin) 50 mg BID PO 08/07/20 21:00 08/29/20 11:14 DC 08/29/20 08:37 Bupropion HCl (Wellbutrin) 50 mg DAILY PO 08/30/20 09:00 09/02/20 09:46 DC 09/02/20 08:34 Dextrose (Dextrose 50%) 25 ml ASDIRECTED PRN IV SEE LABEL COMMENTS 08/07/20 13:00 Divalproex Sodium (Depakote Sprinkles) 500 mg BID PO 08/29/20 21:00 09/05/20 09:01 DC 09/05/20 08:12 Divalproex Sodium (Depakote Sprinkles) 500 mg DAILY PO 09/06/20 09:00 09/12/20 09:01 09/06/20 08:47 Divalproex Sodium (Depakote Sprinkles) 1,000 mg BID PO 08/14/20 11:00 08/29/20 11:00 DC 08/29/20 08:40 Docusate Sodium (Colace Liquid) 100 mg BIDP PRN GT CONSTIPATION 08/07/20 13:00 08/14/20 09:53 DC Docusate Sodium (Colace Liquid) 100 mg BIDP PRN PO CONSTIPATION 08/14/20 10:00 Glucagon (Glucagon) 1 mg ASDIRECTED PRN SC SEE LABEL COMMENTS 08/07/20 13:00 Glucose (Glucose) 16 GM ASDIRECTED PRN PO SEE LABEL COMMENTS 08/07/20 13:00 Guaifenesin (Robitussin Tab) 400 mg TID PO 08/14/20 09:00 08/29/20 10:00 DC 08/29/20 08:38 Guaifenesin (Robitussin) 5 ml TID PEG 08/07/20 16:00 08/14/20 09:51 DC 08/13/20 16:45 Home Med (Med Rec Complete!) ASDIRECTED XX 08/07/20 13:45 08/07/20 13:51 DC Lacosamide (Vimpat) 100 mg BID PO 08/29/20 09:00 09/06/20 08:49 Lactobacillus Acidophilus (Bacid) 1 ea TID PEG 08/09/20 16:00 08/14/20 09:47 DC 08/13/20 16:45 Lactobacillus Acidophilus (Bacid) 1 ea TID PO 08/14/20 09:00 09/06/20 08:48 Lansoprazole (First-Lansoprazole Oral Suspension) 30 mg DAILY GT 08/08/20 12:00 08/14/20 09:49 DC 08/13/20 09:05 Lansoprazole (First-Lansoprazole Oral Suspension) 30 mg DAILY PO 08/14/20 09:00 08/21/20 10:33 DC 08/21/20 08:51 Levofloxacin (Levaquin) 750 mg DAILY@06 PEG 08/09/20 09:15 08/14/20 09:14 DC 08/13/20 05:47 Lidocaine (Lidoderm Patch) 1 patch DAILY TD 08/08/20 10:15 09/06/20 08:46 Losartan Potassium (Cozaar) 25 mg DAILY PEG 08/08/20 09:00 08/14/20 09:47 DC 08/13/20 09:05 Losartan Potassium (Cozaar) 25 mg DAILY PO 08/14/20 09:00 09/06/20 08:48 Miscellaneous (Unresolved Clarification Entry) SEE LABEL COMMENTS DAILY XX 09/01/20 09:00 09/02/20 07:46 DC Nitrofurantoin Monoh/Nitrofur Macro (Macrobid) 100 mg BID GT 08/10/20 09:00 08/10/20 05:53 DC Non-Formulary Medication ( See Comment Field Below ) REMOVE LIDODERM PATCH DAILY@ XX 08/08/20 21:00 09/04/20 21:00 Nystatin (Mycostatin Powder, Nystop) 1 dose TID TOP 08/07/20 16:00 09/06/20 08:51 Omeprazole (First-Omeprazole ORAL SUSPENSION) 40 mg DAILY PO 08/21/20 09:00 08/28/20 08:57 DC 08/27/20 07:18 Oxybutynin Chloride (Ditropan) 5 mg BID PEG 08/07/20 21:00 08/14/20 09:47 DC 08/13/20 09:07 Oxybutynin Chloride (Ditropan) 5 mg BID PO 08/14/20 09:00 09/06/20 08:48 Saliva Substitute (Mouthkote) Q1HP PRN MT dry mouth 08/08/20 14:45 08/12/20 10:03 DC 08/10/20 06:05 Saliva Substitute (Mouthkote) 2 sprays TID MT 08/12/20 10:00 09/06/20 08:46 Sucralfate (Carafate) 1 gm TID PO 08/28/20 09:00 09/06/20 08:48 Valproic Acid (Depakene Solution) 650 mg TID PEG 08/07/20 16:00 08/14/20 10:17 DC 08/14/20 00:33 SANTA HOOVER MD Sep 06, 2020 13:54
[2020-09-06 14:00] VITALS: BP 116/70
[2020-09-06] MEDS: FUROSEMIDE 20 MG TAB PO SCH (14:58)
[2020-09-06 20:39] VITALS: BP 145/65
[2020-09-06] MEDS: **NOTE PATIENT COMMENT** MISC XX SCH (22:07)
[2020-09-07] MEDS: REMEDY PHYTOPLEX Z-GUARD PASTE 113GM TUBE (FROM STOREROOM PRODUCT) TOP SCH ×6 (01:12→22:10)
[2020-09-07 06:00] VITALS: BP 150/76
[2020-09-07] MEDS: IPRATROPIUM 0.5MG/ALBUTEROL 2.5MG INH SOL UD 3ML (DUONEB) NEB SCH ×3 (07:21→20:54)
[2020-09-07] MEDS: SALIVA SUBSTITUTE(MOUTHKOTE) BTL MT SCH ×3 (09:15→22:10)
[2020-09-07] MEDS: APIXABAN 5 MG TAB (ELIQUIS) PO SCH ×2 (09:15→22:05)
[2020-09-07] MEDS: DIVALPROEX SPRINKLE 125 MG CAP PO SCH (09:15)
[2020-09-07] MEDS: ACETAMINOPHEN 500 MG TAB PO SCH ×3 (09:16→22:04)
[2020-09-07] MEDS: LOSARTAN 25 MG TAB PO SCH (09:16)
[2020-09-07] MEDS: ATORVASTATIN 20 MG TAB PO SCH (09:17)
[2020-09-07] MEDS: BISACODYL 5 MG TAB PO SCH (09:17)
[2020-09-07] MEDS: oxyBUTYnin 5 MG TAB PO SCH ×2 (09:17→22:05)
[2020-09-07] MEDS: FUROSEMIDE 20 MG TAB PO SCH (09:17)
[2020-09-07] MEDS: LACTOBACILLUS ACIDOPHILUS CAP (BACID) PO SCH ×3 (09:18→22:05)
[2020-09-07] MEDS: SUCRALFATE 1 GM TAB PO SCH ×3 (09:18→22:04)
[2020-09-07] MEDS: atenoloL 50 MG TAB PO SCH (09:18)
[2020-09-07] MEDS: NYSTATIN 100,000 UNITS/GM TOPICAL PWD 15 GM TOP SCH ×3 (09:18→22:09)
[2020-09-07] MEDS: LACOSAMIDE 50 MG TAB (VIMPAT) PO SCH ×2 (09:19→22:09)
[2020-09-07] MEDS: LIDOCAINE 5% (LIDODERM) PATCH TD SCH (09:19)
[2020-09-07 10:34] LABS: BASO % 0.5 % (0.0-1.0); EOS # 0.1 10^3/uL (0.0-0.5); EOS % 1.3 % (0.0-3.0); HEMATOCRIT 41.7 % (36.0-47.0); LYMPH # 1.2 10^3/uL (1.5-5.0); LYMPH % 20.3 % (24.0-44.0); MEAN CORPUSCULAR HEMOGLOBIN 30.3 pg (27.0-33.0); MEAN CORPUSCULAR HGB CONC 28.8 g/dl (32.0-36.5); MEAN CORPUSCULAR VOLUME 105.3 fl (80.0-96.0); MONO # 0.7 10^3/uL (0.0-0.8); MONO % 12.2 % (0.0-5.0); NEUTROPHILS % 65.5 % (36.0-66.0); PLATELET COUNT, AUTOMATED 121 10^3/uL (150-450); RED BLOOD COUNT 3.96 10^6/uL (4.00-5.40); WHITE BLOOD COUNT 6.1 10^3/uL (4.0-10.0)
[2020-09-07 14:00] VITALS: BP 142/67
[2020-09-07 21:00] VITALS: BP 147/72
[2020-09-07] MEDS: **NOTE PATIENT COMMENT** MISC XX SCH (22:10)
[2020-09-08] MEDS: REMEDY PHYTOPLEX Z-GUARD PASTE 113GM TUBE (FROM STOREROOM PRODUCT) TOP SCH ×6 (01:42→20:53)
[2020-09-08 05:11] VITALS: BP 168/78
[2020-09-08] MEDS: IPRATROPIUM 0.5MG/ALBUTEROL 2.5MG INH SOL UD 3ML (DUONEB) NEB SCH ×3 (07:14→20:24)
[2020-09-08 07:22] LABS: BASO % 0.4 % (0.0-1.0); EOS # 0.1 10^3/uL (0.0-0.5); EOS % 2.1 % (0.0-3.0); HEMATOCRIT 38.5 % (36.0-47.0); HEMOGLOBIN 11.2 g/dl (12.0-15.5); LYMPH # 1.5 10^3/uL (1.5-5.0); LYMPH % 30.6 % (24.0-44.0); MEAN CORPUSCULAR HGB CONC 29.1 g/dl (32.0-36.5); MEAN CORPUSCULAR VOLUME 103.2 fl (80.0-96.0); MONO # 0.7 10^3/uL (0.0-0.8); MONO % 14.7 % (0.0-5.0); NEUTROPHILS # 2.5 10^3/uL (1.5-8.5); NEUTROPHILS % 51.8 % (36.0-66.0); PLATELET COUNT, AUTOMATED 124 10^3/uL (150-450); RED BLOOD COUNT 3.73 10^6/uL (4.00-5.40); WHITE BLOOD COUNT 4.8 10^3/uL (4.0-10.0)
[2020-09-08] MEDS: SALIVA SUBSTITUTE(MOUTHKOTE) BTL MT SCH ×3 (08:34→20:53)
[2020-09-08] MEDS: DIVALPROEX SPRINKLE 125 MG CAP PO SCH (08:35)
[2020-09-08] MEDS: SUCRALFATE 1 GM TAB PO SCH ×3 (08:35→20:53)
[2020-09-08] MEDS: NYSTATIN 100,000 UNITS/GM TOPICAL PWD 15 GM TOP SCH ×3 (08:35→20:54)
[2020-09-08] MEDS: oxyBUTYnin 5 MG TAB PO SCH ×2 (08:36→20:53)
[2020-09-08] MEDS: ACETAMINOPHEN 500 MG TAB PO SCH ×3 (08:36→20:53)
[2020-09-08] MEDS: APIXABAN 5 MG TAB (ELIQUIS) PO SCH ×2 (08:36→20:53)
[2020-09-08] MEDS: LACTOBACILLUS ACIDOPHILUS CAP (BACID) PO SCH ×3 (08:36→20:53)
[2020-09-08] MEDS: ATORVASTATIN 20 MG TAB PO SCH (08:36)
[2020-09-08] MEDS: LACOSAMIDE 50 MG TAB (VIMPAT) PO SCH ×2 (08:37→20:53)
[2020-09-08] MEDS: BISACODYL 5 MG TAB PO SCH (08:37)
[2020-09-08] MEDS: atenoloL 50 MG TAB PO SCH (08:37)
[2020-09-08] MEDS: LOSARTAN 25 MG TAB PO SCH (08:37)
[2020-09-08] MEDS: LIDOCAINE 5% (LIDODERM) PATCH TD SCH (08:38)
[2020-09-08] MEDS: FUROSEMIDE 20 MG TAB PO SCH (08:38)
[2020-09-08 14:00] VITALS: BP 150/68
[2020-09-08 20:00] VITALS: BP 136/64
[2020-09-08] MEDS: **NOTE PATIENT COMMENT** MISC XX SCH (20:54)
[2020-09-09] MEDS: REMEDY PHYTOPLEX Z-GUARD PASTE 113GM TUBE (FROM STOREROOM PRODUCT) TOP SCH ×6 (00:42→21:57)
[2020-09-09 06:00] VITALS: BP 146/65
[2020-09-09] MEDS: IPRATROPIUM 0.5MG/ALBUTEROL 2.5MG INH SOL UD 3ML (DUONEB) NEB SCH ×3 (07:20→20:00)
[2020-09-09] MEDS ORDERED: ELIQ5TAB PO (08:49)
[2020-09-09] MEDS ORDERED: RISATAB3 PO (08:49)
[2020-09-09] MEDS ORDERED: BISAC5TA PO (08:49)
[2020-09-09] MEDS ORDERED: SUCR1TA PO (08:49)
[2020-09-09] MEDS ORDERED: COZA1TAB PO (08:49)
[2020-09-09] MEDS ORDERED: VIMP50TA3 PO (08:49)
[2020-09-09] MEDS ORDERED: ATOR1TAB21 PO (08:49)
[2020-09-09] MEDS ORDERED: ACET-683 PO (08:49)
[2020-09-09] MEDS ORDERED: DIVA1CAP PO (08:49)
[2020-09-09] MEDS ORDERED: FURO20TA2 PO (08:49)
[2020-09-09] MEDS ORDERED: BISA10SU PR (08:49)
[2020-09-09] MEDS ORDERED: OXYB5TAB10 PO (08:49)
[2020-09-09] MEDS ORDERED: ATEN50TA2 PO (08:49)
[2020-09-09] MEDS: DIVALPROEX SPRINKLE 125 MG CAP PO SCH (08:57)
[2020-09-09] MEDS: atenoloL 50 MG TAB PO SCH (08:57)
[2020-09-09] MEDS: APIXABAN 5 MG TAB (ELIQUIS) PO SCH ×2 (08:58→21:55)
[2020-09-09] MEDS: oxyBUTYnin 5 MG TAB PO SCH ×2 (08:58→21:55)
[2020-09-09] MEDS: LACOSAMIDE 50 MG TAB (VIMPAT) PO SCH ×2 (08:58→21:55)
[2020-09-09] MEDS: LOSARTAN 25 MG TAB PO SCH (08:58)
[2020-09-09] MEDS: ACETAMINOPHEN 500 MG TAB PO SCH ×3 (08:58→21:56)
[2020-09-09] MEDS: FUROSEMIDE 20 MG TAB PO SCH (08:58)
[2020-09-09] MEDS: LIDOCAINE 5% (LIDODERM) PATCH TD SCH (08:59)
[2020-09-09] MEDS: LACTOBACILLUS ACIDOPHILUS CAP (BACID) PO SCH ×3 (08:59→21:56)
[2020-09-09] MEDS: ATORVASTATIN 20 MG TAB PO SCH (08:59)
[2020-09-09] MEDS: SUCRALFATE 1 GM TAB PO SCH ×3 (08:59→21:55)
[2020-09-09] MEDS: BISACODYL 5 MG TAB PO SCH (09:00)
[2020-09-09] MEDS: SALIVA SUBSTITUTE(MOUTHKOTE) BTL MT SCH ×3 (09:00→21:57)
[2020-09-09] MEDS: NYSTATIN 100,000 UNITS/GM TOPICAL PWD 15 GM TOP SCH ×3 (09:00→21:57)
[2020-09-09 09:55] LABS: BASO % 0.5 % (0.0-1.0); EOS # 0.1 10^3/uL (0.0-0.5); EOS % 1.5 % (0.0-3.0); HEMATOCRIT 37.9 % (36.0-47.0); HEMOGLOBIN 11.6 g/dl (12.0-15.5); LYMPH # 1.3 10^3/uL (1.5-5.0); LYMPH % 22.9 % (24.0-44.0); MEAN CORPUSCULAR HEMOGLOBIN 30.5 pg (27.0-33.0); MEAN CORPUSCULAR HGB CONC 30.6 g/dl (32.0-36.5); MEAN CORPUSCULAR VOLUME 99.7 fl (80.0-96.0); MONO # 0.8 10^3/uL (0.0-0.8); MONO % 15.2 % (0.0-5.0); NEUTROPHILS # 3.3 10^3/uL (1.5-8.5); NEUTROPHILS % 59.5 % (36.0-66.0); PLATELET COUNT, AUTOMATED 150 10^3/uL (150-450); WHITE BLOOD COUNT 5.5 10^3/uL (4.0-10.0)
[2020-09-09 10:23] LABS: BLOOD UREA NITROGEN 25 MG/DL (7-18); CALCIUM LEVEL 8.3 MG/DL (8.8-10.2); CARBON DIOXIDE LEVEL 27 MEQ/L (21-32); CHLORIDE LEVEL 106 MEQ/L (98-107); CREATININE FOR GFR 0.94 MG/DL (0.55-1.30); GLOMERULAR FILTRATION RATE > 60.0 (>39); GLUCOSE, FASTING 125 MG/DL (70-100); POTASSIUM SERUM 3.8 MEQ/L (3.5-5.1); SODIUM LEVEL 142 MEQ/L (136-145)
--- NOTE | 2020-09-09 10:51 | PMRDS ---
NAME: REYES MARROQUIN [facility] WT ID#: [id number] : 1940 JOB: [id number] SOUTH: 08/07/2020 ACCT: [id number] DOCTOR: SANTA HOOVER MD PMR DISCHARGE SUMMARY DATE OF ADMISSION: 08/07/2020 DATE OF DISCHARGE: 09/09/2020 CHIEF COMPLAINT/DISCHARGE DIAGNOSIS: 1. Stroke with thrombocytopenia. HISTORY OF PRESENT ILLNESS: This is a 80-year-old female with a past medical history of stroke, DVT in the left arm and leg on Xarelto, CKD III, renal cell carcinoma, hypertension, admitted to [facility] on 07/20/20 from [facility] for right sided weakness and aphasia with brain imaging, findings consistent with stroke. MRI on 08/20/2020 showed "acute infarct in the left MCA territory involving the left parietal lobe encephalomalacia due to chronic infarct in the left BRIAN territory and right temporal occipital regions." She was made NPO and received feeds via NG-tube. She had seizure like activity and was started on Keppra and then switched to Depakote due to thrombocytopenia with follow-up MRI on 07/26/20 showing "interval development of new infarct within the left frontoparietal lobe as well as interval increase in the previously seen left parietal lobe infarct. Increased susceptibility infarct within the left parietal lobe in the region of infarct may represent a small component of hemorrhage." She had an autoimmune workup for etiology of stroke but ultimately was deemed due to cardioembolic origin as she was noted to have episodes of atrial fibrillation while on telemetry. She remained NPO and had a PEG placed on 08/02/2020 with severe impairments in mobility and ADLs and deemed medically appropriate for discharge to ARU on 08/07/2020. PAST MEDICAL HISTORY: As per HPI. HOSPITAL COURSE: The patient was admitted and enrolled in comprehensive PT/OT, Speech/Language and Pathology Program. She received 24 hour nursing supervision and weekly team meetings were held to discuss her progress. The patient was followed closely by Speech Language Pathology for her dysphagia and she had an iatrogenic removal of her PEG tube with overall improvement in her ability to swallow and she remained stable on Level 2 and thins. The patient had no further abdominal symptoms following PEG removal and had good p.o. intake during her hospital course. The patient developed thrombocytopenia while on Depakote and the case was discussed with Hematology and Neurology. Her Depakote dosing was tapered while she was started on Vimpat with no new seizure activity and improvements in her thrombocytopenia. The patient did not have any active signs of bleeding and remained safely on Eliquis for her history of DVT and atrial fibrillation. The patient also developed an anterior thigh macular rash on her which was likely due to drug reaction from the Depakote. She was treated for a urinary tract infection with Levaquin and her antidepressant, Bupropion was discontinued as it can also contribute to thrombocytopenia. She made significant and steady gains in therapy and was deemed medically and functionally safe and appropriate for more rehab at a SNF setting. DISCHARGE MEDICATIONS: As per instructions. FUNCTIONAL HISTORY ON DISCHARGE: The patient was contact guard for ambulation and min assist to max assist for dressing. Thank you for this referral.
[2020-09-09 14:00] VITALS: BP 158/79
--- NOTE | 2020-09-09 18:45 | ECGEPIP ---
[facility] Test Date: 2020-09-09 Pat Name: REYES MARROQUIN Department: Room: [place] [address] Gender: Female Durable Medical Equipment Technician: DALTON : 1940 Requested By: SANTA HOOVER Order Number: [id number] Reading MD: Aisha Cagle Measurements Intervals [place] Rate: 62 P: [place]: 0 QRS: -12 QRSD: 73 T: -5 QT: 387 QTc: 394 Interpretive Statements ATRIAL FIBRILLATION LOW QRS VOLTAGE IN PRECORDIAL LEADS POSSIBLE ANTERIOR MYOCARDIAL INFARCTION, OF INDETERMINATE AGE SIMILAR TO 09/03/2020, HR IS SLIGTLY FASTER TODAY Electronically Signed on 09-09-2020 18:44:54 EST by Aisha Cagle
[2020-09-09 20:00] VITALS: BP 147/63
[2020-09-09] MEDS: **NOTE PATIENT COMMENT** MISC XX SCH (21:00)
[2020-09-10] MEDS: REMEDY PHYTOPLEX Z-GUARD PASTE 113GM TUBE (FROM STOREROOM PRODUCT) TOP SCH ×3 (01:13→10:35)
[2020-09-10 06:00] VITALS: BP 146/66
[2020-09-10 07:18] LABS: BASO % 0.5 % (0.0-1.0); EOS # 0.2 10^3/uL (0.0-0.5); EOS % 2.9 % (0.0-3.0); HEMATOCRIT 37.8 % (36.0-47.0); HEMOGLOBIN 11.5 g/dl (12.0-15.5); LYMPH # 1.6 10^3/uL (1.5-5.0); LYMPH % 28.7 % (24.0-44.0); MEAN CORPUSCULAR HEMOGLOBIN 30.5 pg (27.0-33.0); MEAN CORPUSCULAR HGB CONC 30.4 g/dl (32.0-36.5); MEAN CORPUSCULAR VOLUME 100.3 fl (80.0-96.0); MONO # 0.9 10^3/uL (0.0-0.8); MONO % 16.5 % (0.0-5.0); NEUTROPHILS # 2.8 10^3/uL (1.5-8.5); NEUTROPHILS % 50.9 % (36.0-66.0); PLATELET COUNT, AUTOMATED 137 10^3/uL (150-450); RED BLOOD COUNT 3.77 10^6/uL (4.00-5.40); WHITE BLOOD COUNT 5.5 10^3/uL (4.0-10.0)
[2020-09-10] MEDS: IPRATROPIUM 0.5MG/ALBUTEROL 2.5MG INH SOL UD 3ML (DUONEB) NEB SCH (08:00)
--- NOTE | 2020-09-10 08:24 | IPNPDOC ---
PM&R Progress Note DATE OF SERVICE: Sep 09, 2020 Phosphoric Acid Supervisor Progress Note Subjective: Patient seen in her room and understands the plan is for discharge to [facility] today. REVIEW OF SYSTEMS: The following is a completed review of systems and has been reviewed. Review of systems otherwise unremarkable. PAIN: Patient self reports no pain EYES: difficult to assess EARS, NOSE, & THROAT:+dysphagia (improving) CARDIOVASCULAR: Denies chest pain or palpitations PULMONARY: Denies shortness of breath GASTROINTESTINAL: s/p peg GENITOURINARY: +incontinence MUSCULOSKELETAL: right sided weakness NEUROLOGICAL:right sided paresis, expressive aphasia SKIN: skin breakdown under breasts and in abdominal folds, bilat anterior thigh rash (improving) PSYCHIATRIC: Unremarkable All other review of systems found to be negative. PHYSICAL EXAMINATION: VITAL SIGNS: Please see below. GENERAL: Pleasant and cooperative. No acute distress. HEENT: PERRL. Extraocular movements intact. Clear conjunctiva CARDIOVASCULAR: Regular rate and rhythm. No murmurs, rubs, or gallops LUNGS: Clear to auscultation bilaterally. No wheezes. No rhonchi ABDOMEN: Soft, nontender, nondistended. Positive bowel sounds. Normal active bowel sounds, former PEG site c/d/i no drainage NEUROLOGICAL: +expressive aphasia, able to follow commands, Sensation grossly intact EXTREMITIES: 5/5 strength LUE, 4/5 RUE, 4\\5 strength right lower extremity. 5/5 strength in left lower extremity. +bilat LE edema (improving) SKIN- bilat anterior thighs- blanchable erythematous macules, non-tender ASSESSMENT:80-year-old F with past medical history of stroke, CKD, DM who presents status post left MCA infarct with new onset seizures PLAN: 1. Rehab- PT/OT advance mobility and ADLs, maintain ROM/stretch/strengthen all 4 limbs- multipodus boot to right foot-will contact lockstitch sleeve setter for custom made AFO prior to discharge, patient currently using old one, patient better able to move right side -RENAL MEDICINE SPECIALIST- patient with expressive aphasia and dysphagia, advanced to level 2 and thins 2. Neuro- s/p left MCA infarct with expressive aphasia, dysphagia, and right sided hemiparesis, c/u Eliquis for AFib, statin for secondary stroke prevention- - recent post-stroke seizure activity with EEG 07/22/20 at [facility] + for left temporal rhythmic delta activity, discussed concern for thrombocytopenia with Dr. Norman who recommends tapering patient off Depakote, c/u Vimpat 100mg BID, recs greatly appreciated, Vimpat level 5, will recheck next week -[facility] neuro team aware of changes and will f/u at clinic with Dr. Fountain 3. Cardiac- ECHO 07-23-20 showed Normal global systolic left ventricular function. This study is inadequate for the evaluation of regional wall motion. At least grade 2 diastolic dysfunction without interatrial shunt via bubble study"- c/u lasix 20mg daily and fluid res trict now that patient is eating well - new onset Afib c/u eliquis and atenolol -HLD- statin 4. resp- monitor for infection, DUonebs 5. GI ppx- lansoprazole -s/p PEG, removed iatrogenically, c/u oral feeds, abdominal exam benign 6. VAsc- hx of DVT c/u eliquis 7. - + ecoli UTI s/p course of LEvaquin 8. Pain- tylneol standing, c/u lidoderm patch to right shoulder 9. Psych- tapering patient off Buproprion in setting of thrombocytopenia 10. SKin- turn q2h in bed, dressing changes per nursing orders, AFO to be worn only in therapy to avoid skin breakdown -blanchable macular rash on anterior thighs, patient denies pain with palpation, possibly due recent antibiotic use vs viral exanthem also may be due to depakote 11. Heme- patient with thrombocytopenia most likely due to Depakote which is being tapered -platelets improving, 150 today, no active bleeding, and per Dr. Mohr who has been consulted believes patient reasonably protected from bleeding as long as platelet count remains above 50k, will c/u to trend daily- heme recs greatly appreciated, HIT and TTP work-up negative and all other medications that can contribute to thrombocytopenia have been stopped 12. Dispo- patient still making improvements in therapy and requires PT/OT and RENAL MEDICINE SPECIALIST for her deficits as her expressive aphasia is very profound, will benefit from SNF level care Allergies Coded Allergies: No Known Allergies (Unverified , 08/07/20) Vital Signs Vital Signs Date Time Temp Pulse Resp B/P (MAP) Pulse Ox O2 Delivery O2 Flow Rate FiO2 09/10/20 06:00 96.6 58 18 146/66 (92) 98 Room Air Laboratory Data CBC/BMP Laboratory Tests 09/09/20 09:34 09/10/20 07:03 Labs 24H Laboratory Tests 2 09/09/20 09:34: Immature Granulocyte % (Auto) 0.4, Neutrophils (%) (Auto) 59.5, Lymphocytes (%) (Auto) 22.9L, Monocytes (%) (Auto) 15.2H, Eosinophils (%) (Auto) 1.5, Basophils (%) (Auto) 0.5, Neutrophils # (Auto) 3.3, Lymphocytes # (Auto) 1.3L, Monocytes # (Auto) 0.8, Eosinophils # (Auto) 0.1, Basophils # (Auto) 0.0, Nucleated Red Blood Cells % (auto) 0.0, Anion Gap 9, Glomerular Filtration Rate > 60.0, Calcium Level 8.3L 09/09/20 10:15: Coronavirus (COVID-19)(PCR) NEGATIVE 09/10/20 07:03: Immature Granulocyte % (Auto) 0.5, Neutrophils (%) (Auto) 50.9, Lymphocytes (%) (Auto) 28.7, Monocytes (%) (Auto) 16.5H, Eosinophils (%) (Auto) 2.9, Basophils (%) (Auto) 0.5, Neutrophils # (Auto) 2.8, Lymphocytes # (Auto) 1.6, Monocytes # (Auto) 0.9H, Eosinophils # (Auto) 0.2, Basophils # (Auto) 0.0, Nucleated Red Blood Cells % (auto) 0.0 Microbiology Microbiology 09/08/20 Stool Occult Blood (HIRAL) - Final, Complete Current Medications Current Medications Current Medications Medications (Trade) Dose Ordered Sig/Brenda Route PRN Reason Start Time Stop Time Status Last Admin Dose Admin Acetaminophen (Tylenol Suspension) 650 mg Q4HP PRN GT PAIN OR FEVER 08/07/20 13:00 08/09/20 16:32 DC 08/09/20 16:17 Acetaminophen (Tylenol Suspension) 650 mg Q4HP PRN GT PAIN / FEVER 08/07/20 13:00 UNV Acetaminophen (Tylenol Suspension) 975 mg TID GT 08/09/20 21:00 08/14/20 09:49 DC 08/13/20 16:45 Acetaminophen (Tylenol Tab) 1,000 mg TID PO 08/14/20 09:00 09/09/20 21:56 Albuterol/ Ipratropium (Duoneb (Ipr 0.5mg/Alb 2.5mg)) 3 ml RTID NEB 08/07/20 14:00 09/09/20 07:20 Apixaban (Eliquis) 5 mg BID PEG 08/07/20 21:00 08/14/20 09:51 DC 08/13/20 09:05 Apixaban (Eliquis) 5 mg BID PO 08/14/20 09:00 09/09/20 21:55 Atenolol (Tenormin) 50 mg DAILY PEG 08/08/20 09:00 08/14/20 09:47 DC 08/13/20 09:05 Atenolol (Tenormin) 50 mg DAILY PO 08/14/20 09:00 09/09/20 08:57 Atorvastatin Calcium (Lipitor) 40 mg DAILY PEG 08/08/20 09:00 08/14/20 09:47 DC 08/13/20 09:05 Atorvastatin Calcium (Lipitor) 40 mg DAILY PO 08/14/20 09:00 09/09/20 08:59 Bisacodyl (Dulcolax Suppository) 10 mg DAILY WV 08/08/20 09:00 08/12/20 12:53 DC 08/11/20 09:40 Bisacodyl (Dulcolax Suppository) 10 mg DAILY PRN WV constipaion 08/12/20 13:00 Bisacodyl (Dulcolax Suppository) 10 mg DAILYPRN PRN WV CONSTIPATION 08/16/20 19:00 Cancel Bisacodyl (Dulcolax Tab) 5 mg DAILY PO 08/16/20 09:00 09/08/20 08:37 Bupropion HCl (Wellbutrin) 50 mg BID PO 08/07/20 21:00 08/29/20 11:14 DC 08/29/20 08:37 Bupropion HCl (Wellbutrin) 50 mg DAILY PO 08/30/20 09:00 09/02/20 09:46 DC 09/02/20 08:34 Dextrose (Dextrose 50%) 25 ml ASDIRECTED PRN IV SEE LABEL COMMENTS 08/07/20 13:00 Divalproex Sodium (Depakote Sprinkles) 500 mg BID PO 08/29/20 21:00 09/05/20 09:01 DC 09/05/20 08:12 Divalproex Sodium (Depakote Sprinkles) 500 mg DAILY PO 09/06/20 09:00 09/12/20 09:01 09/09/20 08:57 Divalproex Sodium (Depakote Sprinkles) 1,000 mg BID PO 08/14/20 11:00 08/29/20 11:00 DC 08/29/20 08:40 Docusate Sodium (Colace Liquid) 100 mg BIDP PRN GT CONSTIPATION 08/07/20 13:00 08/14/20 09:53 DC Docusate Sodium (Colace Liquid) 100 mg BIDP PRN PO CONSTIPATION 08/14/20 10:00 Furosemide (Lasix) 20 mg DAILY PO 09/06/20 14:00 09/09/20 08:58 Glucagon (Glucagon) 1 mg ASDIRECTED PRN SC SEE LABEL COMMENTS 08/07/20 13:00 Glucose (Glucose) 16 GM ASDIRECTED PRN PO SEE LABEL COMMENTS 08/07/20 13:00 Guaifenesin (Robitussin Tab) 400 mg TID PO 08/14/20 09:00 08/29/20 10:00 DC 08/29/20 08:38 Guaifenesin (Robitussin) 5 ml TID PEG 08/07/20 16:00 08/14/20 09:51 DC 08/13/20 16:45 Home Med (Med Rec Complete!) ASDIRECTED XX 08/07/20 13:45 08/07/20 13:51 DC Lacosamide (Vimpat) 100 mg BID PO 08/29/20 09:00 09/09/20 21:55 Lactobacillus Acidophilus (Bacid) 1 ea TID PEG 08/09/20 16:00 08/14/20 09:47 DC 08/13/20 16:45 Lactobacillus Acidophilus (Bacid) 1 ea TID PO 08/14/20 09:00 09/09/20 21:56 Lansoprazole (First-Lansoprazole Oral Suspension) 30 mg DAILY GT 08/08/20 12:00 08/14/20 09:49 DC 08/13/20 09:05 Lansoprazole (First-Lansoprazole Oral Suspension) 30 mg DAILY PO 08/14/20 09:00 08/21/20 10:33 DC 08/21/20 08:51 Levofloxacin (Levaquin) 750 mg DAILY@06 PEG 08/09/20 09:15 08/14/20 09:14 DC 08/13/20 05:47 Lidocaine (Lidoderm Patch) 1 patch DAILY TD 08/08/20 10:15 09/09/20 08:59 Losartan Potassium (Cozaar) 25 mg DAILY PEG 08/08/20 09:00 08/14/20 09:47 DC 08/13/20 09:05 Losartan Potassium (Cozaar) 25 mg DAILY PO 08/14/20 09:00 09/09/20 08:58 Miscellaneous (Unresolved Clarification Entry) SEE LABEL COMMENTS DAILY XX 09/01/20 09:00 09/02/20 07:46 DC Nitrofurantoin Monoh/Nitrofur Macro (Macrobid) 100 mg BID GT 08/10/20 09:00 08/10/20 05:53 DC Non-Formulary Medication ( See Comment Field Below ) REMOVE LIDODERM PATCH DAILY@21 XX 08/08/20 21:00 09/08/20 20:54 Nystatin (Mycostatin Powder, Nystop) 1 dose TID TOP 08/07/20 16:00 09/09/20 21:57 Omeprazole (First-Omeprazole ORAL SUSPENSION) 40 mg DAILY PO 08/21/20 09:00 08/28/20 08:57 DC 08/27/20 07:18 Oxybutynin Chloride (Ditropan) 5 mg BID PEG 08/07/20 21:00 08/14/20 09:47 DC 08/13/20 09:07 Oxybutynin Chloride (Ditropan) 5 mg BID PO 08/14/20 09:00 09/09/20 21:55 Saliva Substitute (Mouthkote) Q1HP PRN MT dry mouth 08/08/20 14:45 08/12/20 10:03 DC 08/10/20 06:05 Saliva Substitute (Mouthkote) 2 sprays TID MT 08/12/20 10:00 09/09/20 21:57 Sucralfate (Carafate) 1 gm TID PO 08/28/20 09:00 09/09/20 21:55 Valproic Acid (Depakene Solution) 650 mg TID PEG 08/07/20 16:00 08/14/20 10:17 DC 08/14/20 00:33 SANTA HOOVER MD Sep 10, 2020 08:23
[2020-09-10] MEDS: SUCRALFATE 1 GM TAB PO SCH (10:27)
[2020-09-10] MEDS: ACETAMINOPHEN 500 MG TAB PO SCH (10:27)
[2020-09-10] MEDS: oxyBUTYnin 5 MG TAB PO SCH (10:28)
[2020-09-10] MEDS: DIVALPROEX SPRINKLE 125 MG CAP PO SCH (10:29)
[2020-09-10] MEDS: LOSARTAN 25 MG TAB PO SCH (10:29)
[2020-09-10] MEDS: LACTOBACILLUS ACIDOPHILUS CAP (BACID) PO SCH (10:29)
[2020-09-10] MEDS: APIXABAN 5 MG TAB (ELIQUIS) PO SCH (10:30)
[2020-09-10] MEDS: FUROSEMIDE 20 MG TAB PO SCH (10:30)
[2020-09-10] MEDS: ATORVASTATIN 20 MG TAB PO SCH (10:30)
[2020-09-10 10:31] VITALS: BP 168/76
[2020-09-10] MEDS: atenoloL 50 MG TAB PO SCH (10:31)
[2020-09-10] MEDS: LIDOCAINE 5% (LIDODERM) PATCH TD SCH (10:33)
[2020-09-10] MEDS: LACOSAMIDE 50 MG TAB (VIMPAT) PO SCH (10:33)
[2020-09-10] MEDS: BISACODYL 5 MG TAB PO SCH (10:33)
[2020-09-10] MEDS: NYSTATIN 100,000 UNITS/GM TOPICAL PWD 15 GM TOP SCH (10:34)
[2020-09-10] MEDS: SALIVA SUBSTITUTE(MOUTHKOTE) BTL MT SCH (10:34)
== END 2020-09-10 11:50 | DRG 57 ==
LOC: M PM&R 08-07 12:35
PROVIDERS: ADMIT Physical Medicine & Rehabilitation; ATTEND Physical Medicine & Rehabilitation
DX: I69.351 Hemiplegia and hemiparesis following cerebral infarction affecting right dominant side (principal); N39.0 Urinary tract infection, site not specified; I69.398 Other sequelae of cerebral infarction; I48.91 Unspecified atrial fibrillation; N18.30 Chronic kidney disease, stage 3 unspecified; I12.9 Hypertensive chronic kidney disease with stage 1 through stage 4 chronic kidney disease, or unspecified chronic kidney disease; I69.391 Dysphagia following cerebral infarction; R13.10 Dysphagia, unspecified; R32 Unspecified urinary incontinence; I69.320 Aphasia following cerebral infarction; Z74.09 Other reduced mobility; Z85.528 Personal history of other malignant neoplasm of kidney; Z79.01 Long term (current) use of anticoagulants; Z86.718 Personal history of other venous thrombosis and embolism; Z79.899 Other long term (current) drug therapy; Z93.1 Gastrostomy status; K94.29 Other complications of gastrostomy; B96.20 Unspecified Escherichia coli [E. coli] as the cause of diseases classified elsewhere; R56.9 Unspecified convulsions; D69.59 Other secondary thrombocytopenia; T42.6X5A Adverse effect of other antiepileptic and sedative-hypnotic drugs, initial encounter; R21 Rash and other nonspecific skin eruption; D53.9 Nutritional anemia, unspecified; L27.0 Generalized skin eruption due to drugs and medicaments taken internally; T36.8X5A Adverse effect of other systemic antibiotics, initial encounter; E11.22 Type 2 diabetes mellitus with diabetic chronic kidney disease; Z20.822 Contact with and (suspected) exposure to COVID-19

== ENCOUNTER → 2020-09-12 | Outpatient (REF) ==
[~2020-09-12] MED LIST: ACET-683 PO; ATEN50TA2 PO; ATOR1TAB21 PO; ATOR40TA75 GT; BISA10SU PR; BISAC5TA PO; BUPR1TAB52 PO; COZA1TAB PO; DIVA1CAP PO; DOCU5LIQ GT; ELIQ5TAB GT; ELIQ5TAB PO; FURO20TA2 PO; GABA-1171 PO; LOSA25TA14 GT; MILKSUS3 GT; MIRA3350 GT; OXYB5TAB10 GT; OXYB5TAB10 PO; POTA1TAB21 PO; RISATAB3 PO; SENN-85 GT; SUCR1TA PO; VALP250S GT; VIMP50TA3 PO
== END ==
LOC: SKLAB2 12:02
DX: D64.9 Anemia, unspecified (principal)

== ENCOUNTER 2020-09-17 09:34 | Inpatient (IN) | payer MEDICARE ==
[~2020-09-17] VITALS: Ht 160 cm; Wt 92.9 kg
--- NOTE | 2020-09-17 10:15 | REP ---
INDICATION: DYSPNEA/COUGH COMPARISON: 08/07/2020 TECHNIQUE: Portable AP view of the chest FINDINGS: The mediastinum and cardiac silhouette are stable and within normal limits for portable technique. The lung moody demonstrate subtle chronic appearing interstitial changes with possible minimal scattered basilar atelectasis. No focal consolidation, obvious effusion, or pneumothorax. Skeletal structures are stable/intact. IMPRESSION: Stable appearance. Cannot exclude subtle scattered linear atelectasis. <Electronically signed by Sathya Mohamud > 09/17/20 [id number]
[2020-09-17 10:51] LABS: BASO % 0.5 % (0.0-1.0); EOS # 0.1 10^3/uL (0.0-0.5); EOS % 1.6 % (0.0-3.0); HEMATOCRIT 36.8 % (36.0-47.0); HEMOGLOBIN 11.2 g/dl (12.0-15.5); LYMPH # 1.2 10^3/uL (1.5-5.0); LYMPH % 20.3 % (24.0-44.0); MEAN CORPUSCULAR HEMOGLOBIN 30.1 pg (27.0-33.0); MEAN CORPUSCULAR HGB CONC 30.4 g/dl (32.0-36.5); MEAN CORPUSCULAR VOLUME 98.9 fl (80.0-96.0); MONO # 0.5 10^3/uL (0.0-0.8); MONO % 8.2 % (0.0-5.0); NEUTROPHILS # 4.2 10^3/uL (1.5-8.5); NEUTROPHILS % 69.1 % (36.0-66.0); PLATELET COUNT, AUTOMATED 155 10^3/uL (150-450); RED BLOOD COUNT 3.72 10^6/uL (4.00-5.40); WHITE BLOOD COUNT 6.1 10^3/uL (4.0-10.0)
[2020-09-17 11:01] LABS: INR 1.11; PROTHROMBIN TIME 14.6 SECONDS (12.5-14.3)
[2020-09-17 11:30] LABS: ALBUMIN 2.7 GM/DL (3.2-5.2); ALT/SGPT 38 U/L (12-78); BILIRUBIN,DIRECT 0.2 MG/DL (0.0-0.2); BILIRUBIN,TOTAL 0.6 MG/DL (0.2-1.0); BLOOD UREA NITROGEN 17 MG/DL (7-18); CALCIUM LEVEL 8.5 MG/DL (8.8-10.2); CARBON DIOXIDE LEVEL 30 MEQ/L (21-32); CHLORIDE LEVEL 109 MEQ/L (98-107); CK-MB VALUE MASS 1.2 NG/ML (<3.6); CPK CREATINE PHOSPHOKINASE 145 U/L (26-192); CREATININE FOR GFR 0.85 MG/DL (0.55-1.30); GLOMERULAR FILTRATION RATE > 60.0 (>39); GLUCOSE, FASTING 114 MG/DL (70-100); MB/CK RELATIVE INDEX 0.83 (< OR =4); NT-PRO BNP 3153 PG/ML (<450); POTASSIUM SERUM 4.1 MEQ/L (3.5-5.1); SODIUM LEVEL 141 MEQ/L (136-145); THYROXINE (T4) 8.7 UG/DL (4.5-12.0); TROPONIN I < 0.02 NG/ML (< 0.10)
[2020-09-17] MEDS ORDERED: ISOVUE-370 76% 100ML VIAL As Ordered ONE (11:49)
--- NOTE | 2020-09-17 12:33 | REP ---
INDICATION: shortness of breath, recent stroke. COMPARISON: None. TECHNIQUE: CT angiogram chest performed following the intravenous administration of 100 cc of Isovue 370. Sagittal and coronal reconstruction images are performed. The study is limited due to motion. FINDINGS: Lungs: There is mild dependent bibasilar atelectasis/infiltrate. There is mild diffuse interstitial prominence. Few tiny calcified granulomas are seen bilaterally. Mediastinum: No adenopathy. Pulmonary arteries: No evidence of pulmonary embolism. Cyndi: No adenopathy. Axilla: No adenopathy. Pleura: There are small bilateral pleural effusions. Heart: There is mild cardiomegaly. Thoracic aorta: No aneurysm or dissection. Upper abdominal structures: Unremarkable. Visualized osseous structures: There are degenerative changes of the spine with no acute compression deformity. The ribs are not well evaluated due to patient motion. IMPRESSION: No CT evidence of pulmonary embolism. Limited exam due to patient motion. There are small bilateral pleural effusions with mild dependent bibasilar atelectasis/infiltrate. Mild diffuse interstitial prominence. Mild cardiomegaly. <Electronically signed by Ignacio Mckenzie > 09/17/20 [id number]
[2020-09-17] MEDS ORDERED: NITROGLYCERIN 2% OINT 1 GM *U/D* PKT TOP ONE (14:00)
[2020-09-17] MEDS ORDERED: FUROSEMIDE 40MG/4ML VIAL (J1940) IV ONE (14:00)
--- NOTE | 2020-09-17 15:08 | HPEPDOC ---
[facility] Medical History & Physical Date of Admission Sep 17, 2020 Date of Service: Sep 17, 2020 History and Physical CHIEF COMPLAINT: SOB HISTORY OF PRESENT ILLNESS: 80 year old female sent from [facility] [place] for shortness of breath and hypoxia. Patient does not recall any symptoms, however she is not a reliable historian based on previous CVA with residual expressive aphasia. This morning she does not have any medical complaints. She denies SOB, chest pain, ELIAS, abd pain, N/V/D. 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 #HTN #glucose intolerance #HLD #seizure disorder #afib #dysphagia s/p PEG with subsequent removal of PEG ALLERGIES: Please see below. REVIEW OF SYSTEMS: Negative except as per HPI HOME MEDICATIONS: Please see below. PHYSICAL EXAMINATION: VITAL SIGNS: See below General: NAD, lying comfortably in bed HEENT: NC/AT Lungs: CTA B/L Heart: +S1S2, irregular Abd: soft, NT, +BS, obese Ext: trace peripheral edema LABORATORY DATA: See below. MICROBIOLOGY: Please see below. A/P: 80 year old female from [facility] admitted for SOB/hypoxia, extensive PMHx including CVA, Afib, HLD, HTN. #SOB - possibly decompensated heart failure - echocardiogram pending - telemetry monitoring - IV lasix 40 BID - supplemental O2 - I/O's, daily weights #CVA #Afib #HLD #HTN #CKD #DVT prophylaxis Vital Signs Vital Signs Date Time Temp Pulse Resp B/P (MAP) Pulse Ox O2 Delivery O2 Flow Rate FiO2 09/17/20 14:25 183/73 09/17/20 09:49 98.2 66 20 98 Laboratory Data Labs 24H Laboratory Tests 2 09/17/20 09:54: Immature Granulocyte % (Auto) 0.3, Neutrophils (%) (Auto) 69.1H, Lymphocytes (%) (Auto) 20.3L, Monocytes (%) (Auto) 8.2H, Eosinophils (%) (Auto) 1.6, Basophils (%) (Auto) 0.5, Neutrophils # (Auto) 4.2, Lymphocytes # (Auto) 1.2L, Monocytes # (Auto) 0.5, Eosinophils # (Auto) 0.1, Basophils # (Auto) 0.0, Nucleated Red Blood Cells % (auto) 0.0, Prothrombin Time 14.6H, Prothromb Time International Ratio 1.11, Activated Partial Thromboplast Time 43.0H, Anion Gap 2L, Glomerular Filtration Rate > 60.0, Lactic Acid Level 1.6, Calcium Level 8.5L, Total Bilirubin 0.6, Direct Bilirubin 0.2, Aspartate Amino Transf (AST/SGOT) 34, Jacob ne Aminotransferase (ALT/SGPT) 38, Alkaline Phosphatase 64, Total Creatine Kinase 145, Creatine Kinase MB 1.2, Creatine Kinase MB Relative Index 0.83, Troponin I < 0.02, OK-Ohq-E-Type Natriuretic Peptide 3153H, Total Protein 6.0L, Albumin 2.7L, Albumin/Globulin Ratio 0.8L, Thyroid Stimulating Hormone (TSH) 2.940, Thyroxine (T4) 8.7 CBC/BMP Laboratory Tests 09/17/20 09:54 Microbiology Microbiology 09/17/20 Respiratory Virus Panel (PCR) (HIRAL) - Final, Complete 09/17/20 Blood Culture, Received Pending 09/17/20 Blood Culture, Received Pending Home Medications Scheduled Acetaminophen (Acetaminophen) 500 Mg Tablet, 1,000 MG PO TID Apixaban (Eliquis) 5 Mg Tablet, 5 MG PO QHS Aspirin (Aspirin EC) 81 Mg Tablet.dr, 81 MG PO DAILY Atenolol (Atenolol) 25 Mg Tablet, 25 MG PO DAILY Atorvastatin Calcium (Atorvastatin Calcium) 40 Mg Tablet, 40 MG PO QHS Docusate Sodium (Colace) 100 Mg Capsule, 200 MG PO DAILY Ferrous Gluconate (Ferrous Gluconate) 324 Mg Tablet, 324 MG PO DAILY Lacosamide (Vimpat) 100 Mg Tablet, 100 MG PO BID Losartan Potassium (Losartan Potassium) 50 Mg Tablet, 50 MG PO QHS Multivitamins (Thera M Plus Tablet) 1 Each Tablet, 1 TAB PO DAILY Scheduled PRN Bisacodyl (Bisacodyl) 10 Mg Supp.rect, 10 MG LA DAILY PRN for CONSTIPATION Magnesium Hydroxide (Milk of Magnesia) 400 Mg/5 Ml Oral.susp, 10 ML PO DAILY PRN for CONSTIPATION Sodium Phosphate,[place]-Dibasic (Enema) 133 Ml Enema, 1 ANIVAL LA DAILY PRN for CONSTIPATION Allergies Coded Allergies: No Known Allergies (Unverified , 12/9/20) A-FIB/CHADSVASC A-FIB History Current/History of A-Fib/PAF?: Yes Current PO Anticoag Therapy: Yes TIMI TREVINO MD Sep 17, 2020 15:08
[2020-09-17] MEDS ORDERED: VITMTA PO (15:30)
[2020-09-17] MEDS ORDERED: VIMP100T PO (15:30)
[2020-09-17] MEDS ORDERED: ASPI81TA27 PO (15:30)
[2020-09-17] MEDS ORDERED: ELIQ5TAB PO (15:30)
[2020-09-17] MEDS ORDERED: ATOR40TA75 PO (15:30)
[2020-09-17] MEDS ORDERED: ATEN25TA PO (15:30)
[2020-09-17] MEDS ORDERED: BISA10SU20 PR (15:30)
[2020-09-17] MEDS ORDERED: LOSA50TA88 PO (15:30)
[2020-09-17] MEDS ORDERED: ACET-683 PO (15:30)
[2020-09-17] MEDS ORDERED: FERR32TA PO (15:30)
[2020-09-17] MEDS ORDERED: ENEMENE PR (15:30)
[2020-09-17] MEDS ORDERED: COLA100C5 PO (15:30)
[2020-09-17] MEDS ORDERED: MOM30SS2 PO (15:30)
[2020-09-17] MEDS ORDERED: MOM 30ML SUSPENSION UDC PO PRN (16:00)
[2020-09-17] MEDS ORDERED: BISACODYL 10 MG SUPP PR PRN (16:00)
[2020-09-17] MEDS: ACETAMINOPHEN 500 MG TAB PO SCH ×2 (18:23→20:59)
[2020-09-17 20:00] VITALS: BP 163/75
[2020-09-17] MEDS: LOSARTAN 50MG TABLET PO SCH (20:57)
[2020-09-17] MEDS: LACOSAMIDE 50 MG TAB (VIMPAT) PO SCH (21:00)
[2020-09-17] MEDS: ATORVASTATIN 20 MG TAB PO SCH (21:00)
[2020-09-17] MEDS ORDERED: APIXABAN 5 MG TAB (ELIQUIS) PO SCH (21:00)
[2020-09-18] VITALS: BP 144/70
[2020-09-18 04:00] VITALS: BP 132/60
--- NOTE | 2020-09-18 05:34 | ECGEPIP ---
[facility] - ED Test Date: 2020-09-17 Pat Name: REYES MARROQUIN Department: Room: - Gender: Female Digital Intern: : 1940 Requested By: XENIA Ryan Order Number: [id number] Reading MD: Florentino Antonio Measurements Intervals [place] Rate: 55 P: IA: 0 QRS: 82 QRSD: 74 T: 64 QT: 417 QTc: 399 Interpretive Statements ATRIAL FIBRILLATION WITH SLOW VENTRICULAR RESPONSE LOW QRS VOLTAGE POSSIBLE ANTERIOR MYOCARDIAL INFARCTION, PROBABLY OLD SIMILAR TO 09/09/20 Electronically Signed on 09-18-2020 5:34:36 EST by Florentino Antonio
[2020-09-18 06:35] LABS: HEMATOCRIT 36.4 % (36.0-47.0); HEMOGLOBIN 11.4 g/dl (12.0-15.5); MEAN CORPUSCULAR HEMOGLOBIN 29.8 pg (27.0-33.0); MEAN CORPUSCULAR HGB CONC 31.3 g/dl (32.0-36.5); MEAN CORPUSCULAR VOLUME 95.3 fl (80.0-96.0); PLATELET COUNT, AUTOMATED 146 10^3/uL (150-450); RED BLOOD COUNT 3.82 10^6/uL (4.00-5.40); WHITE BLOOD COUNT 4.7 10^3/uL (4.0-10.0)
[2020-09-18 06:48] LABS: BLOOD UREA NITROGEN 15 MG/DL (7-18); CALCIUM LEVEL 8.6 MG/DL (8.8-10.2); CARBON DIOXIDE LEVEL 27 MEQ/L (21-32); CHLORIDE LEVEL 108 MEQ/L (98-107); CREATININE FOR GFR 0.87 MG/DL (0.55-1.30); GLOMERULAR FILTRATION RATE > 60.0 (>39); GLUCOSE, FASTING 93 MG/DL (70-100); NT-PRO BNP 2861 PG/ML (<450); POTASSIUM SERUM 3.5 MEQ/L (3.5-5.1); SODIUM LEVEL 141 MEQ/L (136-145)
[2020-09-18 08:00] VITALS: BP 144/82
[2020-09-18] MEDS: ASPIRIN 81 MG ENTERIC TAB PO SCH (08:40)
[2020-09-18] MEDS: DOCUSATE SODIUM 100MG CAPSULE PO SCH (08:41)
[2020-09-18] MEDS: FUROSEMIDE 40MG/4ML VIAL (J1940) IV SCH ×2 (08:41→16:22)
[2020-09-18] MEDS: FERROUS GLUCONATE 324 MG TAB PO SCH (08:41)
[2020-09-18] MEDS: MULTIVITAMINS/MINERALS THERAP 1 TAB PO SCH (08:41)
[2020-09-18] MEDS: atenoloL 25 MG TAB PO SCH (08:41)
[2020-09-18] MEDS: LACOSAMIDE 50 MG TAB (VIMPAT) PO SCH ×2 (08:41→20:42)
[2020-09-18] MEDS: ACETAMINOPHEN 500 MG TAB PO SCH ×3 (08:42→20:43)
[2020-09-18 12:00] VITALS: BP 152/73
--- NOTE | 2020-09-18 12:42 | IPNPDOC ---
Text Note Date of Service The patient was seen on 09/18/20. NOTE Subjective: Patient seen and examined at bedside. No acute overnight events reported. No new medical complaints this morning. Difficult to obtain history given her expressive aphasia. Objective: VITAL SIGNS: See below General: NAD, lying comfortably in bed HEENT: NC/AT Lungs: CTA B/L Heart: +S1S2, irregular Abd: soft, NT, +BS, obese Ext: trace peripheral edema A/P: 80 year old female sent from [facility] for shortness of breath and hypoxia. Patient does not recall any symptoms, however she is not a reliable historian based on previous CVA with residual expressive aphasia. #SOB - possibly decompensated heart failure - echocardiogram pending - telemetry monitoring - IV lasix 40 BID - supplemental O2 - I/O's, daily weights #CVA #Afib #HLD #HTN #CKD #DVT prophylaxis - to determine dosing of Eliquis - as per [facility] she was on qhs dosing instead of BID dosing for afib VS,Fishbone, I+O VS, Fishbone, I+O Laboratory Tests 09/18/20 05:52 Vital Signs Date Time Temp Pulse Resp B/P (MAP) Pulse Ox O2 Delivery O2 Flow Rate FiO2 09/18/20 08:41 70 144/82 09/18/20 08:00 98.3 20 96 Room Air I&O- Last 24 Hours up to 6 AM 09/18/20 06:00 Intake Total 0 ml Output Total 900 ml Balance -900 ml TIMI TREVINO MD Sep 18, 2020 12:42
[2020-09-18 16:00] VITALS: BP 145/70
[2020-09-18 19:26] LABS: CALCIUM LEVEL 8.5 MG/DL (8.8-10.2); CREATININE FOR GFR 1.12 MG/DL (0.55-1.30); MAGNESIUM LEVEL 1.7 MG/DL (1.8-2.4); POTASSIUM SERUM 3.6 MEQ/L (3.5-5.1)
[2020-09-18 20:00] VITALS: BP 159/79
[2020-09-18] MEDS: APIXABAN 5 MG TAB (ELIQUIS) PO SCH (20:42)
[2020-09-18] MEDS: ATORVASTATIN 20 MG TAB PO SCH (20:42)
[2020-09-18] MEDS: LOSARTAN 50MG TABLET PO SCH (20:42)
[2020-09-19 04:00] VITALS: BP 131/73
[2020-09-19 08:00] VITALS: BP 132/88
[2020-09-19 08:02] LABS: MEAN CORPUSCULAR HEMOGLOBIN 30.2 pg (27.0-33.0); MEAN CORPUSCULAR HGB CONC 31.6 g/dl (32.0-36.5); MEAN CORPUSCULAR VOLUME 95.5 fl (80.0-96.0); PLATELET COUNT, AUTOMATED 159 10^3/uL (150-450); RED BLOOD COUNT 3.98 10^6/uL (4.00-5.40); WHITE BLOOD COUNT 4.4 10^3/uL (4.0-10.0)
[2020-09-19 08:32] LABS: CALCIUM LEVEL 8.7 MG/DL (8.8-10.2); CREATININE FOR GFR 0.99 MG/DL (0.55-1.30); GLOMERULAR FILTRATION RATE 57.6 (>39); MAGNESIUM LEVEL 1.9 MG/DL (1.8-2.4); POTASSIUM SERUM 3.5 MEQ/L (3.5-5.1)
[2020-09-19] MEDS: FUROSEMIDE 40MG/4ML VIAL (J1940) IV SCH (09:14)
[2020-09-19 09:15] VITALS: BP 131/73
[2020-09-19] MEDS: ACETAMINOPHEN 500 MG TAB PO SCH (09:15)
[2020-09-19] MEDS: atenoloL 25 MG TAB PO SCH (09:15)
[2020-09-19] MEDS: ASPIRIN 81 MG ENTERIC TAB PO SCH (09:15)
[2020-09-19] MEDS: MULTIVITAMINS/MINERALS THERAP 1 TAB PO SCH (09:15)
[2020-09-19] MEDS: LACOSAMIDE 50 MG TAB (VIMPAT) PO SCH (09:15)
[2020-09-19] MEDS: APIXABAN 5 MG TAB (ELIQUIS) PO SCH (09:15)
[2020-09-19] MEDS: DOCUSATE SODIUM 100MG CAPSULE PO SCH (09:16)
[2020-09-19] MEDS: FERROUS GLUCONATE 324 MG TAB PO SCH (09:16)
[2020-09-19] MEDS ORDERED: FURO40TA2 PO (09:27)
--- NOTE | 2020-09-19 16:39 | DS.PDOC ---
Discharge Summary General Date of Admission Sep 17, 2020 at 15:05 Date of Discharge 09/19/20 Discharge Summary PROCEDURES PERFORMED DURING STAY: [None]. 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 #HTN #glucose intolerance #HLD #seizure disorder #afib #dysphagia s/p PEG with subsequent removal of PEG COMPLICATIONS/CHIEF COMPLAINT: Chf,Hypoxia. Hospital Course: 80 year old female sent from [facility] for shortness of breath and hypoxia. Patient does not recall any symptoms, however she is not a reliable historian based on previous CVA with residual expressive aphasia. She does not have any medical complaints. She denied SOB, chest pain, ELIAS, abd pain, N/V/D. She responded well to diuresis with IV lasix. An echocardiogram was obtained. Case was discussed with her PCP at [facility], and deemed stable for return to [facility] to continue with oral diuretic therapy. DISCHARGE MEDICATIONS: Please see below. ALLERGIES: Please see below. PHYSICAL EXAMINATION ON DISCHARGE: VITAL SIGNS: See below General: NAD, lying comfortably in bed, expressive aphasia, tearful, anxious HEENT: NC/AT Lungs: CTA B/L Heart: +S1S2, irregular Abd: soft, NT, +BS, obese Ext: trace peripheral edema LABORATORY DATA: Please see below. ACTIVITY: [As tolerated]. DISPOSITION: [facility]. DISCHARGE INSTRUCTIONS: 1. Follow with PCP in 3-5 days. DISCHARGE CONDITION: [Stable]. TIME SPENT ON DISCHARGE: 35 minutes. Vital Signs/I&Os Vital Signs Date Time Temp Pulse Resp B/P (MAP) Pulse Ox O2 Delivery O2 Flow Rate FiO2 09/19/20 09:15 68 131/73 09/19/20 08:00 96.7 20 96 Room Air I&O- Last 24 Hours up to 6 AM 09/19/20 05:59 Intake Total 900 ml Output Total 1975 ml Balance -1075 ml Laboratory Data Labs 24H Laboratory Tests 2 09/18/20 18:47: Anion Gap 8, Glomerular Filtration Rate 50.0, Calcium Level 8.5L, Magnesium Level 1.7L 09/18/20 21:21: Bedside Glucose (Misc Panel) 135H 09/19/20 07:29: Anion Gap 11, Glomerular Filtration Rate 57.6, Calcium Level 8.7L, Magnesium Level 1.9, Nucleated Red Blood Cells % (auto) 0.0 09/19/20 10:10: Coronavirus (COVID-19)(PCR) NEGATIVE CBC/BMP Laboratory Tests 09/18/20 18:47 09/19/20 07:29 FSBS Laboratory Tests Test 09/18/20 21:21 Range/Units Bedside Glucose (Misc Panel) 135 83-110 MG/DL Microbiology Microbiology 09/17/20 Respiratory Virus Panel (PCR) (HIRAL) - Final, Complete 09/17/20 Blood Culture - Preliminary, Resulted No Growth after 48 hours. All Specime... 09/17/20 Blood Culture - Preliminary, Resulted No Growth after 48 hours. All Specime... Discharge Medications Scheduled Acetaminophen (Acetaminophen) 500 Mg Tablet, 1,000 MG PO TID, (Reported) Apixaban (Eliquis) 5 Mg Tablet, 5 MG PO BID, (Reported) Aspirin (Aspirin EC) 81 Mg Tablet.dr, 81 MG PO DAILY, (Reported) Atenolol (Atenolol) 25 Mg Tablet, 25 MG PO DAILY, (Reported) Atorvastatin Calcium (Atorvastatin Calcium) 40 Mg Tablet, 40 MG PO QHS, (Reported) Docusate Sodium (Colace) 100 Mg Capsule, 200 MG PO DAILY, (Reported) Ferrous Gluconate (Ferrous Gluconate) 324 Mg Tablet, 324 MG PO DAILY, (Reported) Furosemide (Furosemide) 40 Mg Tablet, 1 TAB PO DAILY Lacosamide (Vimpat) 100 Mg Tablet, 100 MG PO BID, (Reported) Losartan Potassium (Losartan Potassium) 50 Mg Tablet, 50 MG PO QHS, (Reported) Multivitamins (Thera M Plus Tablet) 1 Each Tablet, 1 TAB PO DAILY, (Reported) Scheduled PRN Bisacodyl (Bisacodyl) 10 Mg Supp.rect, 10 MG WI DAILY PRN for CONSTIPATION, (Rep orted) Magnesium Hydroxide (Milk of Magnesia) 400 Mg/5 Ml Oral.susp, 10 ML PO DAILY PRN for CONSTIPATION, (Reported) Sodium Phosphate,Todd-Dibasic (Enema) 133 Ml Enema, 1 ANIVAL [place] DAILY PRN for CONSTIPATION, (Reported) Allergies Coded Allergies: No Known Allergies (Unverified , 08/07/20) TIMI TREVINO MD Sep 19, 2020 16:39
--- NOTE | 2020-09-20 10:57 | ECHO ---
DATE OF PROCEDURE: 09/18/2020 Age: 80 Gender: Female REFERRING PHYSICIAN: Jorge Jackman M.D. PATIENT LOCATION: Room 3225. REASON FOR STUDY: Congestive heart failure. MEASUREMENTS: IVS 1.0 cm LV 3.9 cm LVPW 1.2 cm LA 4.2 cm Aorta 3.6 cm RV 2.6 cm IVC 1.9 cm DOPPLER MEASUREMENT Peak velocity across the aortic valve 1.0 m/s Peak velocity across the LVOT 0.8 m/s Mitral E 1.5 Maximum tricuspid valve velocity 2.6 m/s 2D COMMENTS: 1. Normal left ventricle size, wall thickness, and normal global left ventricular systolic function. The estimated left ventricular systolic ejection fraction is 60% to 65%. 2. Mildly dilated left atrium. The right atrium also appeared to be mildly enlarged. 3. The atrial septum appeared to be normal without evidence of defect or shunt. 4. Normal aortic root. 5. Trace pericardial effusion was noted. No evidence of cardiac tamponade. 6. Normal aortic valve. Mildly calcified mitral annulus with normal anterior mitral valve leaflet motion. Normal tricuspid valve and pulmonic valve. The proximal pulmonary artery branches were not well visualized. 7. The inferior vena cava was normal in size, central venous pressure is probably normal. DOPPLER: It detects moderate mitral regurgitation, mild tricuspid regurgitation, and trace pulmonic regurgitation. The calculated pulmonary artery systolic pressure varied between 30 to 40 mmHg. Assessment of the left ventricular diastolic function was limited. IMPRESSION: 1. Normal global left ventricular systolic function. Assessment of the left ventricular diastolic function was limited. 2. Mitral annular calcification with a mildly enlarged left atrium and moderate mitral regurgitation. 3. Mild tricuspid regurgitation with mild pulmonary hypertension. The right atrium also appeared to be mildly enlarged in limited views. 4. Trace pulmonic regurgitation. 5. Trace pericardial effusion, no evidence of cardiac tamponade. [facility]
== END 2020-09-19 11:56 | DRG 292 ==
LOC: M ED 09:34 → M ED INP 15:05 → M PCU 18:03
PROVIDERS: ADMIT Internal Medicine; ATTEND Internal Medicine
DX: I13.0 Hypertensive heart and chronic kidney disease with heart failure and stage 1 through stage 4 chronic kidney disease, or unspecified chronic kidney disease (principal); I69.351 Hemiplegia and hemiparesis following cerebral infarction affecting right dominant side; I50.9 Heart failure, unspecified; N18.9 Chronic kidney disease, unspecified; E78.5 Hyperlipidemia, unspecified; G40.909 Epilepsy, unspecified, not intractable, without status epilepticus; I69.320 Aphasia following cerebral infarction; E74.39 Other disorders of intestinal carbohydrate absorption; I48.91 Unspecified atrial fibrillation; R13.10 Dysphagia, unspecified; Z79.01 Long term (current) use of anticoagulants; Z66 Do not resuscitate; Z79.82 Long term (current) use of aspirin; Z79.899 Other long term (current) drug therapy

== ENCOUNTER → 2020-09-18 | Outpatient (REF) ==
[~2020-09-18] MED LIST changes: +ASPI81TA27 PO; +ATEN25TA PO; +ATOR40TA75 PO; +BISA10SU20 PR; +COLA100C5 PO; +ENEMENE PR; +FERR32TA PO; +FURO40TA2 PO; +LOSA50TA88 PO; +MOM30SS2 PO; +VIMP100T PO; +VITMTA PO
== END ==
LOC: SKLAB7 07:00
PROVIDERS: ATTEND Internal Medicine
DX: Z11.52 Encounter for screening for COVID-19 (principal)

== ENCOUNTER → 2020-09-25 | Outpatient (REF) | LOC: SKLAB2 14:18 | PROVIDERS: ATTEND Internal Medicine | DX: Z20.822 Contact with and (suspected) exposure to COVID-19 (principal) ==

== ENCOUNTER → 2020-10-02 | Outpatient (REF) | LOC: SKLAB3 07:00 | PROVIDERS: ATTEND Internal Medicine | DX: Z11.52 Encounter for screening for COVID-19 (principal) ==

== ENCOUNTER → 2020-10-09 | Outpatient (REF) | LOC: SKLAB3 11:19 | PROVIDERS: ATTEND Internal Medicine | DX: Z20.822 Contact with and (suspected) exposure to COVID-19 (principal) ==

== ENCOUNTER → 2020-10-16 | Outpatient (REF) ==
[2020-10-16 08:24] LABS: PERCENT SATURATION 17.5 % (13.2-45.0)
== END ==
LOC: SKLAB3 07:00
PROVIDERS: ATTEND Internal Medicine
DX: Z20.822 Contact with and (suspected) exposure to COVID-19 (principal); I11.0 Hypertensive heart disease with heart failure; D64.9 Anemia, unspecified

== ENCOUNTER → 2020-10-18 | Outpatient (REF) ==
[2020-10-18 14:15] LABS: CREATININE FOR GFR 1.02 MG/DL (0.55-1.30); GLOMERULAR FILTRATION RATE 55.7 (>39); POTASSIUM SERUM 3.9 MEQ/L (3.5-5.1)
== END ==
LOC: SKLAB3 12:07
DX: R60.9 Edema, unspecified (principal)

== ENCOUNTER → 2020-10-23 | Outpatient (REF) | payer MEDICARE | LOC: SKLAB3 07:00 | PROVIDERS: ATTEND Internal Medicine | DX: Z20.822 Contact with and (suspected) exposure to COVID-19 (principal) ==

== ENCOUNTER → 2020-10-25 | Outpatient (REF) | payer MEDICARE ==
[2020-10-25 08:43] LABS: CALCIUM LEVEL 8.9 MG/DL (8.8-10.2); CREATININE FOR GFR 1.02 MG/DL (0.55-1.30); GLOMERULAR FILTRATION RATE 55.7 (>39); POTASSIUM SERUM 3.7 MEQ/L (3.5-5.1)
== END ==
LOC: SKLAB3 07:00
DX: I50.9 Heart failure, unspecified (principal)

== ENCOUNTER → 2020-11-06 | Outpatient (REF) | payer MEDICARE | LOC: SKLAB3 14:44 | PROVIDERS: ATTEND Internal Medicine | DX: Z20.822 Contact with and (suspected) exposure to COVID-19 (principal) ==

== ENCOUNTER → 2020-11-12 | Outpatient (REF) | payer MEDICARE ==
[2020-11-12 08:51] LABS: PHOSPHORUS LEVEL 4.8 MG/DL (2.5-4.9)
[2020-11-12 11:04] LABS: TOTAL 25(OH) VITAMIN D 35.4 NG/ML (30.0-100.0)
== END ==
LOC: SKLAB3 07:00
DX: N17.9 Acute kidney failure, unspecified (principal); Z79.899 Other long term (current) drug therapy

== ENCOUNTER → 2020-11-13 | Outpatient (REF) | payer MEDICARE | LOC: SKLAB3 14:51 | PROVIDERS: ATTEND Internal Medicine | DX: Z20.822 Contact with and (suspected) exposure to COVID-19 (principal) ==

== ENCOUNTER → 2020-11-14 | Outpatient (REF) | payer MEDICARE ==
[2020-11-14 08:40] LABS: HEMATOCRIT 41.1 % (36.0-47.0); HEMOGLOBIN 13.1 g/dl (12.0-15.5); MEAN CORPUSCULAR HEMOGLOBIN 30.6 pg (27.0-33.0); MEAN CORPUSCULAR HGB CONC 31.9 g/dl (32.0-36.5); PLATELET COUNT, AUTOMATED 152 10^3/uL (150-450); RED BLOOD COUNT 4.28 10^6/uL (4.00-5.40); WHITE BLOOD COUNT 5.5 10^3/uL (4.0-10.0)
[2020-11-14 09:13] LABS: ALBUMIN 3.4 GM/DL (3.2-5.2); ALT/SGPT 28 U/L (12-78); BILIRUBIN,TOTAL 0.4 MG/DL (0.2-1.0); BLOOD UREA NITROGEN 25 MG/DL (7-18); CALCIUM LEVEL 8.7 MG/DL (8.8-10.2); CARBON DIOXIDE LEVEL 28 MEQ/L (21-32); CHLORIDE LEVEL 106 MEQ/L (98-107); CHOLESTEROL LEVEL 108 MG/DL (<200); CHOLESTEROL RISK RATIO 1.894 (<5); CREATININE FOR GFR 0.92 MG/DL (0.55-1.30); GLOMERULAR FILTRATION RATE > 60.0 (>39); GLUCOSE, FASTING 105 MG/DL (70-100); HDL CHOLESTEROL 57 MG/DL (>40); LDL CHOLESTEROL 34 MG/DL (<100); NON-HDL-C 51 MG/DL; POTASSIUM SERUM 3.8 MEQ/L (3.5-5.1); SODIUM LEVEL 142 MEQ/L (136-145); TOTAL PROTEIN 6.4 GM/DL (6.4-8.2); TRIGLYCERIDES LEVEL 84 MG/DL (<150)
== END ==
LOC: SKLAB3 08:24
DX: E78.5 Hyperlipidemia, unspecified (principal); D64.9 Anemia, unspecified; I10 Essential (primary) hypertension; Z86.73 Personal history of transient ischemic attack (TIA), and cerebral infarction without residual deficits

== ENCOUNTER → 2020-11-29 | Outpatient (REF) | payer MEDICARE | LOC: SKLAB3 08:42 | PROVIDERS: ATTEND Internal Medicine | DX: Z20.822 Contact with and (suspected) exposure to COVID-19 (principal) ==

== ENCOUNTER → 2021-02-11 | Outpatient (REF) | payer MEDICARE ==
[2021-02-11 08:16] LABS: HEMATOCRIT 43.4 % (36.0-47.0); HEMOGLOBIN 13.8 g/dl (12.0-15.5); MEAN CORPUSCULAR HEMOGLOBIN 30.8 pg (27.0-33.0); MEAN CORPUSCULAR HGB CONC 31.8 g/dl (32.0-36.5); MEAN CORPUSCULAR VOLUME 96.9 fl (80.0-96.0); PLATELET COUNT, AUTOMATED 182 10^3/uL (150-450); RED BLOOD COUNT 4.48 10^6/uL (4.00-5.40); WHITE BLOOD COUNT 7.8 10^3/uL (4.0-10.0)
== END ==
LOC: SKLAB3 07:00
DX: D64.9 Anemia, unspecified (principal)

== ENCOUNTER → 2021-05-20 | Outpatient (REF) | payer MEDICARE ==
[2021-05-20 09:25] LABS: HEMATOCRIT 41.5 % (36.0-47.0); HEMOGLOBIN 13.5 g/dl (12.0-15.5); MEAN CORPUSCULAR HEMOGLOBIN 30.8 pg (27.0-33.0); MEAN CORPUSCULAR HGB CONC 32.5 g/dl (32.0-36.5); MEAN CORPUSCULAR VOLUME 94.7 fl (80.0-96.0); PLATELET COUNT, AUTOMATED 164 10^3/uL (150-450); RED BLOOD COUNT 4.38 10^6/uL (4.00-5.40); WHITE BLOOD COUNT 6.4 10^3/uL (4.0-10.0)
[2021-05-20 10:03] LABS: ALBUMIN 3.2 GM/DL (3.2-5.2); BILIRUBIN,TOTAL 0.7 MG/DL (0.2-1.0); CALCIUM LEVEL 8.8 MG/DL (8.8-10.2); CHOLESTEROL RISK RATIO 1.75 (<5); CREATININE FOR GFR 1.17 MG/DL (0.55-1.30); GLOMERULAR FILTRATION RATE 47.4 (>32); POTASSIUM SERUM 3.6 MEQ/L (3.5-5.1); TOTAL PROTEIN 6.8 GM/DL (6.4-8.2)
== END ==
LOC: SKLAB3 07:00
PROVIDERS: ATTEND Neuromusculoskeletal Medicine & OMM
DX: D64.9 Anemia, unspecified (principal); I10 Essential (primary) hypertension; I67.9 Cerebrovascular disease, unspecified; E78.5 Hyperlipidemia, unspecified

== ENCOUNTER → 2021-06-19 | Outpatient (REF) | payer MEDICARE | LOC: SKLAB3 07:46 | PROVIDERS: ATTEND Neuromusculoskeletal Medicine & OMM | DX: Z20.822 Contact with and (suspected) exposure to COVID-19 (principal) ==

== ENCOUNTER → 2021-06-23 | Outpatient (REF) | payer MEDICARE ==
--- NOTE | 2021-06-23 14:49 | REP ---
INDICATION: PAIN AFTER FALL. COMPARISON: None. TECHNIQUE: Two views right hip. FINDINGS: There is no evidence of acute fracture or dislocation. There is a rounded calcification along the greater trochanter which may represent an accessory ossicle or tendinous calcification. There are mild degenerative changes of the right hip joint. IMPRESSION: No acute fracture or dislocation. <Electronically signed by Ignacio Mckenzie > 06/23/21 [id number]
--- NOTE | 2021-06-23 14:50 | REP ---
INDICATION: PAIN AFTER FALL. COMPARISON: None. TECHNIQUE: AP and frog-lateral views FINDINGS: There is no acute fracture or destructive osseous lesion. Degenerative changes seen at the knee IMPRESSION: Chronic changes. <Electronically signed by Allan Baum > 06/23/21 [id number]
== END ==
LOC: SKLAB3 11:28
PROVIDERS: ATTEND Neuromusculoskeletal Medicine & OMM
DX: M25.551 Pain in right hip (principal); M25.861 Other specified joint disorders, right knee; Z20.822 Contact with and (suspected) exposure to COVID-19
CPT/HCPCS: 73502; 73552; U0002

== ENCOUNTER → 2021-06-23 | Outpatient (REF) | payer MEDICARE | LOC: SKLAB3 07:11 | PROVIDERS: ATTEND Internal Medicine | DX: Z20.822 Contact with and (suspected) exposure to COVID-19 (principal) ==

== ENCOUNTER → 2021-06-26 | Outpatient (REF) | payer MEDICARE | LOC: SKLAB3 06:30 | PROVIDERS: ATTEND Internal Medicine | DX: Z20.822 Contact with and (suspected) exposure to COVID-19 (principal) ==

== ENCOUNTER → 2021-06-30 | Outpatient (REF) | payer MEDICARE | LOC: SKLAB3 06:23 | PROVIDERS: ATTEND Internal Medicine | DX: Z20.822 Contact with and (suspected) exposure to COVID-19 (principal) ==

== ENCOUNTER → 2021-07-03 | Outpatient (REF) | payer MEDICARE | LOC: SKLAB3 11:15 | PROVIDERS: ATTEND Neuromusculoskeletal Medicine & OMM | DX: Z20.822 Contact with and (suspected) exposure to COVID-19 (principal) ==

== ENCOUNTER → 2021-07-09 | Outpatient (REF) | payer MEDICARE | LOC: SKLAB3 10:37 | PROVIDERS: ATTEND Neuromusculoskeletal Medicine & OMM | DX: Z20.822 Contact with and (suspected) exposure to COVID-19 (principal) ==

== ENCOUNTER → 2021-07-16 | Outpatient (REF) | payer MEDICARE | LOC: SKLAB3 08:52 | PROVIDERS: ATTEND Neuromusculoskeletal Medicine & OMM | DX: Z20.822 Contact with and (suspected) exposure to COVID-19 (principal) ==

== ENCOUNTER → 2021-08-06 | Outpatient (REF) | payer MEDICARE | LOC: SKLAB3 09:04 | PROVIDERS: ATTEND Neuromusculoskeletal Medicine & OMM | DX: Z20.822 Contact with and (suspected) exposure to COVID-19 (principal) ==

== ENCOUNTER → 2021-08-13 | Outpatient (REF) | payer MEDICARE | LOC: SKLAB3 07:00 | PROVIDERS: ATTEND Neuromusculoskeletal Medicine & OMM | DX: Z20.822 Contact with and (suspected) exposure to COVID-19 (principal) ==

== ENCOUNTER → 2021-08-19 | Outpatient (REF) | payer MEDICARE ==
[2021-08-19 10:18] LABS: HEMATOCRIT 40.1 % (36.0-47.0); HEMOGLOBIN 12.9 g/dl (12.0-15.5); MEAN CORPUSCULAR HEMOGLOBIN 31.3 pg (27.0-33.0); MEAN CORPUSCULAR HGB CONC 32.2 g/dl (32.0-36.5); MEAN CORPUSCULAR VOLUME 97.3 fl (80.0-96.0); PLATELET COUNT, AUTOMATED 166 10^3/uL (150-450); RED BLOOD COUNT 4.12 10^6/uL (4.00-5.40); WHITE BLOOD COUNT 5.8 10^3/uL (4.0-10.0)
== END ==
LOC: SKLAB3 07:01
PROVIDERS: ATTEND Neuromusculoskeletal Medicine & OMM
DX: D64.9 Anemia, unspecified (principal)

== ENCOUNTER → 2021-08-20 | Outpatient (REF) | payer MEDICARE | LOC: SKLAB3 11:06 | PROVIDERS: ATTEND Neuromusculoskeletal Medicine & OMM | DX: Z20.822 Contact with and (suspected) exposure to COVID-19 (principal) ==

== ENCOUNTER → 2021-08-27 | Outpatient (REF) | payer MEDICARE | LOC: SKLAB3 09:42 | PROVIDERS: ATTEND Neuromusculoskeletal Medicine & OMM | DX: Z20.822 Contact with and (suspected) exposure to COVID-19 (principal) ==

== ENCOUNTER → 2021-09-03 | Outpatient (REF) | payer MEDICARE ==
[~2021-09-03] MED LIST changes: +DIVA125C6 PO; -DIVA1CAP PO; +LOSA25TA13 GT; -LOSA25TA14 GT; +LOSA50TA28 PO; -LOSA50TA88 PO
== END ==
LOC: SKLAB3 06:41
PROVIDERS: ATTEND Neuromusculoskeletal Medicine & OMM
DX: Z20.822 Contact with and (suspected) exposure to COVID-19 (principal)

== ENCOUNTER → 2021-11-07 | Outpatient (REF) | payer MEDICARE | LOC: SKLAB3 14:22 | PROVIDERS: ATTEND Neuromusculoskeletal Medicine & OMM | DX: R22.40 Localized swelling, mass and lump, unspecified lower limb (principal); M85.879 Other specified disorders of bone density and structure, unspecified ankle and foot ==

== ENCOUNTER → 2021-11-07 | Outpatient (CLI) | payer MEDICARE | LOC: M RAD 15:21 | PROVIDERS: ATTEND Neuromusculoskeletal Medicine & OMM | DX: Z53.9 Procedure and treatment not carried out, unspecified reason (principal) ==

== ENCOUNTER → 2021-11-11 | Outpatient (REF) | payer MEDICARE ==
[2021-11-11 09:05] LABS: HEMATOCRIT 39.3 % (36.0-47.0); MEAN CORPUSCULAR HEMOGLOBIN 31.4 pg (27.0-33.0); MEAN CORPUSCULAR HGB CONC 33.1 g/dl (32.0-36.5); MEAN CORPUSCULAR VOLUME 94.9 fl (80.0-96.0); PLATELET COUNT, AUTOMATED 157 10^3/uL (150-450); RED BLOOD COUNT 4.14 10^6/uL (4.00-5.40); WHITE BLOOD COUNT 7.7 10^3/uL (4.0-10.0)
[2021-11-11 09:29] LABS: ALBUMIN 3.3 GM/DL (3.2-5.2); BILIRUBIN,TOTAL 0.6 MG/DL (0.2-1.0); CALCIUM LEVEL 8.8 MG/DL (8.8-10.2); CHOLESTEROL RISK RATIO 1.685 (<5); CREATININE FOR GFR 1.14 MG/DL (0.55-1.30); GLOMERULAR FILTRATION RATE 48.8 (>32); POTASSIUM SERUM 3.9 MEQ/L (3.5-5.1); TOTAL PROTEIN 6.5 GM/DL (6.4-8.2)
== END ==
LOC: SKLAB3 07:02
PROVIDERS: ATTEND Neuromusculoskeletal Medicine & OMM
DX: D64.9 Anemia, unspecified (principal); I10 Essential (primary) hypertension; I67.9 Cerebrovascular disease, unspecified; E78.5 Hyperlipidemia, unspecified

== ENCOUNTER → 2021-12-13 | Outpatient (REF) | payer MEDICARE ==
[2021-12-13 11:53] LABS: BASO % 0.3 % (0.0-1.0); EOS % 0.5 % (0.0-3.0); HEMATOCRIT 40.4 % (36.0-47.0); HEMOGLOBIN 13.2 g/dl (12.0-15.5); LYMPH # 1.6 10^3/uL (1.5-5.0); LYMPH % 25.7 % (24.0-44.0); MEAN CORPUSCULAR HGB CONC 32.7 g/dl (32.0-36.5); MEAN CORPUSCULAR VOLUME 98.1 fl (80.0-96.0); MONO # 0.6 10^3/uL (0.0-0.8); MONO % 9.8 % (2.0-8.0); NEUTROPHILS % 63.4 % (36.0-66.0); PLATELET COUNT, AUTOMATED 163 10^3/uL (150-450); RED BLOOD COUNT 4.12 10^6/uL (4.00-5.40); WHITE BLOOD COUNT 6.4 10^3/uL (4.0-10.0)
[2021-12-13 12:14] LABS: ALBUMIN 3.3 GM/DL (3.2-5.2); BILIRUBIN,TOTAL 0.8 MG/DL (0.2-1.0); CALCIUM LEVEL 8.8 MG/DL (8.8-10.2); CREATININE FOR GFR 0.96 MG/DL (0.55-1.30); GLOMERULAR FILTRATION RATE 59.5 (>32); POTASSIUM SERUM 4.1 MEQ/L (3.5-5.1); TOTAL PROTEIN 6.8 GM/DL (6.4-8.2)
[2021-12-13 13:43] LABS: APPEARANCE, URINE CLEAR (CLEAR); BACTERIA, URINE AUTO 1+ (NEGATIVE); BILIRUBIN, URINE AUTO NEGATIVE (NEGATIVE); BLOOD, URINE BLOOD 1+ (NEGATIVE); COLOR, URINE STRAW (YELLOW); GLUCOSE, URINE (UA) AUTO NEGATIVE (NEGATIVE); KETONE, URINE AUTO NEGATIVE (NEGATIVE); LEUKOCYTE ESTERASE, URINE AUTO TRACE (NEGATIVE); NITRITE, URINE AUTO NEGATIVE (NEGATIVE); PROTEIN, URINE AUTO NEGATIVE (NEGATIVE); RBC, URINE AUTO 1 /HPF (0-3); SPECIFIC GRAVITY URINE AUTO 1.005 (1.002-1.035); SQUAMOUS EPITHELIAL CELL UR AU 0 /HPF (0-6); UROBILINOGEN, URINE AUTO 0.2 mg/dL (0.0-2.0); WBC, URINE AUTO 2 /HPF (0-3)
== END ==
LOC: SKLAB3 07:00
PROVIDERS: ATTEND Neuromusculoskeletal Medicine & OMM
DX: N93.9 Abnormal uterine and vaginal bleeding, unspecified (principal); Z79.899 Other long term (current) drug therapy

== ENCOUNTER → 2022-02-12 | Outpatient (REF) | payer MEDICARE ==
[2022-02-12 09:46] LABS: HEMATOCRIT 38.8 % (36.0-47.0); HEMOGLOBIN 12.5 g/dl (12.0-15.5); MEAN CORPUSCULAR HGB CONC 32.2 g/dl (32.0-36.5); MEAN CORPUSCULAR VOLUME 96.3 fl (80.0-96.0); PLATELET COUNT, AUTOMATED 148 10^3/uL (150-450); RED BLOOD COUNT 4.03 10^6/uL (4.00-5.40); WHITE BLOOD COUNT 7.3 10^3/uL (4.0-10.0)
== END ==
LOC: SKLAB3 09:00
PROVIDERS: ATTEND Nurse Practitioner
DX: D64.9 Anemia, unspecified (principal)

== ENCOUNTER → 2022-03-27 | Outpatient (REF) | payer MEDICARE | LOC: SKLAB3 11:46 | PROVIDERS: ATTEND Neuromusculoskeletal Medicine & OMM | DX: Z20.822 Contact with and (suspected) exposure to COVID-19 (principal) ==

== ENCOUNTER → 2022-05-19 | Outpatient (REF) | payer MEDICARE ==
[2022-05-19 11:20] LABS: HEMOGLOBIN 13.4 g/dl (12.0-15.5); MEAN CORPUSCULAR HEMOGLOBIN 31.5 pg (27.0-33.0); MEAN CORPUSCULAR HGB CONC 31.9 g/dl (32.0-36.5); MEAN CORPUSCULAR VOLUME 98.6 fl (80.0-96.0); PLATELET COUNT, AUTOMATED 143 10^3/uL (150-450); RED BLOOD COUNT 4.26 10^6/uL (4.00-5.40); WHITE BLOOD COUNT 6.5 10^3/uL (4.0-10.0)
[2022-05-19 12:14] LABS: ALBUMIN 3.3 GM/DL (3.2-5.2); BILIRUBIN,TOTAL 0.9 MG/DL (0.2-1.0); CALCIUM LEVEL 8.8 MG/DL (8.8-10.2); CHOLESTEROL RISK RATIO 1.851 (<5); CREATININE FOR GFR 1.13 MG/DL (0.55-1.30); GLOMERULAR FILTRATION RATE 49.2 (>32); PHOSPHORUS LEVEL 3.6 MG/DL (2.5-4.9); POTASSIUM SERUM 3.5 MEQ/L (3.5-5.1); TOTAL PROTEIN 6.9 GM/DL (6.4-8.2)
[2022-05-19 12:52] LABS: PTH INTACT 104.1 PG/ML (18.5-88.0)
== END ==
LOC: SKLAB3 10:47
PROVIDERS: ATTEND Nurse Practitioner
DX: I67.9 Cerebrovascular disease, unspecified (principal); I12.9 Hypertensive chronic kidney disease with stage 1 through stage 4 chronic kidney disease, or unspecified chronic kidney disease; E78.5 Hyperlipidemia, unspecified; N18.9 Chronic kidney disease, unspecified; D63.1 Anemia in chronic kidney disease

== ENCOUNTER → 2022-06-05 | Outpatient (REF) | payer MEDICARE ==
[2022-06-05 09:11] LABS: CALCIUM LEVEL 8.5 MG/DL (8.8-10.2); CREATININE FOR GFR 1.08 MG/DL (0.55-1.30); GLOMERULAR FILTRATION RATE 51.8 (>32)
== END ==
LOC: SKLAB3 07:00
PROVIDERS: ATTEND Nurse Practitioner
DX: E87.6 Hypokalemia (principal)

== ENCOUNTER → 2022-08-14 | Outpatient (REF) | payer MEDICARE | LOC: SKLAB3 11:36 | PROVIDERS: ATTEND Nurse Practitioner | DX: D64.9 Anemia, unspecified (principal) ==

== ENCOUNTER → 2022-08-18 | Outpatient (REF) | payer MEDICARE ==
[2022-08-18 08:24] LABS: HEMATOCRIT 40.7 % (36.0-47.0); HEMOGLOBIN 12.9 g/dl (12.0-15.5); MEAN CORPUSCULAR HEMOGLOBIN 31.1 pg (27.0-33.0); MEAN CORPUSCULAR HGB CONC 31.7 g/dl (32.0-36.5); MEAN CORPUSCULAR VOLUME 98.1 fl (80.0-96.0); PLATELET COUNT, AUTOMATED 146 10^3/uL (150-450); RED BLOOD COUNT 4.15 10^6/uL (4.00-5.40); WHITE BLOOD COUNT 6.1 10^3/uL (4.0-10.0)
== END ==
LOC: SKLAB3 07:00
PROVIDERS: ATTEND Nurse Practitioner
DX: D64.9 Anemia, unspecified (principal)

== ENCOUNTER → 2022-11-17 | Outpatient (REF) | payer MEDICARE ==
[2022-11-17 10:17] LABS: HEMATOCRIT 39.6 % (36.0-47.0); HEMOGLOBIN 12.6 g/dl (12.0-15.5); MEAN CORPUSCULAR HEMOGLOBIN 31.8 pg (27.0-33.0); MEAN CORPUSCULAR HGB CONC 31.8 g/dl (32.0-36.5); PLATELET COUNT, AUTOMATED 152 10^3/uL (150-450); RED BLOOD COUNT 3.96 10^6/uL (4.00-5.40); WHITE BLOOD COUNT 5.4 10^3/uL (4.0-10.0)
[2022-11-17 10:50] LABS: ALBUMIN 3.4 G/DL (3.2-5.2); CALCIUM LEVEL 8.6 MG/DL (8.3-10.6); CHOLESTEROL RISK RATIO 1.98 (<5); CREATININE FOR GFR 1.04 MG/DL (0.55-1.30); GLOMERULAR FILTRATION RATE 54.1 (>32); HDL CHOLESTEROL 47.3 MG/DL (>40); LDL CHOLESTEROL 33.3 MG/DL (<100); NON-HDL-C 46.7 MG/DL; POTASSIUM SERUM 3.6 MMOL/L (3.5-5.1); TOTAL PROTEIN 6.4 G/DL (5.7-8.2)
== END ==
LOC: SKLAB3 12:11
PROVIDERS: ATTEND Nurse Practitioner
DX: D64.9 Anemia, unspecified (principal); I10 Essential (primary) hypertension; I63.9 Cerebral infarction, unspecified

== ENCOUNTER → 2022-12-08 | Outpatient (REF) | payer MEDICARE | LOC: SKLAB3 11:26 | PROVIDERS: ATTEND Nurse Practitioner | DX: R06.02 Shortness of breath (principal) ==

== ENCOUNTER → 2023-02-16 | Outpatient (REF) | payer MEDICARE ==
[2023-02-16 07:54] LABS: HEMATOCRIT 43.3 % (36.0-47.0); HEMOGLOBIN 14.1 g/dl (12.0-15.5); MEAN CORPUSCULAR HEMOGLOBIN 31.9 pg (27.0-33.0); MEAN CORPUSCULAR HGB CONC 32.6 g/dl (32.0-36.5); PLATELET COUNT, AUTOMATED 150 10^3/uL (150-450); RED BLOOD COUNT 4.42 10^6/uL (4.00-5.40); WHITE BLOOD COUNT 6.9 10^3/uL (4.0-10.0)
== END ==
LOC: SKLAB3 07:18
PROVIDERS: ATTEND Nurse Practitioner
DX: Z79.01 Long term (current) use of anticoagulants (principal)

== ENCOUNTER → 2023-04-14 | Outpatient (CLI) | payer MEDICARE | LOC: M RAD 08:34 | PROVIDERS: ATTEND Nurse Practitioner Adult Health | DX: S09.90XA Unspecified injury of head, initial encounter (principal); W19.XXXA Unspecified fall, initial encounter ==

== ENCOUNTER → 2023-05-04 | Outpatient (REF) | payer MEDICARE | LOC: SKLAB3 10:13 | PROVIDERS: ATTEND Internal Medicine | DX: M16.0 Bilateral primary osteoarthritis of hip (principal); W19.XXXA Unspecified fall, initial encounter; Y92.129 Unspecified place in nursing home as the place of occurrence of the external cause; Y93.9 Activity, unspecified ==

== ENCOUNTER → 2023-05-05 | Outpatient (REF) | payer MEDICARE ==
[~2023-05-05] MED LIST changes: -COZA1TAB PO; +LOSA-527 PO
== END ==
LOC: SKLAB3 11:50
PROVIDERS: ATTEND Nurse Practitioner Family
DX: R10.32 Left lower quadrant pain (principal); Z53.8 Procedure and treatment not carried out for other reasons

== ENCOUNTER → 2023-05-05 | Outpatient (CLI) | payer MEDICARE | LOC: M RAD 13:49 | PROVIDERS: ATTEND Internal Medicine | DX: R10.2 Pelvic and perineal pain (principal) ==

== ENCOUNTER → 2023-05-20 | Outpatient (REF) | payer MEDICARE ==
[~2023-05-20] MED LIST changes: -OXYB5TAB10 GT; -OXYB5TAB10 PO; +OXYB5TAB11 GT; +OXYB5TAB11 PO
== END ==
LOC: SKLAB3 10:54
PROVIDERS: ATTEND Internal Medicine
DX: R06.02 Shortness of breath (principal)

== ENCOUNTER → 2023-07-27 | Outpatient (CLI) | payer MEDICARE | LOC: M RAD 09:00 | PROVIDERS: ATTEND Internal Medicine | DX: S00.93XA Contusion of unspecified part of head, initial encounter (principal); X58.XXXA Exposure to other specified factors, initial encounter; Y92.9 Unspecified place or not applicable ==

== ENCOUNTER → 2023-08-16 | Outpatient (REF) | payer MEDICARE ==
[2023-08-16 09:37] LABS: CALCIUM LEVEL 8.7 MG/DL (8.3-10.6); CREATININE FOR GFR 0.96 MG/DL (0.55-1.30); GLOMERULAR FILTRATION RATE 59.2 (>32); POTASSIUM SERUM 3.6 MMOL/L (3.5-5.1)
== END ==
LOC: SKLAB3 08:04
PROVIDERS: ATTEND Internal Medicine
DX: R11.2 Nausea with vomiting, unspecified (principal)

== ENCOUNTER → 2023-08-17 | Outpatient (CLI) | payer MEDICARE, MEDICAID ==
[~2023-08-17] MED LIST changes: +ISOVUE-370 76% 100ML VIAL As Ordered ONE
== END ==
LOC: M RAD 09:36
PROVIDERS: ATTEND Nurse Practitioner Adult Health
DX: R11.2 Nausea with vomiting, unspecified (principal); D64.9 Anemia, unspecified; N28.89 Other specified disorders of kidney and ureter; Z90.49 Acquired absence of other specified parts of digestive tract; K83.8 Other specified diseases of biliary tract; K31.89 Other diseases of stomach and duodenum
CPT/HCPCS: 36415; 74177; 85027; Q9967

== ENCOUNTER → 2023-08-17 | Outpatient (REF) | payer MEDICARE ==
[~2023-08-17] MED LIST changes: -ISOVUE-370 76% 100ML VIAL As Ordered ONE
[2023-08-17 10:27] LABS: HEMATOCRIT 42.7 % (36.0-47.0); HEMOGLOBIN 13.8 g/dl (12.0-15.5); MEAN CORPUSCULAR HEMOGLOBIN 32.9 pg (27.0-33.0); MEAN CORPUSCULAR HGB CONC 32.3 g/dl (32.0-36.5); MEAN CORPUSCULAR VOLUME 101.7 fl (80.0-96.0); PLATELET COUNT, AUTOMATED 127 10^3/uL (150-450); WHITE BLOOD COUNT 5.4 10^3/uL (4.0-10.0)
== END ==
LOC: SKLAB3 08:16
PROVIDERS: ATTEND Internal Medicine
DX: D64.9 Anemia, unspecified (principal)

== ENCOUNTER → 2023-08-19 | Outpatient (REF) | payer MEDICARE, MEDICAID ==
[2023-08-19 14:57] LABS: HEMATOCRIT 43.9 % (36.0-47.0); HEMOGLOBIN 14.3 g/dl (12.0-15.5); MEAN CORPUSCULAR HEMOGLOBIN 32.6 pg (27.0-33.0); MEAN CORPUSCULAR HGB CONC 32.6 g/dl (32.0-36.5); MEAN CORPUSCULAR VOLUME 100.2 fl (80.0-96.0); PLATELET COUNT, AUTOMATED 145 10^3/uL (150-450); RED BLOOD COUNT 4.38 10^6/uL (4.00-5.40); WHITE BLOOD COUNT 5.9 10^3/uL (4.0-10.0)
[2023-08-19 15:16] LABS: LIPASE 48 U/L (12-53)
[2023-08-19 15:17] LABS: AMYLASE 62 U/L (30-118)
[2023-08-19 15:18] LABS: ALBUMIN 3.6 G/DL (3.2-5.2); ALKALINE PHOSPHATASE 87 U/L (46-116); ALT/SGPT 23 U/L (7.0-40); AST/SGOT 37 U/L (<34); BILIRUBIN,TOTAL 0.9 MG/DL (0.3-1.2); BLOOD UREA NITROGEN 13 MG/DL (9-23); CALCIUM LEVEL 9.1 MG/DL (8.3-10.6); CARBON DIOXIDE LEVEL 27 MMOL/L (20-31); CHLORIDE LEVEL 107 MMOL/L (98-107); CREATININE FOR GFR 0.93 MG/DL (0.55-1.30); GLOMERULAR FILTRATION RATE > 60.0 (>32); GLUCOSE, FASTING 117 MG/DL (74-106); POTASSIUM SERUM 4.3 MMOL/L (3.5-5.1); SODIUM LEVEL 142 MMOL/L (136-145)
== END ==
LOC: SKLAB3 13:50
PROVIDERS: ATTEND Internal Medicine
DX: R94.5 Abnormal results of liver function studies (principal)

== ENCOUNTER → 2023-09-14 | Outpatient (REF) | payer MEDICARE, MEDICAID | LOC: SKLAB3 13:50 | PROVIDERS: ATTEND Internal Medicine | DX: R05.9 Cough, unspecified (principal) ==

== ENCOUNTER → 2023-10-22 | Outpatient (REF) | payer MEDICARE, MEDICAID ==
[~2023-10-22] MED LIST changes: -BISA10SU20 PR; +BISA10SU59 PR; -OXYB5TAB11 GT; -OXYB5TAB11 PO; +OXYB5TAB14 GT; +OXYB5TAB14 PO
== END ==
LOC: SKLAB3 08:00
PROVIDERS: ATTEND Internal Medicine
DX: K52.9 Noninfective gastroenteritis and colitis, unspecified (principal); Z53.8 Procedure and treatment not carried out for other reasons

== ENCOUNTER → 2023-11-16 | Outpatient (REF) | payer MEDICARE, MEDICAID ==
[2023-11-16 07:35] LABS: HEMATOCRIT 40.9 % (36.0-47.0); HEMOGLOBIN 13.3 g/dl (12.0-15.5); MEAN CORPUSCULAR HEMOGLOBIN 32.4 pg (27.0-33.0); MEAN CORPUSCULAR HGB CONC 32.5 g/dl (32.0-36.5); MEAN CORPUSCULAR VOLUME 99.5 fl (80.0-96.0); PLATELET COUNT, AUTOMATED 143 10^3/uL (150-450); RED BLOOD COUNT 4.11 10^6/uL (4.00-5.40); WHITE BLOOD COUNT 5.6 10^3/uL (4.0-10.0)
[2023-11-16 08:00] LABS: ALBUMIN 3.2 G/DL (3.2-5.2); BILIRUBIN,TOTAL 0.7 MG/DL (0.3-1.2); CALCIUM LEVEL 8.6 MG/DL (8.3-10.6); CHOLESTEROL RISK RATIO 2.31 (<5); CREATININE FOR GFR 1.07 MG/DL (0.55-1.30); GLOMERULAR FILTRATION RATE 52.3 (>32); LDL CHOLESTEROL 40.2 MG/DL (<100); POTASSIUM SERUM 3.5 MMOL/L (3.5-5.1); TOTAL PROTEIN 6.2 G/DL (5.7-8.2)
== END ==
LOC: SKLAB3 10:27
PROVIDERS: ATTEND Nurse Practitioner
DX: D64.9 Anemia, unspecified (principal); I10 Essential (primary) hypertension; E78.5 Hyperlipidemia, unspecified

== ENCOUNTER → 2024-02-01 | Outpatient (REF) | payer MEDICARE, MEDICAID ==
[2024-02-01 12:59] LABS: HEMOGLOBIN 13.8 g/dl (12.0-15.5); MEAN CORPUSCULAR HEMOGLOBIN 33.3 pg (27.0-33.0); MEAN CORPUSCULAR HGB CONC 32.9 g/dl (32.0-36.5); MEAN CORPUSCULAR VOLUME 101.4 fl (80.0-96.0); RED BLOOD COUNT 4.14 10^6/uL (4.00-5.40); WHITE BLOOD COUNT 6.5 10^3/uL (4.0-10.0)
[2024-02-01 14:36] LABS: PLATELET COUNT, AUTOMATED 115 10^3/uL (150-450)
[2024-02-01 15:53] LABS: CALCIUM LEVEL 8.5 MG/DL (8.3-10.6); CREATININE FOR GFR 0.96 MG/DL (0.55-1.30); GLOMERULAR FILTRATION RATE 59.2 (>32); POTASSIUM SERUM 3.4 MMOL/L (3.5-5.1)
== END ==
LOC: SKLAB3 11:21
PROVIDERS: ATTEND Internal Medicine
DX: R09.02 Hypoxemia (principal); R91.8 Other nonspecific abnormal finding of lung field

== ENCOUNTER → 2024-02-03 | Outpatient (REF) | payer MEDICARE, MEDICAID | LOC: SKLAB3 09:52 | PROVIDERS: ATTEND Internal Medicine | DX: R09.02 Hypoxemia (principal) ==

== ENCOUNTER → 2024-05-16 | Outpatient (REF) | payer MEDICARE, MEDICAID ==
[2024-05-16 16:06] LABS: HEMOGLOBIN 13.7 g/dl (12.0-15.5); MEAN CORPUSCULAR HEMOGLOBIN 32.5 pg (27.0-33.0); MEAN CORPUSCULAR HGB CONC 31.9 g/dl (32.0-36.5); MEAN CORPUSCULAR VOLUME 101.9 fl (80.0-96.0); PLATELET COUNT, AUTOMATED 140 10^3/uL (150-450); RED BLOOD COUNT 4.22 10^6/uL (4.00-5.40); WHITE BLOOD COUNT 6.2 10^3/uL (4.0-10.0)
[2024-05-16 16:25] LABS: TOTAL 25(OH) VITAMIN D 24.6 NG/ML (20.0-100.0)
[2024-05-16 16:26] LABS: ALBUMIN 3.6 G/DL (3.2-5.2); BILIRUBIN,TOTAL 0.8 MG/DL (0.3-1.2); CALCIUM LEVEL 9.3 MG/DL (8.3-10.6); CHOLESTEROL RISK RATIO 2.28 (<5); CREATININE FOR GFR 1.07 MG/DL (0.55-1.30); GLOMERULAR FILTRATION RATE 52.1 (>32); HDL CHOLESTEROL 50.7 MG/DL (>40); LDL CHOLESTEROL 53.1 MG/DL (<100); NON-HDL-C 65.3 MG/DL; PHOSPHORUS LEVEL 3.8 MG/DL (2.4-5.1); POTASSIUM SERUM 3.7 MMOL/L (3.5-5.1); TOTAL PROTEIN 6.9 G/DL (5.7-8.2)
[2024-05-16 16:35] LABS: PTH INTACT 150.1 PG/ML (18.5-88.0)
== END ==
LOC: SKLAB3 07:00
PROVIDERS: ATTEND Internal Medicine
DX: I25.10 Atherosclerotic heart disease of native coronary artery without angina pectoris (principal); D64.9 Anemia, unspecified; I10 Essential (primary) hypertension; E78.5 Hyperlipidemia, unspecified; Z79.899 Other long term (current) drug therapy

== ENCOUNTER → 2024-08-15 | Outpatient (REF) | payer MEDICARE, MEDICAID ==
[~2024-08-15] MED LIST changes: -VALP250S GT; +VALP250S26 GT
[2024-08-15 09:37] LABS: HEMATOCRIT 37.1 % (36.0-47.0); HEMOGLOBIN 12.1 g/dl (12.0-15.5); MEAN CORPUSCULAR HEMOGLOBIN 32.8 pg (27.0-33.0); MEAN CORPUSCULAR HGB CONC 32.6 g/dl (32.0-36.5); MEAN CORPUSCULAR VOLUME 100.5 fl (80.0-96.0); PLATELET COUNT, AUTOMATED 136 10^3/uL (150-450); RED BLOOD COUNT 3.69 10^6/uL (4.00-5.40); WHITE BLOOD COUNT 6.4 10^3/uL (4.0-10.0)
== END ==
LOC: SKLAB3 07:00
PROVIDERS: ATTEND Internal Medicine
DX: D64.9 Anemia, unspecified (principal)

== ENCOUNTER → 2024-09-07 | Outpatient (REF) | payer MEDICARE, MEDICAID | LOC: SKLAB3 11:37 | PROVIDERS: ATTEND Internal Medicine | DX: R05.9 Cough, unspecified (principal) ==

== ENCOUNTER → 2024-09-13 | Outpatient (REF) | payer MEDICARE, MEDICAID | LOC: SKLAB3 12:28 | PROVIDERS: ATTEND Internal Medicine | DX: J06.9 Acute upper respiratory infection, unspecified (principal) ==

== ENCOUNTER → 2024-11-01 | Outpatient (REF) | payer MEDICARE, MEDICAID ==
[2024-11-01 08:10] LABS: CALCIUM LEVEL 8.3 MG/DL (8.3-10.6); CREATININE FOR GFR 0.95 MG/DL (0.55-1.30); GLOMERULAR FILTRATION RATE 59.8 (>32); MAGNESIUM LEVEL 1.8 MG/DL (1.8-2.4); POTASSIUM SERUM 3.7 MMOL/L (3.5-5.1)
== END ==
LOC: SKLAB3 07:00
PROVIDERS: ATTEND Internal Medicine
DX: N18.9 Chronic kidney disease, unspecified (principal)

== ENCOUNTER → 2024-11-14 | Outpatient (REF) | payer MEDICARE, MEDICAID ==
[2024-11-14 07:47] LABS: HEMATOCRIT 36.8 % (36.0-47.0); HEMOGLOBIN 12.2 g/dl (12.0-15.5); MEAN CORPUSCULAR HGB CONC 33.2 g/dl (32.0-36.5); MEAN CORPUSCULAR VOLUME 99.5 fl (80.0-96.0); PLATELET COUNT, AUTOMATED 124 10^3/uL (150-450); WHITE BLOOD COUNT 5.5 10^3/uL (4.0-10.0)
[2024-11-14 08:06] LABS: ALBUMIN 3.1 G/DL (3.2-5.2); ALKALINE PHOSPHATASE 74 U/L (35-104); ALT/SGPT 15 U/L (7.0-40); AST/SGOT 28 U/L (<34); BILIRUBIN,TOTAL 0.9 MG/DL (0.3-1.2); BLOOD UREA NITROGEN 14 MG/DL (9-23); CARBON DIOXIDE LEVEL 24 MMOL/L (20-31); CHLORIDE LEVEL 107 MMOL/L (98-107); CHOLESTEROL LEVEL 94 MG/DL (<200); CREATININE FOR GFR 0.91 MG/DL (0.55-1.30); GLOMERULAR FILTRATION RATE > 60.0 (>32); GLUCOSE, FASTING 118 MG/DL (74-106); HDL CHOLESTEROL 42.6 MG/DL (>40); LDL CHOLESTEROL 37.4 MG/DL (<100); NON-HDL-C 51.4 MG/DL; POTASSIUM SERUM 3.6 MMOL/L (3.5-5.1); SODIUM LEVEL 142 MMOL/L (136-145); TOTAL PROTEIN 6.3 G/DL (5.7-8.2); TRIGLYCERIDES LEVEL 70 MG/DL (<150)
== END ==
LOC: SKLAB3 07:00
PROVIDERS: ATTEND Internal Medicine
DX: I25.10 Atherosclerotic heart disease of native coronary artery without angina pectoris (principal); E78.5 Hyperlipidemia, unspecified; I63.9 Cerebral infarction, unspecified; I10 Essential (primary) hypertension; D64.9 Anemia, unspecified

== ENCOUNTER → 2025-04-09 | Outpatient (REF) | payer MEDICARE, MEDICAID ==
[~2025-04-09] MED LIST changes: +BUPR-670 PO; -BUPR1TAB52 PO
== END ==
LOC: SKLAB3 12:08
PROVIDERS: ATTEND Internal Medicine
DX: J98.11 Atelectasis (principal)

== ENCOUNTER → 2025-05-29 | Outpatient (REF) | payer MEDICARE, MEDICAID ==
[2025-05-29 14:42] LABS: PLATELET COUNT, AUTOMATED 152 10^3/uL (150-450)
[2025-05-29 15:12] LABS: TOTAL 25(OH) VITAMIN D 32.3 NG/ML (20.0-100.0)
[2025-05-29 15:16] LABS: ALT/SGPT 18.0 U/L (7.0-40); AST/SGOT 28.0 U/L (<34); CALCIUM LEVEL 8.7 MG/DL (8.3-10.6); CARBON DIOXIDE LEVEL 27.0 MMOL/L (20-31); CHLORIDE LEVEL 104.0 MMOL/L (98-107); CHOLESTEROL LEVEL 114.0 MG/DL (<200); CHOLESTEROL RISK RATIO 2.25 (<5); CREATININE FOR GFR 0.98 MG/DL (0.55-1.30); GLOMERULAR FILTRATION RATE 56.9 (>32); LDL CHOLESTEROL 46.2 MG/DL (<100); NON-HDL-C 63.4 MG/DL; PHOSPHORUS LEVEL 4.0 MG/DL (2.4-5.1); POTASSIUM SERUM 3.8 MMOL/L (3.5-5.1); PTH INTACT 93.8 PG/ML (18.5-88.0); SODIUM LEVEL 139.0 MMOL/L (136-145); TRIGLYCERIDES LEVEL 86.0 MG/DL (<150)
== END ==
LOC: SKLAB3 07:00
PROVIDERS: ATTEND Family Medicine
DX: N18.9 Chronic kidney disease, unspecified (principal); E78.5 Hyperlipidemia, unspecified; I12.9 Hypertensive chronic kidney disease with stage 1 through stage 4 chronic kidney disease, or unspecified chronic kidney disease; I25.10 Atherosclerotic heart disease of native coronary artery without angina pectoris; Z79.899 Other long term (current) drug therapy